=== PATIENT | female | born 1945 | race Caucasian/White ===

== ENCOUNTER 2017-05-21 08:13 | Inpatient (IN) | payer OTHER ==
[2017-05-21] MEDS ORDERED: DUONEB 0.5 MG/3 MG NEB ONE (08:57)
--- NOTE | 2017-05-21 08:58 | DR.SOBA ---
HPI - Time Seen Time seen: 08:50 - Primary Care Physician Primary Care Physician: GIOVANNI RAYA - HPI Comment HPI Comment: 72 y/o female with known hx. of COPD has been progressively SOB x 3 days but more so with exertion today. Her PCP had called in son oral antibiotics + Prednisone for her yesterday. She hasn't used the Prednisone yet but had a dose of the antibiotic last night. She has no chest pain of fever. - Complaints Chief Complaint:: PT C/O INCREASED SOB, HER SATS WERE [address] CORNELL CALLED HER IN AN ABX, AND STEROID AND SHE DID NOT TAKE IT". - Reviewed Nurses Notes Reviewed: Yes - Source History Provided: Patient - Mode of Arrival Mode of Arrival: Wheelchair - Timing Onset of Chief Complaint: 05/20/17 - Context Onset:: With Light Exertion PE Risk Factors:: None History of:: COPD Currently on:: Inhaled Bronchodilators Prehospital Care:: O2 (Home O2 dependent) - Modifying Factors Worsens:: Exertion Improves:: Nothing - Associated Signs and Symptoms Associated Signs and Symptoms: None - If Cough Cough: None PMH - PMH Past Medical History: Yes Past Medical History: Anxiety, COPD, Dyslipidemia, Hypertension Past Surgical History: Yes Surgical History: Appendectomy - Family History History of Family Medical Conditions: Yes Family Medical History: Cancer, [place], Coronary Artery Disease, Hypertension - Social History Does patient currently use any type of tobacco product: No Have you used tobacco products in the last 12 months: No How many years tobacco product used: 50 Does any household member use tobacco: No Alcohol Use: None Do you use any recreational Drugs:: No Lives With: Family Lives Where: Home - infectious screening In the last 2 months have you had wt loss of >10#?: NO Have you had fever, night sweats or hemotysis?: No Have you traveled outside the country in the last 6 months?: No Isolation: Standard ROS - Review of Systems Constitutional: No Symptoms Reported Eyes: No Symptoms Reported ENTM: No Symptoms Reported Respiratoy: Short of Breath Cardiovascular: No Symptoms Reported Gastrointestinal/Abdominal: No Symptoms Reported Genitourinary: No Symptoms Reported Neurological: No Symptoms Reported Musculoskeletal: No Symptoms Reported Integumentary: No Symptoms Reported Hematologic/Lymphatic: No Symptoms Reported Endocrine: No Symptoms Reported Psychiatric: No Symptoms Reported All Other Systems: Reviewed and Negative PE - Vital Signs Vitals: Temperature 97.7 F Pulse Rate [Right Radial] 87 Pulse Rate 109 Respiratory Rate 20 Blood Pressure [Left Arm] 144/67 Blood Pressure [Right Arm] 148/66 Blood Pressure 194/88 O2 Sat by Pulse Oximetry 97 - General Limitations: No Limitations General Appearance: Alert, In No Apparent Distress - Head Head Exam: Normal Inspection - Eyes Eye exam: Normal Appearance - ENT ENT Exam: Normal Exam - Neck Neck Exam: Normal Inspection - Chest Chest Inspection: Normal Inspection, Symmetric Chest Wall Rise, Other (clear but distant BS) - Cardiovascular Cardiovascular Exam: Regular Rate, Normal Rhythm - Abdominal Exam Abdominal Exam: Normal Inspection, Normal Bowel Sounds, Soft - Extremities Extremities Exam: Normal Inspection - Back Back Exam: Normal Inspection - Neurologic Neurological Exam: Alert, Oriented X3, CN II-XII Intact - Psychiatric Psychiatric Exam: Normal Affect, Normal Mood - Skin Skin Exam: Warm, Dry, Intact, Normal Color ROR - Labs Reviewed Result Diagrams: 05/21/17 09:15 05/21/17 09:15 Laboratory: WBC 4.4 X10^3/uL (3.6-10.0) 05/21/17 09:15 RBC 4.65 X10^6/uL (3.5-5.4) 05/21/17 09:15 Hgb 13.6 g/dL (12.0-16.0) 05/21/17 09:15 Hct 40.3 % (36.0-47.0) 05/21/17 09:15 MCV 86.7 fL (80.0-100.0) 05/21/17 09:15 MCH 29.3 pg (27.0-34.0) 05/21/17 09:15 MCHC 33.9 g/dL (33.0-35.0) 05/21/17 09:15 RDW 13.1 % (11.6-16.5) 05/21/17 09:15 Plt Count 98 X10^3/uL (150.0-450.0) L 05/21/17 09:15 MPV 10.4 fL (7.4-11.0) 05/21/17 09:15 Neut % 71.3 % (42.0-75.0) 05/21/17 09:15 Lymph % 14.9 % (21.0-51.0) L 05/21/17 09:15 Bay % 12.6 % (0.0-13.0) 05/21/17 09:15 Eos % 0.6 % (0.9-2.9) L 05/21/17 09:15 Baso % 0.6 % (0.2-1.0) 05/21/17 09:15 Neut # 3.2 x10^3/uL (2.2-4.8) 05/21/17 09:15 Lymph # 0.7 X10^3/uL (1.3-2.9) L 05/21/17 09:15 Bay # 0.6 x10^3/uL (0.3-0.8) 05/21/17 09:15 Eos # 0.0 x10^3/uL (0.0-0.2) 05/21/17 09:15 Baso # 0.0 X10^3/uL (0.0-0.1) 05/21/17 09:15 Absolute Nucleated RBC 0.0 /100WBC 05/21/17 09:15 Sample Site [facility] 05/21/17 09:45 ABG pH 7.380 (7.35-7.45) 05/21/17 09:45 ABG pCO2 64.0 mmHg (35.0-45.0) H* 05/21/17 09:45 ABG pO2 86.0 mmHg (80.0-100.0) 05/21/17 09:45 ABG HCO3 37.9 mmol/L (22-26) H* 05/21/17 09:45 ABG O2 Saturation 96.0 % (90-100) 05/21/17 09:45 ABG Base Excess 10.4 mmol/L (-2.0-2.0) H 05/21/17 09:45 Dony Test Na 05/21/17 09:45 A-a Gradient 62.0 mmHg 05/21/17 09:45 FiO2 32.000 05/21/17 09:45 Blood Gas Comments [facility] 05/21/17 09:45 Sodium 143 mmol/L (136-145) 05/21/17 09:15 Corrected Sodium TNP 05/21/17 09:15 Potassium 4.1 mmol/L (3.5-5.1) 05/21/17 09:15 Chloride 101 mmol/L (98-107) 05/21/17 09:15 Carbon Dioxide 34.9 mmol/L (21-32) H 05/21/17 09:15 BUN 9 mg/dL (7-18) 05/21/17 09:15 Creatinine 0.64 mg/dL (0.55-1.02) 05/21/17 09:15 Est GFR (MDRD) Af Amer > 60 (>60) 05/21/17 09:15 Est GFR (MDRD) Non-Af > 60 (>60) 05/21/17 09:15 Glucose 95 mg/dL (65-99) 05/21/17 09:15 Calcium 8.9 mg/dL (8.5-10.1) 05/21/17 09:15 Corrected Calcium 9.5 mg/dL (8.5-10.1) 05/21/17 09:15 Total Bilirubin 0.20 mg/dL (0.2-1.0) 05/21/17 09:15 AST 37 Units/L (15-37) 05/21/17 09:15 ALT 24 Units/L (12-78) 05/21/17 09:15 Alkaline Phosphatase 51 Units/L (46-116) 05/21/17 09:15 Creatine Kinase 160 Units/L (26-192) 05/21/17 09:15 CK-MB (CK-2) 4.6 ng/mL (0-4.0) H* 05/21/17 09:15 CK/CKMB % Calc 2.9 % (<4) 05/21/17 09:15 Troponin I 0.02 ng/mL (0-1.5) 05/21/17 09:15 Total Protein 6.6 g/dL (6.4-8.2) 05/21/17 09:15 Albumin 3.2 g/dL (3.4-5.0) L 05/21/17 09:15 Globulin 3.4 g/dL (2.5-4.5) 05/21/17 09:15 Albumin/Globulin Ratio 0.9 Ratio (1.1-2.1) L 05/21/17 09:15 - XRAY XRAY Interpreted by: Radiologist (CXR report: no acute cardiopulmonary findings. underlying COPD, interval clearing of bibasilar infiltrate, borderline cardiomegaly without vascular congestion.) - Diagnosis Discharge Problem: COPD with exacerbation, Anxiety, Hyperlipidemia, Hypertension - Discharge Plan Disposition: ADMITTED INPATIENT Condition: Stable - Follow ups/Referrals Follow ups/Referrals: Saw Cornell [Primary Care Provider] - 3 days - Instructions
[2017-05-21] MEDS ORDERED: SOLU-Medrol 40 MG VIAL IVP ONE (09:01)
[2017-05-21] MEDS ORDERED: CATAPRES TAB 0.1 MG PO ONE (09:03)
[2017-05-21] MEDS ORDERED: SOLU-Medrol 125 MG VIAL ONE (09:15)
[2017-05-21 09:24] LABS: BASOPHILS % (AUTO) 0.6 % (0.2-1.0); EOSINOPHILS % (AUTO) 0.6 % (0.9-2.9); HEMATOCRIT 40.3 % (36.0-47.0); HEMOGLOBIN 13.6 g/dL (12.0-16.0); LYMPHOCYTES # (AUTO) 0.7 X10^3/uL (1.3-2.9); LYMPHOCYTES % (AUTO) 14.9 % (21.0-51.0); MEAN CORPUSCULAR HEMOGLOBIN 29.3 pg (27.0-34.0); MEAN CORPUSCULAR HGB CONC 33.9 g/dL (33.0-35.0); MEAN CORPUSCULAR VOLUME 86.7 fL (80.0-100.0); MEAN PLATELET VOLUME 10.4 fL (7.4-11.0); MONOCYTES # (AUTO) 0.6 x10^3/uL (0.3-0.8); MONOCYTES % (AUTO) 12.6 % (0.0-13.0); NEUTROPHILS # (AUTO) 3.2 x10^3/uL (2.2-4.8); NEUTROPHILS % (AUTO) 71.3 % (42.0-75.0); PLATELET COUNT 98 X10^3/uL (150.0-450.0); RED BLOOD COUNT 4.65 X10^6/uL (3.5-5.4); RED CELL DISTRIBUTION WIDTH 13.1 % (11.6-16.5); WHITE BLOOD COUNT 4.4 X10^3/uL (3.6-10.0)
--- NOTE | 2017-05-21 09:45 | RAD ---
HISTORY: Dyspnea. COPD. Study: AP portable chest Comparison: 10/27/2015 Findings: Mild interstitial fibrosis is noted. Moderate hyperinflation is noted. Borderline cardiomegaly is p resent. Atherosclerotic changes present within the thoracic aorta. No acute bony abnormalities are identified. IMPRESSION: 1. Findings of underlying chronic obstructive pulmonary disease. 2. Interval clearing of the bibasilar atelectasis/infiltrate. 3. Borderline cardiomegaly without evidence of failure. 4. No radiographic evidence of acute cardiopulmonary disease. Reported By:
[2017-05-21 09:52] LABS: ABG BASE EXCESS 10.4 mmol/L (-2.0-2.0)
[2017-05-21 09:52] LABS: BLOOD UREA NITROGEN 9 mg/dL (7-18); CALCIUM 8.9 mg/dL (8.5-10.1); CARBON DIOXIDE 34.9 mmol/L (21-32); CHLORIDE 101 mmol/L (98-107); CREATININE 0.64 mg/dL (0.55-1.02); SODIUM 143 mmol/L (136-145); TROPONIN I 0.02 ng/mL (0-1.5); eGFR BLACK RACES > 60 (>60); eGFR NON BLACK RACES > 60 (>60)
[2017-05-21 09:54] LABS: ABG HCO3 37.9 mmol/L (22-26)
[2017-05-21 10:07] LABS: ALANINE AMINOTRANSFERASE 24 Units/L (12-78); ALBUMIN 3.2 g/dL (3.4-5.0); ALKALINE PHOSPHATASE 51 Units/L (46-116); ASPARTATE AMINO TRANSFERASE 37 Units/L (15-37); CKMB % 2.9 % (<4); COR CA(FOR HYPOALB) 9.5 mg/dL (8.5-10.1); CREATINE KINASE 160 Units/L (26-192); TOTAL PROTEIN 6.6 g/dL (6.4-8.2)
[2017-05-21 10:08] LABS: CREATINE KINASE MB 4.6 ng/mL (0-4.0)
--- NOTE | 2017-05-21 12:19 | RAD ---
Examination: Chest, PA and lateral views History: SOB Comparison reference: Earlier same date Findings: Continued normal heart size, arteriosclerotic aorta, and symmetric pulmonary hyperaeration. There is no evidence for infiltrate or pleural fluid. The central pulmonary arteries are prominent. Impression: Suspect COPD. No acute pulmonary or pleural lesion demonstrated. Reported By:
[2017-05-21] MEDS: ROBITUSSIN (PLAIN) PO SCH ×4 (12:34→20:38)
[2017-05-21] MEDS: DUONEB 0.5 MG/3 MG NEB SCH ×3 (12:53→20:24)
[2017-05-21] MEDS ORDERED: SALINE 3% 15 ML NEB TX ONE (13:02)
[2017-05-21] MEDS: NS 1000 ML 1,000 ML IV SCH (14:16)
[2017-05-21 17:22] VITALS: BMI 19.4
[2017-05-21] MEDS: PULMICORT NEB TX 0.5 MG NEB SCH (20:24)
[2017-05-21] MEDS: ROCEPHIN VIAL 1 GM 1 GM in D5W 50 ML IV 50 ML IV SCH (20:33)
[2017-05-21] MEDS ORDERED: VISTARIL PO PRN (22:51)
[2017-05-22] MEDS: DUONEB 0.5 MG/3 MG NEB SCH ×6 (01:13→20:18)
[2017-05-22 04:42] LABS: BASOPHILS % (AUTO) 0.2 % (0.2-1.0); EOSINOPHILS % (AUTO) 0.1 % (0.9-2.9); HEMOGLOBIN 11.7 g/dL (12.0-16.0); LYMPHOCYTES # (AUTO) 0.9 X10^3/uL (1.3-2.9); LYMPHOCYTES % (AUTO) 19.6 % (21.0-51.0); MEAN CORPUSCULAR HEMOGLOBIN 29.7 pg (27.0-34.0); MEAN CORPUSCULAR HGB CONC 34.3 g/dL (33.0-35.0); MEAN CORPUSCULAR VOLUME 86.4 fL (80.0-100.0); MEAN PLATELET VOLUME 11.2 fL (7.4-11.0); MONOCYTES # (AUTO) 0.5 x10^3/uL (0.3-0.8); MONOCYTES % (AUTO) 11.6 % (0.0-13.0); NEUTROPHILS # (AUTO) 3.1 x10^3/uL (2.2-4.8); NEUTROPHILS % (AUTO) 68.5 % (42.0-75.0); PLATELET COUNT 100 X10^3/uL (150.0-450.0); RED BLOOD COUNT 3.93 X10^6/uL (3.5-5.4); RED CELL DISTRIBUTION WIDTH 12.7 % (11.6-16.5); WHITE BLOOD COUNT 4.5 X10^3/uL (3.6-10.0)
[2017-05-22 05:32] LABS: AMYLASE 34 Units/L (25-115); BLOOD UREA NITROGEN 7 mg/dL (7-18); CALCIUM 8.3 mg/dL (8.5-10.1); CARBON DIOXIDE 33.7 mmol/L (21-32); CHLORIDE 106 mmol/L (98-107); CREATININE 0.52 mg/dL (0.55-1.02); LIPASE 70 Units/L (73-393); SODIUM 144 mmol/L (136-145); eGFR BLACK RACES > 60 (>60); eGFR NON BLACK RACES > 60 (>60)
[2017-05-22] MEDS: ROCEPHIN VIAL 1 GM 1 GM in D5W 50 ML IV 50 ML IV SCH ×2 (08:29→20:31)
[2017-05-22] MEDS: SOLU-Medrol 40 MG VIAL IVP SCH ×2 (08:29→17:43)
[2017-05-22] MEDS: PULMICORT NEB TX 0.5 MG NEB SCH ×2 (08:35→20:19)
[2017-05-22] MEDS: ROBITUSSIN (PLAIN) PO SCH ×4 (08:35→20:41)
--- NOTE | 2017-05-22 11:55 | DR.H&P ---
H&P - History & Physical for Day of: H&P Date: 05/21/17 - Chief Complaint Chief Complaint: SHORT OF BREATH - Allergies Allergies/Adverse Reactions: Allergies Allergy/AdvReac Type Severity Reaction Status Date / Time No Known Drug Allergies Allergy Verified 05/21/17 08:19 - History of Present Illness History of Present Illness: IS A 72 YEAR OLD PATIENT OF OURS WHO PRESENTED TO THE EMERGENCY ROOM WITH COMPLAINTS OF INCREASED SHORNTESS OF BREATH. PATIENT REPORTS THAT SYMPTOMS STARTED THREE DAYS AGO AND HAVE PROGRESSIVELY GOTTEN WORSE. SHE REPORTS THAT SHORTNESS OF BREATH IS WORSE ON EXERTION. PATIENT HAS A KNOWN HISTORY OF COPD. SHE DENIES CHEST PAIN AND FEVER. ON EXAMINATION, HEART RATE IS RAPID AND REGULAR. CHILD AND ADOLESCENT THERAPIST SHOWS SINUS TACHYCARDIA. BILATERAL LUNG SOUNDS ARE DIMINISHED. ABDOMEN IS ROUND, SOFT, AND NON-TENDER WITH NORMAL BOWEL SOUNDS NOTED IN ALL QUADRANTS. ON ARRIVAL TO THE EMERGENCY ROOM, HER VITAL SIGNS WERE NOTED TO BE 97.7-109-20-91%-194/88. LABS, CHEST XRAY, AND EKG WERE OBTAINED. ABNORMAL LAB VALUES INCLUDE THE FOLLOWING: PLT COUNT 98, CARBON DIOXIDE 34.9, CK-MB 4.6, ALBUMIN 3.2, A/G RATIO 0.9. ABG REPORTED PH 7.380, P02 64, HC03 37.9, BASE EXCESS 10.4. CHEST XRAY REPORTED FINDINGS OF UNDERLYING CHRONIC OBSTRUCTIVE PULMONARY DISEASE. INTERVAL CLEARING OF THE BIBASILAR ATELECTASIS/INFILTRATE. BORDERLINE CARDIOMEGALY WITHOUT EVIDENCE OF FAILURE. EKG REPORTED SINUS RHYTHM, PROBABLE LEFT ATRIAL ENLARGEMENT. HR 90. SHE WAS GIVEN A DUONEB X 1, SOLUMEDROL 60MG IV X 1, AND CAPAPRES TABLET 0.1MG X 1 FOR INCREASED BLOOD PRESSURE. A DECREASE IN BLOOD PRESSURE TO 139/63 WAS NOTED. NO IMPROVEMENT IN SHORNTESS OF BREATH NOTED. WE ADMITTED PATIENT FOR FURTHER EVALUATION AND TREATMENT OF AN ACUTE COPD EXACERBATION. WE WILL CONTINUE DUONEBS Q4H, PULMICORT NEB [place] BID, SOLU-MEDROL 60MG IV Q8H. WE WILL FOLLOW UP WITH AM LABS AND CHEST XRAY AND CONTINUE TO MONITOR PATIENT. - Past Medical History Past Medical History: Anxiety, COPD, Dyslipidemia, Hypertension - Past Surgical History Surgical History: Appendectomy - Family History Family Medical History: Cancer, Hypertension - Social History Does patient currently use any type of tobacco product: Yes Have you used tobacco products in the last 12 months: Yes How many years tobacco product used: 50 Does any household member use tobacco: No Alcohol Use: None Drug Use: None - Review of Systems Constitutional: Weakness Eyes: No Symptoms Reported. denies: See HPI, Pain, Vision Change, Conjunctivae Inflammation, Eyelid Inflammation, Redness, Other ENT: No Symptoms Reported. denies: See HPI, Ear Pain, Ear Discharge, Nose Pain , Nose Discharge, Nose Congestion, Mouth Pain, Mouth Swelling, Throat Pain, Throat Swelling, Other Respiratory: Shortness of Breath, SOB with Excertion. denies: Cough, Sputum, Wheezing Cardiovascular: No Symptoms Reported. denies: Chest Pain, See HPI, Palpitations , Orthopnea, Paroxysmal Noc. Dyspnea, Edema, Light Headedness, Other Gastrointestinal: No Symptoms Reported. denies: See HPI, Nausea, Vomiting, Abdominal Pain, Diarrhea, Constipation, Melena, Hematochezia, Other Genitourinary: No Symptoms Reported. denies: See HPI, Dysuria, Frequency, Incontinence, Hematuria, Retention, Other Musculoskeletal: No Symptoms Reported. denies: See HPI, Shoulder Pain, Arm Pain , Back Pain, Hand Pain, Leg Pain, Foot Pain, Neck Pain, Other Skin: No Symptoms Reported. denies: See HPI, Rash, Lesions, Jaundice, Bruising , Wound, Ecchymosis, Other Neurological: Weakness - Physical Exam Vital Signs: Temperature 98.1 F Pulse Rate [Right Radial] 75 Pulse Rate 71 Respiratory Rate 18 Blood Pressure [Left Arm] 160/65 Blood Pressure [Right Arm] 145/66 Blood Pressure 194/88 O2 Sat by Pulse Oximetry 98 Oriented: Normal. negative: Time, Person, Place, Not Oriented, Unable to test, Other Eyes: Normal. negative: Blurred Vision, Diplopia, Discharge, Pain, Redness, Photophobia, Other Ear: Normal. negative: Right, Left, Swelling, Ecchymosis, Hemotypanum, Abrasion , Laceration Nose: Normal. negative: Injected, Discharge, Blood, Other Throat: Normal. negative: Tonsillar Hypertrophy, Red, Exudate, Dry, Other Respiratory: Diminished Throughout Cardiovascular: Tachycardia : Normal. negative: Dysuria, Hematuria, Frequency, Discharge, Testicular Pain , Bleeding, , Other Auscultation: Bowel Sounds: Normal. negative: Bruit, Absent, Increased, Decreased, High Pitched, Other Palpation: Normal. negative: Spleen Enlarged, Liver Enlarged, Mass Pulsatile, Other Tenderness: Normal Skin: Normal. negative: Decreased Turgur, Rash, Papular, Macular, Maculopapular , Vesicular, Pustular, Petechial, Red, Tender, Hot, Diaphoresis, Wound, Bruising , Ecchymosis, Other Musculoskeletal: Normal Psychiatric: Normal Mood Description: Calm Affect: Normal Speech Pattern: Clear - Assessment/Plan (1) COPD with exacerbation Status: Acute Plan: DUONEBS Q4H, PULMICORT NEB [place] BID, SOLU-MEDROL 60MG IV Q8H, MONITOR LABS AND CHEST XRAY
[2017-05-22] MEDS: NS 1000 ML 1,000 ML IV SCH ×2 (12:37→15:33)
[2017-05-22] MEDS: KLONOPIN TAB 0.5 MG PO SCH (20:33)
--- NOTE | 2017-05-22 21:42 | PCM.PROG ---
Progress Note - Progress Note for Day of Date: 05/22/17 - Subjective Subjective: WAS ADMITTED FOR COPD EXACERBATION. TODAY, SHE IS ALERT AND ORIENTED, LYING IN BED ON MORNING ROUNDS. PATIENT CONTINUES WITH COMPLAINTS OF SHORNTESS OF BREATH. SHE REPORTS SLIGHT IMPROVEMENT SINCE YESTERDAY. ON EXAMINATION, HEART IS NORMAL IN RATE AND RHYTHM. LUNG SOUNDS ARE DIMINISHED THROUGHOUT. SHE IS NOTED TO BE UTILIZING OXYGEN VIA NASAL CANNULA AT 2L/MIN. ABDOMEN IS ROUND, SOFT, AND NON-TENDER WITH NORMAL BOWEL SOUNDS NOTED IN ALL QUADRANTS. GOOD MOVEMENT NOTED IN ALL EXTREMITIES. HER VITAL SIGNS THIS MORNING ARE 98.6-71-20-98%-134/60. ABNORMAL LAB VALUES TODAY INCLUDE THE FOLLOWING? HGB 11.7, HCT 34.0, CARBON DIOXIDE 33.7, CREATININE 0.52, GLUCOSE 101, CALCIUM 8.3, LIPASE 70. SHE IS CURRENTLY RECEIVING NEB TREATMENTS AND SOLUMEDROL 60MG IV Q8H. WE WILL CONTINUE [facility] CURRENT PLAN OF CARE TODAY. WE PLAN TO FOLLOW UP WITH AM LABS AND CONTINUE TO MONITOR PATIENT. - Past Medical Family Social History Past Med/Fam/Surg Hx: No changes since H&P Allergies: Allergies No Known Drug Allergies Allergy (Verified 05/21/17 08:19) - Review of Systems ROS: No change since H&P - Vital Signs and I&O's Vital Signs: Temperature 98.6 F Pulse Rate [Right Radial] 71 Pulse Rate 88 Respiratory Rate 20 Blood Pressure [Left Arm] 169/72 Blood Pressure [Right Arm] 145/66 Blood Pressure 194/88 O2 Sat by Pulse Oximetry 92 Intake and Output: Intake & Output 05/20/17 05/21/17 05/22/17 05/23/17 11:59 11:59 11:59 11:59 Intake Total 2400 1326 Balance 2400 1326 - Physical Exam Oriented: Normal. negative: Time, Person, Place, Not Oriented, Unable to test, Other Eyes: Normal. negative: Blurred Vision, Diplopia, Discharge, Pain, Redness, Photophobia, Other Ear: Normal. negative: Right, Left, Swelling, Ecchymosis, Hemotypanum, Abrasion , Laceration Nose: Normal. negative: Injected, Discharge, Blood, Other Throat: Normal. negative: Tonsillar Hypertrophy, Red, Exudate, Dry, Other Respiratory: Right, Left, Generalized, Diminished Cardiovascular: Normal : Normal. negative: Dysuria, Hematuria, Frequency, Discharge, Testicular Pain , Bleeding, , Other Auscultation: Bowel Sounds: Normal. negative: Bruit, Absent, Increased, Decreased, High Pitched, Other Palpation: Normal Tenderness: Normal Skin: Normal. negative: Decreased Turgur, Rash, Papular, Macular, Maculopapular , Vesicular, Pustular, Petechial, Red, Tender, Hot, Diaphoresis, Wound, Bruising , Ecchymosis, Other Musculoskeletal: Normal Psychiatric: Normal Mood Description: Calm Affect: Normal Speech Pattern: Clear - Laboratory and Diagnostics Result Diagrams: 05/22/17 03:30 05/22/17 03:30 Labs: 05/21/17 13:28 Sputum - Expectorated Sputum Sputum Culture - Preliminary 05/21/17 13:28 Sputum - Expectorated Sputum - Final Laboratory WBC 4.5 X10^3/uL (3.6-10.0) 05/22/17 03:30 RBC 3.93 X10^6/uL (3.5-5.4) 05/22/17 03:30 Hgb 11.7 g/dL (12.0-16.0) L 05/22/17 03:30 Hct 34.0 % (36.0-47.0) L 05/22/17 03:30 MCV 86.4 fL (80.0-100.0) 05/22/17 03:30 MCH 29.7 pg (27.0-34.0) 05/22/17 03:30 MCHC 34.3 g/dL (33.0-35.0) 05/22/17 03:30 RDW 12.7 % (11.6-16.5) 05/22/17 03:30 Plt Count 100 X10^3/uL (150.0-450.0) L 05/22/17 03:30 MPV 11.2 fL (7.4-11.0) H 05/22/17 03:30 Neut % 68.5 % (42.0-75.0) 05/22/17 03:30 Lymph % 19.6 % (21.0-51.0) L 05/22/17 03:30 Luce % 11.6 % (0.0-13.0) 05/22/17 03:30 Eos % 0.1 % (0.9-2.9) L 05/22/17 03:30 Baso % 0.2 % (0.2-1.0) 05/22/17 03:30 Neut # 3.1 x10^3/uL (2.2-4.8) 05/22/17 03:30 Lymph # 0.9 X10^3/uL (1.3-2.9) L 05/22/17 03:30 Luce # 0.5 x10^3/uL (0.3-0.8) 05/22/17 03:30 Eos # 0.0 x10^3/uL (0.0-0.2) 05/22/17 03:30 Baso # 0.0 X10^3/uL (0.0-0.1) 05/22/17 03:30 Absolute Nucleated RBC 0.0 /100WBC 05/22/17 03:30 Sample Site [facility] 05/21/17 09:45 ABG pH 7.380 (7.35-7.45) 05/21/17 09:45 ABG pCO2 64.0 mmHg (35.0-45.0) H* 05/21/17 09:45 ABG pO2 86.0 mmHg (80.0-100.0) 05/21/17 09:45 ABG HCO3 37.9 mmol/L (22-26) H* 05/21/17 09:45 ABG O2 Saturation 96.0 % (90-100) 05/21/17 09:45 ABG Base Excess 10.4 mmol/L (-2.0-2.0) H 05/21/17 09:45 Dony Test Na 05/21/17 09:45 A-a Gradient 62.0 mmHg 05/21/17 09:45 FiO2 32.000 05/21/17 09:45 Blood Gas Comments [facility] 05/21/17 09:45 Sodium 144 mmol/L (136-145) 05/22/17 03:30 Corrected Sodium TNP 05/22/17 03:30 Potassium 3.7 mmol/L (3.5-5.1) 05/22/17 03:30 Chloride 106 mmol/L (98-107) 05/22/17 03:30 Carbon Dioxide 33.7 mmol/L (21-32) H 05/22/17 03:30 BUN 7 mg/dL (7-18) 05/22/17 03:30 Creatinine 0.52 mg/dL (0.55-1.02) L 05/22/17 03:30 Est GFR (MDRD) Af Amer > 60 (>60) 05/22/17 03:30 Est GFR (MDRD) Non-Af > 60 (>60) 05/22/17 03:30 Glucose 101 mg/dL (65-99) H 05/22/17 03:30 Calcium 8.3 mg/dL (8.5-10.1) L 05/22/17 03:30 Corrected Calcium 9.5 mg/dL (8.5-10.1) 05/21/17 09:15 Total Bilirubin 0.20 mg/dL (0.2-1.0) 05/21/17 09:15 AST 37 Units/L (15-37) 05/21/17 09:15 ALT 24 Units/L (12-78) 05/21/17 09:15 Alkaline Phosphatase 51 Units/L (46-116) 05/21/17 09:15 Creatine Kinase 160 Units/L (26-192) 05/21/17 09:15 CK-MB (CK-2) 4.6 ng/mL (0-4.0) H* 05/21/17 09:15 CK/CKMB % Calc 2.9 % (<4) 05/21/17 09:15 Troponin I 0.02 ng/mL (0-1.5) 05/21/17 09:15 Total Protein 6.6 g/dL (6.4-8.2) 05/21/17 09:15 Albumin 3.2 g/dL (3.4-5.0) L 05/21/17 09:15 Globulin 3.4 g/dL (2.5-4.5) 05/21/17 09:15 Albumin/Globulin Ratio 0.9 Ratio (1.1-2.1) L 05/21/17 09:15 Amylase 34 Units/L (25-115) 05/22/17 03:30 Lipase 70 Units/L (73-393) L 05/22/17 03:30 - Plan (1) COPD with exacerbation Status: Acute Plan: DUONEBS Q4H, PULMICORT NEB [place] BID, SOLU-MEDROL 60MG IV Q8H, MONITOR LABS AND CHEST XRAY
[2017-05-23] MEDS: DUONEB 0.5 MG/3 MG NEB SCH ×6 (01:18→21:02)
[2017-05-23] MEDS: SOLU-Medrol 40 MG VIAL IVP SCH ×3 (02:00→17:34)
[2017-05-23] MEDS: NS 1000 ML 1,000 ML IV SCH ×3 (02:03→17:36)
[2017-05-23 05:13] LABS: BASOPHILS % (AUTO) 0.2 % (0.2-1.0); HEMOGLOBIN 12.5 g/dL (12.0-16.0); LYMPHOCYTES # (AUTO) 0.6 X10^3/uL (1.3-2.9); LYMPHOCYTES % (AUTO) 9.9 % (21.0-51.0); MEAN CORPUSCULAR HEMOGLOBIN 29.4 pg (27.0-34.0); MEAN CORPUSCULAR HGB CONC 33.7 g/dL (33.0-35.0); MEAN CORPUSCULAR VOLUME 87.2 fL (80.0-100.0); MEAN PLATELET VOLUME 11.3 fL (7.4-11.0); MONOCYTES # (AUTO) 0.2 x10^3/uL (0.3-0.8); MONOCYTES % (AUTO) 2.9 % (0.0-13.0); NEUTROPHILS # (AUTO) 5.5 x10^3/uL (2.2-4.8); PLATELET COUNT 125 X10^3/uL (150.0-450.0); RED BLOOD COUNT 4.24 X10^6/uL (3.5-5.4); WHITE BLOOD COUNT 6.4 X10^3/uL (3.6-10.0)
[2017-05-23 05:30] LABS: ALANINE AMINOTRANSFERASE 21 Units/L (12-78); ALBUMIN 2.8 g/dL (3.4-5.0); ALKALINE PHOSPHATASE 49 Units/L (46-116); ASPARTATE AMINO TRANSFERASE 27 Units/L (15-37); BLOOD UREA NITROGEN 11 mg/dL (7-18); CALCIUM 8.5 mg/dL (8.5-10.1); CARBON DIOXIDE 35.8 mmol/L (21-32); CHLORIDE 106 mmol/L (98-107); COR CA(FOR HYPOALB) 9.5 mg/dL (8.5-10.1); COR NA(FOR HYPERGLY) 146 mmol/L (136-145); SODIUM 145 mmol/L (136-145); TOTAL PROTEIN 6.2 g/dL (6.4-8.2); eGFR BLACK RACES > 60 (>60); eGFR NON BLACK RACES > 60 (>60)
--- NOTE | 2017-05-23 06:07 | RAD ---
Examination: Portable AP chest History: SOB Comparison reference 05/21/2017 Findings: Continued normal heart size with hyperaerated lungs. No infiltrates, pneumothorax or pleura l fluid. Impression: No change. Pulmonary hyperaeration consistent with COPD. Reported By:
[2017-05-23] MEDS: PULMICORT NEB TX 0.5 MG NEB SCH ×2 (08:30→21:02)
[2017-05-23] MEDS: ROCEPHIN VIAL 1 GM 1 GM in D5W 50 ML IV 50 ML IV SCH ×2 (08:50→20:28)
[2017-05-23] MEDS: ROBITUSSIN (PLAIN) PO SCH ×4 (10:01→20:27)
[2017-05-23] MEDS: MILK OF MAGNESIA PO SCH ×3 (11:48→20:28)
[2017-05-23] MEDS: COLACE CAP 100 MG PO SCH ×2 (11:48→20:27)
[2017-05-23] MEDS ORDERED: XANAX PO PRN (14:20)
[2017-05-23] MEDS ORDERED: THEOPHYLLINE 200 MG PO SCH (14:30)
[2017-05-23] MEDS ORDERED: TIOTROPIUM BROMIDE MONOHYDRATE IN SCH (14:30)
[2017-05-23] MEDS ORDERED: PATIENT'S HOME MEDICATION (Amlodipine Besylate [Amlodipine Besylate] 5 MG) PO SCH (14:30)
[2017-05-23] MEDS: UNIPHYL TAB 400 MG PO SCH (17:35)
[2017-05-23] MEDS: KLONOPIN TAB 0.5 MG PO SCH (20:27)
[2017-05-23] MEDS: LIPITOR TAB 20 MG PO SCH (20:28)
[2017-05-23] MEDS ORDERED: PATIENT'S HOME MEDICATION (Fenofibrate [Fenofibrate] 54 MG) PO SCH (21:00)
--- NOTE | 2017-05-23 21:28 | PCM.PROG ---
Progress Note - Progress Note for Day of Date: 05/23/17 - Subjective Subjective: WAS ADMITTED FOR COPD EXACERBATION. TODAY, SHE IS ALERT AND ORIENTED, LYING IN BED ON MORNING ROUNDS. PATIENT CONTINUES WITH COMPLAINTS OF SHORNTESS OF BREATH, COUGH, AND WEAKNESS. ON EXAMINATION, HEART IS NORMAL IN RATE AND RHYTHM. LUNG SOUNDS ARE DIMINISHED THROUGHOUT. SHE IS NOTED TO BE UTILIZING OXYGEN VIA NASAL CANNULA AT 2L/MIN. ABDOMEN IS ROUND, SOFT, AND NON- TENDER WITH NORMAL BOWEL SOUNDS NOTED IN ALL QUADRANTS. GOOD MOVEMENT NOTED IN ALL EXTREMITIES. HER VITAL SIGNS THIS MORNING ARE 97.6-72-18-100%-182/73. ABNORMAL LAB VALUES TODAY INCLUDE THE FOLLOWING? PLT COUNT 125, SODIUM 146, CARBON DIOXIDE 35.8, GLUCOSE 130, TOTAL BILI 0.10, TOTAL PROTEIN 6.2, ALBUMIN 2.8. A CHEST XRAY WAS OBTAINED THIS MORNING AND REPORTED PULMONARY HYPERAERATION CONSISTENT WITH COPD. SHE IS CURRENTLY RECEIVING NEB TREATMENTS AND SOLUMEDROL 60MG IV Q8H. WE WILL CONTINUE WITH CURRENT PLAN OF CARE TODAY. WE PLAN TO FOLLOW UP WITH AM LABS AND CONTINUE TO MONITOR PATIENT. - Past Medical Family Social History Past Med/Fam/Surg Hx: No changes since H&P Allergies: Allergies No Known Drug Allergies Allergy (Verified 05/21/17 08:19) - Review of Systems ROS: No change since H&P - Vital Signs and I&O's Vital Signs: Temperature 98.7 F Pulse Rate [Right Radial] 67 Pulse Rate 67 Respiratory Rate 20 Blood Pressure [Left Arm] 183/70 Blood Pressure [Right Arm] 149/56 Blood Pressure 194/88 O2 Sat by Pulse Oximetry 97 Intake and Output: Intake & Output 05/21/17 05/22/17 05/23/17 05/24/17 11:59 11:59 11:59 11:59 Intake Total 2400 2556 1883 Balance 2400 2556 1883 - Physical Exam Oriented: Normal. negative: Time, Person, Place, Not Oriented, Unable to test, Other Eyes: Normal. negative: Blurred Vision, Diplopia, Discharge, Pain, Redness, Photophobia, Other Ear: Normal. negative: Right, Left, Swelling, Ecchymosis, Hemotypanum, Abrasion , Laceration Nose: Normal. negative: Injected, Discharge, Blood, Other Throat: Normal. negative: Tonsillar Hypertrophy, Red, Exudate, Dry, Other Respiratory: Right, Left, Generalized, Diminished Cardiovascular: Normal : Normal. negative: Dysuria, Hematuria, Frequency, Discharge, Testicular Pain , Bleeding, , Other Auscultation: Bowel Sounds: Normal. negative: Bruit, Absent, Increased, Decreased, High Pitched, Other Palpation: Normal Tenderness: Normal Skin: Normal. negative: Decreased Turgur, Rash, Papular, Macular, Maculopapular , Vesicular, Pustular, Petechial, Red, Tender, Hot, Diaphoresis, Wound, Bruising , Ecchymosis, Other Musculoskeletal: Normal Psychiatric: Normal Mood Description: Calm Affect: Normal Speech Pattern: Clear, Appropriate - Laboratory and Diagnostics Result Diagrams: 05/23/17 03:35 05/23/17 03:35 Labs: 05/21/17 13:28 Sputum - Expectorated Sputum Sputum Culture - Final 05/21/17 13:28 Sputum - Expectorated Sputum - Final Laboratory WBC 6.4 X10^3/uL (3.6-10.0) 05/23/17 03:35 RBC 4.24 X10^6/uL (3.5-5.4) 05/23/17 03:35 Hgb 12.5 g/dL (12.0-16.0) 05/23/17 03:35 Hct 37.0 % (36.0-47.0) 05/23/17 03:35 MCV 87.2 fL (80.0-100.0) 05/23/17 03:35 MCH 29.4 pg (27.0-34.0) 05/23/17 03:35 MCHC 33.7 g/dL (33.0-35.0) 05/23/17 03:35 RDW 13.0 % (11.6-16.5) 05/23/17 03:35 Plt Count 125 X10^3/uL (150.0-450.0) L 05/23/17 03:35 MPV 11.3 fL (7.4-11.0) H 05/23/17 03:35 Neut % 87.0 % (42.0-75.0) H 05/23/17 03:35 Lymph % 9.9 % (21.0-51.0) L 05/23/17 03:35 [place] % 2.9 % (0.0-13.0) 05/23/17 03:35 Eos % 0.0 % (0.9-2.9) L 05/23/17 03:35 Baso % 0.2 % (0.2-1.0) 05/23/17 03:35 Neut # 5.5 x10^3/uL (2.2-4.8) H 05/23/17 03:35 Lymph # 0.6 X10^3/uL (1.3-2.9) L 05/23/17 03:35 [place] # 0.2 x10^3/uL (0.3-0.8) L 05/23/17 03:35 Eos # 0.0 x10^3/uL (0.0-0.2) 05/23/17 03:35 Baso # 0.0 X10^3/uL (0.0-0.1) 05/23/17 03:35 Absolute Nucleated RBC 0.0 /100WBC 05/23/17 03:35 [facility] 05/21/17 09:45 ABG pH 7.380 (7.35-7.45) 05/21/17 09:45 ABG pCO2 64.0 mmHg (35.0-45.0) H* 05/21/17 09:45 ABG pO2 86.0 mmHg (80.0-100.0) 05/21/17 09:45 ABG HCO3 37.9 mmol/L (22-26) H* 05/21/17 09:45 ABG O2 Saturation 96.0 % (90-100) 05/21/17 09:45 ABG Base Excess 10.4 mmol/L (-2.0-2.0) H 05/21/17 09:45 Dony Test Na 05/21/17 09:45 A-a Gradient 62.0 mmHg 05/21/17 09:45 FiO2 32.000 05/21/17 09:45 Blood Gas Comments [facility] 05/21/17 09:45 Sodium 145 mmol/L (136-145) 05/23/17 03:35 Corrected Sodium 146 mmol/L (136-145) H 05/23/17 03:35 Potassium 5.0 mmol/L (3.5-5.1) 05/23/17 03:35 Chloride 106 mmol/L (98-107) 05/23/17 03:35 Carbon Dioxide 35.8 mmol/L (21-32) H 05/23/17 03:35 BUN 11 mg/dL (7-18) 05/23/17 03:35 Creatinine 0.70 mg/dL (0.55-1.02) 05/23/17 03:35 Est GFR (MDRD) Af Amer > 60 (>60) 05/23/17 03:35 Est GFR (MDRD) Non-Af > 60 (>60) 05/23/17 03:35 Glucose 130 mg/dL (65-99) H 05/23/17 03:35 Calcium 8.5 mg/dL (8.5-10.1) 05/23/17 03:35 Corrected Calcium 9.5 mg/dL (8.5-10.1) 05/23/17 03:35 Total Bilirubin 0.10 mg/dL (0.2-1.0) L 05/23/17 03:35 AST 27 Units/L (15-37) 05/23/17 03:35 ALT 21 Units/L (12-78) 05/23/17 03:35 Alkaline Phosphatase 49 Units/L (46-116) 05/23/17 03:35 Creatine Kinase 160 Units/L (26-192) 05/21/17 09:15 CK-MB (CK-2) 4.6 ng/mL (0-4.0) H* 05/21/17 09:15 CK/CKMB % Calc 2.9 % (<4) 05/21/17 09:15 Troponin I 0.02 ng/mL (0-1.5) 05/21/17 09:15 Total Protein 6.2 g/dL (6.4-8.2) L 05/23/17 03:35 Albumin 2.8 g/dL (3.4-5.0) L 05/23/17 03:35 Globulin 3.4 g/dL (2.5-4.5) 05/23/17 03:35 Albumin/Globulin Ratio 0.8 Ratio (1.1-2.1) L 05/23/17 03:35 Amylase 34 Units/L (25-115) 05/22/17 03:30 Lipase 70 Units/L (73-393) L 05/22/17 03:30 - Plan (1) COPD with exacerbation Status: Acute Plan: DUONEBS Q4H, PULMICORT NEB TX BID, SOLU-MEDROL 60MG IV Q8H, MONITOR LABS AND CHEST XRAY
[2017-05-23] MEDS ORDERED: XOPENEX 1.25 MG/3 ML NEBULE NEB SCH (22:00)
[2017-05-24] MEDS: DUONEB 0.5 MG/3 MG NEB SCH ×6 (01:08→21:25)
[2017-05-24] MEDS: SOLU-Medrol 40 MG VIAL IVP SCH ×3 (01:22→17:44)
[2017-05-24 04:46] LABS: ALANINE AMINOTRANSFERASE 18 Units/L (12-78); ALBUMIN 2.5 g/dL (3.4-5.0); ALKALINE PHOSPHATASE 50 Units/L (46-116); ASPARTATE AMINO TRANSFERASE 24 Units/L (15-37); BLOOD UREA NITROGEN 14 mg/dL (7-18); CALCIUM 8.1 mg/dL (8.5-10.1); CARBON DIOXIDE 35.2 mmol/L (21-32); CHLORIDE 106 mmol/L (98-107); COR CA(FOR HYPOALB) 9.3 mg/dL (8.5-10.1); COR NA(FOR HYPERGLY) 145 mmol/L (136-145); SODIUM 144 mmol/L (136-145); TOTAL PROTEIN 5.5 g/dL (6.4-8.2); eGFR BLACK RACES > 60 (>60); eGFR NON BLACK RACES > 60 (>60)
[2017-05-24 04:48] LABS: BASOPHILS % (AUTO) 0.2 % (0.2-1.0); HEMATOCRIT 32.6 % (36.0-47.0); HEMOGLOBIN 11.3 g/dL (12.0-16.0); LYMPHOCYTES # (AUTO) 0.6 X10^3/uL (1.3-2.9); LYMPHOCYTES % (AUTO) 7.3 % (21.0-51.0); MEAN CORPUSCULAR HEMOGLOBIN 29.6 pg (27.0-34.0); MEAN CORPUSCULAR HGB CONC 34.5 g/dL (33.0-35.0); MEAN CORPUSCULAR VOLUME 85.8 fL (80.0-100.0); MEAN PLATELET VOLUME 11.3 fL (7.4-11.0); MONOCYTES # (AUTO) 0.2 x10^3/uL (0.3-0.8); MONOCYTES % (AUTO) 2.5 % (0.0-13.0); NEUTROPHILS # (AUTO) 7.8 x10^3/uL (2.2-4.8); PLATELET COUNT 133 X10^3/uL (150.0-450.0); WHITE BLOOD COUNT 8.6 X10^3/uL (3.6-10.0)
[2017-05-24] MEDS ORDERED: NS 1/2 1000 ML IV 1,000 ML IV ONE (05:14)
[2017-05-24] MEDS: NS 1000 ML 1,000 ML IV SCH ×3 (05:22→20:37)
[2017-05-24] MEDS: PULMICORT NEB TX 0.5 MG NEB SCH ×2 (08:32→21:25)
--- NOTE | 2017-05-24 08:43 | RAD ---
Examination: Portable AP chest History: SOB Comparison reference: 05/23/2017 Findings: Continued normal heart size with hyperaerated lungs. Interval development of small areas of subsegmental atelectasis in the right base. No evidence for pneumothorax or pleural fluid. Carotid/v ascular calcification is noted in the right neck. Impression: Interval appearance of mild discoid atelectasis right lung base. No change otherwise. Reported By:
[2017-05-24] MEDS: ROCEPHIN VIAL 1 GM 1 GM in D5W 50 ML IV 50 ML IV SCH ×2 (09:13→20:37)
[2017-05-24] MEDS: ROBITUSSIN (PLAIN) PO SCH ×4 (09:14→20:38)
[2017-05-24] MEDS: MILK OF MAGNESIA PO SCH ×2 (09:14→20:40)
[2017-05-24] MEDS: TRICOR TAB 48 MG PO SCH (09:15)
[2017-05-24] MEDS: UNIPHYL TAB 400 MG PO SCH (09:15)
[2017-05-24] MEDS: NORVASC TAB 5 MG PO SCH (09:15)
[2017-05-24] MEDS: COLACE CAP 100 MG PO SCH (20:37)
[2017-05-24] MEDS: LIPITOR TAB 20 MG PO SCH (20:38)
[2017-05-24] MEDS: KLONOPIN TAB 0.5 MG PO SCH (20:38)
--- NOTE | 2017-05-24 23:38 | PCM.PROG ---
Progress Note - Progress Note for Day of Date: 05/24/17 - Subjective Subjective: WAS ADMITTED FOR COPD EXACERBATION. TODAY, SHE IS ALERT AND ORIENTED, LYING IN BED ON MORNING ROUNDS. PATIENT CONTINUES WITH COMPLAINTS OF SHORNTESS OF BREATH, COUGH, AND WEAKNESS. SHE REPORTS THAT SYMPTOMS ARE WORSE TODAY THAN YESTERDAY. SHE REPORTS THAT SHORNTESS OF BREATH IS WORSE ON EXERTION. ON EXAMINATION, HEART IS NORMAL IN RATE AND RHYTHM. LUNG SOUNDS ARE DIMINISHED THROUGHOUT. SHE IS NOTED TO BE UTILIZING OXYGEN VIA NASAL CANNULA AT 2L/MIN. ABDOMEN IS ROUND, SOFT, AND NON-TENDER WITH NORMAL BOWEL SOUNDS NOTED IN ALL QUADRANTS. GOOD MOVEMENT NOTED IN ALL EXTREMITIES. HER VITAL SIGNS THIS MORNING ARE 97.7-68-20-98%-165/72. ABNORMAL LAB VALUES TODAY INCLUDE THE FOLLOWING: HGB 11.3, HCT 32.6, PLT COUNT 136, SODIUM 146, CARBON DIOXIDE 35.2, GLUCOSE 130, TOTAL BILI 0.10, TOTAL PROTEIN 5.5, ALBUMIN 2.5. A CHEST XRAY WAS OBTAINED THIS MORNING AND REPORTED INTERVAL APPEARANCE OF MILD DISCOID ATELECTASIS RIGHT LUNG BASE. NO CHANGE OTHERWISE. SHE IS CURRENTLY RECEIVING NEB TREATMENTS, ROCEPHIN 1GM IV DAILY, AND SOLUMEDROL 60MG IV Q8H. WE WILL CONTINUE WITH CURRENT PLAN OF CARE TODAY, WE FEEL THAT PATIENT WILL BENEFIT FROM FURTHER INTRAVENOUS ANTIBIOTICS AND STERIODS. WE PLAN TO FOLLOW UP WITH AM LABS AND CONTINUE TO MONITOR PATIENT. - Past Medical Family Social History Past Med/Fam/Surg Hx: No changes since H&P Allergies: Allergies No Known Drug Allergies Allergy (Verified 05/21/17 08:19) - Review of Systems ROS: No change since H&P - Vital Signs and I&O's Vital Signs: Temperature 97.4 F Pulse Rate [Right Radial] 87 Pulse Rate 86 Respiratory Rate 20 Blood Pressure [Left Arm] 183/70 Blood Pressure [Right Arm] 170/72 Blood Pressure 194/88 O2 Sat by Pulse Oximetry 95 Intake and Output: Intake & Output 05/22/17 05/23/17 05/24/17 05/25/17 11:59 11:59 11:59 11:59 Intake Total 2400 2556 3483 720 Balance 2400 2556 3483 720 - Physical Exam Oriented: Normal. negative: Time, Person, Place, Not Oriented, Unable to test, Other Eyes: Normal. negative: Blurred Vision, Diplopia, Discharge, Pain, Redness, Photophobia, Other Ear: Normal. negative: Right, Left, Swelling, Ecchymosis, Hemotypanum, Abrasion , Laceration Nose: Normal. negative: Injected, Discharge, Blood, Other Throat: Normal. negative: Tonsillar Hypertrophy, Red, Exudate, Dry, Other Respiratory: Right, Left, Generalized, Diminished Cardiovascular: Normal : Normal. negative: Dysuria, Hematuria, Frequency, Discharge, Testicular Pain , Bleeding, , Other Auscultation: Bowel Sounds: Normal. negative: Bruit, Absent, Increased, Decreased, High Pitched, Other Palpation: Normal Tenderness: Normal Skin: Normal. negative: Decreased Turgur, Rash, Papular, Macular, Maculopapular , Vesicular, Pustular, Petechial, Red, Tender, Hot, Diaphoresis, Wound, Bruising , Ecchymosis, Other Musculoskeletal: Normal Psychiatric: Normal Mood Description: Calm Affect: Normal Speech Pattern: Clear, Appropriate - Laboratory and Diagnostics Result Diagrams: 05/24/17 03:15 05/24/17 03:15 Labs: 05/21/17 13:28 Sputum - Expectorated Sputum Sputum Culture - Final 05/21/17 13:28 Sputum - Expectorated Sputum - Final Laboratory WBC 8.6 X10^3/uL (3.6-10.0) 05/24/17 03:15 RBC 3.80 X10^6/uL (3.5-5.4) 05/24/17 03:15 Hgb 11.3 g/dL (12.0-16.0) L 05/24/17 03:15 Hct 32.6 % (36.0-47.0) L 05/24/17 03:15 MCV 85.8 fL (80.0-100.0) 05/24/17 03:15 MCH 29.6 pg (27.0-34.0) 05/24/17 03:15 MCHC 34.5 g/dL (33.0-35.0) 05/24/17 03:15 RDW 13.0 % (11.6-16.5) 05/24/17 03:15 Plt Count 133 X10^3/uL (150.0-450.0) L 05/24/17 03:15 MPV 11.3 fL (7.4-11.0) H 05/24/17 03:15 Neut % 90.0 % (42.0-75.0) H 05/24/17 03:15 Lymph % 7.3 % (21.0-51.0) L 05/24/17 03:15 [place] % 2.5 % (0.0-13.0) 05/24/17 03:15 Eos % 0.0 % (0.9-2.9) L 05/24/17 03:15 Baso % 0.2 % (0.2-1.0) 05/24/17 03:15 Neut # 7.8 x10^3/uL (2.2-4.8) H 05/24/17 03:15 Lymph # 0.6 X10^3/uL (1.3-2.9) L 05/24/17 03:15 [place] # 0.2 x10^3/uL (0.3-0.8) L 05/24/17 03:15 Eos # 0.0 x10^3/uL (0.0-0.2) 05/24/17 03:15 Baso # 0.0 X10^3/uL (0.0-0.1) 05/24/17 03:15 Absolute Nucleated RBC 0.0 /100WBC 05/24/17 03:15 Sample Site [facility] 05/21/17 09:45 ABG pH 7.380 (7.35-7.45) 05/21/17 09:45 ABG pCO2 64.0 mmHg (35.0-45.0) H* 05/21/17 09:45 ABG pO2 86.0 mmHg (80.0-100.0) 05/21/17 09:45 ABG HCO3 37.9 mmol/L (22-26) H* 05/21/17 09:45 ABG O2 Saturation 96.0 % (90-100) 05/21/17 09:45 ABG Base Excess 10.4 mmol/L (-2.0-2.0) H 05/21/17 09:45 Dony Test Na 05/21/17 09:45 A-a Gradient 62.0 mmHg 05/21/17 09:45 FiO2 32.000 05/21/17 09:45 Blood Gas Comments [facility] 05/21/17 09:45 Sodium 144 mmol/L (136-145) 05/24/17 03:15 Corrected Sodium 145 mmol/L (136-145) 05/24/17 03:15 Potassium 3.5 mmol/L (3.5-5.1) 05/24/17 03:15 Chloride 106 mmol/L (98-107) 05/24/17 03:15 Carbon Dioxide 35.2 mmol/L (21-32) H 05/24/17 03:15 BUN 14 mg/dL (7-18) 05/24/17 03:15 Creatinine 0.60 mg/dL (0.55-1.02) 05/24/17 03:15 Est GFR (MDRD) Af Amer > 60 (>60) 05/24/17 03:15 Est GFR (MDRD) Non-Af > 60 (>60) 05/24/17 03:15 Glucose 130 mg/dL (65-99) H 05/24/17 03:15 Calcium 8.1 mg/dL (8.5-10.1) L 05/24/17 03:15 Corrected Calcium 9.3 mg/dL (8.5-10.1) 05/24/17 03:15 Total Bilirubin 0.10 mg/dL (0.2-1.0) L 05/24/17 03:15 AST 24 Units/L (15-37) 05/24/17 03:15 ALT 18 Units/L (12-78) 05/24/17 03:15 Alkaline Phosphatase 50 Units/L (46-116) 05/24/17 03:15 Creatine Kinase 160 Units/L (26-192) 05/21/17 09:15 CK-MB (CK-2) 4.6 ng/mL (0-4.0) H* 05/21/17 09:15 CK/CKMB % Calc 2.9 % (<4) 05/21/17 09:15 Troponin I 0.02 ng/mL (0-1.5) 05/21/17 09:15 Total Protein 5.5 g/dL (6.4-8.2) L 05/24/17 03:15 Albumin 2.5 g/dL (3.4-5.0) L 05/24/17 03:15 Globulin 3.0 g/dL (2.5-4.5) 05/24/17 03:15 Albumin/Globulin Ratio 0.8 Ratio (1.1-2.1) L 05/24/17 03:15 Amylase 34 Units/L (25-115) 05/22/17 03:30 Lipase 70 Units/L (73-393) L 05/22/17 03:30 - Plan (1) COPD with exacerbation Status: Acute Plan: DUONEBS Q4H, PULMICORT NEB TX BID, THEOPHYLLINE 400MG PO DAILY, SOLU- MEDROL 60MG IV Q8H, MONITOR LABS AND CHEST XRAY (2) Anxiety Status: Chronic Plan: CONTINUE XANAX, CONTINUE KLONOPIN, CONTINUE TO MONITOR (3) Hyperlipidemia Status: Chronic Qualifiers: Hyperlipidemia type: mixed hyperlipidemia Plan: CONTINUE TRICOR, CONTINUE LIPITOR, CONTINUE TO MONITOR (4) Hypertension Status: Chronic Qualifiers: Hypertension type: essential hypertension Qualified Code(s): I10 - Essential (primary) hypertension Plan: CONTINUE NORVASC, CONTINUE TO MONITOR
[2017-05-25] MEDS: DUONEB 0.5 MG/3 MG NEB SCH ×6 (01:20→21:48)
[2017-05-25] MEDS: SOLU-Medrol 40 MG VIAL IVP SCH (01:27)
[2017-05-25 04:40] LABS: BASOPHILS % (AUTO) 0.1 % (0.2-1.0); HEMATOCRIT 34.8 % (36.0-47.0); HEMOGLOBIN 11.9 g/dL (12.0-16.0); LYMPHOCYTES # (AUTO) 0.9 X10^3/uL (1.3-2.9); LYMPHOCYTES % (AUTO) 9.5 % (21.0-51.0); MEAN CORPUSCULAR HEMOGLOBIN 29.5 pg (27.0-34.0); MEAN CORPUSCULAR HGB CONC 34.3 g/dL (33.0-35.0); MEAN CORPUSCULAR VOLUME 86.1 fL (80.0-100.0); MEAN PLATELET VOLUME 10.7 fL (7.4-11.0); MONOCYTES # (AUTO) 0.4 x10^3/uL (0.3-0.8); MONOCYTES % (AUTO) 4.2 % (0.0-13.0); NEUTROPHILS # (AUTO) 7.9 x10^3/uL (2.2-4.8); NEUTROPHILS % (AUTO) 86.2 % (42.0-75.0); PLATELET COUNT 143 X10^3/uL (150.0-450.0); RED BLOOD COUNT 4.04 X10^6/uL (3.5-5.4); RED CELL DISTRIBUTION WIDTH 13.4 % (11.6-16.5); WHITE BLOOD COUNT 9.2 X10^3/uL (3.6-10.0)
[2017-05-25 05:01] LABS: ALANINE AMINOTRANSFERASE 22 Units/L (12-78); ALBUMIN 2.5 g/dL (3.4-5.0); ALKALINE PHOSPHATASE 58 Units/L (46-116); ASPARTATE AMINO TRANSFERASE 23 Units/L (15-37); BLOOD UREA NITROGEN 12 mg/dL (7-18); CALCIUM 8.4 mg/dL (8.5-10.1); CARBON DIOXIDE 38.6 mmol/L (21-32); CHLORIDE 105 mmol/L (98-107); COR CA(FOR HYPOALB) 9.6 mg/dL (8.5-10.1); COR NA(FOR HYPERGLY) 145 mmol/L (136-145); CREATININE 0.64 mg/dL (0.55-1.02); SODIUM 145 mmol/L (136-145); TOTAL PROTEIN 5.4 g/dL (6.4-8.2); eGFR BLACK RACES > 60 (>60); eGFR NON BLACK RACES > 60 (>60)
--- NOTE | 2017-05-25 07:22 | RAD ---
Examination: Portable AP chest History: SOB Comparison reference 05/24/2017 Findings: Normal heart size, hyperaerated lungs. Slight residual discoid atelectasis right base. No e vidence for consolidation, large pleural effusion or pneumothorax. Arteriosclerotic calcification is noted in the right cervical carotid artery. Impression: Little significant change identified since 1 day earlier. Reported By:
[2017-05-25] MEDS: PULMICORT NEB TX 0.5 MG NEB SCH ×2 (09:13→21:48)
[2017-05-25] MEDS: ROCEPHIN VIAL 1 GM 1 GM in D5W 50 ML IV 50 ML IV SCH ×2 (09:58→21:36)
[2017-05-25] MEDS: ROBITUSSIN (PLAIN) PO SCH ×4 (09:58→21:36)
[2017-05-25] MEDS: NORVASC TAB 5 MG PO SCH (09:59)
[2017-05-25] MEDS: TRICOR TAB 48 MG PO SCH (10:00)
[2017-05-25] MEDS: MILK OF MAGNESIA PO SCH ×2 (10:00→21:37)
[2017-05-25] MEDS: UNIPHYL TAB 400 MG PO SCH (10:00)
[2017-05-25] MEDS: NS 1000 ML 1,000 ML IV SCH ×2 (13:25→22:55)
[2017-05-25] MEDS: LIPITOR TAB 20 MG PO SCH (21:36)
[2017-05-25] MEDS: COLACE CAP 100 MG PO SCH ×2 (21:37→21:38)
[2017-05-25] MEDS: KLONOPIN TAB 0.5 MG PO SCH (21:38)
[2017-05-26] MEDS: DUONEB 0.5 MG/3 MG NEB SCH ×3 (01:17→09:15)
[2017-05-26 05:17] LABS: ALANINE AMINOTRANSFERASE 19 Units/L (12-78); ALBUMIN 2.3 g/dL (3.4-5.0); ALKALINE PHOSPHATASE 54 Units/L (46-116); ASPARTATE AMINO TRANSFERASE 21 Units/L (15-37); BLOOD UREA NITROGEN 12 mg/dL (7-18); CALCIUM 7.8 mg/dL (8.5-10.1); CHLORIDE 104 mmol/L (98-107); COR CA(FOR HYPOALB) 9.2 mg/dL (8.5-10.1); CREATININE 0.63 mg/dL (0.55-1.02); SODIUM 146 mmol/L (136-145); eGFR BLACK RACES > 60 (>60); eGFR NON BLACK RACES > 60 (>60)
[2017-05-26 05:28] LABS: BASOPHILS % (AUTO) 0.2 % (0.2-1.0); EOSINOPHILS # (AUTO) 0.1 x10^3/uL (0.0-0.2); EOSINOPHILS % (AUTO) 0.7 % (0.9-2.9); HEMATOCRIT 34.5 % (36.0-47.0); HEMOGLOBIN 11.9 g/dL (12.0-16.0); LYMPHOCYTES # (AUTO) 2.9 X10^3/uL (1.3-2.9); LYMPHOCYTES % (AUTO) 34.2 % (21.0-51.0); MEAN CORPUSCULAR HEMOGLOBIN 29.8 pg (27.0-34.0); MEAN CORPUSCULAR HGB CONC 34.4 g/dL (33.0-35.0); MEAN CORPUSCULAR VOLUME 86.6 fL (80.0-100.0); MEAN PLATELET VOLUME 10.3 fL (7.4-11.0); MONOCYTES # (AUTO) 0.7 x10^3/uL (0.3-0.8); MONOCYTES % (AUTO) 8.7 % (0.0-13.0); NEUTROPHILS # (AUTO) 4.8 x10^3/uL (2.2-4.8); NEUTROPHILS % (AUTO) 56.2 % (42.0-75.0); PLATELET COUNT 145 X10^3/uL (150.0-450.0); RED BLOOD COUNT 3.99 X10^6/uL (3.5-5.4); RED CELL DISTRIBUTION WIDTH 13.1 % (11.6-16.5); WHITE BLOOD COUNT 8.5 X10^3/uL (3.6-10.0)
[2017-05-26 05:41] LABS: CARBON DIOXIDE 40.2 mmol/L (21-32)
--- NOTE | 2017-05-26 06:15 | RAD ---
HISTORY: Shortness of breath Study: Chest AP portable Comparison: 05/25/2017, 05/24/2017 Findings: The heart is within normal limits in size. The alvarado are normal. The lungs are generally hyperinflated with the exception of foci of subsegmental atelectasis in the lung bases bilaterally unchanged from the prior examination. No pleural effusions are identified. The bony thorax is unremarkable. IMPRESSION: Bibasilar subsegmental atelectasis unchanged from the prior examination Reported By:
[2017-05-26] MEDS ORDERED: MAGNESIUM SULFATE 1 GM/100 mL PREMIX 1 GM/100 ML BAG IV PRN (06:26)
[2017-05-26] MEDS ORDERED: POTASSIUM CHLORIDE LIQ 20 MEQ UDC PO PRN (06:26)
[2017-05-26] MEDS ORDERED: K-RIDER 10 MEQ/NS 100 ML 10 MEQ/100 ML BAG IV PRN (06:26)
[2017-05-26] MEDS ORDERED: MAG-OX TAB PO PRN (06:26)
[2017-05-26] MEDS ORDERED: POTASSIUM CHL 60 MEQ/NS 0.45% 500 ML IV PRN (06:26)
[2017-05-26] MEDS ORDERED: POTASSIUM CHL 40 MEQ/NS 0.45% 500 ML IV PRN (06:26)
[2017-05-26] MEDS ORDERED: K-LYTE EFFERVESCENT PO PRN (06:26)
[2017-05-26 06:27] LABS: PLATELET MORPHOLOGY COMMENT NORMAL (NORMAL)
[2017-05-26] MEDS: NS 1000 ML 1,000 ML IV SCH (07:58)
[2017-05-26] MEDS: MILK OF MAGNESIA PO SCH (09:11)
[2017-05-26] MEDS: ROBITUSSIN (PLAIN) PO SCH (09:13)
[2017-05-26] MEDS: NORVASC TAB 5 MG PO SCH (09:14)
[2017-05-26] MEDS: TRICOR TAB 48 MG PO SCH (09:14)
[2017-05-26] MEDS: UNIPHYL TAB 400 MG PO SCH (09:14)
[2017-05-26] MEDS: PULMICORT NEB TX 0.5 MG NEB SCH (09:15)
[2017-05-26] MEDS: ROCEPHIN VIAL 1 GM 1 GM in D5W 50 ML IV 50 ML IV SCH (10:16)
[2017-05-26 10:54] VITALS: BP 167/72
--- NOTE | 2017-05-26 21:09 | PCM.PROG ---
Progress Note - Progress Note for Day of Date: 05/25/17 - Subjective Subjective: WAS ADMITTED FOR COPD EXACERBATION. TODAY, SHE IS ALERT AND ORIENTED, LYING IN BED ON MORNING ROUNDS. PATIENT CONTINUES WITH COMPLAINTS OF SHORNTESS OF BREATH, COUGH, AND WEAKNESS. SHE REPORTS THAT SYMPTOMS ARE WORSE TODAY THAN YESTERDAY. SHE REPORTS THAT SHORNTESS OF BREATH IS WORSE ON EXERTION. ON EXAMINATION, HEART IS NORMAL IN RATE AND RHYTHM. LUNG SOUNDS ARE NOTED WITH WHEEZING BILATERALLY TO AUSCULTATION. SHE IS NOTED TO BE UTILIZING OXYGEN VIA NASAL CANNULA AT 2L/MIN. ABDOMEN IS ROUND, SOFT, AND NON-TENDER WITH NORMAL BOWEL SOUNDS NOTED IN ALL QUADRANTS. GOOD MOVEMENT NOTED IN ALL EXTREMITIES. HER VITAL SIGNS THIS MORNING ARE 97.6-77-18-96%-177/74. ABNORMAL LAB VALUES TODAY INCLUDE THE FOLLOWING: HGB 11.9, HCT 34.8, PLT COUNT 143, CARBON DIOXIDE 38.6, GLUCOSE 111, CALCIUM 8.4, TOTAL BILI 0.10, TOTAL PROTEIN 5.4, ALBUMIN 2.5. A CHEST XRAY WAS OBTAINED THIS MORNING AND REPORTED SLIGHTLY RESIDUAL DISCOID ATELECTASIS RIGHT BASE. NO EVIDENCE FOR CONSOLIDATION, LARGE PLEURAL EFFUSION OR PNEUMOTHORAS. ARTERIOSCLEROTIC CALCIFICATION NOTED IN THE RIGHT CERVICAL CAROTIC ARTERY. SHE IS CURRENTLY RECEIVING NEB TREATMENTS, ROCEPHIN 1GM IV DAILY, AND SOLUMEDROL 60MG IV Q8H. WE WILL CONTINUE WITH CURRENT PLAN OF CARE TODAY. WE PLAN TO FOLLOW UP WITH AM LABS AND CONTINUE TO MONITOR PATIENT. - Past Medical Family Social History Past Med/Fam/Surg Hx: No changes since H&P Allergies: Allergies No Known Drug Allergies Allergy (Verified 05/21/17 08:19) - Review of Systems ROS: No change since H&P - Vital Signs and I&O's Vital Signs: Temperature 98.3 F Pulse Rate [Left Brachial] 80 Pulse Rate [Right Radial] 92 Pulse Rate 79 Respiratory Rate 20 Blood Pressure [Left Arm] 167/72 Blood Pressure [Right Arm] 187/77 Blood Pressure 194/88 O2 Sat by Pulse Oximetry 96 Intake and Output: Intake & Output 05/24/17 05/25/17 05/26/17 05/27/17 11:59 11:59 11:59 11:59 Intake Total 3483 2180 1870 Balance 3483 2180 1870 - Physical Exam Oriented: Normal. negative: Time, Person, Place, Not Oriented, Unable to test, Other Eyes: Normal. negative: Blurred Vision, Diplopia, Discharge, Pain, Redness, Photophobia, Other Ear: Normal. negative: Right, Left, Swelling, Ecchymosis, Hemotypanum, Abrasion , Laceration Nose: Normal. negative: Injected, Discharge, Blood, Other Throat: Normal. negative: Tonsillar Hypertrophy, Red, Exudate, Dry, Other Respiratory: Right, Left, Generalized, Wheezes Cardiovascular: Normal : Normal. negative: Dysuria, Hematuria, Frequency, Discharge, Testicular Pain , Bleeding, , Other Auscultation: Bowel Sounds: Normal. negative: Bruit, Absent, Increased, Decreased, High Pitched, Other Palpation: Normal Tenderness: Normal Skin: Normal. negative: Decreased Turgur, Rash, Papular, Macular, Maculopapular , Vesicular, Pustular, Petechial, Red, Tender, Hot, Diaphoresis, Wound, Bruising , Ecchymosis, Other Musculoskeletal: Normal Psychiatric: Normal Mood Description: Calm Affect: Normal Speech Pattern: Clear, Appropriate - Laboratory and Diagnostics Result Diagrams: 05/26/17 03:05 05/26/17 03:05 Labs: 05/21/17 13:28 Sputum - Expectorated Sputum Sputum Culture - Final 05/21/17 13:28 Sputum - Expectorated Sputum - Final Laboratory WBC 8.5 X10^3/uL (3.6-10.0) 05/26/17 03:05 RBC 3.99 X10^6/uL (3.5-5.4) 05/26/17 03:05 Hgb 11.9 g/dL (12.0-16.0) L 05/26/17 03:05 Hct 34.5 % (36.0-47.0) L 05/26/17 03:05 MCV 86.6 fL (80.0-100.0) 05/26/17 03:05 MCH 29.8 pg (27.0-34.0) 05/26/17 03:05 MCHC 34.4 g/dL (33.0-35.0) 05/26/17 03:05 RDW 13.1 % (11.6-16.5) 05/26/17 03:05 Plt Count 145 X10^3/uL (150.0-450.0) L 05/26/17 03:05 Plt Count Comment Adequate (ADEQUATE) 05/26/17 03:05 MPV 10.3 fL (7.4-11.0) 05/26/17 03:05 Neut % 56.2 % (42.0-75.0) 05/26/17 03:05 Lymph % 34.2 % (21.0-51.0) 05/26/17 03:05 [place] % 8.7 % (0.0-13.0) 05/26/17 03:05 Eos % 0.7 % (0.9-2.9) L 05/26/17 03:05 Baso % 0.2 % (0.2-1.0) 05/26/17 03:05 Neut # 4.8 x10^3/uL (2.2-4.8) 05/26/17 03:05 Lymph # 2.9 X10^3/uL (1.3-2.9) 05/26/17 03:05 [place] # 0.7 x10^3/uL (0.3-0.8) 05/26/17 03:05 Eos # 0.1 x10^3/uL (0.0-0.2) 05/26/17 03:05 Baso # 0.0 X10^3/uL (0.0-0.1) 05/26/17 03:05 Absolute Nucleated RBC 0.0 /100WBC 05/26/17 03:05 Total Counted 100 05/26/17 03:05 Neutrophils % (Manual) 51 % (39-76) 05/26/17 03:05 Lymphocytes % (Manual) 41 % (13-43) 05/26/17 03:05 Monocytes % (Manual) 6 % (4-9) 05/26/17 03:05 Eosinophils % (Manual) 2 % (0-6) 05/26/17 03:05 Plt Morphology Comment Normal (NORMAL) 05/26/17 03:05 RBC Morphology Normal (NORMAL) 05/26/17 03:05 Sample Site [facility] 05/21/17 09:45 ABG pH 7.380 (7.35-7.45) 05/21/17 09:45 ABG pCO2 64.0 mmHg (35.0-45.0) H* 05/21/17 09:45 ABG pO2 86.0 mmHg (80.0-100.0) 05/21/17 09:45 ABG HCO3 37.9 mmol/L (22-26) H* 05/21/17 09:45 ABG O2 Saturation 96.0 % (90-100) 05/21/17 09:45 ABG Base Excess 10.4 mmol/L (-2.0-2.0) H 05/21/17 09:45 Dony Test Na 05/21/17 09:45 A-a Gradient 62.0 mmHg 05/21/17 09:45 FiO2 32.000 05/21/17 09:45 Blood Gas Comments [facility] 05/21/17 09:45 Sodium 146 mmol/L (136-145) H 05/26/17 03:05 Corrected Sodium TNP 05/26/17 03:05 Potassium 3.4 mmol/L (3.5-5.1) L 05/26/17 03:05 Chloride 104 mmol/L (98-107) 05/26/17 03:05 Carbon Dioxide 40.2 mmol/L (21-32) H* 05/26/17 03:05 BUN 12 mg/dL (7-18) 05/26/17 03:05 Creatinine 0.63 mg/dL (0.55-1.02) 05/26/17 03:05 Est GFR (MDRD) Af Amer > 60 (>60) 05/26/17 03:05 Est GFR (MDRD) Non-Af > 60 (>60) 05/26/17 03:05 Glucose 80 mg/dL (65-99) 05/26/17 03:05 Calcium 7.8 mg/dL (8.5-10.1) L 05/26/17 03:05 Corrected Calcium 9.2 mg/dL (8.5-10.1) 05/26/17 03:05 Magnesium 1.5 mg/dL (1.7-2.9) L 05/26/17 03:05 Total Bilirubin 0.10 mg/dL (0.2-1.0) L 05/26/17 03:05 AST 21 Units/L (15-37) 05/26/17 03:05 ALT 19 Units/L (12-78) 05/26/17 03:05 Alkaline Phosphatase 54 Units/L (46-116) 05/26/17 03:05 Creatine Kinase 160 Units/L (26-192) 05/21/17 09:15 CK-MB (CK-2) 4.6 ng/mL (0-4.0) H* 05/21/17 09:15 CK/CKMB % Calc 2.9 % (<4) 05/21/17 09:15 Troponin I 0.02 ng/mL (0-1.5) 05/21/17 09:15 Total Protein 5.0 g/dL (6.4-8.2) L 05/26/17 03:05 Albumin 2.3 g/dL (3.4-5.0) L 05/26/17 03:05 Globulin 2.7 g/dL (2.5-4.5) 05/26/17 03:05 Albumin/Globulin Ratio 0.9 Ratio (1.1-2.1) L 05/26/17 03:05 Amylase 34 Units/L (25-115) 05/22/17 03:30 Lipase 70 Units/L (73-393) L 05/22/17 03:30 Theophylline 3.0 ug/mL (10-20) L 05/26/17 03:05 - Plan (1) COPD with exacerbation Status: Acute Plan: DUONEBS Q4H, PULMICORT NEB TX BID, THEOPHYLLINE 400MG PO DAILY, SOLU- MEDROL 60MG IV Q8H, MONITOR LABS AND CHEST XRAY (2) Anxiety Status: Chronic Plan: CONTINUE XANAX, CONTINUE KLONOPIN, CONTINUE TO MONITOR (3) Hyperlipidemia Status: Chronic Qualifiers: Hyperlipidemia type: mixed hyperlipidemia Plan: CONTINUE TRICOR, CONTINUE LIPITOR, CONTINUE TO MONITOR (4) Hypertension Status: Chronic Qualifiers: Hypertension type: essential hypertension Qualified Code(s): I10 - Essential (primary) hypertension Plan: CONTINUE NORVASC, CONTINUE TO MONITOR
== END 2017-05-26 12:00 | disposition home or self-care (01) | DRG 192 ==
LOC: ER 08:33 → MED/SURG 11:44
PROVIDERS: ADMIT Internal Medicine; ATTEND Internal Medicine
DX: J44.1 Chronic obstructive pulmonary disease with (acute) exacerbation (principal); R06.02 Shortness of breath; E78.2 Mixed hyperlipidemia; I10 Essential (primary) hypertension; F41.8 Other specified anxiety disorders; I51.7 Cardiomegaly
CPT/HCPCS: 36415; 36600; 71010; 71020; 80048; 80053; 80198; 82150; 82550; 82553; 82803; 83690; 83735; 84484; 85025; 87070; 87205; 93005; 94640; 94760; 96365; 96374; 99284; A4222; Q0177; J0696; J2920; J2930; J7620; J7626

== ENCOUNTER 2018-04-27 14:40 | Observation (INO) ==
[2018-04-27] MEDS ORDERED: NS 1/2 1000 ML IV 1,000 ML IV ONE (15:45)
[2018-04-27] MEDS: LEVAQUIN PREMIX IV 750 MG 750 MG/150 ML BAG IV SCH (15:56)
[2018-04-27] MEDS: FORTAZ or TAZICEF VIAL INJ IVP SCH ×2 (15:56→21:12)
[2018-04-27] MEDS: NS 1/2 1000 ML IV 1,000 ML IV SCH (15:57)
[2018-04-27] MEDS: SOLU-Medrol 40 MG VIAL IVP SCH ×2 (15:57→21:13)
[2018-04-27 15:59] VITALS: BMI 16.1
[2018-04-27] MEDS ORDERED: XOPENEX 1.25 MG/3 ML NEBULE NEB SCH ×2 (16:00→21:00)
[2018-04-27] MEDS ORDERED: SALINE 3% 15 ML NEB TX NEB ONE (16:00)
--- NOTE | 2018-04-27 16:12 | RAD ---
History: Follow-up of pneumonia Study: PA and lateral chest Comparison: May 26, 2017 Findings: The lungs are hyperinflated moderate to severely and are grossly clear. There is no edema or effusion. The heart size is normal. No significant bony abnormality is demonstrated. Impression: Severe COPD, no evidence for acute cardiopulmonary disease Reported By:
[2018-04-27] MEDS: ROBITUSSIN DM PO SCH ×2 (16:16→20:37)
[2018-04-27] MEDS ORDERED: SALINE 3% 15 ML NEB TX ONE (16:17)
[2018-04-27] MEDS ORDERED: XOPENEX 1.25 MG/3 ML NEBULE NEB ONE (16:17)
[2018-04-27 16:18] LABS: BASOPHILS % (AUTO) 0.3 % (0.2-1.0); HEMATOCRIT 45.6 % (36.0-47.0); HEMOGLOBIN 15.5 g/dL (12.0-16.0); LYMPHOCYTES # (AUTO) 1.3 X10^3/uL (1.3-2.9); LYMPHOCYTES % (AUTO) 11.4 % (21.0-51.0); MEAN CORPUSCULAR HEMOGLOBIN 29.8 pg (27.0-34.0); MEAN CORPUSCULAR VOLUME 87.6 fL (80.0-100.0); MEAN PLATELET VOLUME 10.1 fL (7.4-11.0); MONOCYTES # (AUTO) 0.9 x10^3/uL (0.3-0.8); MONOCYTES % (AUTO) 7.9 % (0.0-13.0); NEUTROPHILS # (AUTO) 8.9 x10^3/uL (2.2-4.8); NEUTROPHILS % (AUTO) 80.4 % (42.0-75.0); PLATELET COUNT 201 X10^3/uL (150.0-450.0); WHITE BLOOD COUNT 11.1 X10^3/uL (3.6-10.0)
[2018-04-27 16:27] LABS: ALANINE AMINOTRANSFERASE 28 Units/L (12-78); ALBUMIN 3.2 g/dL (3.4-5.0); ALKALINE PHOSPHATASE 78 Units/L (46-116); ASPARTATE AMINO TRANSFERASE 29 Units/L (15-37); BLOOD UREA NITROGEN 15 mg/dL (7-18); CALCIUM 8.9 mg/dL (8.5-10.1); CARBON DIOXIDE 32.1 mmol/L (21-32); CHLORIDE 97 mmol/L (98-107); COR CA(FOR HYPOALB) 9.5 mg/dL (8.5-10.1); COR NA(FOR HYPERGLY) 135 mmol/L (136-145); CREATININE 0.73 mg/dL (0.55-1.02); SODIUM 135 mmol/L (136-145); TOTAL PROTEIN 7.2 g/dL (6.4-8.2); eGFR NON BLACK RACES > 60 (>60)
[2018-04-27] MEDS ORDERED: RESTORIL CAP 15 MG PO PRN (19:01)
[2018-04-27] MEDS: XANAX PO PRN (19:46)
[2018-04-27] MEDS: TUSSIONEX PENNKINETIC SUSP PO PRN (20:34)
[2018-04-28] MEDS ORDERED: NS 1/2 1000 ML IV 1,000 ML IV ONE ×2 (05:51→20:46)
[2018-04-28] MEDS: FORTAZ or TAZICEF VIAL INJ IVP SCH ×3 (06:00→21:15)
[2018-04-28] MEDS: NS 1/2 1000 ML IV 1,000 ML IV SCH ×2 (06:00→21:17)
[2018-04-28] MEDS: SOLU-Medrol 40 MG VIAL IVP SCH ×3 (06:00→21:15)
[2018-04-28 06:38] LABS: BASOPHILS % (AUTO) 0.5 % (0.2-1.0); HEMATOCRIT 37.8 % (36.0-47.0); HEMOGLOBIN 13.1 g/dL (12.0-16.0); LYMPHOCYTES # (AUTO) 1.1 X10^3/uL (1.3-2.9); LYMPHOCYTES % (AUTO) 14.7 % (21.0-51.0); MEAN CORPUSCULAR HEMOGLOBIN 29.9 pg (27.0-34.0); MEAN CORPUSCULAR HGB CONC 34.7 g/dL (33.0-35.0); MEAN CORPUSCULAR VOLUME 86.1 fL (80.0-100.0); MEAN PLATELET VOLUME 10.3 fL (7.4-11.0); MONOCYTES # (AUTO) 0.5 x10^3/uL (0.3-0.8); MONOCYTES % (AUTO) 6.6 % (0.0-13.0); NEUTROPHILS # (AUTO) 6.1 x10^3/uL (2.2-4.8); NEUTROPHILS % (AUTO) 78.2 % (42.0-75.0); PLATELET COUNT 197 X10^3/uL (150.0-450.0); RED BLOOD COUNT 4.39 X10^6/uL (3.5-5.4); WHITE BLOOD COUNT 7.8 X10^3/uL (3.6-10.0)
[2018-04-28 07:02] LABS: ALANINE AMINOTRANSFERASE 22 Units/L (12-78); ALBUMIN 2.5 g/dL (3.4-5.0); ALKALINE PHOSPHATASE 50 Units/L (46-116); ASPARTATE AMINO TRANSFERASE 21 Units/L (15-37); BLOOD UREA NITROGEN 12 mg/dL (7-18); CALCIUM 8.4 mg/dL (8.5-10.1); CARBON DIOXIDE 35.5 mmol/L (21-32); CHLORIDE 102 mmol/L (98-107); COR CA(FOR HYPOALB) 9.6 mg/dL (8.5-10.1); CREATININE 0.64 mg/dL (0.55-1.02); SODIUM 138 mmol/L (136-145); TOTAL PROTEIN 5.7 g/dL (6.4-8.2); eGFR NON BLACK RACES > 60 (>60)
--- NOTE | 2018-04-28 07:52 | RAD ---
History: Pneumonia and COPD Study: AP chest Comparison: April 27 Findings: The lungs are hyperinflated as before. There is mild interstitial lung disease. The heart size is normal. There is no effusion or lung consolidation demonstrated. No significant bony abnormality is demonstrated. Impression: Unchanged COPD, no definite acute disease. Reported By:
[2018-04-28] MEDS: TUSSIONEX PENNKINETIC SUSP PO PRN (08:36)
[2018-04-28] MEDS: ROBITUSSIN DM PO SCH ×4 (08:36→21:17)
[2018-04-28] MEDS: LEVAQUIN PREMIX IV 750 MG 750 MG/150 ML BAG IV SCH (08:36)
[2018-04-28] MEDS: XANAX PO PRN ×3 (08:36→21:15)
[2018-04-28] MEDS ORDERED: LOVENOX INJ 30 MG SYR SC SCH (09:00)
[2018-04-28 10:20] LABS: ABG BASE EXCESS 14.1 mmol/L (-2.0-2.0)
[2018-04-28 10:22] LABS: ABG ALLEN TEST POS; ABG HCO3 40.8 mmol/L (22-26)
[2018-04-28] MEDS: XOPENEX 1.25 MG/3 ML NEBULE NEB SCH ×3 (12:06→20:27)
[2018-04-28] MEDS ORDERED: TUSSIONEX PENNKINETIC SUSP PO PRN (13:38)
[2018-04-28] MEDS ORDERED: PATIENT'S HOME MEDICATION (Fenofibrate [Fenofibrate] 54 MG) PO SCH (14:15)
[2018-04-28] MEDS ORDERED: TIOTROPIUM BROMIDE MONOHYDRATE IN SCH (14:15)
[2018-04-28] MEDS ORDERED: THEOPHYLLINE 400 MG PO SCH (14:15)
[2018-04-28] MEDS ORDERED: DUONEB 0.5 MG/3 MG NEB SCH (17:00)
[2018-04-28] MEDS: BROVANA IN SCH (20:27)
[2018-04-28] MEDS: PULMICORT NEB TX 0.5 MG NEB SCH (20:27)
[2018-04-28] MEDS ORDERED: PATIENT'S HOME MEDICATION (Budesonide-Formoterol 1 PUFF) IN SCH (21:00)
[2018-04-28] MEDS: LIPITOR TAB 20 MG PO SCH (21:16)
[2018-04-28] MEDS: THEO-DUR TAB 200 MG PO SCH (21:17)
[2018-04-28] MEDS: TESSALON PERLES PO SCH (21:17)
[2018-04-28] MEDS: RESTORIL CAP 15 MG PO PRN (21:18)
[2018-04-29] MEDS: SOLU-Medrol 40 MG VIAL IVP SCH ×3 (05:14→21:53)
[2018-04-29] MEDS: FORTAZ or TAZICEF VIAL INJ IVP SCH ×3 (05:14→21:53)
[2018-04-29 05:17] LABS: BASOPHILS % (AUTO) 0.2 % (0.2-1.0); HEMATOCRIT 37.7 % (36.0-47.0); HEMOGLOBIN 12.8 g/dL (12.0-16.0); LYMPHOCYTES # (AUTO) 0.7 X10^3/uL (1.3-2.9); LYMPHOCYTES % (AUTO) 5.5 % (21.0-51.0); MEAN CORPUSCULAR HEMOGLOBIN 29.1 pg (27.0-34.0); MEAN CORPUSCULAR VOLUME 85.8 fL (80.0-100.0); MONOCYTES # (AUTO) 0.5 x10^3/uL (0.3-0.8); MONOCYTES % (AUTO) 3.7 % (0.0-13.0); NEUTROPHILS # (AUTO) 11.4 x10^3/uL (2.2-4.8); NEUTROPHILS % (AUTO) 90.6 % (42.0-75.0); PLATELET COUNT 185 X10^3/uL (150.0-450.0); RED BLOOD COUNT 4.39 X10^6/uL (3.5-5.4); RED CELL DISTRIBUTION WIDTH 13.1 % (11.6-16.5); WHITE BLOOD COUNT 12.6 X10^3/uL (3.6-10.0)
[2018-04-29 05:23] LABS: ALANINE AMINOTRANSFERASE 21 Units/L (12-78); ALBUMIN 2.4 g/dL (3.4-5.0); ALKALINE PHOSPHATASE 70 Units/L (46-116); ASPARTATE AMINO TRANSFERASE 17 Units/L (15-37); BLOOD UREA NITROGEN 15 mg/dL (7-18); CALCIUM 8.2 mg/dL (8.5-10.1); CARBON DIOXIDE 36.5 mmol/L (21-32); CHLORIDE 100 mmol/L (98-107); COR CA(FOR HYPOALB) 9.5 mg/dL (8.5-10.1); COR NA(FOR HYPERGLY) 140 mmol/L (136-145); CREATININE 0.66 mg/dL (0.55-1.02); SODIUM 139 mmol/L (136-145); TOTAL PROTEIN 5.6 g/dL (6.4-8.2); eGFR NON BLACK RACES > 60 (>60)
[2018-04-29 05:41] LABS: PLATELET MORPHOLOGY COMMENT NORMAL (NORMAL)
--- NOTE | 2018-04-29 07:23 | RAD ---
HISTORY: Follow-up pneumonia Study: Chest AP portable Comparison: 04/28/2018 Findings: The heart is within normal limits in size. The alvarado are normal. The lungs are generally hyperinflated suggestive of COPD. No acute alveolar infiltrates are identified. There is minimal subsegmental atelectasis in the left costophrenic angle. IMPRESSION: Lungs hyperinflated but free of acute infiltrates. Consistent with COPD in the appropriate clinical setting Reported By:
--- NOTE | 2018-04-29 08:03 | DR.UPDATE ---
H&P Update History and Physical Update: WAS SEEN IN THE OFFICE ON 04/27/18. SHE WAS ADMITTED FOR FURTHER EVALUATION AND TREATMENT OF COPD EXACERBATION WITH ACUTE BRONCHITIS. A H&P WAS COMPLETED PRIOR TO ADMISSION. PATIENT HAS BEEN SEEN AND EXAMINED WITH NO CHANGES NOTED TO H&P. Changes noted: NO Yes with the following:
[2018-04-29] MEDS: LOVENOX INJ 30 MG SYR SC SCH (09:30)
[2018-04-29] MEDS: LEVAQUIN PREMIX IV 750 MG 750 MG/150 ML BAG IV SCH (09:30)
[2018-04-29] MEDS: ROBITUSSIN DM PO SCH ×4 (09:30→21:52)
[2018-04-29] MEDS: TESSALON PERLES PO SCH ×2 (09:30→21:52)
[2018-04-29] MEDS: THEO-DUR TAB 200 MG PO SCH ×2 (09:30→21:53)
[2018-04-29] MEDS: TRICOR TAB 48 MG PO SCH (09:30)
[2018-04-29] MEDS: NORVASC TAB 5 MG PO SCH (09:30)
--- NOTE | 2018-04-29 10:06 | PCM.PROG ---
Progress Note - Progress Note for Day of Date of Exam: 04/28/18 - Subjective Subjective: WAS ADMITTED FOR COPD EXACERBATION WITH ACUTE BRONCHITIS. TODAY, SHE IS ALERT AND ORIENTED, LYING IN BED ON MORNING ROUNDS. SHE CONTINUES WITH COMPLAINTS OF SHORTNESS OF BREATH AND A PRODUCTIVE COUGH. ON EXAMINATION, HEART IS REGULAR IN RATE AND RHYTHM. BILATERAL LUNGS ARE NOTED WITH SCATTERED WHEEZING AND RHONCHI THROUGHOUT. SHE IS CURRENTLY UTILIZING OXYGEN VIA NASAL CANNULA AT 3L/MIN. ABDOMEN IS ROUND, SOFT, AND NON-TENDER WITH NORMAL BOWEL SOUNDS NOTED IN ALL QUADRANTS. HER VITLAS THIS MORNING ARE 98.3-84-18-94%NC-141/63. LABS WERE OBTAINED. ABNORMAL LAB VALUES INCLUDE THE FOLLOWING: SODIUM 135, CHLORIDE 97, CARBON DIOXIDE 32.1, GLUCOSE 120, ALBUMIN 3.2. AN ABG REVEALED: PH 7.440, PC02 60.0, P02 65.0, HC03 40.8, 02 SATURATION 93%. TODAYS CHEST XRAY REVEALED: Unchanged COPD, no definite acute disease. SHE IS CURRENTLY RECEIVING IV ANTIBIOTICS RESPIRATORY TREATMENTS, AND SOLU-MEDROL 40MG IV Q8H. WE WILL CONTINUE WITH CURRENT PLAN OF CARE TODAY. OTHERWISE, WE WILL FOLLOW UP WITH AM LABS AND CHEST XRAY AND CONTINUE TO MONITOR. - Past Medical Family Social History Past Med/Fam/Surg Hx: No changes since H&P Allergies: Allergies No Known Drug Allergies Allergy (Verified 05/21/17 08:19) - Review of Systems ROS: No change since H&P - Vital Signs and I&O's Vital Signs: Temperature 99.1 F Pulse Rate [Left Radial] 86 Pulse Rate 81 Respiratory Rate 20 Blood Pressure [Left Arm] 149/67 Blood Pressure [Right Arm] 187/77 Blood Pressure 167/72 O2 Sat by Pulse Oximetry 96 Intake and Output: Intake & Output 04/26/18 04/27/18 04/28/18 04/29/18 11:59 11:59 11:59 11:59 Intake Total 1849 2890 / 2890 Balance 1849 2890 / 2890 - Physical Exam Oriented: Normal Eyes: Normal Ear: Normal Nose: Normal Throat: Normal Respiratory: Diminished, Wheezes, Rhonchi Cardiovascular: Normal. negative: S3, S4, Murmur : Normal Auscultation: Bowel Sounds: Normal Palpation: Normal Tenderness: Normal Skin: Normal Musculoskeletal: Normal Psychiatric: Normal Mood Description: Calm Affect: Normal Speech Pattern: Clear, Appropriate - Laboratory and Diagnostics Result Diagrams: 04/29/18 04:32 04/29/18 04:32 Labs: 04/27/18 16:53 Sputum - Expectorated Sputum Sputum Culture - Final 04/27/18 16:53 Sputum - Expectorated Sputum - Final Laboratory WBC 12.6 X10^3/uL (3.6-10.0) H 04/29/18 04:32 RBC 4.39 X10^6/uL (3.5-5.4) 04/29/18 04:32 Hgb 12.8 g/dL (12.0-16.0) 04/29/18 04:32 Hct 37.7 % (36.0-47.0) 04/29/18 04:32 MCV 85.8 fL (80.0-100.0) 04/29/18 04:32 MCH 29.1 pg (27.0-34.0) 04/29/18 04:32 MCHC 34.0 g/dL (33.0-35.0) 04/29/18 04:32 RDW 13.1 % (11.6-16.5) 04/29/18 04:32 Plt Count 185 X10^3/uL (150.0-450.0) 04/29/18 04:32 Plt Count Comment Adequate (ADEQUATE) 04/29/18 04:32 MPV 10.0 fL (7.4-11.0) 04/29/18 04:32 Neut % (Auto) 90.6 % (42.0-75.0) H 04/29/18 04:32 Lymph % (Auto) 5.5 % (21.0-51.0) L 04/29/18 04:32 Ada % (Auto) 3.7 % (0.0-13.0) 04/29/18 04:32 Eos % (Auto) 0.0 % (0.9-2.9) L 04/29/18 04:32 Baso % (Auto) 0.2 % (0.2-1.0) 04/29/18 04:32 Neut # (Auto) 11.4 x10^3/uL (2.2-4.8) H 04/29/18 04:32 Lymph # (Auto) 0.7 X10^3/uL (1.3-2.9) L 04/29/18 04:32 Ada # (Auto) 0.5 x10^3/uL (0.3-0.8) 04/29/18 04:32 Eos # (Auto) 0.0 x10^3/uL (0.0-0.2) 04/29/18 04:32 Baso # (Auto) 0.0 X10^3/uL (0.0-0.1) 04/29/18 04:32 Absolute Nucleated RBC 0.0 /100WBC 04/29/18 04:32 Total Counted 100 04/29/18 04:32 Neutrophils % (Manual) 90 % (39-76) H 04/29/18 04:32 Lymphocytes % (Manual) 7 % (13-43) L 04/29/18 04:32 Monocytes % (Manual) 3 % (4-9) L 04/29/18 04:32 Plt Morphology Comment Normal (NORMAL) 04/29/18 04:32 RBC Morphology Normal (NORMAL) 04/29/18 04:32 Sample Site Rr 04/28/18 09:58 ABG pH 7.440 (7.35-7.45) 04/28/18 09:58 ABG pCO2 60.0 mmHg (35.0-45.0) H* 04/28/18 09:58 ABG pO2 65.0 mmHg (80.0-100.0) L 04/28/18 09:58 ABG HCO3 40.8 mmol/L (22-26) H* 04/28/18 09:58 ABG O2 Saturation 93.0 % (90-100) 04/28/18 09:58 ABG Base Excess 14.1 mmol/L (-2.0-2.0) H 04/28/18 09:58 Dony Test Pos 04/28/18 09:58 A-a Gradient 88.0 mmHg 04/28/18 09:58 FiO2 32.0 04/28/18 09:58 Blood Gas Comments Pt carolyne well llj 04/28/18 09:58 Sodium 139 mmol/L (136-145) 04/29/18 04:32 Corrected Sodium 140 mmol/L (136-145) 04/29/18 04:32 Potassium 4.2 mmol/L (3.5-5.1) 04/29/18 04:32 Chloride 100 mmol/L (98-107) 04/29/18 04:32 Carbon Dioxide 36.5 mmol/L (21-32) H 04/29/18 04:32 BUN 15 mg/dL (7-18) 04/29/18 04:32 Creatinine 0.66 mg/dL (0.55-1.02) 04/29/18 04:32 Est GFR (MDRD) Af Amer > 60 (>60) 04/29/18 04:32 Est GFR (MDRD) Non-Af > 60 (>60) 04/29/18 04:32 Glucose 135 mg/dL (65-99) H 04/29/18 04:32 Calcium 8.2 mg/dL (8.5-10.1) L 04/29/18 04:32 Corrected Calcium 9.5 mg/dL (8.5-10.1) 04/29/18 04:32 Total Bilirubin 0.10 mg/dL (0.2-1.0) L 04/29/18 04:32 AST 17 Units/L (15-37) 04/29/18 04:32 ALT 21 Units/L (12-78) 04/29/18 04:32 Alkaline Phosphatase 70 Units/L (46-116) 04/29/18 04:32 Total Protein 5.6 g/dL (6.4-8.2) L 04/29/18 04:32 Albumin 2.4 g/dL (3.4-5.0) L 04/29/18 04:32 Globulin 3.2 g/dL (2.5-4.5) 04/29/18 04:32 Albumin/Globulin Ratio 0.8 Ratio (1.1-2.1) L 04/29/18 04:32 - Plan (1) COPD with acute exacerbation Status: Acute Plan: IV ANTIBIOTICS, RESPIRATORY TREATMENTS, SUPPLEMENTAL OXYGEN, IV STEROIDS, CONTINUE TO MONITOR. (2) Acute bronchitis Status: Acute Qualifiers: Bronchitis organism: unspecified organism Qualified Code(s): J20.9 - Acute bronchitis, unspecified Plan: IV ANTIBIOTICS, RESPIRATORY TREATMENTS, SUPPLEMENTAL OXYGEN, IV STEROIDS, CONTINUE TO MONITOR.
[2018-04-29] MEDS: PULMICORT NEB TX 0.5 MG NEB SCH ×2 (10:48→20:36)
[2018-04-29] MEDS: XOPENEX 1.25 MG/3 ML NEBULE NEB SCH ×4 (10:48→20:36)
[2018-04-29] MEDS: BROVANA IN SCH ×2 (10:48→20:37)
[2018-04-29] MEDS: XANAX PO PRN ×2 (10:59→21:59)
[2018-04-29] MEDS ORDERED: NS 1/2 1000 ML IV 1,000 ML IV ONE (12:58)
[2018-04-29] MEDS ORDERED: MUCOMYST 20% 200 MG/ML NEB SCH (13:00)
[2018-04-29] MEDS: NS 1/2 1000 ML IV 1,000 ML IV SCH (13:01)
[2018-04-29] MEDS: MUCOMYST 20% 200 MG/ML NEB SCH ×2 (17:57→20:37)
--- NOTE | 2018-04-29 19:36 | PCM.PROG ---
Progress Note - Progress Note for Day of Date of Exam: 04/29/18 - Subjective Subjective: WAS ADMITTED FOR COPD EXACERBATION WITH ACUTE BRONCHITIS. TODAY, SHE IS ALERT AND ORIENTED, LYING IN BED ON MORNING ROUNDS. SHE CONTINUES WITH COMPLAINTS OF SHORTNESS OF BREATH AND A PRODUCTIVE COUGH. ON EXAMINATION, HEART IS REGULAR IN RATE AND RHYTHM. BILATERAL LUNGS ARE NOTED WITH SCATTERED WHEEZING AND RHONCHI THROUGHOUT. SHE IS CURRENTLY UTILIZING OXYGEN VIA NASAL CANNULA AT 3L/MIN. ABDOMEN IS ROUND, SOFT, AND NON-TENDER WITH NORMAL BOWEL SOUNDS NOTED IN ALL QUADRANTS. HER VITLAS THIS MORNING ARE 99.1-86-20-96%-149/67. LABS WERE OBTAINED. ABNORMAL LAB VALUES INCLUDE THE FOLLOWING: WBC 12.6, CARBON DIOXIDE 36.5, GLUCOSE 135, CALCIUM 8.2, TOTAL BILI 0.10, TOTAL PROTEIN 5.6, ALBUMIN 2.4. TODAYS CHEST XRAY REVEALED: Lungs hyperinflated but free of acute infiltrates. Consistent with COPD in the appropriate clinical setting. SHE IS CURRENTLY RECEIVING IV ANTIBIOTICS RE SPIRATORY TREATMENTS, AND SOLU-MEDROL 40MG IV Q8H. WE WILL CONTINUE WITH CURRENT PLAN OF CARE TODAY AND [facility]COM[facility]ST TO [facility]. OTHERWISE, WE WILL FOLLOW UP WITH AM LABS AND CHEST XRAY AND CONTINUE TO MONITOR. - Past Medical Family Social History Past Med/Fam/Surg Hx: No changes since H&P Allergies: Allergies No Known Drug Allergies Allergy (Verified 05/21/17 08:19) - Review of Systems ROS: No change since H&P - Vital Signs and I&O's Vital Signs: Temperature 98.3 F Pulse Rate [Left Radial] 89 Pulse Rate 89 Respiratory Rate 20 Blood Pressure [Left Arm] 149/67 Blood Pressure [Right Arm] 162/71 Blood Pressure 167/72 O2 Sat by Pulse Oximetry 91 Intake and Output: Intake & Output 04/27/18 04/28/18 04/29/18 04/30/18 11:59 11:59 11:59 11:59 Intake Total 1850 / 1850 2890 / 2890 720 / 720 Balance 1850 / 1850 2890 / 2890 720 / 720 - Physical Exam Oriented: Normal Eyes: Normal Ear: Normal Nose: Normal Throat: Normal Respiratory: Diminished, Wheezes, Rhonchi Cardiovascular: Normal. negative: S3, S4, Murmur : Normal Auscultation: Bowel Sounds: Normal Tenderness: Normal Skin: Normal Musculoskeletal: Normal Psychiatric: Normal Mood Description: Calm Affect: Normal Speech Pattern: Clear, Appropriate - Laboratory and Diagnostics Result Diagrams: 04/29/18 04:32 04/29/18 04:32 Labs: 04/27/18 15:48 Blood Blood Culture - Preliminary 04/27/18 15:54 Blood Blood Culture - Preliminary 04/27/18 16:53 Sputum - Expectorated Sputum Sputum Culture - Final 04/27/18 16:53 Sputum - Expectorated Sputum - Final Laboratory WBC 12.6 X10^3/uL (3.6-10.0) H 04/29/18 04:32 RBC 4.39 X10^6/uL (3.5-5.4) 04/29/18 04:32 Hgb 12.8 g/dL (12.0-16.0) 04/29/18 04:32 Hct 37.7 % (36.0-47.0) 04/29/18 04:32 MCV 85.8 fL (80.0-100.0) 04/29/18 04:32 MCH 29.1 pg (27.0-34.0) 04/29/18 04:32 MCHC 34.0 g/dL (33.0-35.0) 04/29/18 04:32 RDW 13.1 % (11.6-16.5) 04/29/18 04:32 Plt Count 185 X10^3/uL (150.0-450.0) 04/29/18 04:32 Plt Count Comment Adequate (ADEQUATE) 04/29/18 04:32 MPV 10.0 fL (7.4-11.0) 04/29/18 04:32 Neut % (Auto) 90.6 % (42.0-75.0) H 04/29/18 04:32 Lymph % (Auto) 5.5 % (21.0-51.0) L 04/29/18 04:32 Pettis % (Auto) 3.7 % (0.0-13.0) 04/29/18 04:32 Eos % (Auto) 0.0 % (0.9-2.9) L 04/29/18 04:32 Baso % (Auto) 0.2 % (0.2-1.0) 04/29/18 04:32 Neut # (Auto) 11.4 x10^3/uL (2.2-4.8) H 04/29/18 04:32 Lymph # (Auto) 0.7 X10^3/uL (1.3-2.9) L 04/29/18 04:32 Pettis # (Auto) 0.5 x10^3/uL (0.3-0.8) 04/29/18 04:32 Eos # (Auto) 0.0 x10^3/uL (0.0-0.2) 04/29/18 04:32 Baso # (Auto) 0.0 X10^3/uL (0.0-0.1) 04/29/18 04:32 Absolute Nucleated RBC 0.0 /100WBC 04/29/18 04:32 Total Counted 100 04/29/18 04:32 Neutrophils % (Manual) 90 % (39-76) H 04/29/18 04:32 Lymphocytes % (Manual) 7 % (13-43) L 04/29/18 04:32 Monocytes % (Manual) 3 % (4-9) L 04/29/18 04:32 Plt Morphology Comment Normal (NORMAL) 04/29/18 04:32 RBC Morphology Normal (NORMAL) 04/29/18 04:32 Sample Site Rr 04/28/18 09:58 ABG pH 7.440 (7.35-7.45) 04/28/18 09:58 ABG pCO2 60.0 mmHg (35.0-45.0) H* 04/28/18 09:58 ABG pO2 65.0 mmHg (80.0-100.0) L 04/28/18 09:58 ABG HCO3 40.8 mmol/L (22-26) H* 04/28/18 09:58 ABG O2 Saturation 93.0 % (90-100) 04/28/18 09:58 ABG Base Excess 14.1 mmol/L (-2.0-2.0) H 04/28/18 09:58 Dony Test Pos 04/28/18 09:58 A-a Gradient 88.0 mmHg 04/28/18 09:58 FiO2 32.0 04/28/18 09:58 Blood Gas Comments Pt carolyne well llj 04/28/18 09:58 Sodium 139 mmol/L (136-145) 04/29/18 04:32 Corrected Sodium 140 mmol/L (136-145) 04/29/18 04:32 Potassium 4.2 mmol/L (3.5-5.1) 04/29/18 04:32 Chloride 100 mmol/L (98-107) 04/29/18 04:32 Carbon Dioxide 36.5 mmol/L (21-32) H 04/29/18 04:32 BUN 15 mg/dL (7-18) 04/29/18 04:32 Creatinine 0.66 mg/dL (0.55-1.02) 04/29/18 04:32 Est GFR (MDRD) Af Amer > 60 (>60) 04/29/18 04:32 Est GFR (MDRD) Non-Af > 60 (>60) 04/29/18 04:32 Glucose 135 mg/dL (65-99) H 04/29/18 04:32 Calcium 8.2 mg/dL (8.5-10.1) L 04/29/18 04:32 Corrected Calcium 9.5 mg/dL (8.5-10.1) 04/29/18 04:32 Total Bilirubin 0.10 mg/dL (0.2-1.0) L 04/29/18 04:32 AST 17 Units/L (15-37) 04/29/18 04:32 ALT 21 Units/L (12-78) 04/29/18 04:32 Alkaline Phosphatase 70 Units/L (46-116) 04/29/18 04:32 Total Protein 5.6 g/dL (6.4-8.2) L 04/29/18 04:32 Albumin 2.4 g/dL (3.4-5.0) L 04/29/18 04:32 Globulin 3.2 g/dL (2.5-4.5) 04/29/18 04:32 Albumin/Globulin Ratio 0.8 Ratio (1.1-2.1) L 04/29/18 04:32 - Plan (1) COPD with acute exacerbation Status: Acute Plan: IV ANTIBIOTICS, RESPIRATORY TREATMENTS, SUPPLEMENTAL OXYGEN, IV STEROIDS, CONTINUE TO MONITOR. (2) Acute bronchitis Status: Acute Qualifiers: Bronchitis organism: unspecified organism Qualified Code(s): J20.9 - Acute bronchitis, unspecified Plan: IV ANTIBIOTICS, RESPIRATORY TREATMENTS, SUPPLEMENTAL OXYGEN, IV STEROIDS, CONTINUE TO MONITOR.
[2018-04-29] MEDS ORDERED: COLACE CAP 100 MG PO SCH (21:00)
[2018-04-29] MEDS: LIPITOR TAB 20 MG PO SCH (21:52)
[2018-04-29] MEDS: RESTORIL CAP 15 MG PO PRN (21:59)
[2018-04-30] MEDS ORDERED: NS 1/2 1000 ML IV 1,000 ML IV ONE (01:57)
[2018-04-30] MEDS: NS 1/2 1000 ML IV 1,000 ML IV SCH (02:00)
[2018-04-30 05:28] LABS: BASOPHILS % (AUTO) 0.1 % (0.2-1.0); HEMATOCRIT 38.6 % (36.0-47.0); HEMOGLOBIN 12.9 g/dL (12.0-16.0); LYMPHOCYTES # (AUTO) 0.6 X10^3/uL (1.3-2.9); LYMPHOCYTES % (AUTO) 4.4 % (21.0-51.0); MEAN CORPUSCULAR HEMOGLOBIN 28.8 pg (27.0-34.0); MEAN CORPUSCULAR HGB CONC 33.3 g/dL (33.0-35.0); MEAN CORPUSCULAR VOLUME 86.6 fL (80.0-100.0); MONOCYTES # (AUTO) 0.7 x10^3/uL (0.3-0.8); MONOCYTES % (AUTO) 5.4 % (0.0-13.0); NEUTROPHILS # (AUTO) 11.8 x10^3/uL (2.2-4.8); NEUTROPHILS % (AUTO) 90.1 % (42.0-75.0); PLATELET COUNT 206 X10^3/uL (150.0-450.0); RED BLOOD COUNT 4.46 X10^6/uL (3.5-5.4); RED CELL DISTRIBUTION WIDTH 12.9 % (11.6-16.5)
[2018-04-30 05:34] LABS: ALANINE AMINOTRANSFERASE 19 Units/L (12-78); ALBUMIN 2.4 g/dL (3.4-5.0); ALKALINE PHOSPHATASE 77 Units/L (46-116); ASPARTATE AMINO TRANSFERASE 16 Units/L (15-37); BLOOD UREA NITROGEN 13 mg/dL (7-18); CALCIUM 8.1 mg/dL (8.5-10.1); CARBON DIOXIDE 35.9 mmol/L (21-32); CHLORIDE 102 mmol/L (98-107); COR CA(FOR HYPOALB) 9.4 mg/dL (8.5-10.1); COR NA(FOR HYPERGLY) 145 mmol/L (136-145); CREATININE 0.63 mg/dL (0.55-1.02); SODIUM 141 mmol/L (136-145); TOTAL PROTEIN 5.4 g/dL (6.4-8.2); eGFR NON BLACK RACES > 60 (>60)
[2018-04-30] MEDS: FORTAZ or TAZICEF VIAL INJ IVP SCH (05:35)
[2018-04-30] MEDS: SOLU-Medrol 40 MG VIAL IVP SCH (05:35)
[2018-04-30] MEDS ORDERED: MICRO K EXTEN CAP 10 MEQ PO PRN (05:53)
[2018-04-30] MEDS ORDERED: POTASSIUM CHL 60 MEQ/NS 0.45% 500 ML IV PRN (05:53)
[2018-04-30] MEDS ORDERED: POTASSIUM CHL 40 MEQ/NS 0.45% 500 ML IV PRN (05:53)
[2018-04-30] MEDS ORDERED: POTASSIUM CHLORIDE LIQ 20 MEQ UDC PO PRN (05:53)
[2018-04-30] MEDS ORDERED: MAGNESIUM SULFATE 1 GRAM/100 mL PREMIX 1 GM/100 ML BAG IV PRN (05:53)
[2018-04-30] MEDS ORDERED: K-DUR TAB 20 MEQ PO PRN (05:53)
[2018-04-30] MEDS ORDERED: K-RIDER 10 MEQ/NS 100 ML 10 MEQ/100 ML BAG IV PRN (05:53)
[2018-04-30] MEDS ORDERED: KLOR-CON PO PRN (05:53)
[2018-04-30 06:02] LABS: PLATELET MORPHOLOGY COMMENT NORMAL (NORMAL)
--- NOTE | 2018-04-30 07:15 | RAD ---
HISTORY: Follow-up pneumonia, COPD Study: Chest AP portable Comparison: 04/29/2018 Findings: The heart is upper limits normal in size. No congestive heart failure is noted. The alvarado are normal. The lungs are hyperinflated consistent with COPD. No acute alveolar infiltrates or pleural effusions are identified. The bony thorax is unremarkable. IMPRESSION: COPD, stable when compared to the prior examination Reported By:
[2018-04-30] MEDS: XOPENEX 1.25 MG/3 ML NEBULE NEB SCH (08:25)
[2018-04-30] MEDS: BROVANA IN SCH (08:25)
[2018-04-30] MEDS: MUCOMYST 20% 200 MG/ML NEB SCH (08:25)
[2018-04-30] MEDS: PULMICORT NEB TX 0.5 MG NEB SCH (08:25)
[2018-04-30] MEDS: THEO-DUR TAB 200 MG PO SCH (09:08)
[2018-04-30] MEDS: LEVAQUIN PREMIX IV 750 MG 750 MG/150 ML BAG IV SCH (09:08)
[2018-04-30] MEDS: NORVASC TAB 5 MG PO SCH (09:08)
[2018-04-30] MEDS: TRICOR TAB 48 MG PO SCH (09:08)
[2018-04-30] MEDS: LOVENOX INJ 30 MG SYR SC SCH (09:08)
[2018-04-30] MEDS: TESSALON PERLES PO SCH (09:08)
[2018-04-30] MEDS: ROBITUSSIN DM PO SCH (09:08)
[2018-04-30] MEDS: XANAX PO PRN (11:03)
[2018-04-30 12:04] VITALS: BP 148/70
--- NOTE | 2018-06-01 04:36 | DR.CARTERD ---
- Discharge Summary for: Discharge Summary for Date of:: 04/30/18 - Admission Date Date of Admission: 04/27/18 - Admission Diagnoses Admission Diagnosis: (1) COPD with acute exacerbation (2) Acute bronchitis - Discharge Date Discharge Date: 04/30/18 - Discharge Diagnoses Discharge Diagnosis: (1) COPD with acute exacerbation (2) Acute bronchitis - Hospital Course Hospital Course: DAY ONE, WAS ADMITTED FOR COPD EXACERBATION WITH ACUTE BRONCHITIS. WE CONTINUED TO EVALUATE, TREAT, AND MONITOR PATIENT. DAY TWO, SHE WAS ALERT AND ORIENTED, LYING IN BED ON MORNING ROUNDS. SHE CONTINUED WITH COMPLAINTS OF SHORTNESS OF BREATH AND A PRODUCTIVE COUGH. ON EXAMINATION, HEART WAS REGULAR IN RATE AND RHYTHM. BILATERAL LUNGS WERE NOTED WITH SCATTERED WHEEZING AND RHONCHI THROUGHOUT. SHE WAS CURRENTLY UTILIZING OXYGEN VIA NASAL CANNULA AT 3L/MIN. ABDOMEN IS ROUND, SOFT, AND NON-TENDER WITH NORMAL BOWEL SOUNDS NOTED IN ALL QUADRANTS. HER VITLAS THIS MORNING WERE 98.3-84-18-94%NC-141/63. LABS WERE OBTAINED. ABNORMAL LAB VALUES INCLUDED THE FOLLOWING: SODIUM 135, CHLORIDE 97, CARBON DIOXIDE 32.1, GLUCOSE 120, ALBUMIN 3.2. AN ABG REVEALED: PH 7.440, PC02 60.0, P02 65.0, HC03 40.8, 02 SATURATION 93%. TODAYS CHEST XRAY REVEALED: Unchanged COPD, no definite acute disease. SHE RECEIVED IV ANTIBIOTICS RESPIRATORY TREATMENTS, AND SOLU-MEDROL 40MG IV Q8H. WE CONTINUED WITH CURRENT PLAN OF CARE TODAY. WE FOLLOWED UP WITH AM LABS AND CHEST XRAY AND CONTINUED TO MONITOR. DAY THREE, SHE WAS ALERT AND ORIENTED, LYING IN BED ON MORNING ROUNDS. SHE CONTINUED WITH COMPLAINTS OF SHORTNESS OF BREATH AND A PRODUCTIVE COUGH. ON EXAMINATION, HEART WAS REGULAR IN RATE AND RHYTHM. BILATERAL LUNGS WERE NOTED WITH SCATTERED WHEEZING AND RHONCHI THROUGHOUT. SHE WAS CURRENTLY UTILIZING OXYGEN VIA NASAL CANNULA AT 3L/MIN. ABDOMEN WAS ROUND, SOFT, AND NON-TENDER WITH NORMAL BOWEL SOUNDS NOTED IN ALL QUADRANTS. HER VITLAS THIS MORNING WERE 99.1-86-20-96%-149/67. LABS WERE OBTAINED. ABNORMAL LAB VALUES INCLUDED THE FOLLOWING: WBC 12.6, CARBON DIOXIDE 36.5, GLUCOSE 135, CALCIUM 8.2, TOTAL BILI 0.10, TOTAL PROTEIN 5.6, ALBUMIN 2.4. TODAYS CHEST XRAY REVEALED: Lungs hyperinflated but free of acute infiltrates. Consistent with COPD in the appropriate clinical setting. SHE RECEIVED IV ANTIBIOTICS RESPIRATORY TREATMENTS, AND SOLU-MEDROL 40MG IV Q8H. WE CONTINUED WITH CURRENT PLAN OF CARE TODAY AND ADDED MUCOMYST TO [facility] [place]. WE FOLLOWED UP WITH AM LABS AND CHEST XRAY AND CONTINUED TO MONITOR. DAY FOUR, PATIENT REPORTED SYMPTOMS HAD IMPROVED DURING MORNING ROUNDS TODAY. WHEEZES WERE NOTED TO LUNGS BILATERALLY ON AUSCULTATION. VITALS WERE STABLE. LAB VALUES WERE WITHIN NORMAL RANGE FOR PATIENT. WE PLANNED FOR DISCHARGE. INSTRUCTIONS FOR MEDICATIONS AND FOLLOW UP WERE DISCUSSED WITH PATIENT AND FAMILY, BOTH VOICED UNDERSTANDING. PATIENT DISCHARGED HOME IN STABLE CONDITION WITH FAMILY. - Discharge Medications Discharge Medications: Home Medication List alprazolam [Xanax] 0.5 mg PO TID PRN 04/27/18 [History] benzonatate [Tessalon Perles] 100 - 200 mg PO BID PRN 04/27/18 [History] ciprofloxacin HCl [Cipro] 500 mg PO BID 04/27/18 [History] levalbuterol HCl 1.25 mg NEB TID #50 units 04/30/18 [Rx] levofloxacin [Levaquin] 750 mg PO QDAY #10 tab 04/30/18 [Rx] magnesium oxide 400 mg PO BID #60 tab 04/30/18 [Rx] methylprednisolone [Medrol ([place]any)] See Rx Instructions .ROUTE .COMPLEX #1 ea 04/30/18 [Rx] Prescriptions: levalbuterol HCl Saw [facility] levofloxacin [Levaquin] [facility] magnesium oxide [facility] methylprednisolone [Medrol (Geovany)] Saw [facility] Ambulatory Orders Amlodipine Besylate 5 mg PO DAILY 10/23/15 Theophylline [Theophylline ER] 400 mg PO DAILY 10/23/15 atorvastatin 20 mg PO DAILY 10/23/15 fenofibrate 54 mg PO DAILY 10/23/15 budesonide-formoterol [Symbicort] 1 puff INHALATION BID #1 inh 10/27/15 levalbuterol HCl 1 ea NEB TID #90 each 10/27/15 alprazolam [Xanax] 0.5 mg PO TID PRN 04/27/18 benzonatate [Tessalon Perles] 100 - 200 mg PO BID PRN 04/27/18 - Discharge Disposition Discharge Disposition: PATIENT TO FOLLOW UP IN OUR OFFICE IN ONE WEEK.
== END 2018-04-30 13:18 | disposition home or self-care (01) ==
LOC: INTOOBSV 14:58 → MED/SURG 14:58
PROVIDERS: ADMIT Internal Medicine; ATTEND Internal Medicine
DX: J44.1 Chronic obstructive pulmonary disease with (acute) exacerbation; Z79.899 Other long term (current) drug therapy; K21.9 Gastro-esophageal reflux disease without esophagitis; R06.02 Shortness of breath; J20.8 Acute bronchitis due to other specified organisms; E03.8 Other specified hypothyroidism; I48.2 Chronic atrial fibrillation; D72.828 Other elevated white blood cell count; E55.9 Vitamin D deficiency, unspecified; I10 Essential (primary) hypertension
CPT/HCPCS: 36415; 36600; 71010; 71020; 71045; 71046; 80053; 82803; 83735; 85025; 87040; 87070; 87205; 94640; 94760; 96367; 96372; 96374; A4222; G0378; J0713; J1650; J1956; J2920; J3480; J7608; J7620; J7626

== ENCOUNTER 2018-06-02 07:32 | Inpatient (IN) ==
[2018-06-02] MEDS ORDERED: DUONEB 0.5 MG/3 MG NEB ONE (08:01)
[2018-06-02] MEDS ORDERED: DUONEB 0.5 MG/3 MG ONE (08:02)
[2018-06-02 08:23] LABS: ABG BASE EXCESS 5.5 mmol/L (-2.0-2.0)
[2018-06-02 08:24] LABS: ABG ALLEN TEST P; ABG HCO3 33.7 mmol/L (22-26)
[2018-06-02 08:31] LABS: BASOPHILS # (AUTO) 0.1 X10^3/uL (0.0-0.1); BASOPHILS % (AUTO) 0.3 % (0.2-1.0); EOSINOPHILS % (AUTO) 0.1 % (0.9-2.9); HEMATOCRIT 39.2 % (36.0-47.0); HEMOGLOBIN 13.3 g/dL (12.0-16.0); LYMPHOCYTES # (AUTO) 0.3 X10^3/uL (1.3-2.9); LYMPHOCYTES % (AUTO) 1.5 % (21.0-51.0); MEAN CORPUSCULAR HEMOGLOBIN 29.6 pg (27.0-34.0); MEAN CORPUSCULAR HGB CONC 33.9 g/dL (33.0-35.0); MEAN CORPUSCULAR VOLUME 87.5 fL (80.0-100.0); MEAN PLATELET VOLUME 10.4 fL (7.4-11.0); MONOCYTES # (AUTO) 2.8 x10^3/uL (0.3-0.8); MONOCYTES % (AUTO) 12.2 % (0.0-13.0); NEUTROPHILS # (AUTO) 19.5 x10^3/uL (2.2-4.8); NEUTROPHILS % (AUTO) 85.9 % (42.0-75.0); PLATELET COUNT 170 X10^3/uL (150.0-450.0); RED BLOOD COUNT 4.47 X10^6/uL (3.5-5.4); RED CELL DISTRIBUTION WIDTH 13.7 % (11.6-16.5); WHITE BLOOD COUNT 22.7 X10^3/uL (3.6-10.0)
--- NOTE | 2018-06-02 08:31 | RAD ---
HISTORY: Congestion, shortness of breath Study: Chest AP portable Comparison: 04/30/2018 Findings: The heart is within normal limits in size. The alvarado are normal. The lungs are generally hyperinflated. Mild interstitial lung changes are present. However, superimposed on these more chronic interstitial lung changes are bibasilar lung infiltrates suspicious for pneumonia. No pleural effusions are identified. The bony thorax is unremarkable. IMPRESSION: Bibasilar infiltrates suggestive of pneumonia COPD with mild interstitial lung changes Reported By:
[2018-06-02] MEDS ORDERED: SOLU-Medrol 125 MG VIAL IVP ONE (08:38)
[2018-06-02 08:43] LABS: ALANINE AMINOTRANSFERASE 16 Units/L (12-78); ALBUMIN 2.4 g/dL (3.4-5.0); ALKALINE PHOSPHATASE 69 Units/L (46-116); ASPARTATE AMINO TRANSFERASE 22 Units/L (15-37); BAND NEUTROPHILS % 7 % (0-10); BLOOD UREA NITROGEN 25 mg/dL (7-18); CALCIUM 9.4 mg/dL (8.5-10.1); CARBON DIOXIDE 29.1 mmol/L (21-32); COR CA(FOR HYPOALB) 10.7 mg/dL (8.5-10.1); CREATININE 0.77 mg/dL (0.55-1.02); SODIUM 135 mmol/L (136-145); TOTAL PROTEIN 6.6 g/dL (6.4-8.2); eGFR NON BLACK RACES > 60 (>60)
[2018-06-02 08:44] LABS: PLATELET MORPHOLOGY COMMENT NORMAL (NORMAL)
[2018-06-02] MEDS: NS 1000 ML 1,000 ML IV SCH ×3 (08:45→23:08)
[2018-06-02 08:46] LABS: LACTIC ACID 0.5 mmol/L (0.4-2.0)
[2018-06-02 08:47] LABS: CHLORIDE 98 mmol/L (98-107)
[2018-06-02] MEDS ORDERED: SOLU-Medrol 125 MG VIAL ONE (08:47)
--- NOTE | 2018-06-02 08:53 | CT ---
HISTORY: Syncopal episode Study: CT HEAD WITHOUT CONTRAST Comparison: 04/17/2012 Technique: Multiple axial images of the brain were obtained from the skull base to the vertex without administration of IV contrast. Findings: There is no intracranial hemorrhage or extra-axial fluid collection. Mild cortical atrophy is observed. There are patchy periventricular and subcortical white matter hypodensities of moderate severity indicating degenerative changes of the supratentorial white matter, most likely attributable to microangiopathic ischemic disease in this age group. There is a calcified extra-axial dural-based lesion approximating the posterior interhemispheric falx and right occipital lobe measuring 1.5 cm this was also seen previously on the exam of 2011 and most likely represents a meningioma. There is no sulcal effacement or cerebral edema identified. Cortical garcia-white matter differentiation is adequately preserved. There are no findings of an acute, large artery territorial infarction. The calvarium is intact. The paranasal sinuses and mastoids are predominantly clear. IMPRESSION: No acute intracranial process can be identified. 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 A stable, partially calcified calcified extra-axial lesion upon the right posterior interhemispheric falx most likely represents a meningioma. Reported By:
[2018-06-02] MEDS ORDERED: FORTAZ or TAZICEF VIAL INJ ONE (09:07)
[2018-06-02] MEDS ORDERED: FORTAZ or TAZICEF VIAL INJ IVP ONE (09:07)
--- NOTE | 2018-06-02 09:23 | DR.SOBA ---
HPI Time Seen Time Seen by Provider: 06/02/18 09:06 Primary Care Physician Primary Care Physician: GIOVANNI HPI Comment HPI Comment: SHE WAS WEAK THIS AM. WHEN SHE TRY TO GET UP FROM A CHAIR SHE FELL AND HIT HER HEAD. WAS DAZED BUT DID NOT FAINT. GRANDSON HEARD HER FALL AND RICHARDSON TO HER. SHE IS RUNNING LOW GRADE FEVER. Complaints Chief Complaint Doctors Comments: INCREASING SOB AND CONGESTION TIMES 2 DAYS. Chief Complaint:: pt stated she has been short of breath and realy congested for 2 days. Reviewed Nurses Notes Reviewed: Yes Source History Provided: Patient, Family Member and EMS Mode of Arrival Mode of Arrival: EMS Timing Onset of Chief Complaint: 06/01/18 Duration Duration: Days Context Onset:: At Rest and With Light Exertion PE Risk Factors:: None History of:: COPD Currently on:: Inhaled Bronchodilators Prehospital Care:: O2 and Inhaled B2 Modifying Factors Worsens:: Exertion and Lying Flat Improves:: Rest and Sitting Up Associated Signs and Symptoms Associated Signs and Symptoms: Wheeze, Cough, Nasal Congestion and Chest Pain PMH PMH Past Medical History: Yes Past Medical History: Anxiety, COPD, Dyslipidemia and Hypertension Past Surgical History: Yes Surgical History: Appendectomy and Other Family History History of Family Medical Conditions: Yes Family Medical History: Cancer and Hypertension Social History Does patient currently use any type of tobacco product: No Have you used tobacco products in the last 12 months: No Type of Tobacco Use: None Does any household member use tobacco: No Alcohol Use: None Do you use any recreational Drugs:: No Lives With: Family Lives Where: Home infectious screening In the last 2 months have you had wt loss of >10#?: NO Have you had fever, night sweats or hemotysis?: No Have you traveled outside the country in the last 6 months?: No Isolation: Standard ROS Review of Systems Constitutional: Weakness and Fatigue Eyes: No Symptoms Reported ENTM: Nose Congestion Respiratoy: Moist Cough, Short of Breath and Wheezing Cardiovascular: Chest Pain and Palpitations Gastrointestinal/Abdominal: No Symptoms Reported Genitourinary: No Symptoms Reported Neurological: Weakness Musculoskeletal: Muscle Pain and Chest wall Integumentary: No Symptoms Reported Hematologic/Lymphatic: Easy Bleeding and Easy Bruising Endocrine: No Symptoms Reported Psychiatric: No Symptoms Reported All Other Systems: Reviewed and Negative PE Vital Signs Vitals: Temperature 99.6 F Pulse Rate [Left Brachial] 102 Pulse Rate 99 Respiratory Rate 40 Blood Pressure [Left Arm] 127/55 Blood Pressure [Right Arm] 162/71 Blood Pressure 117/57 O2 Sat by Pulse Oximetry 96 General Limitations: No Limitations General Appearance: Alert and In Distress Head Head Exam: Normal Inspection Eyes Eye exam: Normal Appearance, PERRL and EOMI; negative Scleral Icterus and Conjunctival Injection ENT ENT Exam: Normal External Ear Exam Neck Neck Exam: Trachea Midline; negative Tenderness, Meningismus and Lymphadenopathy Chest Chest Inspection: Symmetric Chest Wall Rise Respiratory Respiratory Exam: Respiratory Distress Respiratory Exam: Bilateral: Wheezing and Bilateral: Rhonchi, Upper: Wheezing and Lower: Wheezing and Lower: Rhonchi Cardiovascular Cardiovascular Exam: Tachycardia Abdominal Exam Abdominal Exam: Normal Bowel Sounds and Soft; negative Tenderness Extremities Extremities Exam: Normal Inspection Back Back Exam: Normal Inspection Neurologic Neurological Exam: Alert, Oriented X3 and CN II-XII Intact; negative Motor Sensory Deficit Psychiatric Psychiatric Exam: Anxious Skin Skin Exam: Dry MDM Additional Information Obtained Additional Information Obtained From: Family Differential Diagnosis Differential Diagnosis: Bronchitis, CHF, COPD, Dysrhythmia, Mycardial Infarction, Pneumonia, Pneumothorax, Respiratory Insufficiency and Sinusitis COURSE Treatment Treatment: SEE ORDERS. Consultation Consultation Comments: DISCUSS PATIENT WITH DR. DAVILA. HE WILL ADMIT PATIENT. Education/Counseling Education/Counseling: Patient and Family Educated On: Diagnosis ROR Labs Reviewed Laboratory Results Reviewed?: Yes Result Diagrams: 06/02/18 08:10 06/02/18 08:10 Laboratory: WBC 22.7 X10^3/uL (3.6-10.0) H 06/02/18 08:10 RBC 4.47 X10^6/uL (3.5-5.4) 06/02/18 08:10 Hgb 13.3 g/dL (12.0-16.0) 06/02/18 08:10 Hct 39.2 % (36.0-47.0) 06/02/18 08:10 MCV 87.5 fL (80.0-100.0) 06/02/18 08:10 MCH 29.6 pg (27.0-34.0) 06/02/18 08:10 MCHC 33.9 g/dL (33.0-35.0) 06/02/18 08:10 RDW 13.7 % (11.6-16.5) 06/02/18 08:10 Plt Count 170 X10^3/uL (150.0-450.0) 06/02/18 08:10 Plt Count Comment Adequate (ADEQUATE) 06/02/18 08:10 MPV 10.4 fL (7.4-11.0) 06/02/18 08:10 Neut % (Auto) 85.9 % (42.0-75.0) H 06/02/18 08:10 Lymph % (Auto) 1.5 % (21.0-51.0) L 06/02/18 08:10 [place] % (Auto) 12.2 % (0.0-13.0) 06/02/18 08:10 Eos % (Auto) 0.1 % (0.9-2.9) L 06/02/18 08:10 Baso % (Auto) 0.3 % (0.2-1.0) 06/02/18 08:10 Neut # (Auto) 19.5 x10^3/uL (2.2-4.8) H 06/02/18 08:10 Lymph # (Auto) 0.3 X10^3/uL (1.3-2.9) L 06/02/18 08:10 [place] # (Auto) 2.8 x10^3/uL (0.3-0.8) H 06/02/18 08:10 Eos # (Auto) 0.0 x10^3/uL (0.0-0.2) 06/02/18 08:10 Baso # (Auto) 0.1 X10^3/uL (0.0-0.1) 06/02/18 08:10 Absolute Nucleated RBC 0.0 /100WBC 06/02/18 08:10 Total Counted 100 06/02/18 08:10 Neutrophils % (Manual) 68 % (39-76) 06/02/18 08:10 Band Neutrophils % 7 % (0-10) 06/02/18 08:10 Lymphocytes % (Manual) 20 % (13-43) 06/02/18 08:10 Monocytes % (Manual) 5 % (4-9) 06/02/18 08:10 Plt Morphology Comment Normal (NORMAL) 06/02/18 08:10 RBC Morphology Normal (NORMAL) 06/02/18 08:10 Sample Site Rr 06/02/18 07:43 ABG pH 7.310 (7.35-7.45) L 06/02/18 07:43 ABG pCO2 67.0 mmHg (35.0-45.0) H* 06/02/18 07:43 ABG pO2 59.0 mmHg (80.0-100.0) L 06/02/18 07:43 ABG HCO3 33.7 mmol/L (22-26) H* 06/02/18 07:43 ABG O2 Saturation 87.0 % (90-100) L 06/02/18 07:43 ABG Base Excess 5.5 mmol/L (-2.0-2.0) H 06/02/18 07:43 Dony Test P 06/02/18 07:43 A-a Gradient 57.0 mmHg 06/02/18 07:43 FiO2 28.0 06/02/18 07:43 Blood Gas Comments Josefina well-sd 06/02/18 07:43 Sodium 135 mmol/L (136-145) L 06/02/18 08:10 Corrected Sodium TNP 06/02/18 08:10 Potassium 4.8 mmol/L (3.5-5.1) 06/02/18 08:10 Chloride 98 mmol/L (98-107) 06/02/18 08:10 Carbon Dioxide 29.1 mmol/L (21-32) 06/02/18 08:10 BUN 25 mg/dL (7-18) H 06/02/18 08:10 Creatinine 0.77 mg/dL (0.55-1.02) 06/02/18 08:10 Est GFR (MDRD) Af Amer > 60 (>60) 06/02/18 08:10 Est GFR (MDRD) Non-Af > 60 (>60) 06/02/18 08:10 Glucose 97 mg/dL (65-99) 06/02/18 08:10 Lactic Acid 0.5 mmol/L (0.4-2.0) 06/02/18 08:10 Calcium 9.4 mg/dL (8.5-10.1) 06/02/18 08:10 Corrected Calcium 10.7 mg/dL (8.5-10.1) H 06/02/18 08:10 Total Bilirubin 0.30 mg/dL (0.2-1.0) 06/02/18 08:10 AST 22 Units/L (15-37) 06/02/18 08:10 ALT 16 Units/L (12-78) 06/02/18 08:10 Alkaline Phosphatase 69 Units/L (46-116) 06/02/18 08:10 B-Natriuretic Peptide 224 pg/mL (0-79) H 06/02/18 08:10 Total Protein 6.6 g/dL (6.4-8.2) 06/02/18 08:10 Albumin 2.4 g/dL (3.4-5.0) L 06/02/18 08:10 Globulin 4.2 g/dL (2.5-4.5) 06/02/18 08:10 Albumin/Globulin Ratio 0.6 Ratio (1.1-2.1) L 06/02/18 08:10 XRAY XRAY Interpreted by: Radiologist XRAY Findings: REPORT NOTED AND DISCUSS WITH PATIENT AND HER FAMILY.
[2018-06-02] MEDS ORDERED: DUONEB 0.5 MG/3 MG NEB SCH (13:00)
[2018-06-02 14:35] LABS: BILIRUBIN,URINE NEGATIVE (NEGATIVE); BLOOD/HEMOGLOBIN,URINE 1+ (NEGATIVE); GLUCOSE, URINE NEGATIVE (NEGATIVE); KETONES,URINE 1+ (NEGATIVE); LEUKOCYTE ESTERASE ,URINE 1+ (NEGATIVE); NITRITES,URINE NEGATIVE (NEGATIVE); PROTEIN,URINE 3+ (NEGATIVE); UROBILINOGEN,URINE NORMAL (NORMAL)
[2018-06-02 14:36] VITALS: BMI 17.7
[2018-06-02 14:42] LABS: APPEARANCE,URINE SLIGHTLY HAZY (CLEAR); COLOR,URINE DARK YELLOW (YELLOW)
[2018-06-02 14:43] LABS: AMORPHOUS SEDIMENT,UR 4+ /HPF (NEGATIVE); BACTERIA,URINE TRACE /HPF (NEGATIVE); HYALINE CASTS, URINE MODERATE /LPF (NEGATIVE); RBC,URINE 0-2 /HPF (NONE SEEN); SQUAMOUS EPITHELIAL CELL,UR FEW /HPF (NEGATIVE)
[2018-06-02] MEDS ORDERED: XOPENEX 1.25 MG/3 ML NEBULE NEB SCH (15:00)
[2018-06-02] MEDS: FORTAZ or TAZICEF VIAL INJ IVP SCH ×2 (15:17→21:50)
[2018-06-02] MEDS: ROBITUSSIN DM PO SCH ×3 (15:17→21:50)
[2018-06-02] MEDS ORDERED: AMLODIPINE BESYLATE 5 MG PO SCH (15:39)
[2018-06-02] MEDS: PROVENTIL NEB TX 0.083% 2.5MG/ 3ML NEB SCH ×2 (15:45→20:22)
[2018-06-02] MEDS: LEVAQUIN PREMIX IV 750 MG 750 MG/150 ML BAG IV SCH (16:16)
[2018-06-02] MEDS: FLONASE NASAL SPRAY ENOSTRIL SCH (16:19)
[2018-06-02] MEDS ORDERED: ZOFRAN INJ 4 MG VIAL IVP PRN (17:04)
[2018-06-02] MEDS ORDERED: ZOFRAN INJ 4 MG VIAL ONE (17:07)
[2018-06-02] MEDS: PULMICORT NEB TX 0.5 MG NEB SCH (20:22)
[2018-06-02] MEDS ORDERED: PATIENT'S HOME MEDICATION (Budesonide-Formoterol 1 PUFF) IN SCH (21:00)
[2018-06-02] MEDS: MAG-OX TAB PO SCH (21:50)
[2018-06-02] MEDS: SOLU-Medrol 40 MG VIAL IVP SCH (21:50)
[2018-06-02] MEDS: XANAX PO SCH (21:50)
[2018-06-02] MEDS: MEGACE PO SCH (21:50)
[2018-06-02] MEDS: RESTORIL CAP 15 MG PO PRN (21:50)
[2018-06-03] MEDS: FORTAZ or TAZICEF VIAL INJ IVP SCH ×3 (05:37→21:01)
[2018-06-03 06:34] LABS: BASOPHILS % (AUTO) 0.2 % (0.2-1.0); HEMATOCRIT 34.8 % (36.0-47.0); HEMOGLOBIN 11.5 g/dL (12.0-16.0); LYMPHOCYTES # (AUTO) 0.2 X10^3/uL (1.3-2.9); LYMPHOCYTES % (AUTO) 1.2 % (21.0-51.0); MEAN CORPUSCULAR HEMOGLOBIN 29.4 pg (27.0-34.0); MEAN CORPUSCULAR HGB CONC 33.1 g/dL (33.0-35.0); MEAN CORPUSCULAR VOLUME 88.7 fL (80.0-100.0); MONOCYTES # (AUTO) 1.1 x10^3/uL (0.3-0.8); MONOCYTES % (AUTO) 5.7 % (0.0-13.0); NEUTROPHILS % (AUTO) 92.9 % (42.0-75.0); PLATELET COUNT 177 X10^3/uL (150.0-450.0); RED BLOOD COUNT 3.92 X10^6/uL (3.5-5.4); RED CELL DISTRIBUTION WIDTH 13.8 % (11.6-16.5); WHITE BLOOD COUNT 19.4 X10^3/uL (3.6-10.0)
[2018-06-03 06:45] LABS: ALANINE AMINOTRANSFERASE 16 Units/L (12-78); ALKALINE PHOSPHATASE 72 Units/L (46-116); ASPARTATE AMINO TRANSFERASE 23 Units/L (15-37); BLOOD UREA NITROGEN 42 mg/dL (7-18); CALCIUM 9.1 mg/dL (8.5-10.1); CARBON DIOXIDE 28.4 mmol/L (21-32); CHLORIDE 101 mmol/L (98-107); COR CA(FOR HYPOALB) 10.7 mg/dL (8.5-10.1); COR NA(FOR HYPERGLY) 138 mmol/L (136-145); CREATININE 0.77 mg/dL (0.55-1.02); SODIUM 137 mmol/L (136-145); TOTAL PROTEIN 6.4 g/dL (6.4-8.2); eGFR NON BLACK RACES > 60 (>60)
[2018-06-03 07:05] LABS: PLATELET MORPHOLOGY COMMENT NORMAL (NORMAL)
[2018-06-03] MEDS: PROVENTIL NEB TX 0.083% 2.5MG/ 3ML NEB SCH ×6 (08:27→20:18)
[2018-06-03] MEDS: PULMICORT NEB TX 0.5 MG NEB SCH ×3 (08:27→20:19)
[2018-06-03] MEDS: FLONASE NASAL SPRAY ENOSTRIL SCH (08:43)
[2018-06-03] MEDS: MEGACE PO SCH ×2 (08:44→21:02)
[2018-06-03] MEDS: LEVAQUIN PREMIX IV 750 MG 750 MG/150 ML BAG IV SCH (08:44)
[2018-06-03] MEDS: MAG-OX TAB PO SCH ×2 (08:44→21:02)
[2018-06-03] MEDS: LIPITOR TAB 20 MG PO SCH (08:44)
[2018-06-03] MEDS: NORVASC TAB 5 MG PO SCH (08:44)
[2018-06-03] MEDS: XANAX PO SCH ×2 (08:45→21:02)
[2018-06-03] MEDS: UNIPHYL TAB 400 MG PO SCH (08:45)
[2018-06-03] MEDS: SOLU-Medrol 40 MG VIAL IVP SCH ×2 (08:45→21:01)
[2018-06-03] MEDS: TRICOR TAB 48 MG PO SCH (08:45)
[2018-06-03] MEDS: ROBITUSSIN DM PO SCH ×4 (08:45→21:02)
[2018-06-03] MEDS ORDERED: THEOPHYLLINE 400 MG PO SCH (09:00)
[2018-06-03] MEDS ORDERED: PATIENT'S HOME MEDICATION (Fenofibrate [Fenofibrate] 54 MG) PO SCH (09:00)
[2018-06-03] MEDS: NS 1000 ML 1,000 ML IV SCH ×2 (13:43→23:00)
--- NOTE | 2018-06-03 14:55 | DR.H&P ---
H&P - History & Physical for Day of: H&P Date: 06/02/18 - Chief Complaint Chief Complaint: SOB, COUGH, CONGESTION, WEAKNESS - History of Present Illness History of Present Illness: IS A 73 YEAR OLD PATIENT OF OURS WHO PRESENTED TO THE EMERGENCY ROOM WITH COMPLAINTS OF SHORTNESS OF BREATH, COUGH, CONGESTION, AND WEAKNESS. SHE REPORTS FALLING THIS MORNING AND HITTING HER HEAD. SHE REPORTS A LOW GRADE FEVER FOR THE PAST TWO DAYS. SHE HAS A HISTORY OF COPD, ANXIETY, DYSLIPIDEMIA, AND HTN. SHE USES TRILOGY AT HOME. ON ARRIVAL, VITALS WERE 99.6-103-91%NC-20-122/58. LABS WERE OBTAINED. ABNORMAL LAB VALUES INCLUDE THE FOLLOWING: WBC 22.7, SODIUM 135, BUN 25, BNP 224, ALBUMIN 2.4. URINALYSIS OBTATINED AND REVEALED: WBC 3-5, RBC 0-2, LEUKOCYTES 1+, BACTERIA TRACE, PROTEIN 3+. ABG WAS OBTAINED AND REVEALED: PH 7.310, PC02 67.0, P02 59.0, HC03 33.7, 02 SATURATION 87.0, BASE EXCESS 5.5. BLOOD AND SPUTUM CULTURES WERE OBTAINED. CHEST XRAY WAS OBTAINED AND REVEALED: Bibasilar infiltrates suggestive of pneumonia. COPD with mild interstitial lung changes. HEAD CT OBTAINED AND REVEALED: No acute intracranial process can be identified. 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 A stable, partially calcified calcified extra-axial lesion upon the right posterior interhemispheric falx most likely represents a meningioma. EKG OBTAINED AND REVEALED: SINUS RHYTHM WITH 98. SHE WAS ADMITTED FOR FURTHER EVAULATION AND TREATMENT OF BIBASILAR PNEUMONIA AND RESPIRATORY DISTRESS. SHE WAS STARTED ON LEVAQUIN 750MG IV DAILY, NORMAL SALINE AT 75ML/HR, AND RESPIRATORY TREATMENTS. WE PLAN TO FOLLOW UP WITH AM LABS AND CHEST XRAY AND CONTINUE TO MONITOR. - Past Medical History Past Medical History: Hypertension, Dyslipidemia, Anxiety, COPD - Past Surgical History Surgical History: Appendectomy - Family History Family Medical History: Cancer, Hypertension - Social History Does patient currently use any type of tobacco product: Yes Have you used tobacco products in the last 12 months: Yes Type of Tobacco Use: Cigarettes Does any household member use tobacco: No Alcohol Use: None Drug Use: None - Medications Home Medications: No Known Drug Allergies Allergy (Verified 05/21/17 08:19) CONTINUE taking the following medications albuterol sulfate [Ventolin HFA] 2 puff INHALATION Q4-6H PRN 06/02/18 [History] fluticasone 2 spray INTRANASAL QDAY 06/02/18 [History] megestrol 40 mg PO BID 06/02/18 [History] temazepam 15 mg PO QHS 06/02/18 [History] - Review of Systems Constitutional: See HPI, Fever, Weakness Eyes: No Symptoms Reported ENT: Nose Congestion Respiratory: See HPI, Cough, Shortness of Breath Cardiovascular: No Symptoms Reported Gastrointestinal: No Symptoms Reported Genitourinary: No Symptoms Reported Musculoskeletal: No Symptoms Reported Skin: No Symptoms Reported Neurological: Weakness - Physical Exam Vital Signs: Temperature 97.6 F Pulse Rate [Left Brachial] 101 Pulse Rate 87 Respiratory Rate 36 Blood Pressure [Left Arm] 131/55 Blood Pressure [Right Arm] 162/71 Blood Pressure 124/60 O2 Sat by Pulse Oximetry 87 Oriented: Normal Eyes: Normal Ear: Normal Nose: Normal Throat: Normal Respiratory: Diminished Throughout, Wheezes Throughout Cardiovascular: Tachycardia. negative: S3, S4, Murmur : Normal Auscultation: Bowel Sounds: Normal Palpation: Normal Tenderness: Normal Skin: Normal Musculoskeletal: Normal Psychiatric: Normal Mood Description: Calm Affect: Normal Speech Pattern: Clear - Assessment/Plan (1) Pneumonia Qualifiers: Pneumonia type: due to unspecified organism Laterality: bilateral Lung location: unspecified part of lung Qualified Code(s): J18.9 - Pneumonia, unspecified organism Status: Acute Plan: IV ANTIBIOTICS, RESPIRATORY TREATMENTS, SOLU-MEDROL IV, SUPPLEMENTAL OXYGEN, CONTINUE TO MONITOR (2) Respiratory distress Status: Acute Plan: IV ANTIBIOTICS, RESPIRATORY TREATMENTS, SOLU-MEDROL IV, SUPPLEMENTAL OXYGEN, TRILOGY, CONTINUE TO MONITOR (3) COPD (chronic obstructive pulmonary disease) Qualifiers: COPD type: COPD with acute exacerbation Qualified Code(s): J44.1 - Chronic obstructive pulmonary disease with (acute) exacerbation Status: Chronic Plan: IV ANTIBIOTICS, RESPIRATORY TREATMENTS, SOLU-MEDROL IV, SUPPLEMENTAL OXYGEN, TRILOGY, CONTINUE TO MONITOR - Allergies Allergies/Adverse Reactions: Allergies Allergy/AdvReac Type Severity Reaction Status Date / Time No Known Drug Allergies Allergy Verified 05/21/17 08:19
--- NOTE | 2018-06-03 15:19 | PCM.PROG ---
Progress Note - Progress Note for Day of Date of Exam: 06/03/18 - Subjective Subjective: IS A 73 YEAR OLD PATIENT OF OURS WHO IS BEING TREATED FOR FOR BIBASILAR PNEUMONIA, RESPIRATORY DISTRESS, AND A UTI. TODAY, SHE IS LYING IN BED WITH EYES CLOSED ON MORNING ROUNDS. SHE AWAKENS EASILY TO VERBAL STIMULI. SHE CONTINUES WITH COUGH AND SHORTNESS OF BREATH. STAFF REPORTS THAT HER TRILOGY HAD TO BE ADJUSTED SEVERAL TIMES THROUGHOUT THE NIGHT DUE TO OXYGEN SATURATIONS DROPPING INTO THE 80S. UPON ROUNDS, VITALS WERE 97.8-87-31-95%NC-125/60. LABS WERE OBTAINED. ABNORMAL LAB VALUES INCLUDE THE FOLLOWING: WBC 19.4, HGB 11.5, HCT 3.8, POTASSIUM 5.2, BUN 42, GLUCOSE 126, ALBUMIN 2.0. BLOOD AND SPUTUM CULTURES ARE PENDING. SHE IS CURRENTLY RECEIVING LEVAQUIN 750MG IV DAILY, NORMAL SALINE AT 75ML/HR, IV SOLU-MEDROL, AND RESPIRATORY TREATMENTS. WE WILL CONTINUE WITH CURRENT PLAN OF CARE TODAY. WE PLAN TO FOLLOW UP WITH AM LABS AND CHEST XRAY AND CONTINUE TO MONITOR. - Past Medical Family Social History Past Med/Fam/Surg Hx: No changes since H&P Allergies: Allergies No Known Drug Allergies Allergy (Verified 05/21/17 08:19) - Review of Systems ROS: No change since H&P - Vital Signs and I&O's Vital Signs: Temperature 97.6 F Pulse Rate [Left Brachial] 101 Pulse Rate 87 Respiratory Rate 36 Blood Pressure [Left Arm] 131/55 Blood Pressure [Right Arm] 162/71 Blood Pressure 124/60 O2 Sat by Pulse Oximetry 87 Intake and Output: Intake & Output 06/01/18 06/02/18 06/03/18 06/04/18 11:59 11:59 11:59 11:59 Intake Total 2515 / 2515 952 / 952 Output Total 900 / 900 600 / 600 Balance 1615 / 1615 352 / 352 - Physical Exam Oriented: Normal Eyes: Normal Ear: Normal Nose: Normal Throat: Normal Respiratory: Generalized, Diminished, Wheezes Cardiovascular: Tachycardia. negative: S3, S4, Murmur : Normal Auscultation: Bowel Sounds: Normal Palpation: Normal Tenderness: Normal Skin: Normal Musculoskeletal: Normal Psychiatric: Normal Mood Description: Calm Affect: Normal Speech Pattern: Clear - Laboratory and Diagnostics Result Diagrams: 06/03/18 05:38 06/03/18 05:38 Labs: 06/02/18 11:08 Sputum - Endotracheal Wash Sputum Culture - Preliminary 06/02/18 11:08 Sputum - Endotracheal Wash - Final Laboratory WBC 19.4 X10^3/uL (3.6-10.0) H 06/03/18 05:38 RBC 3.92 X10^6/uL (3.5-5.4) 06/03/18 05:38 Hgb 11.5 g/dL (12.0-16.0) L 06/03/18 05:38 Hct 34.8 % (36.0-47.0) L 06/03/18 05:38 MCV 88.7 fL (80.0-100.0) 06/03/18 05:38 MCH 29.4 pg (27.0-34.0) 06/03/18 05:38 MCHC 33.1 g/dL (33.0-35.0) 06/03/18 05:38 RDW 13.8 % (11.6-16.5) 06/03/18 05:38 Plt Count 177 X10^3/uL (150.0-450.0) 06/03/18 05:38 Plt Count Comment Adequate (ADEQUATE) 06/03/18 05:38 MPV 11.0 fL (7.4-11.0) 06/03/18 05:38 Neut % (Auto) 92.9 % (42.0-75.0) H 06/03/18 05:38 Lymph % (Auto) 1.2 % (21.0-51.0) L 06/03/18 05:38 [place] % (Auto) 5.7 % (0.0-13.0) 06/03/18 05:38 Eos % (Auto) 0.0 % (0.9-2.9) L 06/03/18 05:38 Baso % (Auto) 0.2 % (0.2-1.0) 06/03/18 05:38 Neut # (Auto) 18.0 x10^3/uL (2.2-4.8) H 06/03/18 05:38 Lymph # (Auto) 0.2 X10^3/uL (1.3-2.9) L 06/03/18 05:38 [place] # (Auto) 1.1 x10^3/uL (0.3-0.8) H 06/03/18 05:38 Eos # (Auto) 0.0 x10^3/uL (0.0-0.2) 06/03/18 05:38 Baso # (Auto) 0.0 X10^3/uL (0.0-0.1) 06/03/18 05:38 Absolute Nucleated RBC 0.0 /100WBC 06/03/18 05:38 Total Counted 100 06/03/18 05:38 Neutrophils % (Manual) 92 % (39-76) H 06/03/18 05:38 Band Neutrophils % 7 % (0-10) 06/02/18 08:10 Lymphocytes % (Manual) 7 % (13-43) L 06/03/18 05:38 Monocytes % (Manual) 1 % (4-9) L 06/03/18 05:38 Plt Morphology Comment Normal (NORMAL) 06/03/18 05:38 RBC Morphology Normal (NORMAL) 06/03/18 05:38 Sample Site Rr 06/02/18 07:43 ABG pH 7.310 (7.35-7.45) L 06/02/18 07:43 ABG pCO2 67.0 mmHg (35.0-45.0) H* 06/02/18 07:43 ABG pO2 59.0 mmHg (80.0-100.0) L 06/02/18 07:43 ABG HCO3 33.7 mmol/L (22-26) H* 06/02/18 07:43 ABG O2 Saturation 87.0 % (90-100) L 06/02/18 07:43 ABG Base Excess 5.5 mmol/L (-2.0-2.0) H 06/02/18 07:43 Dony Test P 06/02/18 07:43 A-a Gradient 57.0 mmHg 06/02/18 07:43 FiO2 28.0 06/02/18 07:43 Blood Gas Comments Josefina well-sd 06/02/18 07:43 Sodium 137 mmol/L (136-145) 06/03/18 05:38 Corrected Sodium 138 mmol/L (136-145) 06/03/18 05:38 Potassium 5.2 mmol/L (3.5-5.1) H 06/03/18 05:38 Chloride 101 mmol/L (98-107) 06/03/18 05:38 Carbon Dioxide 28.4 mmol/L (21-32) 06/03/18 05:38 BUN 42 mg/dL (7-18) H 06/03/18 05:38 Creatinine 0.77 mg/dL (0.55-1.02) 06/03/18 05:38 Est GFR (MDRD) Af Amer > 60 (>60) 06/03/18 05:38 Est GFR (MDRD) Non-Af > 60 (>60) 06/03/18 05:38 Glucose 126 mg/dL (65-99) H 06/03/18 05:38 Lactic Acid 0.5 mmol/L (0.4-2.0) 06/02/18 08:10 Calcium 9.1 mg/dL (8.5-10.1) 06/03/18 05:38 Corrected Calcium 10.7 mg/dL (8.5-10.1) H 06/03/18 05:38 Total Bilirubin 0.20 mg/dL (0.2-1.0) 06/03/18 05:38 AST 23 Units/L (15-37) 06/03/18 05:38 ALT 16 Units/L (12-78) 06/03/18 05:38 Alkaline Phosphatase 72 Units/L (46-116) 06/03/18 05:38 B-Natriuretic Peptide 224 pg/mL (0-79) H 06/02/18 08:10 Total Protein 6.4 g/dL (6.4-8.2) 06/03/18 05:38 Albumin 2.0 g/dL (3.4-5.0) L 06/03/18 05:38 Globulin 4.4 g/dL (2.5-4.5) 06/03/18 05:38 Albumin/Globulin Ratio 0.5 Ratio (1.1-2.1) L 06/03/18 05:38 Specimen Type Catherized urine 06/02/18 14:27 Urine Color Dark yellow (YELLOW) 06/02/18 14:27 Urine Appearance Slightly hazy (CLEAR) 06/02/18 14:27 Urine pH 5.0 (5.0 - 8.0) 06/02/18 14:27 Ur Specific [place] 1.025 (1.000-1.030) 06/02/18 14:27 Urine Protein 3+ (NEGATIVE) 06/02/18 14:27 Urine Glucose (UA) Negative (NEGATIVE) 06/02/18 14:27 Urine Ketones 1+ (NEGATIVE) 06/02/18 14:27 Urine Occult Blood 1+ (NEGATIVE) 06/02/18 14:27 Urine Nitrite Negative (NEGATIVE) 06/02/18 14:27 Urine Bilirubin Negative (NEGATIVE) 06/02/18 14:27 Urine Urobilinogen Normal (NORMAL) 06/02/18 14:27 Ur Leukocyte Esterase 1+ (NEGATIVE) 06/02/18 14:27 Urine RBC 0-2 /HPF (NONE SEEN) 06/02/18 14:27 Urine WBC 3-5 /HPF (NONE SEEN) 06/02/18 14:27 Ur Squamous Epith Cells Few /HPF (NEGATIVE) 06/02/18 14:27 Amorphous Sediment 4+ /HPF (NEGATIVE) 06/02/18 14:27 Urine Bacteria Trace /HPF (NEGATIVE) 06/02/18 14:27 Hyaline Casts Moderate /LPF (NEGATIVE) 06/02/18 14:27 Ur Culture Indicated? No/not indicated 06/02/18 14:27 - Plan (1) Pneumonia Status: Acute Qualifiers: Pneumonia type: due to unspecified organism Laterality: bilateral Lung location: unspecified part of lung Qualified Code(s): J18.9 - Pneumonia, unspecified organism Plan: IV ANTIBIOTICS, RESPIRATORY TREATMENTS, SOLU-MEDROL IV, SUPPLEMENTAL OXYGEN, CONTINUE TO MONITOR (2) Respiratory distress Status: Acute Plan: IV ANTIBIOTICS, RESPIRATORY TREATMENTS, SOLU-MEDROL IV, SUPPLEMENTAL OXYGEN, TRILOGY, CONTINUE TO MONITOR (3) COPD (chronic obstructive pulmonary disease) Status: Chronic Qualifiers: COPD type: COPD with acute exacerbation Qualified Code(s): J44.1 - Chronic obstructive pulmonary disease with (acute) exacerbation Plan: IV ANTIBIOTICS, RESPIRATORY TREATMENTS, SOLU-MEDROL IV, SUPPLEMENTAL OXYGEN, TRILOGY, CONTINUE TO MONITOR
[2018-06-03] MEDS: RESTORIL CAP 15 MG PO PRN (21:02)
[2018-06-03] MEDS: TUSSIONEX PENNKINETIC SUSP PO PRN (23:30)
[2018-06-04] MEDS: NS 1000 ML 1,000 ML IV SCH ×2 (03:04→17:30)
[2018-06-04] MEDS: FORTAZ or TAZICEF VIAL INJ IVP SCH ×3 (05:45→21:07)
[2018-06-04 06:50] LABS: BASOPHILS % (AUTO) 0.2 % (0.2-1.0); HEMATOCRIT 29.5 % (36.0-47.0); LYMPHOCYTES # (AUTO) 0.3 X10^3/uL (1.3-2.9); LYMPHOCYTES % (AUTO) 1.9 % (21.0-51.0); MEAN CORPUSCULAR HEMOGLOBIN 29.8 pg (27.0-34.0); MEAN CORPUSCULAR VOLUME 87.5 fL (80.0-100.0); MEAN PLATELET VOLUME 10.4 fL (7.4-11.0); MONOCYTES # (AUTO) 0.7 x10^3/uL (0.3-0.8); MONOCYTES % (AUTO) 4.2 % (0.0-13.0); NEUTROPHILS # (AUTO) 14.9 x10^3/uL (2.2-4.8); NEUTROPHILS % (AUTO) 93.7 % (42.0-75.0); PLATELET COUNT 157 X10^3/uL (150.0-450.0); RED BLOOD COUNT 3.36 X10^6/uL (3.5-5.4); RED CELL DISTRIBUTION WIDTH 13.6 % (11.6-16.5); WHITE BLOOD COUNT 15.9 X10^3/uL (3.6-10.0)
[2018-06-04 07:06] LABS: ALANINE AMINOTRANSFERASE 45 Units/L (12-78); ALBUMIN 1.8 g/dL (3.4-5.0); ALKALINE PHOSPHATASE 64 Units/L (46-116); ASPARTATE AMINO TRANSFERASE 67 Units/L (15-37); BLOOD UREA NITROGEN 25 mg/dL (7-18); CARBON DIOXIDE 32.2 mmol/L (21-32); CHLORIDE 105 mmol/L (98-107); COR CA(FOR HYPOALB) 10.8 mg/dL (8.5-10.1); COR NA(FOR HYPERGLY) 143 mmol/L (136-145); CREATININE 0.51 mg/dL (0.55-1.02); SODIUM 142 mmol/L (136-145); TOTAL PROTEIN 5.6 g/dL (6.4-8.2); eGFR NON BLACK RACES > 60 (>60)
[2018-06-04 07:16] LABS: BAND NEUTROPHILS % 9 % (0-10); PLATELET MORPHOLOGY COMMENT NORMAL (NORMAL)
--- NOTE | 2018-06-04 07:27 | RAD ---
HISTORY: Congestion, shortness of breath Study: Single-view chest Comparison: 06/02/2018. Findings: Trachea is midline. Heart size is normal. There is atherosclerotic calcification and uncoiling of the aortic arch. There is hyperinflation of both lungs with increased interstitial markings bilaterally, indicating COPD. While improved aeration is noted in the lung bases, a small left pleural effusion has developed. Osseous structures are intact. IMPRESSION: COPD. While there has been improvement in aeration in the lung bases, a small left pleural effusion has developed. Reported By:
[2018-06-04] MEDS: LEVAQUIN PREMIX IV 750 MG 750 MG/150 ML BAG IV SCH (09:12)
[2018-06-04] MEDS: FLONASE NASAL SPRAY ENOSTRIL SCH (09:12)
[2018-06-04] MEDS: LIPITOR TAB 20 MG PO SCH (09:12)
[2018-06-04] MEDS: MAG-OX TAB PO SCH ×2 (09:12→21:08)
[2018-06-04] MEDS: ROBITUSSIN DM PO SCH ×4 (09:13→21:09)
[2018-06-04] MEDS: NORVASC TAB 5 MG PO SCH (09:13)
[2018-06-04] MEDS: SOLU-Medrol 40 MG VIAL IVP SCH ×3 (09:13→20:50)
[2018-06-04] MEDS: MEGACE PO SCH ×2 (09:13→21:08)
[2018-06-04] MEDS: XANAX PO SCH ×2 (09:14→21:08)
[2018-06-04] MEDS: TRICOR TAB 48 MG PO SCH (09:14)
[2018-06-04] MEDS: UNIPHYL TAB 400 MG PO SCH (09:14)
[2018-06-04] MEDS: PULMICORT NEB TX 0.5 MG NEB SCH ×2 (09:30→20:08)
[2018-06-04] MEDS: PROVENTIL NEB TX 0.083% 2.5MG/ 3ML NEB SCH ×5 (09:30→20:08)
--- NOTE | 2018-06-04 10:22 | PCM.PROG ---
Progress Note - Progress Note for Day of Date of Exam: 06/04/18 - Subjective Subjective: IS A 73 YEAR OLD PATIENT OF OURS WHO IS BEING TREATED FOR FOR BIBASILAR PNEUMONIA, RESPIRATORY DISTRESS, AND A UTI. TODAY, SHE IS ALERT AND ORIENTED, LYING IN BED ON MORNING ROUNDS. SHE CONTINUES WITH A PRODUCTIVE COUGH AND SHORTNESS OF BREATH. UPON ROUNDS, VITALS WERE 97.6-63-31-93%BIPAP- 115/55. LABS WERE OBTAINED. ABNORMAL LAB VALUES INCLUDE THE FOLLOWING: WBC 15.9, RBC 3.36, HGB 10.0, HCT 29.5, CARBON DIOXIDE 32.2, BUN 25, CREATININE 0.51, GLUCOSE 143, TOTAL BILI 0.10, AST 67, TOTAL PROTEIN 5.6, ALBUMIN 1.8. BLOOD AND SPUTUM CULTURES ARE PENDING. TODAYS CHEST XRAY REVEALS: While there has been improvement in aeration in the lung bases, a small left pleural effusion has developed. SHE IS CURRENTLY RECEIVING LEVAQUIN 750MG IV DAILY, NORMAL SALINE AT 75ML/HR, IV SOLU-MEDROL, AND RESPIRATORY TREATMENTS. WE WILL CONTINUE WITH CURRENT PLAN OF CARE TODAY. WE PLAN TO FOLLOW UP WITH AM LABS, ABG, AND CHEST XRAY AND CONTINUE TO MONITOR. - Past Medical Family Social History Past Med/Fam/Surg Hx: No changes since H&P Allergies: Allergies No Known Drug Allergies Allergy (Verified 05/21/17 08:19) - Review of Systems ROS: No change since H&P - Vital Signs and I&O's Vital Signs: Temperature 97.6 F Pulse Rate [Left Brachial] 101 Pulse Rate 66 Respiratory Rate 32 Blood Pressure [Left Arm] 131/55 Blood Pressure [Right Arm] 162/71 Blood Pressure 117/56 O2 Sat by Pulse Oximetry 98 Intake and Output: Intake & Output 06/01/18 06/02/18 06/03/18 06/04/18 11:59 11:59 11:59 11:59 Intake Total 2515 / 2515 2492 / 2492 Output Total 900 / 900 1500 / 1500 Balance 1615 / 1615 992 / 992 - Physical Exam Oriented: Normal Eyes: Normal Ear: Normal Nose: Normal Throat: Normal Respiratory: Generalized, Diminished, Wheezes Cardiovascular: Tachycardia. negative: S3, S4, Murmur : Normal Auscultation: Bowel Sounds: Normal Tenderness: Normal Skin: Normal Musculoskeletal: Normal Psychiatric: Normal Mood Description: Calm Affect: Normal Speech Pattern: Appropriate - Laboratory and Diagnostics Result Diagrams: 06/04/18 05:31 06/04/18 05:31 Labs: 06/02/18 11:08 Sputum - Endotracheal Wash Sputum Culture - Preliminary 06/02/18 11:08 Sputum - Endotracheal Wash - Final Laboratory WBC 15.9 X10^3/uL (3.6-10.0) H 06/04/18 05:31 RBC 3.36 X10^6/uL (3.5-5.4) L 06/04/18 05:31 Hgb 10.0 g/dL (12.0-16.0) L 06/04/18 05:31 Hct 29.5 % (36.0-47.0) L 06/04/18 05:31 MCV 87.5 fL (80.0-100.0) 06/04/18 05:31 MCH 29.8 pg (27.0-34.0) 06/04/18 05:31 MCHC 34.0 g/dL (33.0-35.0) 06/04/18 05:31 RDW 13.6 % (11.6-16.5) 06/04/18 05:31 Plt Count 157 X10^3/uL (150.0-450.0) 06/04/18 05:31 Plt Count Comment Adequate (ADEQUATE) 06/04/18 05:31 MPV 10.4 fL (7.4-11.0) 06/04/18 05:31 Neut % (Auto) 93.7 % (42.0-75.0) H 06/04/18 05:31 Lymph % (Auto) 1.9 % (21.0-51.0) L 06/04/18 05:31 [place] % (Auto) 4.2 % (0.0-13.0) 06/04/18 05:31 Eos % (Auto) 0.0 % (0.9-2.9) L 06/04/18 05:31 Baso % (Auto) 0.2 % (0.2-1.0) 06/04/18 05:31 Neut # (Auto) 14.9 x10^3/uL (2.2-4.8) H 06/04/18 05:31 Lymph # (Auto) 0.3 X10^3/uL (1.3-2.9) L 06/04/18 05:31 [place] # (Auto) 0.7 x10^3/uL (0.3-0.8) 06/04/18 05:31 Eos # (Auto) 0.0 x10^3/uL (0.0-0.2) 06/04/18 05:31 Baso # (Auto) 0.0 X10^3/uL (0.0-0.1) 06/04/18 05:31 Absolute Nucleated RBC 0.0 /100WBC 06/04/18 05:31 Total Counted 100 06/04/18 05:31 Neutrophils % (Manual) 82 % (39-76) H 06/04/18 05:31 Band Neutrophils % 9 % (0-10) 06/04/18 05:31 Lymphocytes % (Manual) 8 % (13-43) L 06/04/18 05:31 Monocytes % (Manual) 1 % (4-9) L 06/04/18 05:31 Plt Morphology Comment Normal (NORMAL) 06/04/18 05:31 RBC Morphology Normal (NORMAL) 06/04/18 05:31 Sample Site Rr 06/02/18 07:43 ABG pH 7.310 (7.35-7.45) L 06/02/18 07:43 ABG pCO2 67.0 mmHg (35.0-45.0) H* 06/02/18 07:43 ABG pO2 59.0 mmHg (80.0-100.0) L 06/02/18 07:43 ABG HCO3 33.7 mmol/L (22-26) H* 06/02/18 07:43 ABG O2 Saturation 87.0 % (90-100) L 06/02/18 07:43 ABG Base Excess 5.5 mmol/L (-2.0-2.0) H 06/02/18 07:43 Dony Test P 06/02/18 07:43 A-a Gradient 57.0 mmHg 06/02/18 07:43 FiO2 28.0 06/02/18 07:43 Blood Gas Comments Josefina well-sd 06/02/18 07:43 Sodium 142 mmol/L (136-145) 06/04/18 05:31 Corrected Sodium 143 mmol/L (136-145) 06/04/18 05:31 Potassium 4.9 mmol/L (3.5-5.1) 06/04/18 05:31 Chloride 105 mmol/L (98-107) 06/04/18 05:31 Carbon Dioxide 32.2 mmol/L (21-32) H 06/04/18 05:31 BUN 25 mg/dL (7-18) H 06/04/18 05:31 Creatinine 0.51 mg/dL (0.55-1.02) L 06/04/18 05:31 Est GFR (MDRD) Af Amer > 60 (>60) 06/04/18 05:31 Est GFR (MDRD) Non-Af > 60 (>60) 06/04/18 05:31 Glucose 143 mg/dL (65-99) H 06/04/18 05:31 Lactic Acid 0.5 mmol/L (0.4-2.0) 06/02/18 08:10 Calcium 9.0 mg/dL (8.5-10.1) 06/04/18 05:31 Corrected Calcium 10.8 mg/dL (8.5-10.1) H 06/04/18 05:31 Total Bilirubin 0.10 mg/dL (0.2-1.0) L 06/04/18 05:31 AST 67 Units/L (15-37) H 06/04/18 05:31 ALT 45 Units/L (12-78) 06/04/18 05:31 Alkaline Phosphatase 64 Units/L (46-116) 06/04/18 05:31 B-Natriuretic Peptide 224 pg/mL (0-79) H 06/02/18 08:10 Total Protein 5.6 g/dL (6.4-8.2) L 06/04/18 05:31 Albumin 1.8 g/dL (3.4-5.0) L 06/04/18 05:31 Globulin 3.8 g/dL (2.5-4.5) 06/04/18 05:31 Albumin/Globulin Ratio 0.5 Ratio (1.1-2.1) L 06/04/18 05:31 Specimen Type Catherized urine 06/02/18 14:27 Urine Color Dark yellow (YELLOW) 06/02/18 14:27 Urine Appearance Slightly hazy (CLEAR) 06/02/18 14:27 Urine pH 5.0 (5.0 - 8.0) 06/02/18 14:27 Ur Specific [place] 1.025 (1.000-1.030) 06/02/18 14:27 Urine Protein 3+ (NEGATIVE) 06/02/18 14:27 Urine Glucose (UA) Negative (NEGATIVE) 06/02/18 14:27 Urine Ketones 1+ (NEGATIVE) 06/02/18 14:27 Urine Occult Blood 1+ (NEGATIVE) 06/02/18 14:27 Urine Nitrite Negative (NEGATIVE) 06/02/18 14:27 Urine Bilirubin Negative (NEGATIVE) 06/02/18 14:27 Urine Urobilinogen Normal (NORMAL) 06/02/18 14:27 Ur Leukocyte Esterase 1+ (NEGATIVE) 06/02/18 14:27 Urine RBC 0-2 /HPF (NONE SEEN) 06/02/18 14:27 Urine WBC 3-5 /HPF (NONE SEEN) 06/02/18 14:27 Ur Squamous Epith Cells Few /HPF (NEGATIVE) 06/02/18 14:27 Amorphous Sediment 4+ /HPF (NEGATIVE) 06/02/18 14:27 Urine Bacteria Trace /HPF (NEGATIVE) 06/02/18 14:27 Hyaline Casts Moderate /LPF (NEGATIVE) 06/02/18 14:27 Ur Culture Indicated? No/not indicated 06/02/18 14:27 - Plan (1) Pneumonia Status: Acute Qualifiers: Pneumonia type: due to unspecified organism Laterality: bilateral Lung location: unspecified part of lung Qualified Code(s): J18.9 - Pneumonia, unspecified organism Plan: IV ANTIBIOTICS, RESPIRATORY TREATMENTS, SOLU-MEDROL IV, SUPPLEMENTAL OXYGEN, CONTINUE TO MONITOR (2) Respiratory distress Status: Acute Plan: IV ANTIBIOTICS, RESPIRATORY TREATMENTS, SOLU-MEDROL IV, SUPPLEMENTAL OXYGEN, TRILOGY, CONTINUE TO MONITOR (3) COPD (chronic obstructive pulmonary disease) Status: Chronic Qualifiers: COPD type: COPD with acute exacerbation Qualified Code(s): J44.1 - Chronic obstructive pulmonary disease with (acute) exacerbation Plan: IV ANTIBIOTICS, RESPIRATORY TREATMENTS, SOLU-MEDROL IV, SUPPLEMENTAL OXYGEN, TRILOGY, CONTINUE TO MONITOR
[2018-06-04] MEDS: COLACE CAP 100 MG PO SCH (21:07)
[2018-06-04] MEDS: MILK OF MAGNESIA PO SCH (21:09)
[2018-06-04] MEDS: RESTORIL CAP 15 MG PO PRN (21:09)
[2018-06-05] MEDS: FORTAZ or TAZICEF VIAL INJ IVP SCH ×3 (05:31→21:01)
[2018-06-05 07:00] LABS: ALANINE AMINOTRANSFERASE 69 Units/L (12-78); ALBUMIN 1.9 g/dL (3.4-5.0); ALKALINE PHOSPHATASE 77 Units/L (46-116); ASPARTATE AMINO TRANSFERASE 84 Units/L (15-37); BLOOD UREA NITROGEN 20 mg/dL (7-18); CALCIUM 8.9 mg/dL (8.5-10.1); CARBON DIOXIDE 34.2 mmol/L (21-32); CHLORIDE 107 mmol/L (98-107); COR CA(FOR HYPOALB) 10.6 mg/dL (8.5-10.1); COR NA(FOR HYPERGLY) 146 mmol/L (136-145); CREATININE 0.44 mg/dL (0.55-1.02); SODIUM 145 mmol/L (136-145); TOTAL PROTEIN 5.8 g/dL (6.4-8.2); eGFR NON BLACK RACES > 60 (>60)
[2018-06-05 07:16] LABS: BASOPHILS % (AUTO) 0.3 % (0.2-1.0); HEMATOCRIT 32.3 % (36.0-47.0); HEMOGLOBIN 10.7 g/dL (12.0-16.0); LYMPHOCYTES # (AUTO) 0.4 X10^3/uL (1.3-2.9); LYMPHOCYTES % (AUTO) 2.4 % (21.0-51.0); MEAN CORPUSCULAR HGB CONC 33.1 g/dL (33.0-35.0); MEAN CORPUSCULAR VOLUME 87.6 fL (80.0-100.0); MEAN PLATELET VOLUME 10.4 fL (7.4-11.0); MONOCYTES # (AUTO) 0.7 x10^3/uL (0.3-0.8); NEUTROPHILS # (AUTO) 15.8 x10^3/uL (2.2-4.8); NEUTROPHILS % (AUTO) 93.3 % (42.0-75.0); PLATELET COUNT 200 X10^3/uL (150.0-450.0); RED BLOOD COUNT 3.69 X10^6/uL (3.5-5.4); RED CELL DISTRIBUTION WIDTH 13.8 % (11.6-16.5); WHITE BLOOD COUNT 16.9 X10^3/uL (3.6-10.0)
[2018-06-05 08:22] LABS: BAND NEUTROPHILS % 5 % (0-10)
[2018-06-05 08:23] LABS: HYPOCHROMASIA SLIGHT
[2018-06-05 08:30] LABS: PLATELET MORPHOLOGY COMMENT NORMAL (NORMAL)
--- NOTE | 2018-06-05 08:43 | RAD ---
HISTORY: Congestion shortness of breath Study: One-view chest Comparison: One-view chest 06/04/2018 Technique: AP upright chest. Findings: EKG leads overlie the thorax. Soft tissues bone detail are normal. Heart size and configuration are normal. There is chronic pleural scarring left lung base unchanged from yesterday's film but there is developing infiltrate in the right lung base consistent with pneumonia that was not present on yesterday's study. The effusion left lung base is new from prior study of 06/02 the infiltrate has improved in the right lung base on yesterday's film but has recurred on today's film there is persistent airspace disease in the left lower lobe retrocardiac region. IMPRESSION: 1. Persistent bibasilar infiltrates consistent with pneumonia with effusion in the left lung base. Effusion infiltrate left lung base are unchanged from yesterday's film. Where is the infiltrate in the right lung base have improved on yesterday's film it is now recurred on current film. Reported By:
[2018-06-05] MEDS: NS 1000 ML 1,000 ML IV SCH ×2 (09:16→21:02)
[2018-06-05] MEDS: FLONASE NASAL SPRAY ENOSTRIL SCH (09:17)
[2018-06-05] MEDS: LEVAQUIN PREMIX IV 750 MG 750 MG/150 ML BAG IV SCH (09:17)
[2018-06-05] MEDS: MAG-OX TAB PO SCH ×4 (09:18→21:03)
[2018-06-05] MEDS: LIPITOR TAB 20 MG PO SCH ×3 (09:18→11:13)
[2018-06-05] MEDS: ROBITUSSIN DM PO SCH ×6 (09:19→21:03)
[2018-06-05] MEDS: MEGACE PO SCH ×4 (09:19→21:03)
[2018-06-05] MEDS: NORVASC TAB 5 MG PO SCH ×3 (09:19→11:12)
[2018-06-05] MEDS: SOLU-Medrol 40 MG VIAL IVP SCH ×2 (09:19→16:57)
[2018-06-05] MEDS: UNIPHYL TAB 400 MG PO SCH ×3 (09:20→11:12)
[2018-06-05] MEDS: TRICOR TAB 48 MG PO SCH ×3 (09:20→11:13)
[2018-06-05] MEDS: XANAX PO SCH ×4 (09:20→21:04)
[2018-06-05] MEDS: PROVENTIL NEB TX 0.083% 2.5MG/ 3ML NEB SCH ×4 (09:30→20:28)
[2018-06-05] MEDS: PULMICORT NEB TX 0.5 MG NEB SCH ×2 (09:30→20:28)
[2018-06-05 09:39] LABS: ABG BASE EXCESS 13.5 mmol/L (-2.0-2.0)
[2018-06-05 09:41] LABS: ABG HCO3 44.5 mmol/L (22-26)
[2018-06-05 12:59] LABS: ABG BASE EXCESS 15.3 mmol/L (-2.0-2.0)
[2018-06-05 13:00] LABS: ABG HCO3 43.1 mmol/L (22-26)
--- NOTE | 2018-06-05 16:06 | CT ---
History: Shortness of breath Exam: CTA chest Comparison: None Technique: Axial spiral images were obtained from the level above the clavicles through the adrenals after bolus administration 100 cc Isovue 370 . Coronal and sagittal 3D MIP reconstructions were performed. Automated dose control was utilized. Findings: The thyroid gland. There is moderate calcified plaque throughout the aorta which is well opacified with no aneurysm or dissection . The pulmonary arteries are well opacified with no filling defect or vessel cut off seen. There is a 2 cm mass in the left adrenal gland. There are small bibasilar pleural effusions with bibasilar atelectasis and consolidations which is more prominent on the left . There is moderate mucous plugging in the subsegmental bronchi to the right lower lobe with mild mucous plugging inferiorly on the left. The lungs are hyperinflated emphysematous. No pulmonary nodule or mass is seen . The bones are intact. No aggressive osseous lesion is seen. The right kidney is small in size. IMPRESSION: No evidence of pulmonary embolus. Extensive calcified plaque throughout the aorta with no aneurysm or dissection. Moderate mucous plugging in the bronchi to both lower lobes which is more prominent on the right , suggest pulmonology follow-up Small bibasilar pleural effusions and associated moderate bibasilar atelectasis and consolidations posteriorly which is more prominent on the left. 2 cm left adrenal mass which may represent an adenoma but remains indeterminate, recommend follow-up. Small right kidney, recommend follow-up. Reported By:
[2018-06-05] MEDS: COLACE CAP 100 MG PO SCH (21:03)
[2018-06-05] MEDS: MILK OF MAGNESIA PO SCH (21:03)
[2018-06-06] MEDS: TUSSIONEX PENNKINETIC SUSP PO PRN (02:21)
[2018-06-06 05:39] LABS: BASOPHILS % (AUTO) 0.1 % (0.2-1.0); HEMATOCRIT 31.6 % (36.0-47.0); HEMOGLOBIN 10.6 g/dL (12.0-16.0); LYMPHOCYTES # (AUTO) 1.1 X10^3/uL (1.3-2.9); MEAN CORPUSCULAR HGB CONC 33.5 g/dL (33.0-35.0); MEAN CORPUSCULAR VOLUME 86.8 fL (80.0-100.0); MEAN PLATELET VOLUME 9.6 fL (7.4-11.0); MONOCYTES # (AUTO) 1.6 x10^3/uL (0.3-0.8); MONOCYTES % (AUTO) 8.8 % (0.0-13.0); NEUTROPHILS # (AUTO) 15.4 x10^3/uL (2.2-4.8); NEUTROPHILS % (AUTO) 85.1 % (42.0-75.0); PLATELET COUNT 205 X10^3/uL (150.0-450.0); RED BLOOD COUNT 3.64 X10^6/uL (3.5-5.4); RED CELL DISTRIBUTION WIDTH 13.8 % (11.6-16.5); WHITE BLOOD COUNT 18.1 X10^3/uL (3.6-10.0)
--- NOTE | 2018-06-06 05:43 | RAD ---
Examination: AP chest History: SOB Comparison 06/05/2018 Findings: Continued normal heart size with symmetric pulmonary hyper expansion. Persistent basal infiltrates, left greater than right. No new consolidation, complicating pneumothorax. A small left pleural effusion is suggested. Impression: Persistent basal infiltrates and small left pleural effusion. No change. Reported By:
[2018-06-06 05:48] LABS: ALANINE AMINOTRANSFERASE 50 Units/L (12-78); ALBUMIN 1.8 g/dL (3.4-5.0); ALKALINE PHOSPHATASE 62 Units/L (46-116); ASPARTATE AMINO TRANSFERASE 40 Units/L (15-37); BLOOD UREA NITROGEN 17 mg/dL (7-18); CALCIUM 8.6 mg/dL (8.5-10.1); CARBON DIOXIDE 39.4 mmol/L (21-32); CHLORIDE 106 mmol/L (98-107); COR CA(FOR HYPOALB) 10.4 mg/dL (8.5-10.1); SODIUM 145 mmol/L (136-145); TOTAL PROTEIN 5.2 g/dL (6.4-8.2); eGFR NON BLACK RACES > 60 (>60)
[2018-06-06] MEDS: FORTAZ or TAZICEF VIAL INJ IVP SCH ×3 (05:54→21:49)
[2018-06-06] MEDS: SOLU-Medrol 40 MG VIAL IVP SCH ×2 (06:00→16:20)
[2018-06-06 06:05] LABS: BAND NEUTROPHILS % 6 % (0-10)
[2018-06-06 06:06] LABS: PLATELET MORPHOLOGY COMMENT NORMAL (NORMAL)
[2018-06-06] MEDS: NORVASC TAB 5 MG PO SCH (08:41)
[2018-06-06] MEDS: UNIPHYL TAB 400 MG PO SCH (08:41)
[2018-06-06] MEDS: MEGACE PO SCH ×2 (08:41→20:52)
[2018-06-06] MEDS: LIPITOR TAB 20 MG PO SCH (08:41)
[2018-06-06] MEDS: ROBITUSSIN DM PO SCH ×4 (08:41→20:53)
[2018-06-06] MEDS: LEVAQUIN PREMIX IV 750 MG 750 MG/150 ML BAG IV SCH (08:41)
[2018-06-06] MEDS: MAG-OX TAB PO SCH ×2 (08:41→20:52)
[2018-06-06] MEDS: FLONASE NASAL SPRAY ENOSTRIL SCH (08:42)
[2018-06-06] MEDS: XANAX PO SCH ×3 (08:43→20:53)
[2018-06-06] MEDS: TRICOR TAB 48 MG PO SCH (09:00)
[2018-06-06] MEDS: NS 1000 ML 1,000 ML IV SCH (09:00)
[2018-06-06] MEDS: MUCINEX EXPECTORANT PO SCH ×3 (09:35→20:52)
[2018-06-06] MEDS: PULMICORT NEB TX 0.5 MG NEB SCH ×2 (09:56→21:39)
[2018-06-06] MEDS: PROVENTIL NEB TX 0.083% 2.5MG/ 3ML NEB SCH ×4 (09:56→21:39)
[2018-06-06] MEDS: MUCOMYST 20% 200 MG/ML NEB SCH ×4 (09:56→21:39)
[2018-06-06] MEDS: BROVANA IN SCH ×2 (09:56→21:39)
[2018-06-06] MEDS: COLACE CAP 100 MG PO SCH (20:51)
[2018-06-06] MEDS: MILK OF MAGNESIA PO SCH (20:52)
[2018-06-06] MEDS: RESTORIL CAP 15 MG PO PRN (20:54)
--- NOTE | 2018-06-07 05:30 | RAD ---
Examination: AP chest History: SOB Comparison 06/06/2018 Findings: Similar heart size and pulmonary hyper expansion with basal infiltrates, left greater than right. Suspect minimal left pleural effusion. No complicating pneumothorax. Impression: No change in appearance of the chest. Reported By:
[2018-06-07] MEDS: SOLU-Medrol 40 MG VIAL IVP SCH ×2 (06:04→18:05)
[2018-06-07] MEDS: FORTAZ or TAZICEF VIAL INJ IVP SCH ×4 (06:04→22:00)
[2018-06-07 06:07] LABS: BASOPHILS % (AUTO) 0.2 % (0.2-1.0); EOSINOPHILS # (AUTO) 0.2 x10^3/uL (0.0-0.2); EOSINOPHILS % (AUTO) 0.9 % (0.9-2.9); HEMATOCRIT 33.3 % (36.0-47.0); HEMOGLOBIN 11.2 g/dL (12.0-16.0); LYMPHOCYTES # (AUTO) 1.6 X10^3/uL (1.3-2.9); LYMPHOCYTES % (AUTO) 9.5 % (21.0-51.0); MEAN CORPUSCULAR HEMOGLOBIN 29.3 pg (27.0-34.0); MEAN CORPUSCULAR HGB CONC 33.6 g/dL (33.0-35.0); MEAN CORPUSCULAR VOLUME 87.1 fL (80.0-100.0); MEAN PLATELET VOLUME 9.6 fL (7.4-11.0); MONOCYTES # (AUTO) 1.6 x10^3/uL (0.3-0.8); MONOCYTES % (AUTO) 9.4 % (0.0-13.0); NEUTROPHILS # (AUTO) 13.5 x10^3/uL (2.2-4.8); PLATELET COUNT 220 X10^3/uL (150.0-450.0); RED BLOOD COUNT 3.82 X10^6/uL (3.5-5.4); RED CELL DISTRIBUTION WIDTH 14.2 % (11.6-16.5); WHITE BLOOD COUNT 16.9 X10^3/uL (3.6-10.0)
[2018-06-07 06:08] LABS: ALANINE AMINOTRANSFERASE 38 Units/L (12-78); ALKALINE PHOSPHATASE 61 Units/L (46-116); ASPARTATE AMINO TRANSFERASE 28 Units/L (15-37); BLOOD UREA NITROGEN 11 mg/dL (7-18); CALCIUM 8.4 mg/dL (8.5-10.1); CARBON DIOXIDE 39.6 mmol/L (21-32); CHLORIDE 106 mmol/L (98-107); CREATININE 0.44 mg/dL (0.55-1.02); SODIUM 145 mmol/L (136-145); eGFR NON BLACK RACES > 60 (>60)
[2018-06-07 06:09] LABS: ALBUMIN 1.9 g/dL (3.4-5.0); COR CA(FOR HYPOALB) 10.1 mg/dL (8.5-10.1); TOTAL PROTEIN 5.2 g/dL (6.4-8.2)
[2018-06-07 06:17] LABS: ABG BASE EXCESS 21.3 mmol/L (-2.0-2.0)
[2018-06-07 06:19] LABS: ABG ALLEN TEST POS; ABG HCO3 49.3 mmol/L (22-26)
[2018-06-07 06:38] LABS: PLATELET MORPHOLOGY COMMENT NORMAL (NORMAL)
[2018-06-07] MEDS: NS 1000 ML 1,000 ML IV SCH ×3 (06:52→14:03)
[2018-06-07] MEDS: BROVANA IN SCH ×2 (08:03→20:26)
[2018-06-07] MEDS: PROVENTIL NEB TX 0.083% 2.5MG/ 3ML NEB SCH ×4 (08:03→20:26)
[2018-06-07] MEDS: PULMICORT NEB TX 0.5 MG NEB SCH ×2 (08:03→20:26)
[2018-06-07] MEDS: MUCOMYST 20% 200 MG/ML NEB SCH ×4 (08:03→20:26)
[2018-06-07] MEDS: LEVAQUIN PREMIX IV 750 MG 750 MG/150 ML BAG IV SCH (08:27)
[2018-06-07] MEDS: ROBITUSSIN DM PO SCH ×4 (08:28→20:34)
[2018-06-07] MEDS: MUCINEX EXPECTORANT PO SCH ×2 (08:29→20:33)
[2018-06-07] MEDS: NORVASC TAB 5 MG PO SCH ×2 (08:30→20:34)
[2018-06-07] MEDS: XANAX PO SCH ×2 (08:30→20:34)
[2018-06-07] MEDS: LIPITOR TAB 20 MG PO SCH (08:30)
[2018-06-07] MEDS: MAG-OX TAB PO SCH ×2 (08:30→20:34)
[2018-06-07] MEDS: UNIPHYL TAB 400 MG PO SCH (08:30)
[2018-06-07] MEDS: MEGACE PO SCH ×2 (08:30→20:33)
[2018-06-07] MEDS: FLONASE NASAL SPRAY ENOSTRIL SCH (08:31)
[2018-06-07] MEDS: TRICOR TAB 48 MG PO SCH (10:02)
[2018-06-07] MEDS: RESTORIL CAP 15 MG PO PRN (20:34)
[2018-06-07] MEDS: COLACE CAP 100 MG PO SCH (20:35)
[2018-06-07] MEDS: MILK OF MAGNESIA PO SCH (20:35)
--- NOTE | 2018-06-07 21:34 | PCM.PROG ---
Progress Note - Progress Note for Day of Date of Exam: 06/05/18 - Subjective Subjective: IS A 73 YEAR OLD PATIENT OF OURS WHO IS BEING TREATED FOR BIBASILAR PNEUMONIA, RESPIRATORY DISTRESS, AND A UTI. TODAY, SHE IS DROWSY, LYING IN BED WITH EYES CLOSED ON MORNING ROUNDS. SHE IS DIFFICULT TO AROUSE. SHE CONTINUES WITH A PRODUCTIVE COUGH AND SHORTNESS OF BREATH. UPON ROUNDS, VITALS WERE 96.7-72-34-98%RA-131/61. LABS WERE OBTAINED. ABNORMAL LAB VALUES INCLUDE THE FOLLOWING: WBC 16.9, HGB 10.7, HCT 32.3, SODIUM 146, CARBON DIOXIDE 34.2, BUN 20, CREATININE 0.44, GLUCOSE 129, CALCIUM 10.6, TOTAL BILI 0.10, AST 84, TOTAL PROTEIN 5.8, ALBUMIN 1.9. BLOOD AND SPUTUM CULTURES ARE PENDING. ABG OBTAINED AND REVEALED: PH 7.410, PC02 68.0, P02 53.0, HC03 43.1, 02 SATURATION 8 7.0, BASE EXCESS 15.3. TODAYS CHEST XRAY REVEALS: Persistent bibasilar infiltrates consistent with pneumonia with effusion in the left lung base. Effusion infiltrate left lung base are unchanged from yesterday's film. Where is the infiltrate in the right lung base have improved on yesterday's film it is now recurred on current film. SHE IS CURRENTLY RECEIVING LEVAQUIN 750MG IV DAILY, NORMAL SALINE AT 75ML/HR, IV SOLU-MEDROL, AND RESPIRATORY TREATMENTS. WE WILL CONTINUE WITH CURRENT PLAN OF CARE TODAY AND ORDER THE [facility]. WE WILL OBTAIN A CHEST CT. OTHERWISE, WE PLAN TO FOLLOW UP WITH AM LABS, ABG, AND CHEST XRAY AND CONTINUE TO MONITOR. - Past Medical Family Social History Past Med/Fam/Surg Hx: No changes since H&P Allergies: Allergies No Known Drug Allergies Allergy (Verified 05/21/17 08:19) - Review of Systems ROS: No change since H&P - Vital Signs and I&O's Vital Signs: Temperature 97.6 F Pulse Rate [Left Brachial] 101 Pulse Rate 103 Respiratory Rate 23 Blood Pressure [Left Arm] 131/55 Blood Pressure [Right Arm] 162/71 Blood Pressure 165/74 O2 Sat by Pulse Oximetry 97 Intake and Output: Intake & Output 06/05/18 06/06/18 06/07/1824/18 11:59 11:59 11:59 11:59 Intake Total 2550 / 2550 2558 / 2558 2453 / 2453 1095 / 1095 Output Total 1200 / 1200 1300 / 1300 3000 / 3000 1325 / 1325 Balance 1350 / 1350 1258 / 1258 -547 / -547 -230 / -230 - Physical Exam Oriented: Normal, Other (DROWSY) Eyes: Normal Ear: Normal Nose: Normal Throat: Normal Respiratory: Generalized, Diminished, Wheezes Cardiovascular: Tachycardia. negative: S3, S4, Murmur : Normal Auscultation: Bowel Sounds: Normal Palpation: Normal Tenderness: Normal Skin: Normal Musculoskeletal: Normal Psychiatric: Normal Mood Description: Calm Affect: Normal Speech Pattern: Appropriate - Laboratory and Diagnostics Result Diagrams: 06/07/18 04:31 06/07/18 04:31 Labs: 06/02/18 08:00 Blood Blood Culture - Preliminary 06/02/18 11:08 Sputum - Endotracheal Wash Sputum Culture - Preliminary 06/02/18 11:08 Sputum - Endotracheal Wash - Final Laboratory WBC 16.9 X10^3/uL (3.6-10.0) H 06/07/18 04:31 RBC 3.82 X10^6/uL (3.5-5.4) 06/07/18 04:31 Hgb 11.2 g/dL (12.0-16.0) L 06/07/18 04:31 Hct 33.3 % (36.0-47.0) L 06/07/18 04:31 MCV 87.1 fL (80.0-100.0) 06/07/18 04:31 MCH 29.3 pg (27.0-34.0) 06/07/18 04:31 MCHC 33.6 g/dL (33.0-35.0) 06/07/18 04:31 RDW 14.2 % (11.6-16.5) 06/07/18 04:31 Plt Count 220 X10^3/uL (150.0-450.0) 06/07/18 04:31 Plt Count Comment Adequate (ADEQUATE) 06/07/18 04:31 MPV 9.6 fL (7.4-11.0) 06/07/18 04:31 Neut % (Auto) 80.0 % (42.0-75.0) H 06/07/18 04:31 Lymph % (Auto) 9.5 % (21.0-51.0) L 06/07/18 04:31 [place] % (Auto) 9.4 % (0.0-13.0) 06/07/18 04:31 Eos % (Auto) 0.9 % (0.9-2.9) 06/07/18 04:31 Baso % (Auto) 0.2 % (0.2-1.0) 06/07/18 04:31 Neut # (Auto) 13.5 x10^3/uL (2.2-4.8) H 06/07/18 04:31 Lymph # (Auto) 1.6 X10^3/uL (1.3-2.9) 06/07/18 04:31 [place] # (Auto) 1.6 x10^3/uL (0.3-0.8) H 06/07/18 04:31 Eos # (Auto) 0.2 x10^3/uL (0.0-0.2) 06/07/18 04:31 Baso # (Auto) 0.0 X10^3/uL (0.0-0.1) 06/07/18 04:31 Absolute Nucleated RBC 0.0 /100WBC 06/07/18 04:31 Total Counted 100 06/07/18 04:31 Neutrophils % (Manual) 72 % (39-76) 06/07/18 04:31 Band Neutrophils % 6 % (0-10) 06/06/18 04:51 Lymphocytes % (Manual) 16 % (13-43) 06/07/18 04:31 Monocytes % (Manual) 12 % (4-9) H 06/07/18 04:31 Plt Morphology Comment Normal (NORMAL) 06/07/18 04:31 RBC Morphology Normal (NORMAL) 06/07/18 04:31 Hypochromasia Slight A 06/05/18 05:40 Sample Site Right radial 06/07/18 06:00 ABG pH 7.450 (7.35-7.45) 06/07/18 06:00 ABG pCO2 71.0 mmHg (35.0-45.0) H* 06/07/18 06:00 ABG pO2 69.0 mmHg (80.0-100.0) L 06/07/18 06:00 ABG HCO3 49.3 mmol/L (22-26) H* 06/07/18 06:00 ABG O2 Saturation 94.0 % (90-100) 06/07/18 06:00 ABG Base Excess 21.3 mmol/L (-2.0-2.0) H 06/07/18 06:00 Dony Test Pos 06/07/18 06:00 A-a Gradient 70.0 mmHg 06/07/18 06:00 FiO2 32.0 06/07/18 06:00 Blood Gas Comments Josefina well jts 06/07/18 06:00 Sodium 145 mmol/L (136-145) 06/07/18 04:31 Corrected Sodium TNP 06/07/18 04:31 Potassium 4.1 mmol/L (3.5-5.1) 06/07/18 04:31 Chloride 106 mmol/L (98-107) 06/07/18 04:31 Carbon Dioxide 39.6 mmol/L (21-32) H 06/07/18 04:31 BUN 11 mg/dL (7-18) 06/07/18 04:31 Creatinine 0.44 mg/dL (0.55-1.02) L 06/07/18 04:31 Est GFR (MDRD) Af Amer > 60 (>60) 06/07/18 04:31 Est GFR (MDRD) Non-Af > 60 (>60) 06/07/18 04:31 Glucose 84 mg/dL (65-99) 06/07/18 04:31 Lactic Acid 0.5 mmol/L (0.4-2.0) 06/02/18 08:10 Calcium 8.4 mg/dL (8.5-10.1) L 06/07/18 04:31 Corrected Calcium 10.1 mg/dL (8.5-10.1) 06/07/18 04:31 Total Bilirubin 0.10 mg/dL (0.2-1.0) L 06/07/18 04:31 AST 28 Units/L (15-37) 06/07/18 04:31 ALT 38 Units/L (12-78) 06/07/18 04:31 Alkaline Phosphatase 61 Units/L (46-116) 06/07/18 04:31 B-Natriuretic Peptide 224 pg/mL (0-79) H 06/02/18 08:10 Total Protein 5.2 g/dL (6.4-8.2) L 06/07/18 04:31 Albumin 1.9 g/dL (3.4-5.0) L 06/07/18 04:31 Globulin 3.3 g/dL (2.5-4.5) 06/07/18 04:31 Albumin/Globulin Ratio 0.6 Ratio (1.1-2.1) L 06/07/18 04:31 Specimen Type Catherized urine 06/02/18 14:27 Urine Color Dark yellow (YELLOW) 06/02/18 14:27 Urine Appearance Slightly hazy (CLEAR) 06/02/18 14:27 Urine pH 5.0 (5.0 - 8.0) 06/02/18 14:27 Ur Specific [place] 1.025 (1.000-1.030) 06/02/18 14:27 Urine Protein 3+ (NEGATIVE) 06/02/18 14:27 Urine Glucose (UA) Negative (NEGATIVE) 06/02/18 14:27 Urine Ketones 1+ (NEGATIVE) 06/02/18 14:27 Urine Occult Blood 1+ (NEGATIVE) 06/02/18 14:27 Urine Nitrite Negative (NEGATIVE) 06/02/18 14:27 Urine Bilirubin Negative (NEGATIVE) 06/02/18 14:27 Urine Urobilinogen Normal (NORMAL) 06/02/18 14:27 Ur Leukocyte Esterase 1+ (NEGATIVE) 06/02/18 14:27 Urine RBC 0-2 /HPF (NONE SEEN) 06/02/18 14:27 Urine WBC 3-5 /HPF (NONE SEEN) 06/02/18 14:27 Ur Squamous Epith Cells Few /HPF (NEGATIVE) 06/02/18 14:27 Amorphous Sediment 4+ /HPF (NEGATIVE) 06/02/18 14:27 Urine Bacteria Trace /HPF (NEGATIVE) 06/02/18 14:27 Hyaline Casts Moderate /LPF (NEGATIVE) 06/02/18 14:27 Ur Culture Indicated? No/not indicated 06/02/18 14:27 - Plan (1) Pneumonia Status: Acute Qualifiers: Pneumonia type: due to unspecified organism Laterality: bilateral Lung location: unspecified part of lung Qualified Code(s): J18.9 - Pneumonia, unspecified organism Plan: IV ANTIBIOTICS, RESPIRATORY TREATMENTS, SOLU-MEDROL IV, SUPPLEMENTAL OXYGEN, CONTINUE TO MONITOR (2) Respiratory distress Status: Acute Plan: IV ANTIBIOTICS, RESPIRATORY TREATMENTS, SOLU-MEDROL IV, SUPPLEMENTAL OXYGEN, TRILOGY, CONTINUE TO MONITOR (3) COPD (chronic obstructive pulmonary disease) Status: Chronic Qualifiers: COPD type: COPD with acute exacerbation Qualified Code(s): J44.1 - Chronic obstructive pulmonary disease with (acute) exacerbation Plan: IV ANTIBIOTICS, RESPIRATORY TREATMENTS, SOLU-MEDROL IV, SUPPLEMENTAL OXYGEN, TRILOGY, CONTINUE TO MONITOR
[2018-06-08 05:32] LABS: BASOPHILS % (AUTO) 0.2 % (0.2-1.0); HEMATOCRIT 35.6 % (36.0-47.0); HEMOGLOBIN 11.8 g/dL (12.0-16.0); LYMPHOCYTES # (AUTO) 1.2 X10^3/uL (1.3-2.9); LYMPHOCYTES % (AUTO) 7.9 % (21.0-51.0); MEAN CORPUSCULAR HGB CONC 33.3 g/dL (33.0-35.0); MEAN CORPUSCULAR VOLUME 87.3 fL (80.0-100.0); MEAN PLATELET VOLUME 9.8 fL (7.4-11.0); MONOCYTES # (AUTO) 0.8 x10^3/uL (0.3-0.8); MONOCYTES % (AUTO) 5.1 % (0.0-13.0); NEUTROPHILS # (AUTO) 13.1 x10^3/uL (2.2-4.8); NEUTROPHILS % (AUTO) 86.8 % (42.0-75.0); PLATELET COUNT 217 X10^3/uL (150.0-450.0); RED BLOOD COUNT 4.08 X10^6/uL (3.5-5.4); RED CELL DISTRIBUTION WIDTH 14.3 % (11.6-16.5); WHITE BLOOD COUNT 15.1 X10^3/uL (3.6-10.0)
[2018-06-08 05:35] LABS: ALANINE AMINOTRANSFERASE 27 Units/L (12-78); ALKALINE PHOSPHATASE 60 Units/L (46-116); ASPARTATE AMINO TRANSFERASE 22 Units/L (15-37); BLOOD UREA NITROGEN 9 mg/dL (7-18); CALCIUM 8.6 mg/dL (8.5-10.1); CARBON DIOXIDE 39.7 mmol/L (21-32); CHLORIDE 101 mmol/L (98-107); COR CA(FOR HYPOALB) 10.2 mg/dL (8.5-10.1); CREATININE 0.46 mg/dL (0.55-1.02); SODIUM 144 mmol/L (136-145); TOTAL PROTEIN 5.3 g/dL (6.4-8.2); eGFR NON BLACK RACES > 60 (>60)
[2018-06-08 06:05] LABS: BAND NEUTROPHILS % 2 % (0-10); PLATELET MORPHOLOGY COMMENT NORMAL (NORMAL)
[2018-06-08] MEDS: NS 1000 ML 1,000 ML IV SCH ×3 (06:21→20:56)
[2018-06-08] MEDS: SOLU-Medrol 40 MG VIAL IVP SCH (06:21)
[2018-06-08] MEDS: FORTAZ or TAZICEF VIAL INJ IVP SCH ×3 (06:21→22:00)
--- NOTE | 2018-06-08 07:27 | RAD ---
HISTORY: Shortness of breath Study: Chest AP portable Comparison: 06/07/2018 Findings: The heart is within normal limits in size. The [place] are normal. The lungs are mildly hyperinflated. Emphysematous changes are present in the upper lobes. Interstitial lung changes are present in the lower lobes. Additionally there is some alveolar infiltrate in the left lower lobe unchanged from the prior examination and consistent with pneumonia. The bony thorax is unremarkable. IMPRESSION: No change left lower lobe pneumonia No change emphysematous COPD with interstitial lung disease Reported By:
[2018-06-08] MEDS: PULMICORT NEB TX 0.5 MG NEB SCH ×2 (09:08→20:23)
[2018-06-08] MEDS: PROVENTIL NEB TX 0.083% 2.5MG/ 3ML NEB SCH ×4 (09:08→20:23)
[2018-06-08] MEDS: MUCOMYST 20% 200 MG/ML NEB SCH ×4 (09:08→20:23)
[2018-06-08] MEDS: BROVANA IN SCH ×2 (09:09→20:23)
[2018-06-08] MEDS: NORVASC TAB 5 MG PO SCH ×2 (09:15→20:56)
[2018-06-08] MEDS: XANAX PO SCH (09:15)
[2018-06-08] MEDS: MAG-OX TAB PO SCH ×2 (09:15→20:55)
[2018-06-08] MEDS: ROBITUSSIN DM PO SCH ×4 (09:15→20:56)
[2018-06-08] MEDS: MUCINEX EXPECTORANT PO SCH ×2 (09:15→20:55)
[2018-06-08] MEDS: LEVAQUIN PREMIX IV 750 MG 750 MG/150 ML BAG IV SCH (09:16)
[2018-06-08] MEDS: MEGACE PO SCH ×2 (09:16→20:55)
[2018-06-08] MEDS: LIPITOR TAB 20 MG PO SCH (09:16)
[2018-06-08] MEDS: FLONASE NASAL SPRAY ENOSTRIL SCH (09:16)
[2018-06-08] MEDS: TRICOR TAB 48 MG PO SCH (09:17)
[2018-06-08] MEDS: UNIPHYL TAB 400 MG PO SCH (09:18)
[2018-06-08] MEDS: XANAX PO PRN ×2 (14:28→20:55)
[2018-06-08] MEDS: RESTORIL CAP 15 MG PO PRN (20:55)
[2018-06-08] MEDS: COLACE CAP 100 MG PO SCH (20:56)
[2018-06-08] MEDS: MILK OF MAGNESIA PO SCH (20:56)
[2018-06-09 06:10] LABS: BASOPHILS % (AUTO) 0.1 % (0.2-1.0); EOSINOPHILS # (AUTO) 0.1 x10^3/uL (0.0-0.2); EOSINOPHILS % (AUTO) 0.7 % (0.9-2.9); HEMATOCRIT 35.4 % (36.0-47.0); HEMOGLOBIN 11.9 g/dL (12.0-16.0); LYMPHOCYTES # (AUTO) 2.6 X10^3/uL (1.3-2.9); LYMPHOCYTES % (AUTO) 18.4 % (21.0-51.0); MEAN CORPUSCULAR HEMOGLOBIN 29.1 pg (27.0-34.0); MEAN CORPUSCULAR HGB CONC 33.7 g/dL (33.0-35.0); MEAN CORPUSCULAR VOLUME 86.6 fL (80.0-100.0); MEAN PLATELET VOLUME 9.9 fL (7.4-11.0); MONOCYTES # (AUTO) 0.9 x10^3/uL (0.3-0.8); MONOCYTES % (AUTO) 5.9 % (0.0-13.0); NEUTROPHILS # (AUTO) 10.8 x10^3/uL (2.2-4.8); NEUTROPHILS % (AUTO) 74.9 % (42.0-75.0); PLATELET COUNT 203 X10^3/uL (150.0-450.0); RED BLOOD COUNT 4.09 X10^6/uL (3.5-5.4); WHITE BLOOD COUNT 14.4 X10^3/uL (3.6-10.0)
[2018-06-09] MEDS: FORTAZ or TAZICEF VIAL INJ IVP SCH ×3 (06:14→21:17)
[2018-06-09 06:27] LABS: BAND NEUTROPHILS % 5 % (0-10); PLATELET MORPHOLOGY COMMENT NORMAL (NORMAL)
[2018-06-09 06:33] LABS: ALANINE AMINOTRANSFERASE 24 Units/L (12-78); ALKALINE PHOSPHATASE 54 Units/L (46-116); ASPARTATE AMINO TRANSFERASE 22 Units/L (15-37); BLOOD UREA NITROGEN 7 mg/dL (7-18); CALCIUM 8.4 mg/dL (8.5-10.1); CARBON DIOXIDE 39.4 mmol/L (21-32); CHLORIDE 102 mmol/L (98-107); SODIUM 145 mmol/L (136-145); TOTAL PROTEIN 5.1 g/dL (6.4-8.2); eGFR NON BLACK RACES > 60 (>60)
--- NOTE | 2018-06-09 07:00 | RAD ---
Chest, one view Indication: Shortness of breath Comparison: 06/08/2018 Findings: The heart is normal in size. Emphysema and chronic interstitial changes of the bilateral lung bases are stable. There are persistent but unchanged left retrocardiac opacities and trace left pleural effusion. No pneumothorax. Impression: Persistent but stable left lower lobe pneumonia and trace left pleural effusion. COPD. Reported By:
[2018-06-09] MEDS: BROVANA IN SCH ×2 (08:19→20:38)
[2018-06-09] MEDS: PROVENTIL NEB TX 0.083% 2.5MG/ 3ML NEB SCH ×4 (08:19→21:00)
[2018-06-09] MEDS: PULMICORT NEB TX 0.5 MG NEB SCH ×2 (08:20→20:38)
[2018-06-09] MEDS: MUCINEX EXPECTORANT PO SCH ×2 (09:19→21:17)
[2018-06-09] MEDS: UNIPHYL TAB 400 MG PO SCH (09:19)
[2018-06-09] MEDS: ROBITUSSIN DM PO SCH ×4 (09:19→21:17)
[2018-06-09] MEDS: LEVAQUIN PREMIX IV 750 MG 750 MG/150 ML BAG IV SCH (09:19)
[2018-06-09] MEDS: NORVASC TAB 5 MG PO SCH ×2 (09:20→21:17)
[2018-06-09] MEDS: MEGACE PO SCH ×2 (09:20→21:16)
[2018-06-09] MEDS: LIPITOR TAB 20 MG PO SCH (09:20)
[2018-06-09] MEDS: MAG-OX TAB PO SCH ×2 (09:20→21:16)
[2018-06-09] MEDS: FLONASE NASAL SPRAY ENOSTRIL SCH (09:21)
[2018-06-09] MEDS: TRICOR TAB 48 MG PO SCH (09:30)
[2018-06-09] MEDS: XANAX PO PRN ×3 (09:33→21:20)
[2018-06-09] MEDS ORDERED: K-RIDER 10 MEQ/NS 100 ML 10 MEQ/100 ML BAG IV PRN (10:18)
[2018-06-09] MEDS ORDERED: POTASSIUM CHLORIDE LIQ 20 MEQ UDC PO PRN (10:18)
[2018-06-09] MEDS ORDERED: KLOR-CON PO PRN ×2 (10:18→10:20)
[2018-06-09] MEDS ORDERED: MICRO K EXTEN CAP 10 MEQ PO PRN ×2 (10:18→10:20)
[2018-06-09] MEDS ORDERED: POTASSIUM CHL 40 MEQ/NS 0.45% 500 ML IV PRN (10:18)
[2018-06-09] MEDS ORDERED: POTASSIUM CHL 60 MEQ/NS 0.45% 500 ML IV PRN (10:20)
[2018-06-09] MEDS ORDERED: K-DUR TAB 20 MEQ PO ONE (12:19)
[2018-06-09] MEDS: K-DUR TAB 20 MEQ PO PRN (12:33)
[2018-06-09] MEDS: NS 1000 ML 1,000 ML IV SCH ×2 (16:54→17:42)
[2018-06-09] MEDS: ACCUNEB 1.25 MG NEBULE NEB SCH ×2 (17:01→20:39)
--- NOTE | 2018-06-09 20:41 | PCM.PROG ---
Progress Note - Progress Note for Day of Date of Exam: 06/06/18 - Subjective Subjective: IS A 73 YEAR OLD PATIENT OF OURS WHO IS BEING TREATED FOR BIBASILAR PNEUMONIA, RESPIRATORY DISTRESS, AND A UTI. TODAY, SHE IS ALERT AND ORIENTED, LYING IN BED ON MORNING ROUNDS. SHE CONTINUES WITH A PRODUCTIVE COUGH AND SHORTNESS OF BREATH. UPON ROUNDS, VITALS WERE 98.8-81-23-94%TRILOGY-146/66. LABS WERE OBTAINED. ABNORMAL LAB VALUES INCLUDE THE FOLLOWING: WBC 18.1, HGB 10.3, HCT 31.6, CARBON DIOXIDE 39.4, CREATININE 0.50, GLUCOSE 102, TOTAL BILI 0.10, AST 40, TOTAL PROTEIN 5.2, ALBUMIN 1.8. SPUTUM CULTURE REPORTS GROWTH OF HAEMOPHILUS INFLUENZAE, BUT WAS SENT OFF FOR CONFIRMATION. ABG OBTAINED AND REVEALED: PH 7.410, PC02 68.0, P02 53.0, HC03 43.1, 02 SATURATION 87.0, BASE EXCESS 15.3. TODAYS CHEST XRAY REVEALS: Persistent basal infiltrates and small left pleural effusion. No change. SHE IS CURRENTLY RECEIVING LEVAQUIN 750MG IV DAILY, NORMAL SALINE AT 75ML/HR, IV SOLU-MEDROL, AND RESPIRATORY TREATMENTS. WE WILL START MUCINEX DM 1200MG PO BID. OTHERWISE, WE PLAN TO FOLLOW UP WITH AM LABS, ABG, AND CHEST XRAY AND CONTINUE TO MONITOR. - Past Medical Family Social History Past Med/Fam/Surg Hx: No changes since H&P Allergies: Allergies No Known Drug Allergies Allergy (Verified 05/21/17 08:19) - Review of Systems ROS: No change since H&P - Vital Signs and I&O's Vital Signs: Temperature 98.9 F Pulse Rate [Left Brachial] 101 Pulse Rate 87 Respiratory Rate 22 Blood Pressure [Left Arm] 131/55 Blood Pressure [Right Arm] 162/71 Blood Pressure 134/61 O2 Sat by Pulse Oximetry 100 Intake and Output: Intake & Output 06/07/18 06/08/18 06/09/18 06/10/18 11:59 11:59 11:59 11:59 Intake Total 2453 / 2453 2640 / 2640 2963 / 2963 1297 / 1297 Output Total 3000 / 3000 3675 / 3675 3500 / 3500 1900 / 1900 Balance -547 / -547 -1035 / -1035 -537 / -537 -603 / -603 - Physical Exam Oriented: Normal, Other (DROWSY) Eyes: Normal Ear: Normal Nose: Normal Throat: Normal Respiratory: Generalized, Diminished, Wheezes Cardiovascular: Tachycardia. negative: S3, S4, Murmur : Normal Auscultation: Bowel Sounds: Normal Tenderness: Normal Skin: Normal Musculoskeletal: Normal Psychiatric: Normal Mood Description: Calm Affect: Normal Speech Pattern: Appropriate - Laboratory and Diagnostics Result Diagrams: 06/09/18 04:43 06/09/18 14:15 Labs: 06/02/18 11:08 Sputum - Endotracheal Wash Sputum Culture - Final Haemophilus Influenzae 06/02/18 11:08 Sputum - Endotracheal Wash - Final 06/02/18 08:00 Blood Blood Culture - Final Laboratory WBC 14.4 X10^3/uL (3.6-10.0) H 06/09/18 04:43 RBC 4.09 X10^6/uL (3.5-5.4) 06/09/18 04:43 Hgb 11.9 g/dL (12.0-16.0) L 06/09/18 04:43 Hct 35.4 % (36.0-47.0) L 06/09/18 04:43 MCV 86.6 fL (80.0-100.0) 06/09/18 04:43 MCH 29.1 pg (27.0-34.0) 06/09/18 04:43 MCHC 33.7 g/dL (33.0-35.0) 06/09/18 04:43 RDW 14.0 % (11.6-16.5) 06/09/18 04:43 Plt Count 203 X10^3/uL (150.0-450.0) 06/09/18 04:43 Plt Count Comment Adequate (ADEQUATE) 06/09/18 04:43 MPV 9.9 fL (7.4-11.0) 06/09/18 04:43 Neut % (Auto) 74.9 % (42.0-75.0) 06/09/18 04:43 Lymph % (Auto) 18.4 % (21.0-51.0) L 06/09/18 04:43 [place] % (Auto) 5.9 % (0.0-13.0) 06/09/18 04:43 Eos % (Auto) 0.7 % (0.9-2.9) L 06/09/18 04:43 Baso % (Auto) 0.1 % (0.2-1.0) L 06/09/18 04:43 Neut # (Auto) 10.8 x10^3/uL (2.2-4.8) H 06/09/18 04:43 Lymph # (Auto) 2.6 X10^3/uL (1.3-2.9) 06/09/18 04:43 [place] # (Auto) 0.9 x10^3/uL (0.3-0.8) H 06/09/18 04:43 Eos # (Auto) 0.1 x10^3/uL (0.0-0.2) 06/09/18 04:43 Baso # (Auto) 0.0 X10^3/uL (0.0-0.1) 06/09/18 04:43 Absolute Nucleated RBC 0.0 /100WBC 06/09/18 04:43 Total Counted 100 06/09/18 04:43 Neutrophils % (Manual) 70 % (39-76) 06/09/18 04:43 Band Neutrophils % 5 % (0-10) 06/09/18 04:43 Lymphocytes % (Manual) 20 % (13-43) 06/09/18 04:43 Monocytes % (Manual) 5 % (4-9) 06/09/18 04:43 Plt Morphology Comment Normal (NORMAL) 06/09/18 04:43 RBC Morphology Normal (NORMAL) 06/09/18 04:43 Hypochromasia Slight A 06/05/18 05:40 Sample Site Right radial 06/07/18 06:00 ABG pH 7.450 (7.35-7.45) 06/07/18 06:00 ABG pCO2 71.0 mmHg (35.0-45.0) H* 06/07/18 06:00 ABG pO2 69.0 mmHg (80.0-100.0) L 06/07/18 06:00 ABG HCO3 49.3 mmol/L (22-26) H* 06/07/18 06:00 ABG O2 Saturation 94.0 % (90-100) 06/07/18 06:00 ABG Base Excess 21.3 mmol/L (-2.0-2.0) H 06/07/18 06:00 Dony Test Pos 06/07/18 06:00 A-a Gradient 70.0 mmHg 06/07/18 06:00 FiO2 32.0 06/07/18 06:00 Blood Gas Comments Josefina well jts 06/07/18 06:00 Sodium 145 mmol/L (136-145) 06/09/18 04:43 Corrected Sodium TNP 06/09/18 04:43 Potassium 3.9 mmol/L (3.5-5.1) 06/09/18 14:15 Chloride 102 mmol/L (98-107) 06/09/18 04:43 Carbon Dioxide 39.4 mmol/L (21-32) H 06/09/18 04:43 BUN 7 mg/dL (7-18) 06/09/18 04:43 Creatinine 0.40 mg/dL (0.55-1.02) L 06/09/18 04:43 Est GFR (MDRD) Af Amer > 60 (>60) 06/09/18 04:43 Est GFR (MDRD) Non-Af > 60 (>60) 06/09/18 04:43 Glucose 80 mg/dL (65-99) 06/09/18 04:43 Lactic Acid 0.5 mmol/L (0.4-2.0) 06/02/18 08:10 Calcium 8.4 mg/dL (8.5-10.1) L 06/09/18 04:43 Corrected Calcium 10.0 mg/dL (8.5-10.1) 06/09/18 04:43 Magnesium 1.4 mg/dL (1.7-2.9) L 06/09/18 04:43 Total Bilirubin 0.30 mg/dL (0.2-1.0) 06/09/18 04:43 AST 22 Units/L (15-37) 06/09/18 04:43 ALT 24 Units/L (12-78) 06/09/18 04:43 Alkaline Phosphatase 54 Units/L (46-116) 06/09/18 04:43 B-Natriuretic Peptide 224 pg/mL (0-79) H 06/02/18 08:10 Total Protein 5.1 g/dL (6.4-8.2) L 06/09/18 04:43 Albumin 2.0 g/dL (3.4-5.0) L 06/09/18 04:43 Globulin 3.1 g/dL (2.5-4.5) 06/09/18 04:43 Albumin/Globulin Ratio 0.6 Ratio (1.1-2.1) L 06/09/18 04:43 Specimen Type Catherized urine 06/02/18 14:27 Urine Color Dark yellow (YELLOW) 06/02/18 14:27 Urine Appearance Slightly hazy (CLEAR) 06/02/18 14:27 Urine pH 5.0 (5.0 - 8.0) 06/02/18 14:27 Ur Specific [place] 1.025 (1.000-1.030) 06/02/18 14:27 Urine Protein 3+ (NEGATIVE) 06/02/18 14:27 Urine Glucose (UA) Negative (NEGATIVE) 06/02/18 14: Urine Ketones 1+ (NEGATIVE) 06/02/18 14:27 Urine Occult Blood 1+ (NEGATIVE) 06/02/18 14:27 Urine Nitrite Negative (NEGATIVE) 06/02/18 14:27 Urine Bilirubin Negative (NEGATIVE) 06/02/18 14:27 Urine Urobilinogen Normal (NORMAL) 06/02/18 14:27 Ur Leukocyte Esterase 1+ (NEGATIVE) 06/02/18 14:27 Urine RBC 0-2 /HPF (NONE SEEN) 06/02/18 14:27 Urine WBC 3-5 /HPF (NONE SEEN) 06/02/18 14:27 Ur Squamous Epith Cells Few /HPF (NEGATIVE) 06/02/18 14:27 Amorphous Sediment 4+ /HPF (NEGATIVE) 06/02/18 14:27 Urine Bacteria Trace /HPF (NEGATIVE) 06/02/18 14:27 Hyaline Casts Moderate /LPF (NEGATIVE) 06/02/18 14:27 Ur Culture Indicated? No/not indicated 06/02/18 14:27 - Plan (1) Pneumonia Status: Acute Qualifiers: Pneumonia type: due to unspecified organism Laterality: bilateral Lung location: unspecified part of lung Qualified Code(s): J18.9 - Pneumonia, unspecified organism Plan: IV ANTIBIOTICS, RESPIRATORY TREATMENTS, SOLU-MEDROL IV, SUPPLEMENTAL O XYGEN, CONTINUE TO MONITOR (2) Respiratory distress Status: Acute Plan: IV ANTIBIOTICS, RESPIRATORY TREATMENTS, SOLU-MEDROL IV, SUPPLEMENTAL OXYGEN, TRILOGY, CONTINUE TO MONITOR (3) COPD (chronic obstructive pulmonary disease) Status: Chronic Qualifiers: COPD type: COPD with acute exacerbation Qualified Code(s): J44.1 - Chronic obstructive pulmonary disease with (acute) exacerbation Plan: IV ANTIBIOTICS, RESPIRATORY TREATMENTS, SOLU-MEDROL IV, SUPPLEMENTAL OXYGEN, TRILOGY, CONTINUE TO MONITOR
--- NOTE | 2018-06-09 20:50 | PCM.PROG ---
Progress Note - Progress Note for Day of Date of Exam: 06/07/18 - Subjective Subjective: IS A 73 YEAR OLD PATIENT OF OURS WHO IS BEING TREATED FOR BIBASILAR PNEUMONIA, RESPIRATORY DISTRESS, AND A UTI. TODAY, SHE IS ALERT AND ORIENTED, LYING IN BED ON MORNING ROUNDS. SHE CONTINUES WITH A PRODUCTIVE COUGH AND SHORTNESS OF BREATH. UPON ROUNDS, VITALS WERE 98.1-74-20-100%-185/80. LABS WERE OBTAINED. ABNORMAL LAB VALUES INCLUDE THE FOLLOWING: WBC 16.9, HGB 11.2, HCT 33.3, CARBON DIOXIDE 39.6, CREATININE 0.44, CALCIUM 8.4, TOTAL PROTEIN 5.2, ALBUMIN 1.9. SPUTUM CULTURE REPORTS GROWTH OF HAEMOPHILUS INFLUENZAE, BUT WAS SENT OFF FOR CONFIRMATION. ABG OBTAINED AND REVEALED: PH 7.450, PC02 71, P02 63.0, HC03 49.3, 02 SATURATION 94.0, BASE EXCESS 21.3. TODAYS CHEST XRAY REVEALS: No change in appearance of the chest. SHE IS CURRENTLY RECEIVING LEVAQUIN 750MG IV DAILY, NORMAL SALINE AT 75ML/HR, IV SOLU-MEDROL, AND RESPIRATORY TREATMENTS. WE WILL START NORVASC 5MG PO DAILY. OTHERWISE, WE PLAN TO FOLLOW UP WITH AM LABS, ABG, AND CHEST XRAY AND CONTINUE TO MONITOR. - Past Medical Family Social History Past Med/Fam/Surg Hx: No changes since H&P Allergies: Allergies No Known Drug Allergies Allergy (Verified 05/21/17 08:19) - Review of Systems ROS: No change since H&P - Vital Signs and I&O's Vital Signs: Temperature 98.9 F Pulse Rate [Left Brachial] 101 Pulse Rate 84 Respiratory Rate 22 Blood Pressure [Left Arm] 131/55 Blood Pressure [Right Arm] 162/71 Blood Pressure 134/61 O2 Sat by Pulse Oximetry 97 Intake and Output: Intake & Output 06/07/18 06/08/18 06/09/18 06/10/18 11:59 11:59 11:59 11:59 Intake Total 2453 / 2453 2640 / 2640 2963 / 2963 1297 / 1297 Output Total 3000 / 3000 3675 / 3675 3500 / 3500 1900 / 1900 Balance -547 / -547 -1035 / -1035 -537 / -537 -603 / -603 - Physical Exam Oriented: Normal, Other (DROWSY) Eyes: Normal Ear: Normal Nose: Normal Throat: Normal Respiratory: Generalized, Diminished, Wheezes Cardiovascular: Tachycardia. negative: S3, S4, Murmur : Normal Auscultation: Bowel Sounds: Normal Tenderness: Normal Skin: Normal Musculoskeletal: Normal Psychiatric: Normal Mood Description: Calm Affect: Normal Speech Pattern: Appropriate - Laboratory and Diagnostics Result Diagrams: 06/09/18 04:43 06/09/18 14:15 Labs: 06/02/18 11:08 Sputum - Endotracheal Wash Sputum Culture - Final Haemophilus Influenzae 06/02/18 11:08 Sputum - Endotracheal Wash - Final 06/02/18 08:00 Blood Blood Culture - Final Laboratory WBC 14.4 X10^3/uL (3.6-10.0) H 06/09/18 04:43 RBC 4.09 X10^6/uL (3.5-5.4) 06/09/18 04:43 Hgb 11.9 g/dL (12.0-16.0) L 06/09/18 04:43 Hct 35.4 % (36.0-47.0) L 06/09/18 04:43 MCV 86.6 fL (80.0-100.0) 06/09/18 04:43 MCH 29.1 pg (27.0-34.0) 06/09/18 04:43 MCHC 33.7 g/dL (33.0-35.0) 06/09/18 04:43 RDW 14.0 % (11.6-16.5) 06/09/18 04:43 Plt Count 203 X10^3/uL (150.0-450.0) 06/09/18 04:43 Plt Count Comment Adequate (ADEQUATE) 06/09/18 04:43 MPV 9.9 fL (7.4-11.0) 06/09/18 04:43 Neut % (Auto) 74.9 % (42.0-75.0) 06/09/18 04:43 Lymph % (Auto) 18.4 % (21.0-51.0) L 06/09/18 04:43 [place] % (Auto) 5.9 % (0.0-13.0) 06/09/18 04:43 Eos % (Auto) 0.7 % (0.9-2.9) L 06/09/18 04:43 Baso % (Auto) 0.1 % (0.2-1.0) L 06/09/18 04:43 Neut # (Auto) 10.8 x10^3/uL (2.2-4.8) H 06/09/18 04:43 Lymph # (Auto) 2.6 X10^3/uL (1.3-2.9) 06/09/18 04:43 [place] # (Auto) 0.9 x10^3/uL (0.3-0.8) H 06/09/18 04:43 Eos # (Auto) 0.1 x10^3/uL (0.0-0.2) 06/09/18 04:43 Baso # (Auto) 0.0 X10^3/uL (0.0-0.1) 06/09/18 04:43 Absolute Nucleated RBC 0.0 /100WBC 06/09/18 04:43 Total Counted 100 06/09/18 04:43 Neutrophils % (Manual) 70 % (39-76) 06/09/18 04:43 Band Neutrophils % 5 % (0-10) 06/09/18 04:43 Lymphocytes % (Manual) 20 % (13-43) 06/09/18 04:43 Monocytes % (Manual) 5 % (4-9) 06/09/18 04:43 Plt Morphology Comment Normal (NORMAL) 06/09/18 04:43 RBC Morphology Normal (NORMAL) 06/09/18 04:43 Hypochromasia Slight A 06/05/18 05:40 Sample Site Right radial 06/07/18 06:00 ABG pH 7.450 (7.35-7.45) 06/07/18 06:00 ABG pCO2 71.0 mmHg (35.0-45.0) H* 06/07/18 06:00 ABG pO2 69.0 mmHg (80.0-100.0) L 06/07/18 06:00 ABG HCO3 49.3 mmol/L (22-26) H* 06/07/18 06:00 ABG O2 Saturation 94.0 % (90-100) 06/07/18 06:00 ABG Base Excess 21.3 mmol/L (-2.0-2.0) H 06/07/18 06:00 Dony Test Pos 06/07/18 06:00 A-a Gradient 70.0 mmHg 06/07/18 06:00 FiO2 32.0 06/07/18 06:00 Blood Gas Comments Josefina well jts 06/07/18 06:00 Sodium 145 mmol/L (136-145) 06/09/18 04:43 Corrected Sodium TNP 06/09/18 04:43 Potassium 3.9 mmol/L (3.5-5.1) 06/09/18 14:15 Chloride 102 mmol/L (98-107) 06/09/18 04:43 Carbon Dioxide 39.4 mmol/L (21-32) H 06/09/18 04:43 BUN 7 mg/dL (7-18) 06/09/18 04:43 Creatinine 0.40 mg/dL (0.55-1.02) L 06/09/18 04:43 Est GFR (MDRD) Af Amer > 60 (>60) 06/09/18 04:43 Est GFR (MDRD) Non-Af > 60 (>60) 06/09/18 04:43 Glucose 80 mg/dL (65-99) 06/09/18 04:43 Lactic Acid 0.5 mmol/L (0.4-2.0) 06/02/18 08:10 Calcium 8.4 mg/dL (8.5-10.1) L 06/09/18 04:43 Corrected Calcium 10.0 mg/dL (8.5-10.1) 06/09/18 04:43 Magnesium 1.4 mg/dL (1.7-2.9) L 06/09/18 04:43 Total Bilirubin 0.30 mg/dL (0.2-1.0) 06/09/18 04:43 AST 22 Units/L (15-37) 06/09/18 04:43 ALT 24 Units/L (12-78) 06/09/18 04:43 Alkaline Phosphatase 54 Units/L (46-116) 06/09/18 04:43 B-Natriuretic Peptide 224 pg/mL (0-79) H 06/02/18 08:10 Total Protein 5.1 g/dL (6.4-8.2) L 06/09/18 04:43 Albumin 2.0 g/dL (3.4-5.0) L 06/09/18 04:43 Globulin 3.1 g/dL (2.5-4.5) 06/09/18 04:43 Albumin/Globulin Ratio 0.6 Ratio (1.1-2.1) L 06/09/18 04:43 Specimen Type Catherized urine 06/02/18 14:27 Urine Color Dark yellow (YELLOW) 06/02/18 14:27 Urine Appearance Slightly hazy (CLEAR) 06/02/18 14:27 Urine pH 5.0 (5.0 - 8.0) 06/02/18 14:27 Ur Specific [place] 1.025 (1.000-1.030) 06/02/18 14:27 Urine Protein 3+ (NEGATIVE) 06/02/18 14:27 Urine Glucose (UA) Negative (NEGATIVE) 06/02/18 14:27 Urine Ketones 1+ (NEGATIVE) 06/02/18 14:27 Urine Occult Blood 1+ (NEGATIVE) 06/02/18 14:27 Urine Nitrite Negative (NEGATIVE) 06/02/18 14:27 Urine Bilirubin Negative (NEGATIVE) 06/02/18 14:27 Urine Urobilinogen Normal (NORMAL) 06/02/18 14:27 Ur Leukocyte Esterase 1+ (NEGATIVE) 06/02/18 14:27 Urine RBC 0-2 /HPF (NONE SEEN) 06/02/18 14:27 Urine WBC 3-5 /HPF (NONE SEEN) 06/02/18 14:27 Ur Squamous Epith Cells Few /HPF (NEGATIVE) 06/02/18 14:27 Amorphous Sediment 4+ /HPF (NEGATIVE) 06/02/18 14:27 Urine Bacteria Trace /HPF (NEGATIVE) 06/02/18 14:27 Hyaline Casts Moderate /LPF (NEGATIVE) 06/02/18 14:27 Ur Culture Indicated? No/not indicated 06/02/18 14:27 - Plan (1) Pneumonia Status: Acute Qualifiers: Pneumonia type: due to unspecified organism Laterality: bilateral Lung location: unspecified part of lung Qualified Code(s): J18.9 - Pneumonia, unspecified organism Plan: IV ANTIBIOTICS, RESPIRATORY TREATMENTS, SOLU-MEDROL IV, SUPPLEMENTAL OXYGEN, CONTINUE TO MONITOR (2) Respiratory distress Status: Acute Plan: IV ANTIBIOTICS, RESPIRATORY TREATMENTS, SOLU-MEDROL IV, SUPPLEMENTAL OXYGEN, TRILOGY, CONTINUE TO MONITOR (3) COPD (chronic obstructive pulmonary disease) Status: Chronic Qualifiers: COPD type: COPD with acute exacerbation Qualified Code(s): J44.1 - Chronic obstructive pulmonary disease with (acute) exacerbation Plan: IV ANTIBIOTICS, RESPIRATORY TREATMENTS, SOLU-MEDROL IV, SUPPLEMENTAL OXYGEN, TRILOGY, CONTINUE TO MONITOR
[2018-06-09] MEDS: COLACE CAP 100 MG PO SCH (21:16)
[2018-06-09] MEDS: RESTORIL CAP 15 MG PO PRN (21:17)
[2018-06-09] MEDS: MILK OF MAGNESIA PO SCH (21:17)
[2018-06-10] MEDS: FORTAZ or TAZICEF VIAL INJ IVP SCH ×3 (05:21→21:30)
--- NOTE | 2018-06-10 05:24 | RAD ---
Chest, one view Indication: Shortness of breath Comparison: 06/09/2018 Findings: Heart is normal in size. Moderate emphysema again noted. There is a stable small left pleural effusion and consolidation/atelectasis of the left lower lobe. Minimal right basilar atelectasis is noted. No pneumothorax. Impression: Stable small left pleural effusion and atelectasis/consolidation of the left lower lobe. COPD Reported By:
[2018-06-10 06:08] LABS: BASOPHILS # (AUTO) 0.1 X10^3/uL (0.0-0.1); BASOPHILS % (AUTO) 0.4 % (0.2-1.0); EOSINOPHILS # (AUTO) 0.2 x10^3/uL (0.0-0.2); EOSINOPHILS % (AUTO) 1.6 % (0.9-2.9); HEMATOCRIT 33.3 % (36.0-47.0); HEMOGLOBIN 11.1 g/dL (12.0-16.0); LYMPHOCYTES # (AUTO) 2.3 X10^3/uL (1.3-2.9); LYMPHOCYTES % (AUTO) 16.6 % (21.0-51.0); MEAN CORPUSCULAR HEMOGLOBIN 28.9 pg (27.0-34.0); MEAN CORPUSCULAR HGB CONC 33.4 g/dL (33.0-35.0); MEAN CORPUSCULAR VOLUME 86.5 fL (80.0-100.0); MEAN PLATELET VOLUME 9.6 fL (7.4-11.0); MONOCYTES # (AUTO) 0.7 x10^3/uL (0.3-0.8); MONOCYTES % (AUTO) 5.1 % (0.0-13.0); NEUTROPHILS # (AUTO) 10.4 x10^3/uL (2.2-4.8); NEUTROPHILS % (AUTO) 76.3 % (42.0-75.0); PLATELET COUNT 169 X10^3/uL (150.0-450.0); RED BLOOD COUNT 3.85 X10^6/uL (3.5-5.4); RED CELL DISTRIBUTION WIDTH 14.4 % (11.6-16.5); WHITE BLOOD COUNT 13.6 X10^3/uL (3.6-10.0)
[2018-06-10 06:16] LABS: ALANINE AMINOTRANSFERASE 17 Units/L (12-78); ALBUMIN 1.9 g/dL (3.4-5.0); ALKALINE PHOSPHATASE 51 Units/L (46-116); ASPARTATE AMINO TRANSFERASE 19 Units/L (15-37); BLOOD UREA NITROGEN 7 mg/dL (7-18); CALCIUM 8.3 mg/dL (8.5-10.1); CARBON DIOXIDE 36.4 mmol/L (21-32); CHLORIDE 104 mmol/L (98-107); CREATININE 0.46 mg/dL (0.55-1.02); MAGNESIUM 1.5 mg/dL (1.7-2.9); SODIUM 142 mmol/L (136-145); TOTAL PROTEIN 4.8 g/dL (6.4-8.2); eGFR NON BLACK RACES > 60 (>60)
[2018-06-10] MEDS: NS 1000 ML 1,000 ML IV SCH ×2 (06:38→20:58)
[2018-06-10 06:43] LABS: BAND NEUTROPHILS % 5 % (0-10)
[2018-06-10 06:44] LABS: PLATELET MORPHOLOGY COMMENT NORMAL (NORMAL)
[2018-06-10] MEDS: PULMICORT NEB TX 0.5 MG NEB SCH ×2 (08:43→21:14)
[2018-06-10] MEDS: ACCUNEB 1.25 MG NEBULE NEB SCH ×4 (08:43→21:14)
[2018-06-10] MEDS: BROVANA IN SCH ×2 (08:43→21:13)
[2018-06-10] MEDS: LEVAQUIN PREMIX IV 750 MG 750 MG/150 ML BAG IV SCH (09:36)
[2018-06-10] MEDS: MUCINEX EXPECTORANT PO SCH ×2 (09:38→20:57)
[2018-06-10] MEDS: NORVASC TAB 5 MG PO SCH ×2 (09:38→20:57)
[2018-06-10] MEDS: ROBITUSSIN DM PO SCH ×4 (09:38→20:57)
[2018-06-10] MEDS: LIPITOR TAB 20 MG PO SCH (09:38)
[2018-06-10] MEDS: TRICOR TAB 48 MG PO SCH (09:39)
[2018-06-10] MEDS: MAG-OX TAB PO SCH ×2 (09:39→09:59)
[2018-06-10] MEDS: FLONASE NASAL SPRAY ENOSTRIL SCH (09:40)
[2018-06-10] MEDS: UNIPHYL TAB 400 MG PO SCH (09:40)
[2018-06-10] MEDS: XANAX PO PRN ×2 (09:44→20:58)
[2018-06-10] MEDS: MAGNESIUM SULFATE 1 GRAM/100 mL PREMIX 2 G/200 ML BAG IV SCH ×2 (11:47→12:57)
--- NOTE | 2018-06-10 13:17 | PCM.PROG ---
Progress Note - Progress Note for Day of Date of Exam: 06/08/18 - Subjective Subjective: IS A 73 YEAR OLD PATIENT OF OURS WHO IS BEING TREATED FOR BIBASILAR PNEUMONIA, RESPIRATORY DISTRESS, AND A UTI. TODAY, SHE IS ALERT AND ORIENTED, LYING IN BED ON MORNING ROUNDS. SHE CONTINUES WITH A PRODUCTIVE COUGH AND SHORTNESS OF BREATH. SHE ALSO REPORTS INCREASED ANXIETY. UPON ROUNDS, VITALS WERE 99.0-78-17-99%-137/61. LABS WERE OBTAINED. ABNORMAL LAB VALUES INCLUDE THE FOLLOWING: WBC 15.1, HGB 11.8, HCT 35.6, CARBON DIOXIDE 39.7, CREATININE 0.46, GLUCOSE 109, TOTAL PROTEIN 109, ALBUMIN 2.0. SPUTUM CULTURE REPORTS GROWTH OF HAEMOPHILUS INFLUENZAE, BUT WAS SENT OFF FOR CONFIRMATION. TODAYS CHEST XRAY REVEALS: No change left lower lobe pneumonia. 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 SHE IS CURRENTLY RECEIVING LEVAQUIN 750MG IV DAILY, NORMAL SALINE AT 75ML/HR, IV SOLU-MEDROL, AND RESPIRATORY TREATMENTS. TODAY, WE WILL INCREASE XANAX TO 0.5MG PO TID. OTHERWISE, WE PLAN TO FOLLOW UP WITH AM LABS, ABG, AND CHEST XRAY AND CONTINUE TO MONITOR. - Past Medical Family Social History Past Med/Fam/Surg Hx: No changes since H&P Allergies: Allergies No Known Drug Allergies Allergy (Verified 05/21/17 08:19) - Review of Systems ROS: No change since H&P - Vital Signs and I&O's Vital Signs: Temperature 97.7 F Pulse Rate [Left Brachial] 101 Pulse Rate 79 Respiratory Rate 19 Blood Pressure [Left Arm] 131/55 Blood Pressure [Right Arm] 162/71 Blood Pressure 144/61 O2 Sat by Pulse Oximetry 97 Intake and Output: Intake & Output 06/08/18 06/09/18 06/10/18 06/11/18 11:59 11:59 11:59 11:59 Intake Total 2640 / 2640 2963 / 2963 2823 / 2823 Output Total 3675 / 3675 3500 / 3500 3250 / 3250 Balance -1035 / -1035 -537 / -537 -427 / -427 - Physical Exam Oriented: Normal, Other (DROWSY) Eyes: Normal Ear: Normal Nose: Normal Throat: Normal Respiratory: Generalized, Diminished, Wheezes Cardiovascular: Tachycardia. negative: S3, S4, Murmur : Normal Auscultation: Bowel Sounds: Normal Tenderness: Normal Skin: Normal Musculoskeletal: Normal Psychiatric: Normal Mood Description: Calm Affect: Normal Speech Pattern: Appropriate - Laboratory and Diagnostics Result Diagrams: 06/10/18 05:36 06/10/18 05:36 Labs: 06/02/18 11:08 Sputum - Endotracheal Wash Sputum Culture - Final Haemophilus Influenzae 06/02/18 11:08 Sputum - Endotracheal Wash - Final 06/02/18 08:00 Blood Blood Culture - Final Laboratory WBC 13.6 X10^3/uL (3.6-10.0) H 06/10/18 05:36 RBC 3.85 X10^6/uL (3.5-5.4) 06/10/18 05:36 Hgb 11.1 g/dL (12.0-16.0) L 06/10/18 05:36 Hct 33.3 % (36.0-47.0) L 06/10/18 05:36 MCV 86.5 fL (80.0-100.0) 06/10/18 05:36 MCH 28.9 pg (27.0-34.0) 06/10/18 05:36 MCHC 33.4 g/dL (33.0-35.0) 06/10/18 05:36 RDW 14.4 % (11.6-16.5) 06/10/18 05:36 Plt Count 169 X10^3/uL (150.0-450.0) 06/10/18 05:36 Plt Count Comment Adequate (ADEQUATE) 06/10/18 05:36 MPV 9.6 fL (7.4-11.0) 06/10/18 05:36 Neut % (Auto) 76.3 % (42.0-75.0) H 06/10/18 05:36 Lymph % (Auto) 16.6 % (21.0-51.0) L 06/10/18 05:36 [place] % (Auto) 5.1 % (0.0-13.0) 06/10/18 05:36 Eos % (Auto) 1.6 % (0.9-2.9) 06/10/18 05:36 Baso % (Auto) 0.4 % (0.2-1.0) 06/10/18 05:36 Neut # (Auto) 10.4 x10^3/uL (2.2-4.8) H 06/10/18 05:36 Lymph # (Auto) 2.3 X10^3/uL (1.3-2.9) 06/10/18 05:36 [place] # (Auto) 0.7 x10^3/uL (0.3-0.8) 06/10/18 05:36 Eos # (Auto) 0.2 x10^3/uL (0.0-0.2) 06/10/18 05:36 Baso # (Auto) 0.1 X10^3/uL (0.0-0.1) 06/10/18 05:36 Absolute Nucleated RBC 0.0 /100WBC 06/10/18 05:36 Total Counted 100 06/10/18 05:36 Neutrophils % (Manual) 67 % (39-76) 06/10/18 05:36 Band Neutrophils % 5 % (0-10) 06/10/18 05:36 Lymphocytes % (Manual) 20 % (13-43) 06/10/18 05:36 Monocytes % (Manual) 6 % (4-9) 06/10/18 05:36 Eosinophils % (Manual) 2 % (0-6) 06/10/18 05:36 Plt Morphology Comment Normal (NORMAL) 06/10/18 05:36 RBC Morphology Normal (NORMAL) 06/10/18 05:36 Hypochromasia Slight A 06/05/18 05:40 Sample Site Right radial 06/07/18 06:00 ABG pH 7.450 (7.35-7.45) 06/07/18 06:00 ABG pCO2 71.0 mmHg (35.0-45.0) H* 06/07/18 06:00 ABG pO2 69.0 mmHg (80.0-100.0) L 06/07/18 06:00 ABG HCO3 49.3 mmol/L (22-26) H* 06/07/18 06:00 ABG O2 Saturation 94.0 % (90-100) 06/07/18 06:00 ABG Base Excess 21.3 mmol/L (-2.0-2.0) H 06/07/18 06:00 Dony Test Pos 06/07/18 06:00 A-a Gradient 70.0 mmHg 06/07/18 06:00 FiO2 32.0 06/07/18 06:00 Blood Gas Comments Josefina well jts 06/07/18 06:00 Sodium 142 mmol/L (136-145) 06/10/18 05:36 Corrected Sodium TNP 06/10/18 05:36 Potassium 3.9 mmol/L (3.5-5.1) 06/10/18 05:36 Chloride 104 mmol/L (98-107) 06/10/18 05:36 Carbon Dioxide 36.4 mmol/L (21-32) H 06/10/18 05:36 BUN 7 mg/dL (7-18) 06/10/18 05:36 Creatinine 0.46 mg/dL (0.55-1.02) L 06/10/18 05:36 Est GFR (MDRD) Af Amer > 60 (>60) 06/10/18 05:36 Est GFR (MDRD) Non-Af > 60 (>60) 06/10/18 05:36 Glucose 85 mg/dL (65-99) 06/10/18 05:36 Lactic Acid 0.5 mmol/L (0.4-2.0) 06/02/18 08:10 Calcium 8.3 mg/dL (8.5-10.1) L 06/10/18 05:36 Corrected Calcium 10.0 mg/dL (8.5-10.1) 06/10/18 05:36 Magnesium 1.5 mg/dL (1.7-2.9) L 06/10/18 05:36 Total Bilirubin 0.20 mg/dL (0.2-1.0) 06/10/18 05:36 AST 19 Units/L (15-37) 06/10/18 05:36 ALT 17 Units/L (12-78) 06/10/18 05:36 Alkaline Phosphatase 51 Units/L (46-116) 06/10/18 05:36 B-Natriuretic Peptide 224 pg/mL (0-79) H 06/02/18 08:10 Total Protein 4.8 g/dL (6.4-8.2) L 06/10/18 05:36 Albumin 1.9 g/dL (3.4-5.0) L 06/10/18 05:36 Globulin 2.9 g/dL (2.5-4.5) 06/10/18 05:36 Albumin/Globulin Ratio 0.7 Ratio (1.1-2.1) L 06/10/18 05:36 Specimen Type Catherized urine 06/02/18 14:27 Urine Color Dark yellow (YELLOW) 06/02/18 14:27 Urine Appearance Slightly hazy (CLEAR) 06/02/18 14:27 Urine pH 5.0 (5.0 - 8.0) 06/02/18 14:27 Ur Specific [place] 1.025 (1.000-1.030) 06/02/18 14:27 Urine Protein 3+ (NEGATIVE) 06/02/18 14:27 Urine Glucose (UA) Negative (NEGATIVE) 06/02/18 14:27 Urine Ketones 1+ (NEGATIVE) 06/02/18 14:27 Urine Occult Blood 1+ (NEGATIVE) 06/02/18 14:27 Urine Nitrite Negative (NEGATIVE) 06/02/18 14:27 Urine Bilirubin Negative (NEGATIVE) 06/02/18 14:27 Urine Urobilinogen Normal (NORMAL) 06/02/18 14:27 Ur Leukocyte Esterase 1+ (NEGATIVE) 06/02/18 14:27 Urine RBC 0-2 /HPF (NONE SEEN) 06/02/18 14:27 Urine WBC 3-5 /HPF (NONE SEEN) 06/02/18 14:27 Ur Squamous Epith Cells Few /HPF (NEGATIVE) 06/02/18 14:27 Amorphous Sediment 4+ /HPF (NEGATIVE) 06/02/18 14:27 Urine Bacteria Trace /HPF (NEGATIVE) 06/02/18 14:27 Hyaline Casts Moderate /LPF (NEGATIVE) 06/02/18 14:27 Ur Culture Indicated? No/not indicated 06/02/18 14:27 - Plan (1) Pneumonia Status: Acute Qualifiers: Pneumonia type: due to unspecified organism Laterality: bilateral Lung location: unspecified part of lung Qualified Code(s): J18.9 - Pneumonia, unspecified organism Plan: IV ANTIBIOTICS, RESPIRATORY TREATMENTS, SOLU-MEDROL IV, SUPPLEMENTAL OXYGEN, CONTINUE TO MONITOR (2) Respiratory distress Status: Acute Plan: IV ANTIBIOTICS, RESPIRATORY TREATMENTS, SOLU-MEDROL IV, SUPPLEMENTAL OXYGEN, TRILOGY, CONTINUE TO MONITOR (3) COPD (chronic obstructive pulmonary disease) Status: Chronic Qualifiers: COPD type: COPD with acute exacerbation Qualified Code(s): J44.1 - Chronic obstructive pulmonary disease with (acute) exacerbation Plan: IV ANTIBIOTICS, RESPIRATORY TREATMENTS, SOLU-MEDROL IV, SUPPLEMENTAL OXYGEN, TRILOGY, CONTINUE TO MONITOR
[2018-06-10] MEDS: TUSSIONEX PENNKINETIC SUSP PO PRN (20:57)
[2018-06-10] MEDS: RESTORIL CAP 15 MG PO PRN (20:58)
[2018-06-10] MEDS: MEGACE PO SCH (20:58)
[2018-06-10] MEDS: MILK OF MAGNESIA PO SCH (20:58)
[2018-06-10] MEDS: COLACE CAP 100 MG PO SCH (20:58)
--- NOTE | 2018-06-10 21:46 | PCM.PROG ---
Progress Note - Progress Note for Day of Date of Exam: 06/09/18 - Subjective Subjective: IS A 73 YEAR OLD PATIENT OF OURS WHO IS BEING TREATED FOR BIBASILAR PNEUMONIA, RESPIRATORY DISTRESS, AND A UTI. TODAY, SHE IS ALERT AND ORIENTED, LYING IN BED ON MORNING ROUNDS. SHE CONTINUES WITH A PRODUCTIVE COUGH AND SHORTNESS OF BREATH. UPON ROUNDS, VITALS WERE 98.0-83-19-97%-138/63. LABS WERE OBTAINED. ABNORMAL LAB VALUES INCLUDE THE FOLLOWING: WBC 14.4, HGB 11.9, HCT 35.4, POTASSIUM 3.3, CARBON DIOXIDE 39.4, CREATININE 0.40, CALCIUM 8.4, MAGNESIUM 1.4, TOTAL PROTEIN 5.1, ALBUMIN 2.0. SPUTUM CULTURE REPORTS GROWTH OF HAEMOPHILUS INFLUENZAE, BUT WAS SENT OFF FOR CONFIRMATION. TODAYS CHEST XRAY REVEALS: Persistent but stable left lower lobe pneumonia and trace left pleural effusion. COPD. SHE IS CURRENTLY RECEIVING LEVAQUIN 750MG IV DAILY, NORMAL SALINE AT 75ML/HR, IV SOLU-MEDROL, AND RESPIRATORY TREATMENTS. TODAY, WE WILL INCREASE CONTINUE WITH CURRENT PLAN OF CARE. OTHERWISE, WE PLAN TO FOLLOW UP WITH AM LABS, ABG, AND CHEST XRAY AND CONTINUE TO MONITOR. - Past Medical Family Social History Past Med/Fam/Surg Hx: No changes since H&P Allergies: Allergies No Known Drug Allergies Allergy (Verified 05/21/17 08:19) - Review of Systems ROS: No change since H&P - Vital Signs and I&O's Vital Signs: Temperature 98.7 F Pulse Rate [Left Brachial] 101 Pulse Rate 82 Respiratory Rate 15 Blood Pressure [Left Arm] 131/55 Blood Pressure [Right Arm] 162/71 Blood Pressure 108/53 O2 Sat by Pulse Oximetry 100 Intake and Output: Intake & Output 06/08/18 06/09/18 06/10/18 06/11/18 11:59 11:59 11:59 11:59 Intake Total 2640 / 2640 2963 / 2963 2823 / 2823 1492 / 1492 Output Total 3675 / 3675 3500 / 3500 3250 / 3250 1700 / 1700 Balance -1035 / -1035 -537 / -537 -427 / -427 -208 / -208 - Physical Exam Oriented: Normal, Other (DROWSY) Eyes: Normal Ear: Normal Nose: Normal Throat: Normal Respiratory: Generalized, Diminished, Wheezes Cardiovascular: Normal. negative: S3, S4, Murmur : Normal Auscultation: Bowel Sounds: Normal Palpation: Normal Tenderness: Normal Skin: Normal Musculoskeletal: Normal Psychiatric: Normal Mood Description: Calm Affect: Normal Speech Pattern: Clear, Appropriate - Laboratory and Diagnostics Result Diagrams: 06/10/18 05:36 06/10/18 05:36 Labs: 06/02/18 11:08 Sputum - Endotracheal Wash Sputum Culture - Final Haemophilus Influenzae 06/02/18 11:08 Sputum - Endotracheal Wash - Final 06/02/18 08:00 Blood Blood Culture - Final Laboratory WBC 13.6 X10^3/uL (3.6-10.0) H 06/10/18 05:36 RBC 3.85 X10^6/uL (3.5-5.4) 06/10/18 05:36 Hgb 11.1 g/dL (12.0-16.0) L 06/10/18 05:36 Hct 33.3 % (36.0-47.0) L 06/10/18 05:36 MCV 86.5 fL (80.0-100.0) 06/10/18 05:36 MCH 28.9 pg (27.0-34.0) 06/10/18 05:36 MCHC 33.4 g/dL (33.0-35.0) 06/10/18 05:36 RDW 14.4 % (11.6-16.5) 06/10/18 05:36 Plt Count 169 X10^3/uL (150.0-450.0) 06/10/18 05:36 Plt Count Comment Adequate (ADEQUATE) 06/10/18 05:36 MPV 9.6 fL (7.4-11.0) 06/10/18 05:36 Neut % (Auto) 76.3 % (42.0-75.0) H 06/10/18 05:36 Lymph % (Auto) 16.6 % (21.0-51.0) L 06/10/18 05:36 [place] % (Auto) 5.1 % (0.0-13.0) 06/10/18 05:36 Eos % (Auto) 1.6 % (0.9-2.9) 06/10/18 05:36 Baso % (Auto) 0.4 % (0.2-1.0) 06/10/18 05:36 Neut # (Auto) 10.4 x10^3/uL (2.2-4.8) H 06/10/18 05:36 Lymph # (Auto) 2.3 X10^3/uL (1.3-2.9) 06/10/18 05:36 [place] # (Auto) 0.7 x10^3/uL (0.3-0.8) 06/10/18 05:36 Eos # (Auto) 0.2 x10^3/uL (0.0-0.2) 06/10/18 05:36 Baso # (Auto) 0.1 X10^3/uL (0.0-0.1) 06/10/18 05:36 Absolute Nucleated RBC 0.0 /100WBC 06/10/18 05:36 Total Counted 100 06/10/18 05:36 Neutrophils % (Manual) 67 % (39-76) 06/10/18 05:36 Band Neutrophils % 5 % (0-10) 06/10/18 05:36 Lymphocytes % (Manual) 20 % (13-43) 06/10/18 05:36 Monocytes % (Manual) 6 % (4-9) 06/10/18 05:36 Eosinophils % (Manual) 2 % (0-6) 06/10/18 05:36 Plt Morphology Comment Normal (NORMAL) 06/10/18 05:36 RBC Morphology Normal (NORMAL) 06/10/18 05:36 Hypochromasia Slight A 06/05/18 05:40 Sample Site Right radial 06/07/18 06:00 ABG pH 7.450 (7.35-7.45) 06/07/18 06:00 ABG pCO2 71.0 mmHg (35.0-45.0) H* 06/07/18 06:00 ABG pO2 69.0 mmHg (80.0-100.0) L 06/07/18 06:00 ABG HCO3 49.3 mmol/L (22-26) H* 06/07/18 06:00 ABG O2 Saturation 94.0 % (90-100) 06/07/18 06:00 ABG Base Excess 21.3 mmol/L (-2.0-2.0) H 06/07/18 06:00 Dony Test Pos 06/07/18 06:00 A-a Gradient 70.0 mmHg 06/07/18 06:00 FiO2 32.0 06/07/18 06:00 Blood Gas Comments Josefina well jts 06/07/18 06:00 Sodium 142 mmol/L (136-145) 06/10/18 05:36 Corrected Sodium TNP 06/10/18 05:36 Potassium 3.9 mmol/L (3.5-5.1) 06/10/18 05:36 Chloride 104 mmol/L (98-107) 06/10/18 05:36 Carbon Dioxide 36.4 mmol/L (21-32) H 06/10/18 05:36 BUN 7 mg/dL (7-18) 06/10/18 05:36 Creatinine 0.46 mg/dL (0.55-1.02) L 06/10/18 05:36 Est GFR (MDRD) Af Amer > 60 (>60) 06/10/18 05:36 Est GFR (MDRD) Non-Af > 60 (>60) 06/10/18 05:36 Glucose 85 mg/dL (65-99) 06/10/18 05:36 Lactic Acid 0.5 mmol/L (0.4-2.0) 06/02/18 08:10 Calcium 8.3 mg/dL (8.5-10.1) L 06/10/18 05:36 Corrected Calcium 10.0 mg/dL (8.5-10.1) 06/10/18 05:36 Magnesium 1.5 mg/dL (1.7-2.9) L 06/10/18 05:36 Total Bilirubin 0.20 mg/dL (0.2-1.0) 06/10/18 05:36 AST 19 Units/L (15-37) 06/10/18 05:36 ALT 17 Units/L (12-78) 06/10/18 05:36 Alkaline Phosphatase 51 Units/L (46-116) 06/10/18 05:36 B-Natriuretic Peptide 224 pg/mL (0-79) H 06/02/18 08:10 Total Protein 4.8 g/dL (6.4-8.2) L 06/10/18 05:36 Albumin 1.9 g/dL (3.4-5.0) L 06/10/18 05:36 Globulin 2.9 g/dL (2.5-4.5) 06/10/18 05:36 Albumin/Globulin Ratio 0.7 Ratio (1.1-2.1) L 06/10/18 05:36 Specimen Type Catherized urine 06/02/18 14:27 Urine Color Dark yellow (YELLOW) 06/02/18 14:27 Urine Appearance Slightly hazy (CLEAR) 06/02/18 14:27 Urine pH 5.0 (5.0 - 8.0) 06/02/18 14:27 Ur Specific [place] 1.025 (1.000-1.030) 06/02/18 14:27 Urine Protein 3+ (NEGATIVE) 06/02/18 14:27 Urine Glucose (UA) Negative (NEGATIVE) 06/02/18 14:27 Urine Ketones 1+ (NEGATIVE) 06/02/18 14:27 Urine Occult Blood 1+ (NEGATIVE) 06/02/18 14:27 Urine Nitrite Negative (NEGATIVE) 06/02/18 14:27 Urine Bilirubin Negative (NEGATIVE) 06/02/18 14:27 Urine Urobilinogen Normal (NORMAL) 06/02/18 14:27 Ur Leukocyte Esterase 1+ (NEGATIVE) 06/02/18 14:27 Urine RBC 0-2 /HPF (NONE SEEN) 06/02/18 14:27 Urine WBC 3-5 /HPF (NONE SEEN) 06/02/18 14:27 Ur Squamous Epith Cells Few /HPF (NEGATIVE) 06/02/18 14:27 Amorphous Sediment 4+ /HPF (NEGATIVE) 06/02/18 14:27 Urine Bacteria Trace /HPF (NEGATIVE) 06/02/18 14:27 Hyaline Casts Moderate /LPF (NEGATIVE) 06/02/18 14:27 Ur Culture Indicated? No/not indicated 06/02/18 14:27 - Plan (1) Pneumonia Status: Acute Qualifiers: Pneumonia type: due to unspecified organism Laterality: bilateral Lung location: unspecified part of lung Qualified Code(s): J18.9 - Pneumonia, u nspecified organism Plan: IV ANTIBIOTICS, RESPIRATORY TREATMENTS, SOLU-MEDROL IV, SUPPLEMENTAL OXYGEN, CONTINUE TO MONITOR (2) Respiratory distress Status: Acute Plan: IV ANTIBIOTICS, RESPIRATORY TREATMENTS, SOLU-MEDROL IV, SUPPLEMENTAL OXYGEN, TRILOGY, CONTINUE TO MONITOR (3) COPD (chronic obstructive pulmonary disease) Status: Chronic Qualifiers: COPD type: COPD with acute exacerbation Qualified Code(s): J44.1 - Chronic obstructive pulmonary disease with (acute) exacerbation Plan: IV ANTIBIOTICS, RESPIRATORY TREATMENTS, SOLU-MEDROL IV, SUPPLEMENTAL OXYGEN, TRILOGY, CONTINUE TO MONITOR
[2018-06-11] MEDS: NS 1000 ML 1,000 ML IV SCH ×2 (01:36→18:52)
[2018-06-11] MEDS: FORTAZ or TAZICEF VIAL INJ IVP SCH ×3 (05:36→21:09)
[2018-06-11 05:51] LABS: ABG BASE EXCESS 13.5 mmol/L (-2.0-2.0)
[2018-06-11 05:52] LABS: ABG HCO3 40.1 mmol/L (22-26)
[2018-06-11 05:53] LABS: ABG ALLEN TEST POS
[2018-06-11 06:11] LABS: BASOPHILS % (AUTO) 0.1 % (0.2-1.0); EOSINOPHILS # (AUTO) 0.2 x10^3/uL (0.0-0.2); EOSINOPHILS % (AUTO) 1.8 % (0.9-2.9); HEMATOCRIT 31.6 % (36.0-47.0); HEMOGLOBIN 10.7 g/dL (12.0-16.0); LYMPHOCYTES # (AUTO) 1.7 X10^3/uL (1.3-2.9); LYMPHOCYTES % (AUTO) 14.2 % (21.0-51.0); MEAN CORPUSCULAR HEMOGLOBIN 29.3 pg (27.0-34.0); MEAN CORPUSCULAR HGB CONC 33.7 g/dL (33.0-35.0); MEAN CORPUSCULAR VOLUME 86.7 fL (80.0-100.0); MEAN PLATELET VOLUME 9.5 fL (7.4-11.0); MONOCYTES # (AUTO) 0.7 x10^3/uL (0.3-0.8); MONOCYTES % (AUTO) 5.5 % (0.0-13.0); NEUTROPHILS # (AUTO) 9.4 x10^3/uL (2.2-4.8); NEUTROPHILS % (AUTO) 78.4 % (42.0-75.0); PLATELET COUNT 158 X10^3/uL (150.0-450.0); RED BLOOD COUNT 3.65 X10^6/uL (3.5-5.4); RED CELL DISTRIBUTION WIDTH 14.4 % (11.6-16.5)
--- NOTE | 2018-06-11 06:16 | RAD ---
Chest, one view Indication: Shortness of breath Comparison: 06/10/2018 Findings: The heart is normal in size. Chronic emphysematous changes again noted. Left basilar airspace disease and trace left pleural effusion are unchanged. No new focal infiltrate is identified. There is no pneumothorax. Impression: Stable left pleural effusion and left basilar airspace disease. COPD. Reported By:
[2018-06-11 06:23] LABS: ALANINE AMINOTRANSFERASE 19 Units/L (12-78); ALBUMIN 1.9 g/dL (3.4-5.0); ALKALINE PHOSPHATASE 49 Units/L (46-116); ASPARTATE AMINO TRANSFERASE 18 Units/L (15-37); BLOOD UREA NITROGEN 6 mg/dL (7-18); CALCIUM 8.1 mg/dL (8.5-10.1); CARBON DIOXIDE 35.1 mmol/L (21-32); CHLORIDE 105 mmol/L (98-107); COR CA(FOR HYPOALB) 9.8 mg/dL (8.5-10.1); CREATININE 0.46 mg/dL (0.55-1.02); MAGNESIUM 1.6 mg/dL (1.7-2.9); SODIUM 141 mmol/L (136-145); TOTAL PROTEIN 4.8 g/dL (6.4-8.2); eGFR NON BLACK RACES > 60 (>60)
[2018-06-11 06:47] LABS: BAND NEUTROPHILS % 4 % (0-10); PLATELET MORPHOLOGY COMMENT NORMAL (NORMAL)
[2018-06-11] MEDS: LEVAQUIN PREMIX IV 750 MG 750 MG/150 ML BAG IV SCH (08:31)
[2018-06-11] MEDS: PULMICORT NEB TX 0.5 MG NEB SCH ×2 (09:00→20:31)
[2018-06-11] MEDS: ACCUNEB 1.25 MG NEBULE NEB SCH ×4 (09:00→20:31)
[2018-06-11] MEDS: BROVANA IN SCH ×2 (09:00→20:31)
[2018-06-11] MEDS: MAGNESIUM SULFATE 1 GRAM/100 mL PREMIX 1 GM/100 ML BAG IV PRN ×2 (10:10→11:37)
[2018-06-11] MEDS: UNIPHYL TAB 400 MG PO SCH (10:14)
[2018-06-11] MEDS: MEGACE PO SCH ×2 (10:15→21:07)
[2018-06-11] MEDS: MAG-OX TAB PO SCH ×2 (10:15→21:09)
[2018-06-11] MEDS: NORVASC TAB 5 MG PO SCH ×2 (10:15→21:08)
[2018-06-11] MEDS: ROBITUSSIN DM PO SCH ×4 (10:15→21:09)
[2018-06-11] MEDS: MUCINEX EXPECTORANT PO SCH ×2 (10:15→21:07)
[2018-06-11] MEDS: TRICOR TAB 48 MG PO SCH (10:16)
[2018-06-11] MEDS: LIPITOR TAB 20 MG PO SCH (10:16)
[2018-06-11] MEDS: FLONASE NASAL SPRAY ENOSTRIL SCH (10:16)
[2018-06-11] MEDS: K-DUR TAB 20 MEQ PO PRN (10:24)
[2018-06-11] MEDS: XANAX PO PRN (21:08)
[2018-06-11] MEDS: RESTORIL CAP 15 MG PO PRN (21:09)
[2018-06-11] MEDS: COLACE CAP 100 MG PO SCH (21:09)
[2018-06-11] MEDS: MILK OF MAGNESIA PO SCH (21:10)
--- NOTE | 2018-06-11 21:51 | PCM.PROG ---
Progress Note - Progress Note for Day of Date of Exam: 06/10/18 - Subjective Subjective: IS A 73 YEAR OLD PATIENT OF OURS WHO IS BEING TREATED FOR BIBASILAR PNEUMONIA, RESPIRATORY DISTRESS, AND A UTI. TODAY, SHE IS ALERT AND ORIENTED, LYING IN BED ON MORNING ROUNDS. SHE CONTINUES WITH A PRODUCTIVE COUGH AND SHORTNESS OF BREATH. UPON ROUNDS, VITALS WERE 97.7-79-19-100%-124/60. LABS WERE OBTAINED. ABNORMAL LAB VALUES INCLUDE THE FOLLOWING: WBC 13.6, HGB 11.1, HCT 33.3, CARBON DIOXIDE 36.4, CREATININE 0.46, CALCIUM 8.3, MAGNESIUM 1.5, TOTAL PROTEIN 4.8, ALBUMIN 1.9. SPUTUM CULTURE REPORTS GROWTH OF HAEMOPHILUS INFLUENZAE, BUT WAS SENT OFF FOR CONFIRMATION. TODAYS CHEST XRAY REVEALS: Stable small left pleural effusion and atelectasis/consolidation of the left lower lobe. COPD. SHE IS CURRENTLY RECEIVING LEVAQUIN 750MG IV DAILY, NORMAL SALINE AT 75ML/HR, AND RESPIRATORY TREATMENTS. TODAY, WE WILL CONTINUE WITH CURRENT PLAN OF CARE. OTHERWISE, WE PLAN TO FOLLOW UP WITH AM LABS, ABG, AND CHEST XRAY AND CONTINUE TO MONITOR. - Past Medical Family Social History Past Med/Fam/Surg Hx: No changes since H&P Allergies: Allergies No Known Drug Allergies Allergy (Verified 05/21/17 08:19) - Review of Systems ROS: No change since H&P - Vital Signs and I&O's Vital Signs: Temperature 98.8 F Pulse Rate [Left Brachial] 101 Pulse Rate 80 Respiratory Rate 24 Blood Pressure [Left Arm] 131/55 Blood Pressure [Right Arm] 162/71 Blood Pressure 138/62 O2 Sat by Pulse Oximetry 99 Intake and Output: Intake & Output 06/09/18 06/10/18 06/11/18 06/12/18 11:59 11:59 11:59 11:59 Intake Total 2963 / 2963 2823 / 2823 2860 / 2860 1398 / 1398 Output Total 3500 / 3500 3250 / 3250 3200 / 3200 1300 / 1300 Balance -537 / -537 -427 / -427 -340 / -340 98 / 98 - Physical Exam Oriented: Normal, Other (DROWSY) Eyes: Normal Ear: Normal Nose: Normal Throat: Normal Respiratory: Generalized, Diminished, Wheezes Cardiovascular: Normal. negative: S3, S4, Murmur : Normal Auscultation: Bowel Sounds: Normal Palpation: Normal Tenderness: Normal Skin: Normal Musculoskeletal: Normal Psychiatric: Normal Mood Description: Calm Affect: Normal Speech Pattern: Clear, Appropriate - Laboratory and Diagnostics Result Diagrams: 06/11/18 05:36 06/11/18 05:36 Labs: 06/02/18 11:08 Sputum - Endotracheal Wash Sputum Culture - Final Haemophilus Influenzae 06/02/18 11:08 Sputum - Endotracheal Wash - Final 06/02/18 08:00 Blood Blood Culture - Final Laboratory WBC 12.0 X10^3/uL (3.6-10.0) H 06/11/18 05:36 RBC 3.65 X10^6/uL (3.5-5.4) 06/11/18 05:36 Hgb 10.7 g/dL (12.0-16.0) L 06/11/18 05:36 Hct 31.6 % (36.0-47.0) L 06/11/18 05:36 MCV 86.7 fL (80.0-100.0) 06/11/18 05:36 MCH 29.3 pg (27.0-34.0) 06/11/18 05:36 MCHC 33.7 g/dL (33.0-35.0) 06/11/18 05:36 RDW 14.4 % (11.6-16.5) 06/11/18 05:36 Plt Count 158 X10^3/uL (150.0-450.0) 06/11/18 05:36 Plt Count Comment Adequate (ADEQUATE) 06/11/18 05:36 MPV 9.5 fL (7.4-11.0) 06/11/18 05:36 Neut % (Auto) 78.4 % (42.0-75.0) H 06/11/18 05:36 Lymph % (Auto) 14.2 % (21.0-51.0) L 06/11/18 05:36 [place] % (Auto) 5.5 % (0.0-13.0) 06/11/18 05:36 Eos % (Auto) 1.8 % (0.9-2.9) 06/11/18 05:36 Baso % (Auto) 0.1 % (0.2-1.0) L 06/11/18 05:36 Neut # (Auto) 9.4 x10^3/uL (2.2-4.8) H 06/11/18 05:36 Lymph # (Auto) 1.7 X10^3/uL (1.3-2.9) 06/11/18 05:36 [place] # (Auto) 0.7 x10^3/uL (0.3-0.8) 06/11/18 05:36 Eos # (Auto) 0.2 x10^3/uL (0.0-0.2) 06/11/18 05:36 Baso # (Auto) 0.0 X10^3/uL (0.0-0.1) 06/11/18 05:36 Absolute Nucleated RBC 0.0 /100WBC 06/11/18 05:36 Total Counted 100 06/11/18 05:36 Neutrophils % (Manual) 74 % (39-76) 06/11/18 05:36 Band Neutrophils % 4 % (0-10) 06/11/18 05:36 Lymphocytes % (Manual) 17 % (13-43) 06/11/18 05:36 Monocytes % (Manual) 4 % (4-9) 06/11/18 05:36 Eosinophils % (Manual) 1 % (0-6) 06/11/18 05:36 Plt Morphology Comment Normal (NORMAL) 06/11/18 05:36 RBC Morphology Normal (NORMAL) 06/11/18 05:36 Hypochromasia Slight A 06/05/18 05:40 Sample Site Rrad 06/11/18 05:39 ABG pH 7.440 (7.35-7.45) 06/11/18 05:39 ABG pCO2 59.0 mmHg (35.0-45.0) H* 06/11/18 05:39 ABG pO2 54.0 mmHg (80.0-100.0) L 06/11/18 05:39 ABG HCO3 40.1 mmol/L (22-26) H* 06/11/18 05:39 ABG O2 Saturation 89.0 % (90-100) L 06/11/18 05:39 ABG Base Excess 13.5 mmol/L (-2.0-2.0) H 06/11/18 05:39 Dony Test Pos 06/11/18 05:39 A-a Gradient 79.0 mmHg 06/11/18 05:39 FiO2 29.0 06/11/18 05:39 Blood Gas Comments Josefina abg well-mtf 06/11/18 05:39 Sodium 141 mmol/L (136-145) 06/11/18 05:36 Corrected Sodium TNP 06/11/18 05:36 Potassium 3.8 mmol/L (3.5-5.1) 06/11/18 05:36 Chloride 105 mmol/L (98-107) 06/11/18 05:36 Carbon Dioxide 35.1 mmol/L (21-32) H 06/11/18 05:36 BUN 6 mg/dL (7-18) L 06/11/18 05:36 Creatinine 0.46 mg/dL (0.55-1.02) L 06/11/18 05:36 Est GFR (MDRD) Af Amer > 60 (>60) 06/11/18 05:36 Est GFR (MDRD) Non-Af > 60 (>60) 06/11/18 05:36 Glucose 86 mg/dL (65-99) 06/11/18 05:36 Lactic Acid 0.5 mmol/L (0.4-2.0) 06/02/18 08:10 Calcium 8.1 mg/dL (8.5-10.1) L 06/11/18 05:36 Corrected Calcium 9.8 mg/dL (8.5-10.1) 06/11/18 05:36 Magnesium 1.6 mg/dL (1.7-2.9) L 06/11/18 05:36 Total Bilirubin 0.20 mg/dL (0.2-1.0) 06/11/18 05:36 AST 18 Units/L (15-37) 06/11/18 05:36 ALT 19 Units/L (12-78) 06/11/18 05:36 Alkaline Phosphatase 49 Units/L (46-116) 06/11/18 05:36 B-Natriuretic Peptide 224 pg/mL (0-79) H 06/02/18 08:10 Total Protein 4.8 g/dL (6.4-8.2) L 06/11/18 05:36 Albumin 1.9 g/dL (3.4-5.0) L 06/11/18 05:36 Globulin 2.9 g/dL (2.5-4.5) 06/11/18 05:36 Albumin/Globulin Ratio 0.7 Ratio (1.1-2.1) L 06/11/18 05:36 Specimen Type Catherized urine 06/02/18 14:27 Urine Color Dark yellow (YELLOW) 06/02/18 14:27 Urine Appearance Slightly hazy (CLEAR) 06/02/18 14:27 Urine pH 5.0 (5.0 - 8.0) 06/02/18 14:27 Ur Specific [place] 1.025 (1.000-1.030) 06/02/18 14:27 Urine Protein 3+ (NEGATIVE) 06/02/18 14:27 Urine Glucose (UA) Negative (NEGATIVE) 06/02/18 14:27 Urine Ketones 1+ (NEGATIVE) 06/02/18 14:27 Urine Occult Blood 1+ (NEGATIVE) 06/02/18 14:27 Urine Nitrite Negative (NEGATIVE) 06/02/18 14:27 Urine Bilirubin Negative (NEGATIVE) 06/02/18 14:27 Urine Urobilinogen Normal (NORMAL) 06/02/18 14:27 Ur Leukocyte Esterase 1+ (NEGATIVE) 06/02/18 14:27 Urine RBC 0-2 /HPF (NONE SEEN) 06/02/18 14:27 Urine WBC 3-5 /HPF (NONE SEEN) 06/02/18 14:27 Ur Squamous Epith Cells Few /HPF (NEGATIVE) 06/02/18 14:27 Amorphous Sediment 4+ /HPF (NEGATIVE) 06/02/18 14:27 Urine Bacteria Trace /HPF (NEGATIVE) 06/02/18 14:27 Hyaline Casts Moderate /LPF (NEGATIVE) 06/02/18 14:27 Ur Culture Indicated? No/not indicated 06/02/18 14:27 - Plan (1) Pneumonia Status: Acute Qualifiers: Pneumonia type: due to unspecified organism Laterality: bilateral Lung location: unspecified part of lung Qualified Code(s): J18.9 - Pneumonia, unspecified organism Plan: IV ANTIBIOTICS, RESPIRATORY TREATMENTS, SOLU-MEDROL IV, SUPPLEMENTAL OXYGEN, CONTINUE TO MONITOR (2) Respiratory distress Status: Acute Plan: IV ANTIBIOTICS, RESPIRATORY TREATMENTS, SOLU-MEDROL IV, SUPPLEMENTAL OXY GEN, TRILOGY, CONTINUE TO MONITOR (3) COPD (chronic obstructive pulmonary disease) Status: Chronic Qualifiers: COPD type: COPD with acute exacerbation Qualified Code(s): J44.1 - Chronic obstructive pulmonary disease with (acute) exacerbation Plan: IV ANTIBIOTICS, RESPIRATORY TREATMENTS, SOLU-MEDROL IV, SUPPLEMENTAL OXYGEN, TRILOGY, CONTINUE TO MONITOR
[2018-06-12] MEDS: FORTAZ or TAZICEF VIAL INJ IVP SCH ×2 (05:33→13:15)
[2018-06-12] MEDS: NS 1000 ML 1,000 ML IV SCH (05:43)
--- NOTE | 2018-06-12 06:04 | RAD ---
HISTORY: Shortness of breath Study: Chest AP portable Comparison: 06/11/2018 Findings: The heart is within normal limits in size. The [place] are normal. The aorta is calcified. The lungs are generally hyperinflated consistent with COPD. Interstitial lung changes are present bilaterally most prominent in the lung bases. There has been slight improvement in the left lower lobe infiltrate being followed. Significant infiltrate remains. Left pleural effusion is unchanged. There is a small focus of subsegmental atelectasis in the left lung base. The bony thorax is unremarkable IMPRESSION: Slight improvement left lower lobe lung infiltrate. Continued follow-up is recommended No change small left pleural effusion COPD with interstitial lung changes Reported By:
[2018-06-12 06:20] LABS: BASOPHILS % (AUTO) 0.2 % (0.2-1.0); EOSINOPHILS # (AUTO) 0.3 x10^3/uL (0.0-0.2); HEMATOCRIT 30.7 % (36.0-47.0); HEMOGLOBIN 10.3 g/dL (12.0-16.0); LYMPHOCYTES # (AUTO) 1.7 X10^3/uL (1.3-2.9); LYMPHOCYTES % (AUTO) 12.8 % (21.0-51.0); MEAN CORPUSCULAR HGB CONC 33.5 g/dL (33.0-35.0); MEAN CORPUSCULAR VOLUME 86.6 fL (80.0-100.0); MEAN PLATELET VOLUME 9.5 fL (7.4-11.0); MONOCYTES # (AUTO) 0.8 x10^3/uL (0.3-0.8); MONOCYTES % (AUTO) 6.2 % (0.0-13.0); NEUTROPHILS # (AUTO) 10.5 x10^3/uL (2.2-4.8); NEUTROPHILS % (AUTO) 78.8 % (42.0-75.0); PLATELET COUNT 170 X10^3/uL (150.0-450.0); RED BLOOD COUNT 3.54 X10^6/uL (3.5-5.4); RED CELL DISTRIBUTION WIDTH 14.3 % (11.6-16.5); WHITE BLOOD COUNT 13.4 X10^3/uL (3.6-10.0)
[2018-06-12 06:24] LABS: ALANINE AMINOTRANSFERASE 18 Units/L (12-78); ALBUMIN 1.9 g/dL (3.4-5.0); ALKALINE PHOSPHATASE 52 Units/L (46-116); ASPARTATE AMINO TRANSFERASE 18 Units/L (15-37); BLOOD UREA NITROGEN 7 mg/dL (7-18); CARBON DIOXIDE 31.8 mmol/L (21-32); CHLORIDE 106 mmol/L (98-107); COR CA(FOR HYPOALB) 9.7 mg/dL (8.5-10.1); CREATININE 0.48 mg/dL (0.55-1.02); MAGNESIUM 1.6 mg/dL (1.7-2.9); SODIUM 142 mmol/L (136-145); eGFR NON BLACK RACES > 60 (>60)
[2018-06-12] MEDS: K-DUR TAB 20 MEQ PO PRN (06:34)
[2018-06-12] MEDS: MAGNESIUM SULFATE 1 GRAM/100 mL PREMIX 1 GM/100 ML BAG IV PRN (06:35)
--- NOTE | 2018-06-12 08:22 | PCM.PROG ---
Progress Note - Progress Note for Day of Date of Exam: 06/11/18 - Subjective Subjective: IS A 73 YEAR OLD PATIENT OF OURS WHO IS BEING TREATED FOR BIBASILAR PNEUMONIA, RESPIRATORY DISTRESS, AND A UTI. TODAY, SHE IS ALERT AND ORIENTED, LYING IN BED ON MORNING ROUNDS. SHE CONTINUES WITH A PRODUCTIVE COUGH AND SHORTNESS OF BREATH, BUT REPORTS SLIGHT IMPOVEMENT IN SYMPTOMS SINCE YESTERDAY. UPON ROUNDS, VITALS WERE 99.0-77-19-100%-110/63. LABS WERE OBTAINED. ABNORMAL LAB VALUES INCLUDE THE FOLLOWING: WBC 13.4, HGB 10.3, HCT 30.7, CARBON DIOXIDE 35.1, BUN 6, CREATININE 0.46, CALCIUM 8.1, MAGNESIUM 1.6, TOTAL PROTEIN 4.8, ALBUMIN 1.9. SPUTUM CULTURE POSITIVE FOR GROWTH OF HAEMOPHILUS INFLUENZAE. TODAYS CHEST XRAY REVEALS: Stable left pleural effusion and left basilar airspace disease. COPD. SHE IS CURRENTLY RECEIVING LEVAQUIN 750MG IV DAILY, [place] 1GM IV Q8H, NORMAL SALINE AT 75ML/HR, AND RESPIRATORY TREATMENTS. TODAY, WE WILL CONTINUE WITH CURRENT PLAN OF CARE. OTHERWISE, WE PLAN TO FOLLOW UP WITH AM LABS, ABG, AND CHEST XRAY AND CONTINUE TO MONITOR. - Past Medical Family Social History Past Med/Fam/Surg Hx: No changes since H&P Allergies: Allergies No Known Drug Allergies Allergy (Verified 05/21/17 08:19) - Review of Systems ROS: No change since H&P - Vital Signs and I&O's Vital Signs: Temperature 98.6 F Pulse Rate [Left Brachial] 101 Pulse Rate 79 Respiratory Rate 22 Blood Pressure [Left Arm] 131/55 Blood Pressure [Right Arm] 162/71 Blood Pressure 138/64 O2 Sat by Pulse Oximetry 100 Intake and Output: Intake & Output 06/09/18 06/10/18 06/11/18 06/12/18 11:59 11:59 11:59 11:59 Intake Total 2963 / 2963 2823 / 2823 2860 / 2860 3318 / 3318 Output Total 3500 / 3500 3250 / 3250 3200 / 3200 3725 / 3725 Balance -537 / -537 -427 / -427 -340 / -340 -407 / -407 - Physical Exam Oriented: Normal, Other (DROWSY) Eyes: Normal Ear: Normal Nose: Normal Throat: Normal Respiratory: Generalized, Diminished, Wheezes Cardiovascular: Normal. negative: S3, S4, Murmur : Normal Auscultation: Bowel Sounds: Normal Tenderness: Normal Skin: Normal Musculoskeletal: Normal Psychiatric: Normal Mood Description: Calm Affect: Normal Speech Pattern: Clear, Appropriate - Laboratory and Diagnostics Result Diagrams: 06/12/18 05:35 06/12/18 05:35 Labs: 06/02/18 11:08 Sputum - Endotracheal Wash Sputum Culture - Final Haemophilus Influenzae 06/02/18 11:08 Sputum - Endotracheal Wash - Final 06/02/18 08:00 Blood Blood Culture - Final Laboratory WBC 13.4 X10^3/uL (3.6-10.0) H 06/12/18 05:35 RBC 3.54 X10^6/uL (3.5-5.4) 06/12/18 05:35 Hgb 10.3 g/dL (12.0-16.0) L 06/12/18 05:35 Hct 30.7 % (36.0-47.0) L 06/12/18 05:35 MCV 86.6 fL (80.0-100.0) 06/12/18 05:35 MCH 29.0 pg (27.0-34.0) 06/12/18 05:35 MCHC 33.5 g/dL (33.0-35.0) 06/12/18 05:35 RDW 14.3 % (11.6-16.5) 06/12/18 05:35 Plt Count 170 X10^3/uL (150.0-450.0) 06/12/18 05:35 Plt Count Comment Adequate (ADEQUATE) 06/11/18 05:36 MPV 9.5 fL (7.4-11.0) 06/12/18 05:35 Neut % (Auto) 78.8 % (42.0-75.0) H 06/12/18 05:35 Lymph % (Auto) 12.8 % (21.0-51.0) L 06/12/18 05:35 [place] % (Auto) 6.2 % (0.0-13.0) 06/12/18 05:35 Eos % (Auto) 2.0 % (0.9-2.9) 06/12/18 05:35 Baso % (Auto) 0.2 % (0.2-1.0) 06/12/18 05:35 Neut # (Auto) 10.5 x10^3/uL (2.2-4.8) H 06/12/18 05:35 Lymph # (Auto) 1.7 X10^3/uL (1.3-2.9) 06/12/18 05:35 [place] # (Auto) 0.8 x10^3/uL (0.3-0.8) 06/12/18 05:35 Eos # (Auto) 0.3 x10^3/uL (0.0-0.2) H 06/12/18 05:35 Baso # (Auto) 0.0 X10^3/uL (0.0-0.1) 06/12/18 05:35 Absolute Nucleated RBC 0.0 /100WBC 06/12/18 05:35 Total Counted 100 06/11/18 05:36 Neutrophils % (Manual) 74 % (39-76) 06/11/18 05:36 Band Neutrophils % 4 % (0-10) 06/11/18 05:36 Lymphocytes % (Manual) 17 % (13-43) 06/11/18 05:36 Monocytes % (Manual) 4 % (4-9) 06/11/18 05:36 Eosinophils % (Manual) 1 % (0-6) 06/11/18 05:36 Plt Morphology Comment Normal (NORMAL) 06/11/18 05:36 RBC Morphology Normal (NORMAL) 06/11/18 05:36 Hypochromasia Slight A 06/05/18 05:40 Sample Site Rrad 06/11/18 05:39 ABG pH 7.440 (7.35-7.45) 06/11/18 05:39 ABG pCO2 59.0 mmHg (35.0-45.0) H* 06/11/18 05:39 ABG pO2 54.0 mmHg (80.0-100.0) L 06/11/18 05:39 ABG HCO3 40.1 mmol/L (22-26) H* 06/11/18 05:39 ABG O2 Saturation 89.0 % (90-100) L 06/11/18 05:39 ABG Base Excess 13.5 mmol/L (-2.0-2.0) H 06/11/18 05:39 Dony Test Pos 06/11/18 05:39 A-a Gradient 79.0 mmHg 06/11/18 05:39 FiO2 29.0 06/11/18 05:39 Blood Gas Comments Josefina abg well-mtf 06/11/18 05:39 Sodium 142 mmol/L (136-145) 06/12/18 05:35 Corrected Sodium TNP 06/12/18 05:35 Potassium 3.8 mmol/L (3.5-5.1) 06/12/18 05:35 Chloride 106 mmol/L (98-107) 06/12/18 05:35 Carbon Dioxide 31.8 mmol/L (21-32) 06/12/18 05:35 BUN 7 mg/dL (7-18) 06/12/18 05:35 Creatinine 0.48 mg/dL (0.55-1.02) L 06/12/18 05:35 Est GFR (MDRD) Af Amer > 60 (>60) 06/12/18 05:35 Est GFR (MDRD) Non-Af > 60 (>60) 06/12/18 05:35 Glucose 88 mg/dL (65-99) 06/12/18 05:35 Lactic Acid 0.5 mmol/L (0.4-2.0) 06/02/18 08:10 Calcium 8.0 mg/dL (8.5-10.1) L 06/12/18 05:35 Corrected Calcium 9.7 mg/dL (8.5-10.1) 06/12/18 05:35 Magnesium 1.6 mg/dL (1.7-2.9) L 06/12/18 05:35 Total Bilirubin 0.20 mg/dL (0.2-1.0) 06/12/18 05:35 AST 18 Units/L (15-37) 06/12/18 05:35 ALT 18 Units/L (12-78) 06/12/18 05:35 Alkaline Phosphatase 52 Units/L (46-116) 06/12/18 05:35 B-Natriuretic Peptide 224 pg/mL (0-79) H 06/02/18 08:10 Total Protein 5.0 g/dL (6.4-8.2) L 06/12/18 05:35 Albumin 1.9 g/dL (3.4-5.0) L 06/12/18 05:35 Globulin 3.1 g/dL (2.5-4.5) 06/12/18 05:35 Albumin/Globulin Ratio 0.6 Ratio (1.1-2.1) L 06/12/18 05:35 Specimen Type Catherized urine 06/02/18 14:27 Urine Color Dark yellow (YELLOW) 06/02/18 14:27 Urine Appearance Slightly hazy (CLEAR) 06/02/18 14:27 Urine pH 5.0 (5.0 - 8.0) 06/02/18 14:27 Ur Specific Spencer 1.025 (1.000-1.030) 06/02/18 14:27 Urine Protein 3+ (NEGATIVE) 06/02/18 14:27 Urine Glucose (UA) Negative (NEGATIVE) 06/02/18 14:27 Urine Ketones 1+ (NEGATIVE) 06/02/18 14:27 Urine Occult Blood 1+ (NEGATIVE) 06/02/18 14:27 Urine Nitrite Negative (NEGATIVE) 06/02/18 14:27 Urine Bilirubin Negative (NEGATIVE) 06/02/18 14:27 Urine Urobilinogen Normal (NORMAL) 06/02/18 14:27 Ur Leukocyte Esterase 1+ (NEGATIVE) 06/02/18 14:27 Urine RBC 0-2 /HPF (NONE SEEN) 06/02/18 14:27 Urine WBC 3-5 /HPF (NONE SEEN) 06/02/18 14:27 Ur Squamous Epith Cells Few /HPF (NEGATIVE) 06/02/18 14:27 Amorphous Sediment 4+ /HPF (NEGATIVE) 06/02/18 14:27 Urine Bacteria Trace /HPF (NEGATIVE) 06/02/18 14:27 Hyaline Casts Moderate /LPF (NEGATIVE) 06/02/18 14:27 Ur Culture Indicated? No/not indicated 06/02/18 14:27 - Plan (1) Pneumonia Status: Acute Qualifiers: Pneumonia type: due to unspecified organism Laterality: bilateral Lung location: unspecified part of lung Qualified Code(s): J18.9 - Pneumonia, unspecified organism Plan: IV ANTIBIOTICS, RESPIRATORY TREATMENTS, SOLU-MEDROL IV, SUPPLEMENTAL OXYGEN, CONTINUE TO MONITOR (2) Respiratory distress Status: Acute Plan: IV ANTIBIOTICS, RESPIRATORY TREATMENTS, SOLU-MEDROL IV, SUPPLEMENTAL OXYGEN, TRILOGY, CONTINUE TO MONITOR (3) COPD (chronic obstructive pulmonary disease) Status: Chronic Qualifiers: COPD type: COPD with acute exacerbation Qualified Code(s): J44.1 - Chronic obstructive pulmonary disease with (acute) exacerbation Plan: IV ANTIBIOTICS, RESPIRATORY TREATMENTS, SOLU-MEDROL IV, SUPPLEMENTAL OXYGEN, TRILOGY, CONTINUE TO MONITOR
[2018-06-12] MEDS: ACCUNEB 1.25 MG NEBULE NEB SCH ×2 (09:32→13:50)
[2018-06-12] MEDS: BROVANA IN SCH (09:32)
[2018-06-12] MEDS: PULMICORT NEB TX 0.5 MG NEB SCH (09:32)
[2018-06-12] MEDS: MUCINEX EXPECTORANT PO SCH (09:33)
[2018-06-12] MEDS: FLONASE NASAL SPRAY ENOSTRIL SCH (09:33)
[2018-06-12] MEDS: LEVAQUIN PREMIX IV 750 MG 750 MG/150 ML BAG IV SCH (09:33)
[2018-06-12] MEDS: LIPITOR TAB 20 MG PO SCH (09:34)
[2018-06-12] MEDS: NORVASC TAB 5 MG PO SCH (09:34)
[2018-06-12] MEDS: MAG-OX TAB PO SCH (09:34)
[2018-06-12] MEDS: UNIPHYL TAB 400 MG PO SCH (09:34)
[2018-06-12] MEDS: MEGACE PO SCH (09:34)
[2018-06-12] MEDS: ROBITUSSIN DM PO SCH ×2 (09:34→13:15)
[2018-06-12] MEDS: TRICOR TAB 48 MG PO SCH (09:55)
[2018-06-12] MEDS: XANAX PO PRN (09:56)
[2018-06-12] MEDS ORDERED: XYLOCAINE 1 % (PLAIN) ONE ×3 (13:25→15:33)
--- NOTE | 2018-06-12 16:16 | RAD ---
HISTORY: PICC line placement Study: One-view chest Comparison: One-view chest 06/12/2018 Technique: Single AP chest Findings: EKG leads overlie the thorax. PICC line is seen entering the left with the tip at the junction the left subclavian to the superior vena cava in the midline at T4 level. Lungs are clear other than dense consolidation/atelectasis in the left lower lobe retrocardiac region which is unchanged from the prior film 1228 at 5:00 a.m.. Remainder the lungs are clear IMPRESSION: 1. PICC line in good position with the tip at the junction the left subclavian vein to the superior vena cava located in the midline. 2. Persistent dense consolidation/atelectasis/pneumonia left lower lobe unchanged from this morning's film. Reported By:
[2018-06-12 16:23] VITALS: BP 128/60
== END 2018-06-12 17:30 | disposition home health service (06) | DRG 194 ==
LOC: ER 07:32 → ICU 10:51
PROVIDERS: ADMIT Internal Medicine; ATTEND Internal Medicine
DX: N39.0 Urinary tract infection, site not specified; J44.1 Chronic obstructive pulmonary disease with (acute) exacerbation; R06.03 Acute respiratory distress; R55 Syncope and collapse; I10 Essential (primary) hypertension; J18.8 Other pneumonia, unspecified organism; R06.02 Shortness of breath; E78.2 Mixed hyperlipidemia; W18.39XA Other fall on same level, initial encounter; J90 Pleural effusion, not elsewhere classified; I87.2 Venous insufficiency (chronic) (peripheral); F41.8 Other specified anxiety disorders; R53.1 Weakness; R26.89 Other abnormalities of gait and mobility; B96.3 Hemophilus influenzae [H. influenzae] as the cause of diseases classified elsewhere
CPT/HCPCS: 36415; 36569; 36600; 70450; 71010; 71045; 71275; 80053; 81001; 82803; 83605; 83735; 83880; 84132; 85025; 87040; 87070; 87077; 87185; 87186; 87205; 93005; 93010; 94640; 94660; 94669; 96365; 96374; 96375; 97110; 97162; 97167; 97530; 97535; 99283; 99285; A4222; A4618; A7030; S0179; J0713; J1956; J2405; J2920; J2930; J3475; J7030; J7613; J7620; J7626

== ENCOUNTER 2018-09-29 19:30 | Inpatient (IN) ==
[2018-09-29 20:08] LABS: BASOPHILS # (AUTO) 0.1 X10^3/uL (0.0-0.1); BASOPHILS % (AUTO) 0.8 % (0.2-1.0); EOSINOPHILS # (AUTO) 0.1 x10^3/uL (0.0-0.2); HEMATOCRIT 41.6 % (36.0-47.0); HEMOGLOBIN 13.9 g/dL (12.0-16.0); LYMPHOCYTES # (AUTO) 1.4 X10^3/uL (1.3-2.9); LYMPHOCYTES % (AUTO) 11.9 % (21.0-51.0); MEAN CORPUSCULAR HEMOGLOBIN 28.9 pg (27.0-34.0); MEAN CORPUSCULAR HGB CONC 33.4 g/dL (33.0-35.0); MEAN CORPUSCULAR VOLUME 86.5 fL (80.0-100.0); MEAN PLATELET VOLUME 10.4 fL (7.4-11.0); MONOCYTES # (AUTO) 0.9 x10^3/uL (0.3-0.8); MONOCYTES % (AUTO) 7.7 % (0.0-13.0); NEUTROPHILS # (AUTO) 9.3 x10^3/uL (2.2-4.8); NEUTROPHILS % (AUTO) 78.6 % (42.0-75.0); PLATELET COUNT 158 X10^3/uL (150.0-450.0); RED BLOOD COUNT 4.81 X10^6/uL (3.5-5.4); RED CELL DISTRIBUTION WIDTH 13.8 % (11.6-16.5); WHITE BLOOD COUNT 11.8 X10^3/uL (3.6-10.0)
[2018-09-29 20:15] LABS: ABG BASE EXCESS 12.8 mmol/L (-2.0-2.0)
[2018-09-29 20:22] LABS: ALANINE AMINOTRANSFERASE 13 Units/L (12-78); ALBUMIN 3.2 g/dL (3.4-5.0); ALKALINE PHOSPHATASE 59 Units/L (46-116); ASPARTATE AMINO TRANSFERASE 22 Units/L (15-37); BLOOD UREA NITROGEN 13 mg/dL (7-18); CALCIUM 9.1 mg/dL (8.5-10.1); CARBON DIOXIDE 36.8 mmol/L (21-32); CHLORIDE 94 mmol/L (98-107); COR CA(FOR HYPOALB) 9.7 mg/dL (8.5-10.1); CREATININE 0.65 mg/dL (0.55-1.02); SODIUM 132 mmol/L (136-145); TOTAL PROTEIN 7.1 g/dL (6.4-8.2); eGFR NON BLACK RACES > 60 (>60)
--- NOTE | 2018-09-29 20:40 | DR.GENAD ---
HPI Time Seen Time Seen by Provider: 09/29/18 20:37 HPI Comment HPI Comment: PATIENT IS 73YR OLD WHITE FEMALE WITH COPD ON HOME NEB TREATMENT AND HOME OXYGEN WHO IS IN ED WITH PERSISTENT COUGH WITH THICK WHITE SPUTUM AND INCREASING SOB WITH DECREASE O2 SAT. FOR FEW DAYS, COUGH IS PROGRESSIVELY WORSEN ING. TODAY CHEST IS TIGHT AND THIS IS MAKING BREATHING WORSE. NO FEVER. SHE DRAIN OF ENERGY AND WHEEZING. SHE IS USING HER CHEST AND ABDOMINAL MUSCLES FOR BREATHING. ALSO HISTORY OF HYPERTENSION AND DYSLIPIDEMIA. DENIES PEDAL EDEMA. Complaint/Symptoms Chief Complaint Doctors Comments: SOB ALL DAY, O2 SAT IN 70S AND BAD SOUNDING COUGH. Chief Complaint:: pt states" I have been SOB all day my sat's have only been in the low 70's all day." pt has a bad sounding cough Nurses notes reviewed Nurses Notes Review: Yes Source History Provided: Patient Mode of Arrival Mode of Arrival: Wheelchair Timing Onset of Chief Complaint: 09/29/18 Came on: Suddenly Duration Duration: Constant Duration: Hours Severity Severity: Moderate Modifying Factors Worsens:: COUGHING WORSEN CHEST TIGHTNESS. Improves:: NEB TREATMENT IMPROVES CHEST TIGHTNESS. Associated Signs and Symptoms Associated Signs and Symptoms: CHEST TIGHTNESS, Other History Other History: HISTORY COPD/O2 DEPENDENT. PMH PMH Past Medical History: Yes Past Medical History: Anxiety, COPD, Dyslipidemia and Hypertension Past Surgical History: Yes Surgical History: Appendectomy Family History History of Family Medical Conditions: Yes Family Medical History: Cancer and Hypertension Social History Type of Tobacco Use: Cigarettes Does any household member use tobacco: No Alcohol Use: None Do you use any recreational Drugs:: No Lives With: Family Lives Where: Home infectious screening In the last 2 months have you had wt loss of >10#?: NO Have you had fever, night sweats or hemotysis?: No Have you traveled outside the country in the last 6 months?: No Isolation: Standard ROS Review of Systems Constitutional: Malaise, Weakness and Fatigue; negative Chills, Diaphoresis and Fever Eyes: No Symptoms Reported; negative Eye Pain, Blurred Vision, Discharge, Photophobia and Diplopia ENTM: Nose Congestion; negative Ear Pain, Ear Discharge, Nose Discharge, Throat Pain and Tooth/Dental Pain Respiratoy: Productive Cough, Orthopnea and Short of Breath; negative Wheezing and Hemoptysis Cardiovascular: Chest Pain (TIGHTNESS.); negative Edema, Palpitations, Syncope and Cyanosis Gastrointestinal/Abdominal: Nausea; negative Abdominal Pain, Constipation, Diarrhea and Vomiting Genitourinary: No Symptoms Reported; negative Dysuria, Frequency and Hematuria Neurological: Anxiety, Headache, Weakness and Dizziness Musculoskeletal: Back Pain, Joint Pain, Muscle Pain and Chest wall; negative Neck Integumentary: Change in Color and Dryness; negative Bruises and Juandice Hematologic/Lymphatic: Easy Bleeding and Easy Bruising; negative Swollen Glands and Lymphadenopathy Endocrine: negative Excessive Sweating, Flushing, Increased Thirst and Increased Urine Psychiatric: Anxiety All Other Systems: Reviewed and Negative PE Vital Signs Vitals: Temperature 97.9 F Pulse Rate [Left] 87 Pulse Rate 102 Respiratory Rate 26 Blood Pressure [Left Arm] 115/55 Blood Pressure [Right Arm] 162/71 Blood Pressure 122/62 O2 Sat by Pulse Oximetry 96 General Limitations: No Limitations General Appearance: Alert and In Distress; negative Lethargic Head Head Exam: Normal Inspection, Atraumatic and Normocephalic Eyes Eye exam: Normal Appearance, PERRL and EOMI; negative Scleral Icterus and Conjunctival Injection ENT ENT Exam: Normal Oropharynx, Normal External Ear Exam, Mucous Membranes Dry and TM's Normal Bilaterally External Ear Exam: Normal External Inspection and Other TM/Canal Exam: Bilateral: Normal Nose Exam: Normal Nose Exam; negative Nasal Deviation and Septal Hematoma Mouth Exam: Normal Inspection; negative Trismus, Lip Swelling and Tongue Swe lling Throat Exam: Normal Inspection, Tonsillar Erythema, Tonsillomegaly and Tonsillar Exudate Neck Neck Exam: Normal Inspection, Full ROM and Trachea Midline; negative Tenderness, Meningismus and Lymphadenopathy Chest Chest Inspection: Normal Inspection and Symmetric Chest Wall Rise; negative Tenderness and Rash Respiratory Respiratory Exam: Accessory Muscle Use Respiratory Exam: Bilateral: Wheezing and Bilateral: Rhonchi, Left: Wheezing and Left: Rhonchi, Right: Wheezing and Right: Rhonchi, Upper: Wheezing and Upper: Rhonchi and Lower: Wheezing and Lower: Rhonchi Cardiovascular Cardiovascular Exam: Regular Rate, Normal Rhythm and JVD; negative Systolic Murmur, Diastolic Murmur, Rubs and Gallop Abdominal Exam Abdominal Exam: Normal Inspection, Normal Bowel Sounds and Soft; negative Tenderness Extremities Extremities Exam: Normal Inspection, Full ROM and Normal Capillary Refill; negative Tenderness, Edema and Calf Tenderness Back Back Exam: Normal Inspection; negative Tenderness and Paraspinal Tenderness Neurologic Neurological Exam: Alert, Oriented X3 and CN II-XII Intact; negative Motor Sensory Deficit Psychiatric Psychiatric Exam: Normal Affect and Anxious Skin Skin Exam: Warm, Dry, Intact and Normal Color; negative Cyanosis, Diaphoresis and Erythema MDM Additional Information Additional Information Obtained From: Family Differential Diagnosis Differential Diagnosis: ACUTE EXACERBATION OF COPD, BRONCHITIS, PMEUMONIA, CHF, [place], SINUSITIS COURSE Treatment Treatment: SEE ORDERS. 21:49 : DUO NEB IN ED AND 21:54 : SOLUMEDROL 125MG IV IN ED. 22:15 : CHEST INCREASE AIR ENTRY. TIGHTNESS IMPROVING. Reevaluation 1st: Improved (SOB IMPROVING. 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 HE WANTS ADMISSION FOR COPD EXACERBATION WITH BRONCHITIS. ORDERS FOR THIS ADMISSION DISCUSS AND PRELIMINARY ORDERS FOR ADMISSI ON WAS DONE. Education/Counseling Education/Counseling: Patient and Family Educated On: Diagnosis ROR Labs Reviewed Laboratory Results Reviewed?: Yes Result Diagrams: 10/04/18 04:30 10/04/18 04:30 Laboratory: 09/30/18 13:40 Sputum - Expectorated Sputum Sputum Culture - Preliminary 09/30/18 13:40 Sputum - Expectorated Sputum - Final 09/29/18 20:15 Blood Blood Culture - Preliminary 09/29/18 20:00 Blood Blood Culture - Preliminary WBC 11.2 X10^3/uL (3.6-10.0) H 10/04/18 04:30 RBC 4.69 X10^6/uL (3.5-5.4) 10/04/18 04:30 Hgb 13.6 g/dL (12.0-16.0) 10/04/18 04:30 Hct 41.2 % (36.0-47.0) 10/04/18 04:30 MCV 87.8 fL (80.0-100.0) 10/04/18 04:30 MCH 29.0 pg (27.0-34.0) 10/04/18 04:30 MCHC 33.0 g/dL (33.0-35.0) 10/04/18 04:30 RDW 14.5 % (11.6-16.5) 10/04/18 04:30 Plt Count 179 X10^3/uL (150.0-450.0) 10/04/18 04:30 Plt Count Comment Adequate (ADEQUATE) 10/03/18 04:26 MPV 10.4 fL (7.4-11.0) 10/04/18 04:30 Neut % (Auto) 75.6 % (42.0-75.0) H 10/04/18 04:30 Lymph % (Auto) 14.1 % (21.0-51.0) L 10/04/18 04:30 [place] % (Auto) 9.9 % (0.0-13.0) 10/04/18 04:30 Eos % (Auto) 0.2 % (0.9-2.9) L 10/04/18 04:30 Baso % (Auto) 0.2 % (0.2-1.0) 10/04/18 04:30 Neut # (Auto) 8.5 x10^3/uL (2.2-4.8) H 10/04/18 04:30 Lymph # (Auto) 1.6 X10^3/uL (1.3-2.9) 10/04/18 04:30 [place] # (Auto) 1.1 x10^3/uL (0.3-0.8) H 10/04/18 04:30 Eos # (Auto) 0.0 x10^3/uL (0.0-0.2) 10/04/18 04:30 Baso # (Auto) 0.0 X10^3/uL (0.0-0.1) 10/04/18 04:30 Absolute Nucleated RBC 0.0 /100WBC 10/04/18 04:30 Total Counted 100 10/03/18 04:26 Neutrophils % (Manual) 92 % (39-76) H 10/03/18 04:26 Band Neutrophils % 3 % (0-10) 10/03/18 04:26 Lymphocytes % (Manual) 2 % (13-43) L 10/03/18 04:26 Monocytes % (Manual) 3 % (4-9) L 10/03/18 04:26 Eosinophils % (Manual) 3 % (0-6) 09/30/18 05:22 Plt Morphology Comment Normal (NORMAL) 10/03/18 04:26 RBC Morphology Normal (NORMAL) 10/03/18 04:26 Sample Site Lb 10/02/18 04:33 ABG pH 7.470 (7.35-7.45) H 10/02/18 04:33 ABG pCO2 64.0 mmHg (35.0-45.0) H* 10/02/18 04:33 ABG pO2 82.0 mmHg (80.0-100.0) 10/02/18 04:33 ABG HCO3 46.6 mmol/L (22-26) H* 10/02/18 04:33 ABG O2 Saturation 97.0 % (90-100) 10/02/18 04:33 ABG Base Excess 19.5 mmol/L (-2.0-2.0) H 10/02/18 04:33 Dony Test N/a 10/02/18 04:33 A-a Gradient 88.0 mmHg 10/02/18 04:33 FiO2 35.0 10/02/18 04:33 Blood Gas Comments Josefina well ae 10/02/18 04:33 Sodium 145 mmol/L (136-145) 10/04/18 04:30 Corrected Sodium TNP 10/04/18 04:30 Potassium 4.0 mmol/L (3.5-5.1) 10/04/18 04:30 Chloride 106 mmol/L (98-107) 10/04/18 04:30 Carbon Dioxide 39.3 mmol/L (21-32) H 10/04/18 04:30 BUN 28 mg/dL (7-18) H 10/04/18 04:30 Creatinine 0.77 mg/dL (0.55-1.02) 10/04/18 04:30 Est GFR (MDRD) Af Amer > 60 (>60) 10/04/18 04:30 Est GFR (MDRD) Non-Af > 60 (>60) 10/04/18 04:30 Glucose 85 mg/dL (65-99) 10/04/18 04:30 Calcium 8.8 mg/dL (8.5-10.1) 10/04/18 04:30 Corrected Calcium 10.0 mg/dL (8.5-10.1) 10/04/18 04:30 Total Bilirubin 0.10 mg/dL (0.2-1.0) L 10/04/18 04:30 AST 19 Units/L (15-37) 10/04/18 04:30 ALT 16 Units/L (12-78) 10/04/18 04:30 Alkaline Phosphatase 73 Units/L (46-116) 10/04/18 04:30 Creatine Kinase 87 Units/L (26-192) 09/30/18 11:45 CK-MB (CK-2) 2.0 ng/mL (0-4.0) 09/30/18 11:45 CK/CKMB % Calc 2.3 % (<4) 09/30/18 11:45 Troponin I 0.05 ng/mL (0-1.5) 09/30/18 11:45 Total Protein 5.5 g/dL (6.4-8.2) L 10/04/18 04:30 Albumin 2.5 g/dL (3.4-5.0) L 10/04/18 04:30 Globulin 3.0 g/dL (2.5-4.5) 10/04/18 04:30 Albumin/Globulin Ratio 0.8 Ratio (1.1-2.1) L 10/04/18 04:30 Specimen Type Clean catch urine 09/29/18 23:11 Urine Color Yellow (YELLOW) 09/29/18 23:11 Urine Appearance Slightly hazy (CLEAR) 09/29/18 23:11 Urine pH 6.0 (5.0 - 8.0) 09/29/18 23:11 Ur Specific [place] 1.015 (1.000-1.030) 09/29/18 23:11 Urine Protein 3+ (NEGATIVE) 09/29/18 23:11 Urine Glucose (UA) Negative (NEGATIVE) 09/29/18 23:11 Urine Ketones Negative (NEGATIVE) 09/29/18 23:11 Urine Occult Blood 2+ (NEGATIVE) 09/29/18 23:11 Urine Nitrite Negative (NEGATIVE) 09/29/18 23:11 Urine Bilirubin Negative (NEGATIVE) 09/29/18 23:11 Urine Urobilinogen Normal (NORMAL) 09/29/18 23:11 Ur Leukocyte Esterase 1+ (NEGATIVE) 09/29/18 23:11 Urine RBC 3-5 /HPF (NONE SEEN) 09/29/18 23:11 Urine WBC 0-2 /HPF (NONE SEEN) 09/29/18 23:11 Ur Squamous Epith Cells Few /HPF (NEGATIVE) 09/29/18 23:11 Amorphous Sediment 1+ /HPF (NEGATIVE) 09/29/18 23:11 Urine Bacteria Trace /HPF (NEGATIVE) 09/29/18 23:11 Ur Culture Indicated? No/not indicated 09/29/18 23:11 XRAY XRAY Interpreted by: Radiologist XRAY Findings: REPORT ON RECORD NOTED AND DISCUSS WITH PATIENT. Diagnosis Discharge Problem: Chronic obstructive pulmonary disease Qualifiers: COPD type: COPD with acute exacerbation Qualified Code(s): J44.1 - Chronic obstructive pulmonary disease with (acute) exacerbation
--- NOTE | 2018-09-29 20:45 | RAD ---
HISTORY: Shortness of breath Study: Single view of the chest. Comparison: None. Findings: The cardiomediastinal silhouette is normal. No focal consolidations, pleural effusions or pneumothorax. Osseous structures demonstrate no acute abnormality. Bilateral hyper expansion with coarsening of interstitial markings. IMPRESSION: 1. No acute cardiopulmonary process. 2. Findings of COPD. Reported By:
[2018-09-29] MEDS ORDERED: DUONEB 0.5 MG/3 MG NEB ONE (21:40)
[2018-09-29] MEDS ORDERED: SOLU-Medrol 125 MG VIAL IVP ONE (21:40)
[2018-09-29] MEDS ORDERED: DUONEB 0.5 MG/3 MG ONE (21:48)
[2018-09-29] MEDS ORDERED: SOLU-Medrol 125 MG VIAL ONE (21:53)
[2018-09-29] MEDS ORDERED: RESTORIL CAP 15 MG PO PRN (22:37)
[2018-09-29] MEDS ORDERED: DEXTROMETHORPHAN GUAIFENESIN PO SCH (22:48)
[2018-09-29 23:07] VITALS: BMI 18.1
[2018-09-29] MEDS ORDERED: SALINE 3% 15 ML NEB TX NEB ONE (23:15)
[2018-09-29 23:22] LABS: BILIRUBIN,URINE NEGATIVE (NEGATIVE); BLOOD/HEMOGLOBIN,URINE 2+ (NEGATIVE); GLUCOSE, URINE NEGATIVE (NEGATIVE); KETONES,URINE NEGATIVE (NEGATIVE); LEUKOCYTE ESTERASE ,URINE 1+ (NEGATIVE); NITRITES,URINE NEGATIVE (NEGATIVE); PROTEIN,URINE 3+ (NEGATIVE); UROBILINOGEN,URINE NORMAL (NORMAL)
[2018-09-29 23:32] LABS: APPEARANCE,URINE SLIGHTLY HAZY (CLEAR); COLOR,URINE YELLOW (YELLOW)
[2018-09-29 23:33] LABS: AMORPHOUS SEDIMENT,UR 1+ /HPF (NEGATIVE); BACTERIA,URINE TRACE /HPF (NEGATIVE); SQUAMOUS EPITHELIAL CELL,UR FEW /HPF (NEGATIVE)
[2018-09-29] MEDS: XANAX PO SCH (23:44)
[2018-09-29] MEDS: MUCINEX DM PO SCH (23:44)
[2018-09-30] MEDS: XOPENEX 1.25 MG/3 ML NEBULE NEB SCH ×5 (00:54→23:39)
[2018-09-30 05:34] LABS: ABG BASE EXCESS 13.4 mmol/L (-2.0-2.0)
[2018-09-30 05:36] LABS: ABG HCO3 42.6 mmol/L (22-26)
[2018-09-30 06:26] LABS: BASOPHILS % (AUTO) 0.4 % (0.2-1.0); HEMOGLOBIN 13.1 g/dL (12.0-16.0); LYMPHOCYTES # (AUTO) 0.3 X10^3/uL (1.3-2.9); LYMPHOCYTES % (AUTO) 4.6 % (21.0-51.0); MEAN CORPUSCULAR HGB CONC 33.6 g/dL (33.0-35.0); MEAN CORPUSCULAR VOLUME 86.3 fL (80.0-100.0); MEAN PLATELET VOLUME 10.8 fL (7.4-11.0); MONOCYTES # (AUTO) 0.1 x10^3/uL (0.3-0.8); MONOCYTES % (AUTO) 0.9 % (0.0-13.0); NEUTROPHILS # (AUTO) 5.6 x10^3/uL (2.2-4.8); NEUTROPHILS % (AUTO) 94.1 % (42.0-75.0); PLATELET COUNT 142 X10^3/uL (150.0-450.0); RED BLOOD COUNT 4.52 X10^6/uL (3.5-5.4); RED CELL DISTRIBUTION WIDTH 13.8 % (11.6-16.5); WHITE BLOOD COUNT 5.9 X10^3/uL (3.6-10.0)
[2018-09-30 06:46] LABS: PLATELET MORPHOLOGY COMMENT NORMAL (NORMAL)
[2018-09-30 06:47] LABS: CKMB % 2.9 % (<4); CREATINE KINASE MB 2.6 ng/mL (0-4.0); TROPONIN I 0.05 ng/mL (0-1.5)
[2018-09-30 06:55] LABS: ALANINE AMINOTRANSFERASE 12 Units/L (12-78); ALBUMIN 2.7 g/dL (3.4-5.0); ALKALINE PHOSPHATASE 52 Units/L (46-116); ASPARTATE AMINO TRANSFERASE 20 Units/L (15-37); BLOOD UREA NITROGEN 12 mg/dL (7-18); CALCIUM 8.9 mg/dL (8.5-10.1); CARBON DIOXIDE 35.5 mmol/L (21-32); CHLORIDE 97 mmol/L (98-107); COR CA(FOR HYPOALB) 9.9 mg/dL (8.5-10.1); COR NA(FOR HYPERGLY) 135 mmol/L (136-145); CREATININE 0.57 mg/dL (0.55-1.02); SODIUM 134 mmol/L (136-145); TOTAL PROTEIN 6.4 g/dL (6.4-8.2); eGFR NON BLACK RACES > 60 (>60)
[2018-09-30] MEDS: NORVASC TAB 5 MG PO SCH (08:36)
[2018-09-30] MEDS: UNIPHYL TAB 400 MG PO SCH (08:36)
[2018-09-30] MEDS: TRICOR TAB 48 MG PO SCH (08:36)
[2018-09-30] MEDS: LIPITOR TAB 20 MG PO SCH (08:36)
[2018-09-30] MEDS: MUCINEX DM PO SCH ×2 (08:36→21:35)
[2018-09-30] MEDS: XANAX PO SCH ×2 (08:36→21:35)
[2018-09-30] MEDS: MEGACE PO SCH ×2 (08:36→21:35)
[2018-09-30] MEDS: MAG-OX TAB PO SCH ×2 (08:36→21:35)
[2018-09-30] MEDS ORDERED: AMLODIPINE BESYLATE 5 MG PO SCH (09:00)
[2018-09-30] MEDS ORDERED: TIOTROPIUM BROMIDE MONOHYDRATE IN SCH (09:00)
[2018-09-30] MEDS ORDERED: THEOPHYLLINE 400 MG PO SCH (09:00)
--- NOTE | 2018-09-30 11:09 | DR.H&P ---
H&P - History & Physical for Day of: H&P Date: 09/29/18 - Chief Complaint Chief Complaint: COUGH, SOB, HYPOXEMIA - History of Present Illness History of Present Illness: IS A 73 YEAR OLD PATIENT OF OURS WHO PRESENTED TO THE ER WITH COMPLAINTS OF SHORNTESS OF BREATH, PRODUCTIVE COUGH, AND DECREASED OXYGEN SATURATIONS. SHE REPORTS THAT HER OXYGEN HAS FELL INTO THE 70S SEVERAL TIMES. SYMPTOMS REPORTEDLY STARTED EARLIER IN THE DAY. SHE REPORTS USING HER NEB TREATMENTS AND OXYGEN AT HOME WITHOUT IMPROVEMENT IN SYMPTOMS. SHE HAS A HISTORY OF COPD AT HOME. ON ARRIVAL, VITALS WERE 98.2-95-18-77%-172/81. LABS WERE OBTAINED. ABNORMAL LAB VALUES INCLUDE THE FOLLOWING: WBC 11.8, SODIUM 132, CHLORIDE 94, CARBON DIOXIDE 36.8, GLUCOSE 101, ALBUMIN 3.2. AN ABG WAS OBTAINED AND REVEALED: PH 7.370, PC02 71.0, P02 61.0, HC03 41.0, 02 SATURATION 90.0, BASE EXCESS 12.8. BLOOD CULTURES ARE PENDING. URINALYSIS REVEAELD WBC 0-2, RBC 3-5, LEUKOCYTES 1+, BACTERIA TRACE. A CHEST XRAY WAS OBTAINED AND REVEALED: No acute cardiopulmonary process. Findings of COPD. EKG REVEALED: SINUS RHYTHM WITH HR 91. SHE WAS GIVEN A DUONEB AND SOLU-MEDROL 125MG IV X 1 DOSE. SHE WAS ADMITTED FOR FURTHER EVALUATION AND TREATMENT OF COPD EXACERBATION AND RE SPIRATORY FAILURE WITH HYPOXIA AND HYPERCAPNIA. SHE WAS STARTED ON RESPIRATORY TREATMENTS, SUPPLEMENTAL OXYGEN, LEVAQUIN 500MG IV DAILY, AND SOLU-MEDROL 80MG IV Q8H. OTHERWISE, WE PLAN TO FOLLOW UP WITH AM LABS AND CONTINUE TO MONITOR. - Past Medical History Past Medical History: Hypertension, Dyslipidemia, Anxiety, COPD - Past Surgical History Surgical History: Appendectomy - Family History Family Medical History: Cancer, Hypertension - Social History Does patient currently use any type of tobacco product: No Have you used tobacco products in the last 12 months: Yes Type of Tobacco Use: Cigarettes How many years tobacco product used: 60 Does any household member use tobacco: No Alcohol Use: None Drug Use: Prescription Drugs - Medications Home Medications: No Known Drug Allergies Allergy (Verified 05/21/17 08:19) - Review of Systems Constitutional: See HPI, Weakness Eyes: No Symptoms Reported ENT: No Symptoms Reported Respiratory: Cough, Shortness of Breath, SOB with Excertion, Sputum, Wheezing Cardiovascular: No Symptoms Reported Gastrointestinal: No Symptoms Reported Genitourinary: No Symptoms Reported Musculoskeletal: No Symptoms Reported Skin: No Symptoms Reported Neurological: Weakness - Physical Exam Vital Signs: Temperature 99.8 F Pulse Rate [Left] 87 Pulse Rate 84 Respiratory Rate 27 Blood Pressure [Left Arm] 115/55 Blood Pressure [Right Arm] 162/71 Blood Pressure 150/68 O2 Sat by Pulse Oximetry 96 Oriented: Normal Eyes: Normal Ear: Normal Nose: Normal Throat: Normal Respiratory: Wheezes Throughout Cardiovascular: Normal. negative: S3, S4, Murmur : Normal Auscultation: Bowel Sounds: Normal Palpation: Normal Tenderness: Normal Skin: Normal Musculoskeletal: Normal Psychiatric: Normal Mood Description: Calm Affect: Normal Speech Pattern: Clear - Assessment/Plan (1) COPD exacerbation Status: Acute Plan: IV ANTIBIOTICS, RESPIRATORY TX, SUPPLEMENTAL OXYGEN, SOLU-MEDROL IV, CONTINUE TO MONITOR. (2) Respiratory failure with hypoxia and hypercapnia Qualifiers: Chronicity: acute on chronic Qualified Code(s): J96.21 - Acute and chronic respiratory failure with hypoxia; J96.22 - Acute and chronic respiratory failure with hypercapnia Status: Acute Plan: IV ANTIBIOTICS, RESPIRATORY TX, SUPPLEMENTAL OXYGEN, SOLU-MEDROL IV, CONTINUE TO MONITOR. - Allergies Allergies/Adverse Reactions: Allergies Allergy/AdvReac Type Severity Reaction Status Date / Time No Known Drug Allergies Allergy Verified 05/21/17 08:19
[2018-09-30] MEDS ORDERED: NS 500 ML IV 500 ML ONE (11:43)
[2018-09-30] MEDS: Atrovent NEB TX 0.02% NEB SCH (12:01)
[2018-09-30] MEDS: LEVAQUIN PREMIX IV 500 MG 500 MG/100 ML BAG IV SCH (12:07)
[2018-09-30] MEDS: SOLU-Medrol 40 MG VIAL IVP SCH ×3 (12:07→21:35)
[2018-09-30] MEDS: NS 500 ML IV 500 ML IV SCH (12:07)
[2018-09-30 12:18] LABS: CKMB % 2.3 % (<4); TROPONIN I 0.05 ng/mL (0-1.5)
[2018-09-30] MEDS: RESTORIL CAP 15 MG PO SCH (21:35)
[2018-10-01] MEDS: XOPENEX 1.25 MG/3 ML NEBULE NEB SCH ×3 (05:16→17:09)
[2018-10-01] MEDS: SOLU-Medrol 40 MG VIAL IVP SCH ×3 (05:54→21:33)
[2018-10-01 06:22] LABS: BASOPHILS % (AUTO) 0.2 % (0.2-1.0); HEMATOCRIT 34.9 % (36.0-47.0); HEMOGLOBIN 11.8 g/dL (12.0-16.0); LYMPHOCYTES # (AUTO) 0.4 X10^3/uL (1.3-2.9); LYMPHOCYTES % (AUTO) 4.8 % (21.0-51.0); MEAN CORPUSCULAR HEMOGLOBIN 29.1 pg (27.0-34.0); MEAN CORPUSCULAR HGB CONC 33.7 g/dL (33.0-35.0); MEAN CORPUSCULAR VOLUME 86.4 fL (80.0-100.0); MEAN PLATELET VOLUME 10.2 fL (7.4-11.0); MONOCYTES # (AUTO) 0.3 x10^3/uL (0.3-0.8); MONOCYTES % (AUTO) 3.1 % (0.0-13.0); NEUTROPHILS # (AUTO) 8.4 x10^3/uL (2.2-4.8); NEUTROPHILS % (AUTO) 91.9 % (42.0-75.0); PLATELET COUNT 141 X10^3/uL (150.0-450.0); RED BLOOD COUNT 4.04 X10^6/uL (3.5-5.4); RED CELL DISTRIBUTION WIDTH 13.8 % (11.6-16.5); WHITE BLOOD COUNT 9.1 X10^3/uL (3.6-10.0)
[2018-10-01 06:42] LABS: ALANINE AMINOTRANSFERASE 10 Units/L (12-78); ALBUMIN 2.7 g/dL (3.4-5.0); ALKALINE PHOSPHATASE 46 Units/L (46-116); ASPARTATE AMINO TRANSFERASE 21 Units/L (15-37); BLOOD UREA NITROGEN 18 mg/dL (7-18); CALCIUM 9.2 mg/dL (8.5-10.1); CARBON DIOXIDE 36.3 mmol/L (21-32); CHLORIDE 100 mmol/L (98-107); COR CA(FOR HYPOALB) 10.2 mg/dL (8.5-10.1); COR NA(FOR HYPERGLY) 140 mmol/L (136-145); CREATININE 0.64 mg/dL (0.55-1.02); SODIUM 139 mmol/L (136-145); eGFR NON BLACK RACES > 60 (>60)
--- NOTE | 2018-10-01 07:02 | RAD ---
HISTORY: Shortness of breath Study: Chest AP portable Comparison: 09/29/2018 Findings: The heart is within normal limits in size. The alvarado are normal. The lungs are markedly hyperinflated. Emphysematous changes are present in the upper lobes. Mild interstitial lung changes are present in the lower lobes. No pleural effusions are identified. The bony thorax is unremarkable. IMPRESSION: Emphysematous COPD No acute infiltrates Reported By:
[2018-10-01 07:09] LABS: PLATELET MORPHOLOGY COMMENT NORMAL (NORMAL)
[2018-10-01] MEDS: LIPITOR TAB 20 MG PO SCH (08:10)
[2018-10-01] MEDS: MAG-OX TAB PO SCH ×2 (08:10→21:32)
[2018-10-01] MEDS: MUCINEX DM PO SCH ×2 (08:10→21:33)
[2018-10-01] MEDS: LEVAQUIN PREMIX IV 500 MG 500 MG/100 ML BAG IV SCH (08:11)
[2018-10-01] MEDS: UNIPHYL TAB 400 MG PO SCH (08:11)
[2018-10-01] MEDS: XANAX PO SCH ×3 (08:11→21:33)
[2018-10-01] MEDS: NORVASC TAB 5 MG PO SCH (08:11)
[2018-10-01] MEDS: TRICOR TAB 48 MG PO SCH (08:11)
[2018-10-01] MEDS: MEGACE PO SCH ×2 (08:11→21:33)
[2018-10-01] MEDS: Atrovent NEB TX 0.02% NEB SCH (09:28)
[2018-10-01] MEDS: NS 500 ML IV 500 ML IV SCH (12:33)
[2018-10-01] MEDS: RESTORIL CAP 15 MG PO SCH (21:33)
[2018-10-02] MEDS: XOPENEX 1.25 MG/3 ML NEBULE NEB SCH ×4 (00:37→17:49)
[2018-10-02 04:40] LABS: ABG BASE EXCESS 19.5 mmol/L (-2.0-2.0)
[2018-10-02 04:41] LABS: ABG HCO3 46.6 mmol/L (22-26)
[2018-10-02] MEDS: SOLU-Medrol 40 MG VIAL IVP SCH ×3 (05:25→21:25)
[2018-10-02 05:34] LABS: BASOPHILS % (AUTO) 0.2 % (0.2-1.0); HEMATOCRIT 37.3 % (36.0-47.0); HEMOGLOBIN 12.2 g/dL (12.0-16.0); LYMPHOCYTES # (AUTO) 0.4 X10^3/uL (1.3-2.9); MEAN CORPUSCULAR HEMOGLOBIN 28.5 pg (27.0-34.0); MEAN CORPUSCULAR HGB CONC 32.6 g/dL (33.0-35.0); MEAN CORPUSCULAR VOLUME 87.4 fL (80.0-100.0); MEAN PLATELET VOLUME 11.1 fL (7.4-11.0); MONOCYTES # (AUTO) 0.3 x10^3/uL (0.3-0.8); MONOCYTES % (AUTO) 2.5 % (0.0-13.0); NEUTROPHILS % (AUTO) 94.3 % (42.0-75.0); PLATELET COUNT 178 X10^3/uL (150.0-450.0); RED BLOOD COUNT 4.27 X10^6/uL (3.5-5.4); RED CELL DISTRIBUTION WIDTH 14.1 % (11.6-16.5); WHITE BLOOD COUNT 13.8 X10^3/uL (3.6-10.0)
[2018-10-02 05:58] LABS: ALANINE AMINOTRANSFERASE 10 Units/L (12-78); ALBUMIN 2.7 g/dL (3.4-5.0); ALKALINE PHOSPHATASE 50 Units/L (46-116); ASPARTATE AMINO TRANSFERASE 16 Units/L (15-37); BLOOD UREA NITROGEN 24 mg/dL (7-18); CALCIUM 9.2 mg/dL (8.5-10.1); CARBON DIOXIDE 39.5 mmol/L (21-32); CHLORIDE 102 mmol/L (98-107); COR CA(FOR HYPOALB) 10.2 mg/dL (8.5-10.1); COR NA(FOR HYPERGLY) 144 mmol/L (136-145); CREATININE 0.81 mg/dL (0.55-1.02); SODIUM 143 mmol/L (136-145); TOTAL PROTEIN 5.9 g/dL (6.4-8.2); eGFR NON BLACK RACES > 60 (>60)
[2018-10-02 06:30] LABS: PLATELET MORPHOLOGY COMMENT NORMAL (NORMAL)
--- NOTE | 2018-10-02 06:52 | RAD ---
HISTORY: Shortness of breath Study: Chest AP portable Comparison: 10/01/2018 Findings: The heart is within normal limits in size. The aorta is calcified. The alvarado are normal. The lungs are hyperinflated. Emphysematous changes are present in the upper lobes. Mild interstitial lung changes are present in the lower lobes. No acute infiltrates are identified. No pleural effusions are identified. The bony thorax is unremarkable. IMPRESSION: Emphysematous COPD No acute infiltrates Reported By:
[2018-10-02] MEDS: Atrovent NEB TX 0.02% NEB SCH (08:33)
[2018-10-02] MEDS: LEVAQUIN PREMIX IV 500 MG 500 MG/100 ML BAG IV SCH (08:42)
[2018-10-02] MEDS: LIPITOR TAB 20 MG PO SCH (08:42)
[2018-10-02] MEDS: MUCINEX DM PO SCH ×2 (08:42→21:25)
[2018-10-02] MEDS: UNIPHYL TAB 400 MG PO SCH (08:42)
[2018-10-02] MEDS: MEGACE PO SCH ×2 (08:42→21:25)
--- NOTE | 2018-10-02 08:42 | PCM.PROG ---
Progress Note - Progress Note for Day of Date of Exam: 10/01/18 - Subjective Subjective: MS. HILTON WAS ADMITTED FOR AN ACUTE COPD EXACERBATION AND RESPIRATORY FAILURE WITH HYPOXIA AND HYPERCAPNIA. TODAY, SHE IS ALERT AND ORIENTED, LYING IN BED ON MORNING ROUNDS. SHE CONTINUES WITH A PRODUCTIVE COUGH AND SHORTNESS OF BREATH. ON EXAMINATION, HEART IS REGULAR IN RATE AND RHYTHM. B ILATERAL LUNGS ARE NOTED WITH SCATTERED WHEEZING THROUGHOUT. ABDOMEN IS ROUND, SOFT, AND NON-TENDER WITH NORMAL BOWEL SOUNDS NOTED IN ALL QUADRANTS. HIS VITALS THIS MORNING ARE 98.6-80-20-95%-133/61. LABS WERE OBTAINED. ABNORMAL LAB VALUES INCLUDE THE FOLLOWING: HGB 11.8, HCT 34.9, PLT COUNT 141, CARBON DIOXIDE 36.3, GLUCOSE 133, ALT 10, TOTAL PROTEIN 6.0, ALBUMIN 2.7. BLOOD AD SPUTUM CULTURES ARE PENDING. 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 No acute infiltrates. TODAY, WE WILL CONTINUE WITH IV ANTIBIOTICS, RESPIRATORY TREATMENTS, SUPPLEMENTAL OXYGEN, AND IV STEROIDS. OTHERWISE, WE PLAN TO FOLLOW- UP WITH AM LABS AND CONTINUE TO MONITOR. - Past Medical Family Social History Past Med/Fam/Surg Hx: No changes since H&P Allergies: Allergies No Known Drug Allergies Allergy (Verified 05/21/17 08:19) - Review of Systems ROS: No change since H&P - Vital Signs and I&O's Vital Signs: Temperature 99.1 F Pulse Rate [Left] 87 Pulse Rate 78 Respiratory Rate 17 Blood Pressure [Left Arm] 115/55 Blood Pressure [Right Arm] 162/71 Blood Pressure 134/60 O2 Sat by Pulse Oximetry 96 Intake and Output: Intake & Output 09/29/18 09/30/18 10/01/18 10/02/18 11:59 11:59 11:59 11:59 Intake Total 130 / 130 1949 / 1949 Output Total 250 / 250 3 / 3 150 / 150 Balance -120 / -120 1946 / 1946 - Physical Exam Oriented: Normal Eyes: Normal Ear: Normal Nose: Normal Throat: Normal Respiratory: Generalized, Wheezes Cardiovascular: Normal. negative: S3, S4, Murmur : Normal Auscultation: Bowel Sounds: Normal Palpation: Normal Tenderness: Normal Skin: Normal Musculoskeletal: Normal Psychiatric: Normal Mood Description: Calm Affect: Normal Speech Pattern: Clear, Appropriate - Laboratory and Diagnostics Result Diagrams: 10/02/18 05:02 10/02/18 05:02 Labs: 09/30/18 13:40 Sputum - Expectorated Sputum Sputum Culture - Preliminary 09/30/18 13:40 Sputum - Expectorated Sputum - Final 09/29/18 20:15 Blood Blood Culture - Preliminary 09/29/18 20:00 Blood Blood Culture - Preliminary Laboratory WBC 13.8 X10^3/uL (3.6-10.0) H 10/02/18 05:02 RBC 4.27 X10^6/uL (3.5-5.4) 10/02/18 05:02 Hgb 12.2 g/dL (12.0-16.0) 10/02/18 05:02 Hct 37.3 % (36.0-47.0) 10/02/18 05:02 MCV 87.4 fL (80.0-100.0) 10/02/18 05:02 MCH 28.5 pg (27.0-34.0) 10/02/18 05:02 MCHC 32.6 g/dL (33.0-35.0) L 10/02/18 05:02 RDW 14.1 % (11.6-16.5) 10/02/18 05:02 Plt Count 178 X10^3/uL (150.0-450.0) 10/02/18 05:02 Plt Count Comment Adequate (ADEQUATE) 10/02/18 05:02 MPV 11.1 fL (7.4-11.0) H 10/02/18 05:02 Neut % (Auto) 94.3 % (42.0-75.0) H 10/02/18 05:02 Lymph % (Auto) 3.0 % (21.0-51.0) L 10/02/18 05:02 [place] % (Auto) 2.5 % (0.0-13.0) 10/02/18 05:02 Eos % (Auto) 0.0 % (0.9-2.9) L 10/02/18 05:02 Baso % (Auto) 0.2 % (0.2-1.0) 10/02/18 05:02 Neut # (Auto) 13.0 x10^3/uL (2.2-4.8) H 10/02/18 05:02 Lymph # (Auto) 0.4 X10^3/uL (1.3-2.9) L 10/02/18 05:02 [place] # (Auto) 0.3 x10^3/uL (0.3-0.8) 10/02/18 05:02 Eos # (Auto) 0.0 x10^3/uL (0.0-0.2) 10/02/18 05:02 Baso # (Auto) 0.0 X10^3/uL (0.0-0.1) 10/02/18 05:02 Absolute Nucleated RBC 0.0 /100WBC 10/02/18 05:02 Total Counted 100 10/02/18 05:02 Neutrophils % (Manual) 90 % (39-76) H 10/02/18 05:02 Lymphocytes % (Manual) 8 % (13-43) L 10/02/18 05:02 Monocytes % (Manual) 2 % (4-9) L 10/02/18 05:02 Eosinophils % (Manual) 3 % (0-6) 09/30/18 05:22 Plt Morphology Comment Normal (NORMAL) 10/02/18 05:02 RBC Morphology Normal (NORMAL) 10/02/18 05:02 Sample Site Lb 10/02/18 04:33 ABG pH 7.470 (7.35-7.45) H 10/02/18 04:33 ABG pCO2 64.0 mmHg (35.0-45.0) H* 10/02/18 04:33 ABG pO2 82.0 mmHg (80.0-100.0) 10/02/18 04:33 ABG HCO3 46.6 mmol/L (22-26) H* 10/02/18 04:33 ABG O2 Saturation 97.0 % (90-100) 10/02/18 04:33 ABG Base Excess 19.5 mmol/L (-2.0-2.0) H 10/02/18 04:33 Dony Test N/a 10/02/18 04:33 A-a Gradient 88.0 mmHg 10/02/18 04:33 FiO2 35.0 10/02/18 04:33 Blood Gas Comments Josefina well ae 10/02/18 04:33 Sodium 143 mmol/L (136-145) 10/02/18 05:02 Corrected Sodium 144 mmol/L (136-145) 10/02/18 05:02 Potassium 4.7 mmol/L (3.5-5.1) 10/02/18 05:02 Chloride 102 mmol/L (98-107) 10/02/18 05:02 Carbon Dioxide 39.5 mmol/L (21-32) H 10/02/18 05:02 BUN 24 mg/dL (7-18) H 10/02/18 05:02 Creatinine 0.81 mg/dL (0.55-1.02) 10/02/18 05:02 Est GFR (MDRD) Af Amer > 60 (>60) 10/02/18 05:02 Est GFR (MDRD) Non-Af > 60 (>60) 10/02/18 05:02 Glucose 135 mg/dL (65-99) H 10/02/18 05:02 Calcium 9.2 mg/dL (8.5-10.1) 10/02/18 05:02 Corrected Calcium 10.2 mg/dL (8.5-10.1) H 10/02/18 05:02 Total Bilirubin 0.20 mg/dL (0.2-1.0) 10/02/18 05:02 AST 16 Units/L (15-37) 10/02/18 05:02 ALT 10 Units/L (12-78) L 10/02/18 05:02 Alkaline Phosphatase 50 Units/L (46-116) 10/02/18 05:02 Creatine Kinase 87 Units/L (26-192) 09/30/18 11:45 CK-MB (CK-2) 2.0 ng/mL (0-4.0) 09/30/18 11:45 CK/CKMB % Calc 2.3 % (<4) 09/30/18 11:45 Troponin I 0.05 ng/mL (0-1.5) 09/30/18 11:45 Total Protein 5.9 g/dL (6.4-8.2) L 10/02/18 05:02 Albumin 2.7 g/dL (3.4-5.0) L 10/02/18 05:02 Globulin 3.2 g/dL (2.5-4.5) 10/02/18 05:02 Albumin/Globulin Ratio 0.8 Ratio (1.1-2.1) L 10/02/18 05:02 Specimen Type Clean catch urine 09/29/18 23:11 Urine Color Yellow (YELLOW) 09/29/18 23:11 Urine Appearance Slightly hazy (CLEAR) 09/29/18 23:11 Urine pH 6.0 (5.0 - 8.0) 09/29/18 23:11 Ur Specific [place] 1.015 (1.000-1.030) 09/29/18 23:11 Urine Protein 3+ (NEGATIVE) 09/29/18 23:11 Urine Glucose (UA) Negative (NEGATIVE) 09/29/18 23:11 Urine Ketones Negative (NEGATIVE) 09/29/18 23:11 Urine Occult Blood 2+ (NEGATIVE) 09/29/18 23:11 Urine Nitrite Negative (NEGATIVE) 09/29/18 23:11 Urine Bilirubin Negative (NEGATIVE) 09/29/18 23:11 Urine Urobilinogen Normal (NORMAL) 09/29/18 23:11 Ur Leukocyte Esterase 1+ (NEGATIVE) 09/29/18 23:11 Urine RBC 3-5 /HPF (NONE SEEN) 09/29/18 23:11 Urine WBC 0-2 /HPF (NONE SEEN) 09/29/18 23:11 Ur Squamous Epith Cells Few /HPF (NEGATIVE) 09/29/18 23:11 Amorphous Sediment 1+ /HPF (NEGATIVE) 09/29/18 23:11 Urine Bacteria Trace /HPF (NEGATIVE) 09/29/18 23:11 Ur Culture Indicated? No/not indicated 09/29/18 23:11 - Plan (1) COPD exacerbation Status: Acute Plan: IV ANTIBIOTICS, RESPIRATORY TX, SUPPLEMENTAL OXYGEN, SOLU-MEDROL IV, CONTINUE TO MONITOR. (2) Respiratory failure with hypoxia and hypercapnia Status: Acute Qualifiers: Chronicity: acute on chronic Qualified Code(s): J96.21 - Acute and chronic respiratory failure with hypoxia; J96.22 - Acute and chronic respiratory failure with hypercapnia Plan: IV ANTIBIOTICS, RESPIRATORY TX, SUPPLEMENTAL OXYGEN, SOLU-MEDROL IV, CONTINUE TO MONITOR.
[2018-10-02] MEDS: NORVASC TAB 5 MG PO SCH (08:43)
[2018-10-02] MEDS: TRICOR TAB 48 MG PO SCH (08:43)
[2018-10-02] MEDS: XANAX PO SCH ×2 (08:43→21:25)
[2018-10-02] MEDS: MAG-OX TAB PO SCH ×2 (08:43→21:25)
[2018-10-02] MEDS: NS 500 ML IV 500 ML IV SCH (13:52)
[2018-10-02] MEDS: RESTORIL CAP 15 MG PO SCH (21:26)
[2018-10-03] MEDS: XOPENEX 1.25 MG/3 ML NEBULE NEB SCH ×4 (00:15→17:10)
[2018-10-03 05:31] LABS: BASOPHILS % (AUTO) 0.1 % (0.2-1.0); HEMATOCRIT 38.7 % (36.0-47.0); LYMPHOCYTES # (AUTO) 0.3 X10^3/uL (1.3-2.9); LYMPHOCYTES % (AUTO) 3.1 % (21.0-51.0); MEAN CORPUSCULAR HEMOGLOBIN 29.3 pg (27.0-34.0); MEAN CORPUSCULAR HGB CONC 33.6 g/dL (33.0-35.0); MEAN CORPUSCULAR VOLUME 87.2 fL (80.0-100.0); MEAN PLATELET VOLUME 10.6 fL (7.4-11.0); MONOCYTES # (AUTO) 0.3 x10^3/uL (0.3-0.8); MONOCYTES % (AUTO) 2.7 % (0.0-13.0); NEUTROPHILS # (AUTO) 10.3 x10^3/uL (2.2-4.8); NEUTROPHILS % (AUTO) 94.1 % (42.0-75.0); PLATELET COUNT 185 X10^3/uL (150.0-450.0); RED BLOOD COUNT 4.44 X10^6/uL (3.5-5.4); RED CELL DISTRIBUTION WIDTH 14.4 % (11.6-16.5)
--- NOTE | 2018-10-03 05:35 | RAD ---
Examination: AP chest History: COPD SOB Comparison 10/02/2018 Findings: Continued normal heart size with symmetric pulmonary hyperaeration. Chronic interstitial thickening is again noted but no evidence for superimposed pneumonia, pulmonary edema or developing pleural effusion. Impression: No change. COPD. No acute findings. Reported By:
[2018-10-03 05:39] LABS: ALANINE AMINOTRANSFERASE 14 Units/L (12-78); ALBUMIN 2.7 g/dL (3.4-5.0); ALKALINE PHOSPHATASE 52 Units/L (46-116); ASPARTATE AMINO TRANSFERASE 16 Units/L (15-37); BLOOD UREA NITROGEN 27 mg/dL (7-18); CALCIUM 9.2 mg/dL (8.5-10.1); CARBON DIOXIDE 38.7 mmol/L (21-32); CHLORIDE 103 mmol/L (98-107); COR CA(FOR HYPOALB) 10.2 mg/dL (8.5-10.1); COR NA(FOR HYPERGLY) 144 mmol/L (136-145); CREATININE 0.78 mg/dL (0.55-1.02); SODIUM 143 mmol/L (136-145); TOTAL PROTEIN 5.9 g/dL (6.4-8.2); eGFR NON BLACK RACES > 60 (>60)
[2018-10-03] MEDS: SOLU-Medrol 40 MG VIAL IVP SCH (06:11)
[2018-10-03 06:42] LABS: BAND NEUTROPHILS % 3 % (0-10); PLATELET MORPHOLOGY COMMENT NORMAL (NORMAL)
[2018-10-03] MEDS: LIPITOR TAB 20 MG PO SCH (09:10)
[2018-10-03] MEDS: NORVASC TAB 5 MG PO SCH (09:10)
[2018-10-03] MEDS: TRICOR TAB 48 MG PO SCH (09:10)
[2018-10-03] MEDS: LEVAQUIN PREMIX IV 500 MG 500 MG/100 ML BAG IV SCH (09:10)
[2018-10-03] MEDS: MAG-OX TAB PO SCH ×2 (09:10→20:35)
[2018-10-03] MEDS: XANAX PO SCH ×2 (09:10→20:35)
[2018-10-03] MEDS: MEGACE PO SCH ×2 (09:10→20:35)
[2018-10-03] MEDS: MUCINEX DM PO SCH ×2 (09:10→20:36)
[2018-10-03] MEDS: UNIPHYL TAB 400 MG PO SCH (09:10)
[2018-10-03] MEDS: Atrovent NEB TX 0.02% NEB SCH (12:00)
[2018-10-03] MEDS: NS 500 ML IV 500 ML IV SCH (13:03)
--- NOTE | 2018-10-03 17:14 | PCM.PROG ---
Progress Note - Progress Note for Day of Date of Exam: 10/02/18 - Subjective Subjective: MS. HILTON WAS ADMITTED FOR AN ACUTE COPD EXACERBATION AND RESPIRATORY FAILURE WITH HYPOXIA AND HYPERCAPNIA. TODAY, SHE IS ALERT AND ORIENTED, LYING IN BED ON MORNING ROUNDS. SHE CONTINUES WITH A PRODUCTIVE COUGH AND SHORTNESS OF BREATH. ON EXAMINATION, HEART IS REGULAR IN RATE AND RHYTHM. B ILATERAL LUNGS CONTINUE WITH SCATTERED WHEEZING THROUGHOUT. ABDOMEN IS ROUND, SOFT, AND NON-TENDER WITH NORMAL BOWEL SOUNDS NOTED IN ALL QUADRANTS. HIS VITALS THIS MORNING ARE 99.1-76-17-99%-134/60. LABS WERE OBTAINED. ABNORMAL LAB VALUES INCLUDE THE FOLLOWING: HGB 13.8, CARBON DIOXIDE 39.5, BUN 24, GLUCOSE 135, ALT 10, TOTAL PROTEIN 5.9, ALBUMIN 2.7. BLOOD AND SPUTUM CULTURES ARE PENDING. PRELIMINARY SPUTUM CULTURE REPORTS GROWTH OF GRAM NEGATIVE RODS. A CHEST XRAY WAS OBTAINED TODAY AND REVEALED: Emphysematous COPD, NO ACUTE INFILTRATES. TODAY, WE WILL CONTINUE WITH IV ANTIBIOTICS, RESPIRATORY TREATMENTS, SUPPLEMENTAL OXYGEN, AND IV STEROIDS. OTHERWISE, WE PLAN TO FOLLOW-UP WITH AM LABS AND CONTINUE TO MONITOR. - Past Medical Family Social History Past Med/Fam/Surg Hx: No changes since H&P Allergies: Allergies No Known Drug Allergies Allergy (Verified 05/21/17 08:19) - Review of Systems ROS: No change since H&P - Vital Signs and I&O's Vital Signs: Temperature 99.0 F Pulse Rate [Left] 87 Pulse Rate 89 Respiratory Rate 20 Blood Pressure [Left Arm] 115/55 Blood Pressure [Right Arm] 162/71 Blood Pressure 150/70 O2 Sat by Pulse Oximetry 91 Intake and Output: Intake & Output 10/01/18 10/02/18 10/03/18 10/04/18 11:59 11:59 11:59 11:59 Intake Total 1949 / 1949 1380 / 1380 760 / 760 Output Total 150 / 150 Balance 1946 1380 / 1380 760 / 760 - Physical Exam Oriented: Normal Eyes: Normal Ear: Normal Nose: Normal Throat: Normal Respiratory: Generalized, Wheezes Cardiovascular: Normal. negative: S3, S4, Murmur : Normal Auscultation: Bowel Sounds: Normal Palpation: Normal Tenderness: Normal Skin: Normal Musculoskeletal: Normal Psychiatric: Normal Mood Description: Calm Affect: Normal Speech Pattern: Clear, Appropriate - Laboratory and Diagnostics Result Diagrams: 10/03/18 04:26 10/03/18 04:26 Labs: 09/30/18 13:40 Sputum - Expectorated Sputum Sputum Culture - Preliminary 09/30/18 13:40 Sputum - Expectorated Sputum - Final 09/29/18 20:15 Blood Blood Culture - Preliminary 09/29/18 20:00 Blood Blood Culture - Preliminary Laboratory WBC 11.0 X10^3/uL (3.6-10.0) H 10/03/18 04:26 RBC 4.44 X10^6/uL (3.5-5.4) 10/03/18 04:26 Hgb 13.0 g/dL (12.0-16.0) 10/03/18 04:26 Hct 38.7 % (36.0-47.0) 10/03/18 04:26 MCV 87.2 fL (80.0-100.0) 10/03/18 04:26 MCH 29.3 pg (27.0-34.0) 10/03/18 04:26 MCHC 33.6 g/dL (33.0-35.0) 10/03/18 04:26 RDW 14.4 % (11.6-16.5) 10/03/18 04:26 Plt Count 185 X10^3/uL (150.0-450.0) 10/03/18 04:26 Plt Count Comment Adequate (ADEQUATE) 10/03/18 04:26 MPV 10.6 fL (7.4-11.0) 10/03/18 04:26 Neut % (Auto) 94.1 % (42.0-75.0) H 10/03/18 04:26 Lymph % (Auto) 3.1 % (21.0-51.0) L 10/03/18 04:26 Mora % (Auto) 2.7 % (0.0-13.0) 10/03/18 04:26 Eos % (Auto) 0.0 % (0.9-2.9) L 10/03/18 04:26 Baso % (Auto) 0.1 % (0.2-1.0) L 10/03/18 04:26 Neut # (Auto) 10.3 x10^3/uL (2.2-4.8) H 10/03/18 04:26 Lymph # (Auto) 0.3 X10^3/uL (1.3-2.9) L 10/03/18 04:26 Mora # (Auto) 0.3 x10^3/uL (0.3-0.8) 10/03/18 04:26 Eos # (Auto) 0.0 x10^3/uL (0.0-0.2) 10/03/18 04:26 Baso # (Auto) 0.0 X10^3/uL (0.0-0.1) 10/03/18 04:26 Absolute Nucleated RBC 0.0 /100WBC 10/03/18 04:26 Total Counted 100 10/03/18 04:26 Neutrophils % (Manual) 92 % (39-76) H 10/03/18 04:26 Band Neutrophils % 3 % (0-10) 10/03/18 04:26 Lymphocytes % (Manual) 2 % (13-43) L 10/03/18 04:26 Monocytes % (Manual) 3 % (4-9) L 10/03/18 04:26 Eosinophils % (Manual) 3 % (0-6) 09/30/18 05:22 Plt Morphology Comment Normal (NORMAL) 10/03/18 04:26 RBC Morphology Normal (NORMAL) 10/03/18 04:26 Sample Site Lb 10/02/18 04:33 ABG pH 7.470 (7.35-7.45) H 10/02/18 04:33 ABG pCO2 64.0 mmHg (35.0-45.0) H* 10/02/18 04:33 ABG pO2 82.0 mmHg (80.0-100.0) 10/02/18 04:33 ABG HCO3 46.6 mmol/L (22-26) H* 10/02/18 04:33 ABG O2 Saturation 97.0 % (90-100) 10/02/18 04:33 ABG Base Excess 19.5 mmol/L (-2.0-2.0) H 10/02/18 04:33 Dony Test N/a 10/02/18 04:33 A-a Gradient 88.0 mmHg 10/02/18 04:33 FiO2 35.0 10/02/18 04:33 Blood Gas Comments Josefina well ae 10/02/18 04:33 Sodium 143 mmol/L (136-145) 10/03/18 04:26 Corrected Sodium 144 mmol/L (136-145) 10/03/18 04:26 Potassium 4.5 mmol/L (3.5-5.1) 10/03/18 04:26 Chloride 103 mmol/L (98-107) 10/03/18 04:26 Carbon Dioxide 38.7 mmol/L (21-32) H 10/03/18 04:26 BUN 27 mg/dL (7-18) H 10/03/18 04:26 Creatinine 0.78 mg/dL (0.55-1.02) 10/03/18 04:26 Est GFR (MDRD) Af Amer > 60 (>60) 10/03/18 04:26 Est GFR (MDRD) Non-Af > 60 (>60) 10/03/18 04:26 Glucose 141 mg/dL (65-99) H 10/03/18 04:26 Calcium 9.2 mg/dL (8.5-10.1) 10/03/18 04:26 Corrected Calcium 10.2 mg/dL (8.5-10.1) H 10/03/18 04:26 Total Bilirubin 0.20 mg/dL (0.2-1.0) 10/03/18 04:26 AST 16 Units/L (15-37) 10/03/18 04:26 ALT 14 Units/L (12-78) 10/03/18 04:26 Alkaline Phosphatase 52 Units/L (46-116) 10/03/18 04:26 Creatine Kinase 87 Units/L (26-192) 09/30/18 11:45 CK-MB (CK-2) 2.0 ng/mL (0-4.0) 09/30/18 11:45 CK/CKMB % Calc 2.3 % (<4) 09/30/18 11:45 Troponin I 0.05 ng/mL (0-1.5) 09/30/18 11:45 Total Protein 5.9 g/dL (6.4-8.2) L 10/03/18 04:26 Albumin 2.7 g/dL (3.4-5.0) L 10/03/18 04:26 Globulin 3.2 g/dL (2.5-4.5) 10/03/18 04:26 Albumin/Globulin Ratio 0.8 Ratio (1.1-2.1) L 10/03/18 04:26 Specimen Type Clean catch urine 09/29/18 23:11 Urine Color Yellow (YELLOW) 09/29/18 23:11 Urine Appearance Slightly hazy (CLEAR) 09/29/18 23:11 Urine pH 6.0 (5.0 - 8.0) 09/29/18 23:11 Ur Specific Kiana 1.015 (1.000-1.030) 09/29/18 23:11 Urine Protein 3+ (NEGATIVE) 09/29/18 23:11 Urine Glucose (UA) Negative (NEGATIVE) 09/29/18 23:11 Urine Ketones Negative (NEGATIVE) 09/29/18 23:11 Urine Occult Blood 2+ (NEGATIVE) 09/29/18 23:11 Urine Nitrite Negative (NEGATIVE) 09/29/18 23:11 Urine Bilirubin Negative (NEGATIVE) 09/29/18 23:11 Urine Urobilinogen Normal (NORMAL) 09/29/18 23:11 Ur Leukocyte Esterase 1+ (NEGATIVE) 09/29/18 23:11 Urine RBC 3-5 /HPF (NONE SEEN) 09/29/18 23:11 Urine WBC 0-2 /HPF (NONE SEEN) 09/29/18 23:11 Ur Squamous Epith Cells Few /HPF (NEGATIVE) 09/29/18 23:11 Amorphous Sediment 1+ /HPF (NEGATIVE) 09/29/18 23:11 Urine Bacteria Trace /HPF (NEGATIVE) 09/29/18 23:11 Ur Culture Indicated? No/not indicated 09/29/18 23:11 - Plan (1) COPD exacerbation Status: Acute Plan: IV ANTIBIOTICS, RESPIRATORY TX, SUPPLEMENTAL OXYGEN, SOLU-MEDROL IV, CONTINUE TO MONITOR. (2) Respiratory failure with hypoxia and hypercapnia Status: Acute Qualifiers: Chronicity: acute on chronic Qualified Code(s): J96.21 - Acute and chronic respiratory failure with hypoxia; J96.22 - Acute and chronic respiratory failure with hypercapnia Plan: IV ANTIBIOTICS, RESPIRATORY TX, SUPPLEMENTAL OXYGEN, SOLU-MEDROL IV, CONTINUE TO MONITOR.
[2018-10-03] MEDS: RESTORIL CAP 15 MG PO SCH (20:35)
[2018-10-04] MEDS: XOPENEX 1.25 MG/3 ML NEBULE NEB SCH ×4 (00:07→16:59)
[2018-10-04 05:31] LABS: BASOPHILS % (AUTO) 0.2 % (0.2-1.0); EOSINOPHILS % (AUTO) 0.2 % (0.9-2.9); HEMATOCRIT 41.2 % (36.0-47.0); HEMOGLOBIN 13.6 g/dL (12.0-16.0); LYMPHOCYTES # (AUTO) 1.6 X10^3/uL (1.3-2.9); LYMPHOCYTES % (AUTO) 14.1 % (21.0-51.0); MEAN CORPUSCULAR VOLUME 87.8 fL (80.0-100.0); MEAN PLATELET VOLUME 10.4 fL (7.4-11.0); MONOCYTES # (AUTO) 1.1 x10^3/uL (0.3-0.8); MONOCYTES % (AUTO) 9.9 % (0.0-13.0); NEUTROPHILS # (AUTO) 8.5 x10^3/uL (2.2-4.8); NEUTROPHILS % (AUTO) 75.6 % (42.0-75.0); PLATELET COUNT 179 X10^3/uL (150.0-450.0); RED BLOOD COUNT 4.69 X10^6/uL (3.5-5.4); RED CELL DISTRIBUTION WIDTH 14.5 % (11.6-16.5); WHITE BLOOD COUNT 11.2 X10^3/uL (3.6-10.0)
[2018-10-04 05:40] LABS: ALANINE AMINOTRANSFERASE 16 Units/L (12-78); ALBUMIN 2.5 g/dL (3.4-5.0); ALKALINE PHOSPHATASE 73 Units/L (46-116); ASPARTATE AMINO TRANSFERASE 19 Units/L (15-37); BLOOD UREA NITROGEN 28 mg/dL (7-18); CALCIUM 8.8 mg/dL (8.5-10.1); CARBON DIOXIDE 39.3 mmol/L (21-32); CHLORIDE 106 mmol/L (98-107); CREATININE 0.77 mg/dL (0.55-1.02); SODIUM 145 mmol/L (136-145); TOTAL PROTEIN 5.5 g/dL (6.4-8.2); eGFR NON BLACK RACES > 60 (>60)
--- NOTE | 2018-10-04 06:01 | RAD ---
Chest, one view Indication: Shortness of breath Comparison: 10/03/2018 Findings: Heart is normal in size. Lungs are again hyperinflated with flattening of the hemidiaphragms and stable coarsened interstitial markings, compatible with COPD. No focal infiltrate or significant effusion is identified. No pneumothorax. Impression: COPD without acute cardiopulmonary abnormality. Reported By:
[2018-10-04] MEDS: Atrovent NEB TX 0.02% NEB SCH (08:02)
[2018-10-04] MEDS: MUCINEX DM PO SCH ×2 (09:12→20:28)
[2018-10-04] MEDS: MAG-OX TAB PO SCH ×2 (09:12→20:28)
[2018-10-04] MEDS: LEVAQUIN PREMIX IV 500 MG 500 MG/100 ML BAG IV SCH (09:12)
[2018-10-04] MEDS: NORVASC TAB 5 MG PO SCH (09:12)
[2018-10-04] MEDS: TRICOR TAB 48 MG PO SCH (09:13)
[2018-10-04] MEDS: LIPITOR TAB 20 MG PO SCH (09:13)
[2018-10-04] MEDS: MEGACE PO SCH ×2 (09:13→20:28)
[2018-10-04] MEDS: XANAX PO SCH ×2 (09:13→20:28)
[2018-10-04] MEDS: UNIPHYL TAB 400 MG PO SCH (09:13)
--- NOTE | 2018-10-04 16:35 | PCM.PROG ---
Progress Note - Progress Note for Day of Date of Exam: 10/03/18 - Subjective Subjective: MS. HILTON WAS ADMITTED FOR AN ACUTE COPD EXACERBATION AND RESPIRATORY FAILURE WITH HYPOXIA AND HYPERCAPNIA. TODAY, SHE IS ALERT AND ORIENTED, LYING IN BED ON MORNING ROUNDS. SHE CONTINUES WITH A PRODUCTIVE COUGH AND SHORTNESS OF BREATH. ON EXAMINATION, HEART IS REGULAR IN RATE AND RHYTHM. B ILATERAL LUNGS CONTINUE WITH SCATTERED WHEEZING THROUGHOUT. ABDOMEN IS ROUND, SOFT, AND NON-TENDER WITH NORMAL BOWEL SOUNDS NOTED IN ALL QUADRANTS. HIS VITALS THIS MORNING ARE 99.6-86-18-94%-141/64. LABS WERE OBTAINED. ABNORMAL LAB VALUES INCLUDE THE FOLLOWING: WBC 11.0, CARBON DIOXIDE 38.7, BUN 27, GLUCOSE 141, TOTAL PROTEIN 5.9, ALBUMIN 2.7. BLOOD AND SPUTUM CULTURES ARE PENDING. PRELIMINARY SPU MARYSE CULTURE REPORTS GROWTH OF GRAM NEGATIVE RODS. A CHEST XRAY WAS OBTAINED TODAY AND REVEALED: No change. COPD. No acute findings. TODAY, WE WILL CONTINUE WITH IV ANTIBIOTICS, RESPIRATORY TREATMENTS, SUPPLEMENTAL OXYGEN, AND IV STEROIDS. OTHERWISE, WE PLAN TO FOLLOW-UP WITH AM LABS AND CONTINUE TO MONITOR. - Past Medical Family Social History Past Med/Fam/Surg Hx: No changes since H&P Allergies: Allergies No Known Drug Allergies Allergy (Verified 05/21/17 08:19) - Review of Systems ROS: No change since H&P - Vital Signs and I&O's Vital Signs: Temperature 98.4 F Pulse Rate [Left] 87 Pulse Rate 95 Respiratory Rate 20 Blood Pressure [Left Arm] 115/55 Blood Pressure [Right Arm] 162/71 Blood Pressure 140/67 O2 Sat by Pulse Oximetry 98 Intake and Output: Intake & Output 10/02/18 10/03/18 10/04/18 10/05/18 11:59 11:59 11:59 11:59 Intake Total 2079 / 0 1380 / 1380 1180 / 1180 Output Total 150 / 150 Balance 193 / 1930 1380 / 1380 1180 / 1180 - Physical Exam Oriented: Normal Eyes: Normal Ear: Normal Nose: Normal Throat: Normal Respiratory: Generalized, Wheezes Cardiovascular: Normal. negative: S3, S4, Murmur : Normal Auscultation: Bowel Sounds: Normal Palpation: Normal Tenderness: Normal Skin: Normal Musculoskeletal: Normal Psychiatric: Normal Mood Description: Calm Affect: Normal Speech Pattern: Clear, Appropriate - Laboratory and Diagnostics Result Diagrams: 10/04/18 04:30 10/04/18 04:30 Labs: 09/30/18 13:40 Sputum - Expectorated Sputum Sputum Culture - Preliminary 09/30/18 13:40 Sputum - Expectorated Sputum - Final 09/29/18 20:15 Blood Blood Culture - Preliminary 09/29/18 20:00 Blood Blood Culture - Preliminary Laboratory WBC 11.2 X10^3/uL (3.6-10.0) H 10/04/18 04:30 RBC 4.69 X10^6/uL (3.5-5.4) 10/04/18 04:30 Hgb 13.6 g/dL (12.0-16.0) 10/04/18 04:30 Hct 41.2 % (36.0-47.0) 10/04/18 04:30 MCV 87.8 fL (80.0-100.0) 10/04/18 04:30 MCH 29.0 pg (27.0-34.0) 10/04/18 04:30 MCHC 33.0 g/dL (33.0-35.0) 10/04/18 04:30 RDW 14.5 % (11.6-16.5) 10/04/18 04:30 Plt Count 179 X10^3/uL (150.0-450.0) 10/04/18 04:30 Plt Count Comment Adequate (ADEQUATE) 10/03/18 04:26 MPV 10.4 fL (7.4-11.0) 10/04/18 04:30 Neut % (Auto) 75.6 % (42.0-75.0) H 10/04/18 04:30 Lymph % (Auto) 14.1 % (21.0-51.0) L 10/04/18 04:30 Mcintosh % (Auto) 9.9 % (0.0-13.0) 10/04/18 04:30 Eos % (Auto) 0.2 % (0.9-2.9) L 10/04/18 04:30 Baso % (Auto) 0.2 % (0.2-1.0) 10/04/18 04:30 Neut # (Auto) 8.5 x10^3/uL (2.2-4.8) H 10/04/18 04:30 Lymph # (Auto) 1.6 X10^3/uL (1.3-2.9) 10/04/18 04:30 Mcintosh # (Auto) 1.1 x10^3/uL (0.3-0.8) H 10/04/18 04:30 Eos # (Auto) 0.0 x10^3/uL (0.0-0.2) 10/04/18 04:30 Baso # (Auto) 0.0 X10^3/uL (0.0-0.1) 10/04/18 04:30 Absolute Nucleated RBC 0.0 /100WBC 10/04/18 04:30 Total Counted 100 10/03/18 04:26 Neutrophils % (Manual) 92 % (39-76) H 10/03/18 04:26 Band Neutrophils % 3 % (0-10) 10/03/18 04:26 Lymphocytes % (Manual) 2 % (13-43) L 10/03/18 04:26 Monocytes % (Manual) 3 % (4-9) L 10/03/18 04:26 Eosinophils % (Manual) 3 % (0-6) 09/30/18 05:22 Plt Morphology Comment Normal (NORMAL) 10/03/18 04:26 RBC Morphology Normal (NORMAL) 10/03/18 04:26 Sample Site Lb 10/02/18 04:33 ABG pH 7.470 (7.35-7.45) H 10/02/18 04:33 ABG pCO2 64.0 mmHg (35.0-45.0) H* 10/02/18 04:33 ABG pO2 82.0 mmHg (80.0-100.0) 10/02/18 04:33 ABG HCO3 46.6 mmol/L (22-26) H* 10/02/18 04:33 ABG O2 Saturation 97.0 % (90-100) 10/02/18 04:33 ABG Base Excess 19.5 mmol/L (-2.0-2.0) H 10/02/18 04:33 Dony Test N/a 10/02/18 04:33 A-a Gradient 88.0 mmHg 10/02/18 04:33 FiO2 35.0 10/02/18 04:33 Blood Gas Comments Josefina well ae 10/02/18 04:33 Sodium 145 mmol/L (136-145) 10/04/18 04:30 Corrected Sodium TNP 10/04/18 04:30 Potassium 4.0 mmol/L (3.5-5.1) 10/04/18 04:30 Chloride 106 mmol/L (98-107) 10/04/18 04:30 Carbon Dioxide 39.3 mmol/L (21-32) H 10/04/18 04:30 BUN 28 mg/dL (7-18) H 10/04/18 04:30 Creatinine 0.77 mg/dL (0.55-1.02) 10/04/18 04:30 Est GFR (MDRD) Af Amer > 60 (>60) 10/04/18 04:30 Est GFR (MDRD) Non-Af > 60 (>60) 10/04/18 04:30 Glucose 85 mg/dL (65-99) 10/04/18 04:30 Calcium 8.8 mg/dL (8.5-10.1) 10/04/18 04:30 Corrected Calcium 10.0 mg/dL (8.5-10.1) 10/04/18 04:30 Total Bilirubin 0.10 mg/dL (0.2-1.0) L 10/04/18 04:30 AST 19 Units/L (15-37) 10/04/18 04:30 ALT 16 Units/L (12-78) 10/04/18 04:30 Alkaline Phosphatase 73 Units/L (46-116) 10/04/18 04:30 Creatine Kinase 87 Units/L (26-192) 09/30/18 11:45 CK-MB (CK-2) 2.0 ng/mL (0-4.0) 09/30/18 11:45 CK/CKMB % Calc 2.3 % (<4) 09/30/18 11:45 Troponin I 0.05 ng/mL (0-1.5) 09/30/18 11:45 Total Protein 5.5 g/dL (6.4-8.2) L 10/04/18 04:30 Albumin 2.5 g/dL (3.4-5.0) L 10/04/18 04:30 Globulin 3.0 g/dL (2.5-4.5) 10/04/18 04:30 Albumin/Globulin Ratio 0.8 Ratio (1.1-2.1) L 10/04/18 04:30 Specimen Type Clean catch urine 09/29/18 23:11 Urine Color Yellow (YELLOW) 09/29/18 23:11 Urine Appearance Slightly hazy (CLEAR) 09/29/18 23:11 Urine pH 6.0 (5.0 - 8.0) 09/29/18 23:11 Ur Specific Spring 1.015 (1.000-1.030) 09/29/18 23:11 Urine Protein 3+ (NEGATIVE) 09/29/18 23:11 Urine Glucose (UA) Negative (NEGATIVE) 09/29/18 23:11 Urine Ketones Negative (NEGATIVE) 09/29/18 23:11 Urine Occult Blood 2+ (NEGATIVE) 09/29/18 23:11 Urine Nitrite Negative (NEGATIVE) 09/29/18 23:11 Urine Bilirubin Negative (NEGATIVE) 09/29/18 23:11 Urine Urobilinogen Normal (NORMAL) 09/29/18 23:11 Ur Leukocyte Esterase 1+ (NEGATIVE) 09/29/18 23:11 Urine RBC 3-5 /HPF (NONE SEEN) 09/29/18 23:11 Urine WBC 0-2 /HPF (NONE SEEN) 09/29/18 23:11 Ur Squamous Epith Cells Few /HPF (NEGATIVE) 09/29/18 23:11 Amorphous Sediment 1+ /HPF (NEGATIVE) 09/29/18 23:11 Urine Bacteria Trace /HPF (NEGATIVE) 09/29/18 23:11 Ur Culture Indicated? No/not indicated 09/29/18 23:11 - Plan (1) COPD exacerbation Status: Acute Plan: IV ANTIBIOTICS, RESPIRATORY TX, SUPPLEMENTAL OXYGEN, SOLU-MEDROL IV, CONTINUE TO MONITOR. (2) Respiratory failure with hypoxia and hypercapnia Status: Acute Qualifiers: Chronicity: acute on chronic Qualified Code(s): J96.21 - Acute and chronic respiratory failure with hypoxia; J96.22 - Acute and chronic respiratory failure with hypercapnia Plan: IV ANTIBIOTICS, RESPIRATORY TX, SUPPLEMENTAL OXYGEN, SOLU-MEDROL IV, CONTINUE TO MONITOR.
[2018-10-04] MEDS: RESTORIL CAP 15 MG PO SCH (20:29)
--- NOTE | 2018-10-04 21:25 | PCM.PROG ---
Progress Note - Progress Note for Day of Date of Exam: 10/04/18 - Subjective Subjective: MS. HILTON WAS ADMITTED FOR AN ACUTE COPD EXACERBATION AND RESPIRATORY FAILURE WITH HYPOXIA AND HYPERCAPNIA. TODAY, SHE IS ALERT AND ORIENTED, LYING IN BED ON MORNING ROUNDS. SHE CONTINUES WITH A PRODUCTIVE COUGH AND SHORTNESS OF BREATH, BUT REPORTS FEELING BETTER TODAY THAN SHE HAS BEEN. ON EXAMINATION, HEART IS REGULAR IN RATE AND RHYTHM. BILATERAL LUNGS CONTINUE WITH SCATTERED WHEEZING THROUGHOUT. ABDOMEN IS ROUND, SOFT, AND NON-TENDER WITH NORMAL BOWEL SOUNDS NOTED IN ALL QUADRANTS. HER VITALS THIS MORNING ARE 97.9-71-18-94%-133/60. LABS WERE OBTAINED. ABNORMAL LAB VALUES INCLUDE THE FOLLOWING: WBC 11.2, CARBON DIOXIDE 39.3, BUN 28, TOTAL BILI 0.10, TOTAL PROTEIN 5.5, ALBUMIN 2.5. BLOOD AND SPUTUM CULTURES ARE PENDING. PRELIMINARY SPUTUM CULTURE REPORTS GROWTH OF GRAM NEGATIVE RODS. A CHEST XRAY WAS OBTAINED TODAY AND REVEALED: COPD without acute cardiopulmonary abnormality. TODAY, WE WILL CONTINUE WITH IV ANTIBIOTICS, RESPIRATORY TREATMENTS, SUPPLEMENTAL OXYGEN, AND IV STEROIDS. OTHERWISE, WE PLAN TO FOLLOW-UP WITH AM LABS AND CONTINUE TO MONITOR. - Past Medical Family Social History Past Med/Fam/Surg Hx: No changes since H&P Allergies: Allergies No Known Drug Allergies Allergy (Verified 05/21/17 08:19) - Review of Systems ROS: No change since H&P - Vital Signs and I&O's Vital Signs: Temperature 97.9 F Pulse Rate [Left] 87 Pulse Rate 99 Respiratory Rate 16 Blood Pressure [Left Arm] 115/55 Blood Pressure [Right Arm] 162/71 Blood Pressure 118/60 O2 Sat by Pulse Oximetry 93 Intake and Output: Intake & Output 10/02/18 10/03/18 10/04/18 10/05/18 11:59 11:59 11:59 11:59 Intake Total 2079 / 0 1380 / 1380 1180 / 1180 600 / 600 Output Total 150 / 150 Balance 1929 / 1930 1380 / 1380 1180 / 1180 600 / 600 - Physical Exam Oriented: Normal Eyes: Normal Ear: Normal Nose: Normal Throat: Normal Respiratory: Generalized, Wheezes Cardiovascular: Normal. negative: S3, S4, Murmur : Normal Auscultation: Bowel Sounds: Normal Tenderness: Normal Skin: Normal Musculoskeletal: Normal Psychiatric: Normal Mood Description: Calm Affect: Normal Speech Pattern: Clear, Appropriate - Laboratory and Diagnostics Result Diagrams: 10/04/18 04:30 10/04/18 04:30 Labs: 09/30/18 13:40 Sputum - Expectorated Sputum Sputum Culture - Preliminary 09/30/18 13:40 Sputum - Expectorated Sputum - Final 09/29/18 20:15 Blood Blood Culture - Preliminary 09/29/18 20:00 Blood Blood Culture - Preliminary Laboratory WBC 11.2 X10^3/uL (3.6-10.0) H 10/04/18 04:30 RBC 4.69 X10^6/uL (3.5-5.4) 10/04/18 04:30 Hgb 13.6 g/dL (12.0-16.0) 10/04/18 04:30 Hct 41.2 % (36.0-47.0) 10/04/18 04:30 MCV 87.8 fL (80.0-100.0) 10/04/18 04:30 MCH 29.0 pg (27.0-34.0) 10/04/18 04:30 MCHC 33.0 g/dL (33.0-35.0) 10/04/18 04:30 RDW 14.5 % (11.6-16.5) 10/04/18 04:30 Plt Count 179 X10^3/uL (150.0-450.0) 10/04/18 04:30 Plt Count Comment Adequate (ADEQUATE) 10/03/18 04:26 MPV 10.4 fL (7.4-11.0) 10/04/18 04:30 Neut % (Auto) 75.6 % (42.0-75.0) H 10/04/18 04:30 Lymph % (Auto) 14.1 % (21.0-51.0) L 10/04/18 04:30 Gaines % (Auto) 9.9 % (0.0-13.0) 10/04/18 04:30 Eos % (Auto) 0.2 % (0.9-2.9) L 10/04/18 04:30 Baso % (Auto) 0.2 % (0.2-1.0) 10/04/18 04:30 Neut # (Auto) 8.5 x10^3/uL (2.2-4.8) H 10/04/18 04:30 Lymph # (Auto) 1.6 X10^3/uL (1.3-2.9) 10/04/18 04:30 Gaines # (Auto) 1.1 x10^3/uL (0.3-0.8) H 10/04/18 04:30 Eos # (Auto) 0.0 x10^3/uL (0.0-0.2) 10/04/18 04:30 Baso # (Auto) 0.0 X10^3/uL (0.0-0.1) 10/04/18 04:30 Absolute Nucleated RBC 0.0 /100WBC 10/04/18 04:30 Total Counted 100 10/03/18 04:26 Neutrophils % (Manual) 92 % (39-76) H 10/03/18 04:26 Band Neutrophils % 3 % (0-10) 10/03/18 04:26 Lymphocytes % (Manual) 2 % (13-43) L 10/03/18 04:26 Monocytes % (Manual) 3 % (4-9) L 10/03/18 04:26 Eosinophils % (Manual) 3 % (0-6) 09/30/18 05:22 Plt Morphology Comment Normal (NORMAL) 10/03/18 04:26 RBC Morphology Normal (NORMAL) 10/03/18 04:26 Sample Site Lb 10/02/18 04:33 ABG pH 7.470 (7.35-7.45) H 10/02/18 04:33 ABG pCO2 64.0 mmHg (35.0-45.0) H* 10/02/18 04:33 ABG pO2 82.0 mmHg (80.0-100.0) 10/02/18 04:33 ABG HCO3 46.6 mmol/L (22-26) H* 10/02/18 04:33 ABG O2 Saturation 97.0 % (90-100) 10/02/18 04:33 ABG Base Excess 19.5 mmol/L (-2.0-2.0) H 10/02/18 04:33 Dony Test N/a 10/02/18 04:33 A-a Gradient 88.0 mmHg 10/02/18 04:33 FiO2 35.0 10/02/18 04:33 Blood Gas Comments Josefina well ae 10/02/18 04:33 Sodium 145 mmol/L (136-145) 10/04/18 04:30 Corrected Sodium TNP 10/04/18 04:30 Potassium 4.0 mmol/L (3.5-5.1) 10/04/18 04:30 Chloride 106 mmol/L (98-107) 10/04/18 04:30 Carbon Dioxide 39.3 mmol/L (21-32) H 10/04/18 04:30 BUN 28 mg/dL (7-18) H 10/04/18 04:30 Creatinine 0.77 mg/dL (0.55-1.02) 10/04/18 04:30 Est GFR (MDRD) Af Amer > 60 (>60) 10/04/18 04:30 Est GFR (MDRD) Non-Af > 60 (>60) 10/04/18 04:30 Glucose 85 mg/dL (65-99) 10/04/18 04:30 Calcium 8.8 mg/dL (8.5-10.1) 10/04/18 04:30 Corrected Calcium 10.0 mg/dL (8.5-10.1) 10/04/18 04:30 Total Bilirubin 0.10 mg/dL (0.2-1.0) L 10/04/18 04:30 AST 19 Units/L (15-37) 10/04/18 04:30 ALT 16 Units/L (12-78) 10/04/18 04:30 Alkaline Phosphatase 73 Units/L (46-116) 10/04/18 04:30 Creatine Kinase 87 Units/L (26-192) 09/30/18 11:45 CK-MB (CK-2) 2.0 ng/mL (0-4.0) 09/30/18 11:45 CK/CKMB % Calc 2.3 % (<4) 09/30/18 11:45 Troponin I 0.05 ng/mL (0-1.5) 09/30/18 11:45 Total Protein 5.5 g/dL (6.4-8.2) L 10/04/18 04:30 Albumin 2.5 g/dL (3.4-5.0) L 10/04/18 04:30 Globulin 3.0 g/dL (2.5-4.5) 10/04/18 04:30 Albumin/Globulin Ratio 0.8 Ratio (1.1-2.1) L 10/04/18 04:30 Specimen Type Clean catch urine 09/29/18 23:11 Urine Color Yellow (YELLOW) 09/29/18 23:11 Urine Appearance Slightly hazy (CLEAR) 09/29/18 23:11 Urine pH 6.0 (5.0 - 8.0) 09/29/18 23:11 Ur Specific [place] 1.015 (1.000-1.030) 09/29/18 23:11 Urine Protein 3+ (NEGATIVE) 09/29/18 23:11 Urine Glucose (UA) Negative (NEGATIVE) 09/29/18 23:11 Urine Ketones Negative (NEGATIVE) 09/29/18 23:11 Urine Occult Blood 2+ (NEGATIVE) 09/29/18 23:11 Urine Nitrite Negative (NEGATIVE) 09/29/18 23:11 Urine Bilirubin Negative (NEGATIVE) 09/29/18 23:11 Urine Urobilinogen Normal (NORMAL) 09/29/18 23:11 Ur Leukocyte Esterase 1+ (NEGATIVE) 09/29/18 23:11 Urine RBC 3-5 /HPF (NONE SEEN) 09/29/18 23:11 Urine WBC 0-2 /HPF (NONE SEEN) 09/29/18 23:11 Ur Squamous Epith Cells Few /HPF (NEGATIVE) 09/29/18 23:11 Amorphous Sediment 1+ /HPF (NEGATIVE) 09/29/18 23:11 Urine Bacteria Trace /HPF (NEGATIVE) 09/29/18 23:11 Ur Culture Indicated? No/not indicated 09/29/18 23:11 - Plan (1) COPD exacerbation Status: Acute Plan: IV ANTIBIOTICS, RESPIRATORY TX, SUPPLEMENTAL OXYGEN, SOLU-MEDROL IV, CONTINUE TO MONITOR. (2) Respiratory failure with hypoxia and hypercapnia Status: Acute Qualifiers: Chronicity: acute on chronic Qualified Code(s): J96.21 - Acute and chronic respiratory failure with hypoxia; J96.22 - Acute and chronic respiratory failure with hypercapnia Plan: IV ANTIBIOTICS, RESPIRATORY TX, SUPPLEMENTAL OXYGEN, SOLU-MEDROL IV, CONTINUE TO MONITOR.
[2018-10-05] MEDS: XOPENEX 1.25 MG/3 ML NEBULE NEB SCH ×4 (00:16→17:09)
[2018-10-05 05:21] LABS: BASOPHILS % (AUTO) 0.1 % (0.2-1.0); EOSINOPHILS # (AUTO) 0.5 x10^3/uL (0.0-0.2); EOSINOPHILS % (AUTO) 5.1 % (0.9-2.9); HEMOGLOBIN 13.2 g/dL (12.0-16.0); LYMPHOCYTES # (AUTO) 2.3 X10^3/uL (1.3-2.9); LYMPHOCYTES % (AUTO) 22.6 % (21.0-51.0); MEAN CORPUSCULAR HEMOGLOBIN 28.8 pg (27.0-34.0); MEAN CORPUSCULAR VOLUME 87.4 fL (80.0-100.0); MONOCYTES % (AUTO) 9.7 % (0.0-13.0); NEUTROPHILS # (AUTO) 6.2 x10^3/uL (2.2-4.8); NEUTROPHILS % (AUTO) 62.5 % (42.0-75.0); PLATELET COUNT 165 X10^3/uL (150.0-450.0); RED BLOOD COUNT 4.58 X10^6/uL (3.5-5.4); RED CELL DISTRIBUTION WIDTH 14.3 % (11.6-16.5)
[2018-10-05 05:42] LABS: ALANINE AMINOTRANSFERASE 16 Units/L (12-78); ALBUMIN 2.4 g/dL (3.4-5.0); ALKALINE PHOSPHATASE 64 Units/L (46-116); ASPARTATE AMINO TRANSFERASE 20 Units/L (15-37); BLOOD UREA NITROGEN 25 mg/dL (7-18); CALCIUM 8.5 mg/dL (8.5-10.1); CARBON DIOXIDE 39.2 mmol/L (21-32); CHLORIDE 104 mmol/L (98-107); COR CA(FOR HYPOALB) 9.8 mg/dL (8.5-10.1); CREATININE 0.77 mg/dL (0.55-1.02); SODIUM 143 mmol/L (136-145); TOTAL PROTEIN 5.1 g/dL (6.4-8.2); eGFR NON BLACK RACES > 60 (>60)
--- NOTE | 2018-10-05 06:06 | RAD ---
HISTORY: Shortness of breath Study: Chest AP portable Comparison: 10/04/2018, 10/03/2018 Findings: The heart is within normal limits in size. The [place] are normal. The lungs are hyperinflated consistent with COPD. No acute infiltrates or pleural effusions are identified. The aorta is calcified. The bony thorax is unremarkable. IMPRESSION: No acute infiltrates Hyperinflation consistent with COPD Reported By:
[2018-10-05] MEDS: Atrovent NEB TX 0.02% NEB SCH (09:01)
[2018-10-05] MEDS: TRICOR TAB 48 MG PO SCH (09:07)
[2018-10-05] MEDS: MUCINEX DM PO SCH ×2 (09:08→20:51)
[2018-10-05] MEDS: LEVAQUIN PREMIX IV 500 MG 500 MG/100 ML BAG IV SCH (09:08)
[2018-10-05] MEDS: LIPITOR TAB 20 MG PO SCH (09:08)
[2018-10-05] MEDS: NORVASC TAB 5 MG PO SCH (09:08)
[2018-10-05] MEDS: MEGACE PO SCH ×2 (09:08→20:51)
[2018-10-05] MEDS: XANAX PO SCH ×2 (09:08→20:51)
[2018-10-05] MEDS: UNIPHYL TAB 400 MG PO SCH (09:08)
[2018-10-05] MEDS: MAG-OX TAB PO SCH ×2 (09:08→20:51)
--- NOTE | 2018-10-05 19:12 | PCM.PROG ---
Progress Note - Progress Note for Day of Date of Exam: 10/05/18 - Subjective Subjective: MS. HILTON WAS ADMITTED FOR AN ACUTE COPD EXACERBATION AND RESPIRATORY FAILURE WITH HYPOXIA AND HYPERCAPNIA. TODAY, SHE IS ALERT AND ORIENTED, LYING IN BED ON MORNING ROUNDS. SHE CONTINUES WITH A COUGH, BUT IT IS NO LONGER PRODUCTIVE. SHE ALSO REPORTS MILD SHORTNESS OF BREATH. SHE REPORTS TH AT IT IS IMPROVED COMPARED TO YESTERDAY. ON EXAMINATION, HEART IS REGULAR IN RATE AND RHYTHM. BILATERAL LUNGS CONTINUE WITH SCATTERED WHEEZING THROUGHOUT. ABDOMEN IS ROUND, SOFT, AND NON-TENDER WITH NORMAL BOWEL SOUNDS NOTED IN ALL QUADRANTS. HER VITALS THIS MORNING ARE 98.5-96-18-96%-132/62. LABS WERE OBTAINED. ABNORMAL LAB VALUES INCLUDE THE FOLLOWING: CARBON DIOXIDE 39.2, BUN 25, TOTAL PROTEIN 5.1, ALBUMIN 2.4. BLOOD AND SPUTUM CULTURES ARE PENDING. PRELIMINARY SPUTUM CULTURE REPORTS GROWTH OF GRAM NEGATIVE RODS. A CHEST XRAY WAS OBTAINED TODAY AND REVEALED: No acute infiltrates. Hyperinflation consistent with COPD. TODAY, WE WILL CONTINUE WITH IV ANTIBIOTICS, RESPIRATORY TREATMENTS, SUPPLEMENTAL OXYGEN, AND IV STEROIDS. OTHERWISE, WE PLAN TO FOLLOW-UP WITH AM LABS AND CONTINUE TO MONITOR. - Past Medical Family Social History Past Med/Fam/Surg Hx: No changes since H&P Allergies: Allergies No Known Drug Allergies Allergy (Verified 05/21/17 08:19) - Review of Systems ROS: No change since H&P - Vital Signs and I&O's Vital Signs: Temperature 98.4 F Pulse Rate [Left] 87 Pulse Rate 88 Respiratory Rate 18 Blood Pressure [Left Arm] 115/55 Blood Pressure [Right Arm] 162/71 Blood Pressure 120/57 O2 Sat by Pulse Oximetry 94 Intake and Output: Intake & Output 10/03/18 10/04/18 10/05/18 10/06/18 11:59 11:59 11:59 11:59 Intake Total 1380 / 1380 1180 / 1180 1090 / 1090 777 / 777 Balance 1380 / 1380 1180 / 1180 1090 / 1090 777 / 777 - Physical Exam Oriented: Normal Eyes: Normal Ear: Normal Nose: Normal Throat: Normal Respiratory: Generalized, Wheezes Cardiovascular: Normal. negative: S3, S4, Murmur : Normal Auscultation: Bowel Sounds: Normal Tenderness: Normal Skin: Normal Musculoskeletal: Normal Psychiatric: Normal Mood Description: Calm Affect: Normal Speech Pattern: Clear, Appropriate - Laboratory and Diagnostics Result Diagrams: 10/05/18 04:21 10/05/18 04:21 Labs: 09/29/18 20:15 Blood Blood Culture - Final 09/29/18 20:00 Blood Blood Culture - Final 09/30/18 13:40 Sputum - Expectorated Sputum Sputum Culture - Preliminary 09/30/18 13:40 Sputum - Expectorated Sputum - Final Laboratory WBC 10.0 X10^3/uL (3.6-10.0) 10/05/18 04:21 RBC 4.58 X10^6/uL (3.5-5.4) 10/05/18 04:21 Hgb 13.2 g/dL (12.0-16.0) 10/05/18 04:21 Hct 40.0 % (36.0-47.0) 10/05/18 04:21 MCV 87.4 fL (80.0-100.0) 10/05/18 04:21 MCH 28.8 pg (27.0-34.0) 10/05/18 04:21 MCHC 33.0 g/dL (33.0-35.0) 10/05/18 04:21 RDW 14.3 % (11.6-16.5) 10/05/18 04:21 Plt Count 165 X10^3/uL (150.0-450.0) 10/05/18 04:21 Plt Count Comment Adequate (ADEQUATE) 10/03/18 04:26 MPV 10.0 fL (7.4-11.0) 10/05/18 04:21 Neut % (Auto) 62.5 % (42.0-75.0) 10/05/18 04:21 Lymph % (Auto) 22.6 % (21.0-51.0) 10/05/18 04:21 Gregory % (Auto) 9.7 % (0.0-13.0) 10/05/18 04:21 Eos % (Auto) 5.1 % (0.9-2.9) H 10/05/18 04:21 Baso % (Auto) 0.1 % (0.2-1.0) L 10/05/18 04:21 Neut # (Auto) 6.2 x10^3/uL (2.2-4.8) H 10/05/18 04:21 Lymph # (Auto) 2.3 X10^3/uL (1.3-2.9) 10/05/18 04:21 Gregory # (Auto) 1.0 x10^3/uL (0.3-0.8) H 10/05/18 04:21 Eos # (Auto) 0.5 x10^3/uL (0.0-0.2) H 10/05/18 04:21 Baso # (Auto) 0.0 X10^3/uL (0.0-0.1) 10/05/18 04:21 Absolute Nucleated RBC 0.1 /100WBC 10/05/18 04:21 Total Counted 100 10/03/18 04:26 Neutrophils % (Manual) 92 % (39-76) H 10/03/18 04:26 Band Neutrophils % 3 % (0-10) 10/03/18 04:26 Lymphocytes % (Manual) 2 % (13-43) L 10/03/18 04:26 Monocytes % (Manual) 3 % (4-9) L 10/03/18 04:26 Eosinophils % (Manual) 3 % (0-6) 09/30/18 05:22 Plt Morphology Comment Normal (NORMAL) 10/03/18 04:26 RBC Morphology Normal (NORMAL) 10/03/18 04:26 Sample Site Lb 10/02/18 04:33 ABG pH 7.470 (7.35-7.45) H 10/02/18 04:33 ABG pCO2 64.0 mmHg (35.0-45.0) H* 10/02/18 04:33 ABG pO2 82.0 mmHg (80.0-100.0) 10/02/18 04:33 ABG HCO3 46.6 mmol/L (22-26) H* 10/02/18 04:33 ABG O2 Saturation 97.0 % (90-100) 10/02/18 04:33 ABG Base Excess 19.5 mmol/L (-2.0-2.0) H 10/02/18 04:33 Dony Test N/a 10/02/18 04:33 A-a Gradient 88.0 mmHg 10/02/18 04:33 FiO2 35.0 10/02/18 04:33 Blood Gas Comments Josefina well ae 10/02/18 04:33 Sodium 143 mmol/L (136-145) 10/05/18 04:21 Corrected Sodium TNP 10/05/18 04:21 Potassium 4.0 mmol/L (3.5-5.1) 10/05/18 04:21 Chloride 104 mmol/L (98-107) 10/05/18 04:21 Carbon Dioxide 39.2 mmol/L (21-32) H 10/05/18 04:21 BUN 25 mg/dL (7-18) H 10/05/18 04:21 Creatinine 0.77 mg/dL (0.55-1.02) 10/05/18 04:21 Est GFR (MDRD) Af Amer > 60 (>60) 10/05/18 04:21 Est GFR (MDRD) Non-Af > 60 (>60) 10/05/18 04:21 Glucose 83 mg/dL (65-99) 10/05/18 04:21 Calcium 8.5 mg/dL (8.5-10.1) 10/05/18 04:21 Corrected Calcium 9.8 mg/dL (8.5-10.1) 10/05/18 04:21 Total Bilirubin 0.20 mg/dL (0.2-1.0) 10/05/18 04:21 AST 20 Units/L (15-37) 10/05/18 04:21 ALT 16 Units/L (12-78) 10/05/18 04:21 Alkaline Phosphatase 64 Units/L (46-116) 10/05/18 04:21 Creatine Kinase 87 Units/L (26-192) 09/30/18 11:45 CK-MB (CK-2) 2.0 ng/mL (0-4.0) 09/30/18 11:45 CK/CKMB % Calc 2.3 % (<4) 09/30/18 11:45 Troponin I 0.05 ng/mL (0-1.5) 09/30/18 11:45 Total Protein 5.1 g/dL (6.4-8.2) L 10/05/18 04:21 Albumin 2.4 g/dL (3.4-5.0) L 10/05/18 04:21 Globulin 2.7 g/dL (2.5-4.5) 10/05/18 04:21 Albumin/Globulin Ratio 0.9 Ratio (1.1-2.1) L 10/05/18 04:21 Specimen Type Clean catch urine 09/29/18 23:11 Urine Color Yellow (YELLOW) 09/29/18 23:11 Urine Appearance Slightly hazy (CLEAR) 09/29/18 23:11 Urine pH 6.0 (5.0 - 8.0) 09/29/18 23:11 Ur Specific [place] 1.015 (1.000-1.030) 09/29/18 23:11 Urine Protein 3+ (NEGATIVE) 09/29/18 23:11 Urine Glucose (UA) Negative (NEGATIVE) 09/29/18 23:11 Urine Ketones Negative (NEGATIVE) 09/29/18 23:11 Urine Occult Blood 2+ (NEGATIVE) 09/29/18 23:11 Urine Nitrite Negative (NEGATIVE) 09/29/18 23:11 Urine Bilirubin Negative (NEGATIVE) 09/29/18 23:11 Urine Urobilinogen Normal (NORMAL) 09/29/18 23:11 Ur Leukocyte Esterase 1+ (NEGATIVE) 09/29/18 23:11 Urine RBC 3-5 /HPF (NONE SEEN) 09/29/18 23:11 Urine WBC 0-2 /HPF (NONE SEEN) 09/29/18 23:11 Ur Squamous Epith Cells Few /HPF (NEGATIVE) 09/29/18 23:11 Amorphous Sediment 1+ /HPF (NEGATIVE) 09/29/18 23:11 Urine Bacteria Trace /HPF (NEGATIVE) 09/29/18 23:11 Ur Culture Indicated? No/not indicated 09/29/18 23:11 - Plan (1) COPD exacerbation Status: Acute Plan: IV ANTIBIOTICS, RESPIRATORY TX, SUPPLEMENTAL OXYGEN, SOLU-MEDROL IV, CONTINUE TO MONITOR. (2) Respiratory failure with hypoxia and hypercapnia Status: Acute Qualifiers: Chronicity: acute on chronic Qualified Code(s): J96.21 - Acute and chronic respiratory failure with hypoxia; J96.22 - Acute and chronic respiratory failure with hypercapnia Plan: IV ANTIBIOTICS, RESPIRATORY TX, SUPPLEMENTAL OXYGEN, SOLU-MEDROL IV, CONTINUE TO MONITOR.
[2018-10-05] MEDS: RESTORIL CAP 15 MG PO SCH (20:51)
[2018-10-06] MEDS: XOPENEX 1.25 MG/3 ML NEBULE NEB SCH ×2 (00:38→05:25)
[2018-10-06 05:25] LABS: BASOPHILS % (AUTO) 0.2 % (0.2-1.0); EOSINOPHILS # (AUTO) 0.8 x10^3/uL (0.0-0.2); HEMATOCRIT 41.7 % (36.0-47.0); HEMOGLOBIN 13.6 g/dL (12.0-16.0); LYMPHOCYTES # (AUTO) 2.5 X10^3/uL (1.3-2.9); LYMPHOCYTES % (AUTO) 23.8 % (21.0-51.0); MEAN CORPUSCULAR HEMOGLOBIN 28.7 pg (27.0-34.0); MEAN CORPUSCULAR HGB CONC 32.6 g/dL (33.0-35.0); MEAN CORPUSCULAR VOLUME 88.2 fL (80.0-100.0); MEAN PLATELET VOLUME 10.9 fL (7.4-11.0); MONOCYTES # (AUTO) 0.8 x10^3/uL (0.3-0.8); MONOCYTES % (AUTO) 8.1 % (0.0-13.0); NEUTROPHILS # (AUTO) 6.2 x10^3/uL (2.2-4.8); NEUTROPHILS % (AUTO) 59.9 % (42.0-75.0); PLATELET COUNT 153 X10^3/uL (150.0-450.0); RED BLOOD COUNT 4.74 X10^6/uL (3.5-5.4); RED CELL DISTRIBUTION WIDTH 14.1 % (11.6-16.5); WHITE BLOOD COUNT 10.4 X10^3/uL (3.6-10.0)
[2018-10-06 05:39] LABS: ALANINE AMINOTRANSFERASE 15 Units/L (12-78); ALBUMIN 2.5 g/dL (3.4-5.0); ALKALINE PHOSPHATASE 50 Units/L (46-116); ASPARTATE AMINO TRANSFERASE 19 Units/L (15-37); BLOOD UREA NITROGEN 19 mg/dL (7-18); CALCIUM 8.6 mg/dL (8.5-10.1); CHLORIDE 102 mmol/L (98-107); COR CA(FOR HYPOALB) 9.8 mg/dL (8.5-10.1); SODIUM 142 mmol/L (136-145); TOTAL PROTEIN 5.3 g/dL (6.4-8.2); eGFR NON BLACK RACES > 60 (>60)
--- NOTE | 2018-10-06 07:09 | RAD ---
HISTORY: Shortness of breath Study: Chest AP portable Comparison: 10/05/2018 Findings: The heart is within normal limits in size. The alvarado are normal. The aorta is calcified. The lungs are hyperinflated consistent with COPD. No acute alveolar infiltrates or pleural effusions are identified. The bony thorax is unremarkable. IMPRESSION: No acute infiltrates Hyperinflation consistent with COPD Reported By:
[2018-10-06 08:08] VITALS: BP 143/61
[2018-10-06] MEDS: TRICOR TAB 48 MG PO SCH (08:09)
[2018-10-06] MEDS: MAG-OX TAB PO SCH (08:09)
[2018-10-06] MEDS: LEVAQUIN PREMIX IV 500 MG 500 MG/100 ML BAG IV SCH (08:09)
[2018-10-06] MEDS: NORVASC TAB 5 MG PO SCH (08:09)
[2018-10-06] MEDS: LIPITOR TAB 20 MG PO SCH (08:09)
[2018-10-06] MEDS: MUCINEX DM PO SCH (08:09)
[2018-10-06] MEDS: MEGACE PO SCH (08:09)
[2018-10-06] MEDS: UNIPHYL TAB 400 MG PO SCH (08:10)
[2018-10-06] MEDS: XANAX PO SCH (08:10)
[2018-10-06] MEDS: Atrovent NEB TX 0.02% NEB SCH (08:26)
== END 2018-10-06 12:15 | disposition home or self-care (01) | DRG 190 ==
LOC: ER 19:38 → ICU 19:38 → OBSVTOIN 22:11 → ICU 22:30 → MED/SURG 10-02 10:41
PROVIDERS: ADMIT Internal Medicine; ATTEND Internal Medicine
DX: J96.21 Acute and chronic respiratory failure with hypoxia; J44.1 Chronic obstructive pulmonary disease with (acute) exacerbation; J20.8 Acute bronchitis due to other specified organisms; E78.2 Mixed hyperlipidemia; I10 Essential (primary) hypertension; R94.31 Abnormal electrocardiogram [ECG] [EKG]; R07.89 Other chest pain; J96.22 Acute and chronic respiratory failure with hypercapnia
CPT/HCPCS: 36415; 36600; 71010; 71045; 80053; 81001; 82550; 82553; 82803; 84484; 85025; 87040; 87070; 87205; 93005; 94640; 94660; 96365; 96374; 99283; A4222; A4618; A7030; S0179; J1956; J2920; J2930; J7040; J7620; J7644

== ENCOUNTER 2018-11-11 21:13 | Inpatient (IN) ==
[2018-11-11] MEDS ORDERED: NS 1000 ML 1,000 ML IV ONE ×2 (21:15→21:23)
[2018-11-11] MEDS ORDERED: NS 1000 ML 1,000 ML ONE (21:23)
[2018-11-11] MEDS: NS 1000 ML 1,000 ML IV SCH ×2 (21:40→23:40)
[2018-11-11 21:45] LABS: BILIRUBIN,URINE NEGATIVE (NEGATIVE); BLOOD/HEMOGLOBIN,URINE 2+ (NEGATIVE); GLUCOSE, URINE NEGATIVE (NEGATIVE); KETONES,URINE 1+ (NEGATIVE); LEUKOCYTE ESTERASE ,URINE 1+ (NEGATIVE); NITRITES,URINE NEGATIVE (NEGATIVE); PROTEIN,URINE 4+ (NEGATIVE); UROBILINOGEN,URINE NORMAL (NORMAL)
[2018-11-11 21:48] VITALS: BMI 16.9
[2018-11-11 21:49] LABS: ABG BASE EXCESS 8.9 mmol/L (-2.0-2.0)
[2018-11-11 21:50] LABS: ABG HCO3 37.8 mmol/L (22-26)
[2018-11-11 21:54] LABS: APPEARANCE,URINE CLEAR (CLEAR); BACTERIA,URINE NEGATIVE /HPF (NEGATIVE); COLOR,URINE YELLOW (YELLOW); SQUAMOUS EPITHELIAL CELL,UR RARE /HPF (NEGATIVE)
[2018-11-11 21:55] LABS: AMORPHOUS SEDIMENT,UR 2+ /HPF (NEGATIVE)
[2018-11-11 22:05] LABS: BASOPHILS # (AUTO) 0.1 X10^3/uL (0.0-0.1); BASOPHILS % (AUTO) 0.7 % (0.2-1.0); EOSINOPHILS % (AUTO) 0.3 % (0.9-2.9); HEMATOCRIT 37.6 % (36.0-47.0); HEMOGLOBIN 12.3 g/dL (12.0-16.0); LYMPHOCYTES % (AUTO) 6.2 % (21.0-51.0); MEAN CORPUSCULAR HEMOGLOBIN 29.4 pg (27.0-34.0); MEAN CORPUSCULAR HGB CONC 32.8 g/dL (33.0-35.0); MEAN CORPUSCULAR VOLUME 89.7 fL (80.0-100.0); MEAN PLATELET VOLUME 9.6 fL (7.4-11.0); MONOCYTES # (AUTO) 0.7 x10^3/uL (0.3-0.8); MONOCYTES % (AUTO) 4.6 % (0.0-13.0); NEUTROPHILS # (AUTO) 13.5 x10^3/uL (2.2-4.8); NEUTROPHILS % (AUTO) 88.2 % (42.0-75.0); PLATELET COUNT 157 X10^3/uL (150.0-450.0); RED BLOOD COUNT 4.19 X10^6/uL (3.5-5.4); RED CELL DISTRIBUTION WIDTH 14.6 % (11.6-16.5); WHITE BLOOD COUNT 15.4 X10^3/uL (3.6-10.0)
--- NOTE | 2018-11-11 22:17 | RAD ---
HISTORY: 73-year-old female with headache and all breathing. Study: Frontal view of the chest. Comparison: Chest radiograph 10/06/2018 Findings: Distal tip of endotracheal tube at the level of the 1st rib 12.2 cm above the crystal. The trachea is midline. The cardiac silhouette is stable with chronic prominence interstitium and perihilar lung markings and patchy right basilar airspace opacity. No pneumothorax or effusion. Soft tissues are unremarkable. Osseous structures are unremarkable. IMPRESSION: 1. Endotracheal tube as above. 2. Patchy right basilar airspace opacities may represent aspiration versus bacterial pneumonia. Correlate clinically. Reported By:
[2018-11-11] MEDS ORDERED: DIPRIVAN VIAL 20 ML ONE (22:19)
[2018-11-11] MEDS ORDERED: VERSED ONE ×3 (22:19→23:16)
[2018-11-11] MEDS ORDERED: QUELICIN (OR ANECTINE) ONE (22:19)
[2018-11-11 22:20] LABS: BLOOD UREA NITROGEN 13 mg/dL (7-18); CALCIUM 8.8 mg/dL (8.5-10.1); CARBON DIOXIDE 37.2 mmol/L (21-32); CHLORIDE 99 mmol/L (98-107); COR NA(FOR HYPERGLY) 138 mmol/L (136-145); CREATININE 0.85 mg/dL (0.55-1.02); SODIUM 137 mmol/L (136-145); TROPONIN I 0.32 ng/mL (0-1.5); eGFR NON BLACK RACES > 60 (>60)
[2018-11-11 22:23] LABS: ALANINE AMINOTRANSFERASE 17 Units/L (12-78); ALBUMIN 2.6 g/dL (3.4-5.0); ALKALINE PHOSPHATASE 60 Units/L (46-116); ASPARTATE AMINO TRANSFERASE 36 Units/L (15-37); CKMB % 4.5 % (<4); COR CA(FOR HYPOALB) 9.9 mg/dL (8.5-10.1); CREATINE KINASE 69 Units/L (26-192); CREATINE KINASE MB 3.1 ng/mL (0-4.0); MAGNESIUM 1.9 mg/dL (1.7-2.9)
[2018-11-11] MEDS ORDERED: NORCURON INJ 10 MG VIAL ONE (22:57)
[2018-11-11] MEDS ORDERED: NS 100 ML IV 100 ML ONE (23:15)
[2018-11-11] MEDS ORDERED: VERSED 100 MG in NS 100 ML IV 80 ML IV PRN (23:25)
--- NOTE | 2018-11-12 00:35 | RAD ---
AP chest. Indication: Intubation Comparison: Radiograph performed earlier on same day Findings: Endotracheal tube has been placed the tip of the tube is approximately 4.5 cm above the crystal in satisfactory positioning. No pneumothorax. Increased right greater than left bibasilar reticular opacities suspicious for infiltrate or aspiration. Mid and upper lung zones are clear. No pleural effusion. No acute osseous abnormality. Impression: 1.Endotracheal tube is in satisfactory position approximately 4.5 cm above the crystal. 2. Bibasilar, right greater than left, reticular opacities are suspicious for developing infiltrate or aspiration. Reported By:
[2018-11-12 00:37] LABS: ABG BASE EXCESS 6.9 mmol/L (-2.0-2.0)
[2018-11-12 00:38] LABS: ABG HCO3 36.2 mmol/L (22-26)
[2018-11-12 00:40] LABS: LACTIC ACID 0.6 mmol/L (0.4-2.0)
[2018-11-12 01:07] LABS: CKMB % 4.4 % (<4); CREATINE KINASE MB 3.4 ng/mL (0-4.0); TROPONIN I 0.4 ng/mL (0-1.5)
[2018-11-12 02:56] LABS: ABG BASE EXCESS 6.3 mmol/L (-2.0-2.0)
[2018-11-12 02:57] LABS: ABG HCO3 37.8 mmol/L (22-26)
[2018-11-12] MEDS ORDERED: LASIX IVP ONE (03:13)
[2018-11-12] MEDS ORDERED: LASIX ONE (03:14)
--- NOTE | 2018-11-12 03:23 | DR.SOBA ---
HPI Time Seen Time Seen by Provider: 11/11/18 22:26 Primary Care Physician Primary Care Physician: Complaints Chief Complaint:: [facility] RESPONDED TO A CALL FOR A PATIENT NOT BREATHING, ON EMS ARRIVAL PATIENT FOUND WITH AGONAL BREATHING. EMS STATES, "THE FAMILY FOUND HER, CALLED EMS, SHE WAS COMPLETELY WITHOUT OXYGEN. IT LOOKED LIKED SHE HAD TAKEN HER OXYGEN OFF AND WAS TRYING TO PUT HER CPAP ON AND JUST WASN'T SUCCESSFUL. EMS ATTEMPTED MULTIPLE TIMES TO INTUBATE W/6.5 ET, 6.0 ET, THEN W/OUSMANE WAS SUCCESSFUL. Source History Provided: EMS Mode of Arrival Mode of Arrival: EMS Timing Onset of Chief Complaint: 11/11/18 PMH PMH Past Medical History: Yes Past Medical History: Anxiety, COPD, Dyslipidemia and Hypertension Past Surgical History: Yes Surgical History: Appendectomy Family History History of Family Medical Conditions: Yes Family Medical History: Cancer and Hypertension Social History Does patient currently use any type of tobacco product: Yes Have you used tobacco products in the last 12 months: Yes Type of Tobacco Use: Cigarettes Does any household member use tobacco: Yes Alcohol Use: None Do you use any recreational Drugs:: No Lives Where: Home infectious screening Have you traveled outside the country in the last 6 months?: No Isolation: Standard ROS Review of Systems Constitutional: No Symptoms Reported Eyes: No Symptoms Reported ENTM: No Symptoms Reported Respiratoy: No Symptoms Reported Cardiovascular: No Symptoms Reported Gastrointestinal/Abdominal: No Symptoms Reported Genitourinary: No Symptoms Reported Neurological: No Symptoms Reported Musculoskeletal: No Symptoms Reported Integumentary: No Symptoms Reported Hematologic/Lymphatic: No Symptoms Reported Psychiatric: No Symptoms Reported All Other Systems: Reviewed and Negative PE Vital Signs Vitals: Temperature 99.1 F Pulse Rate [Apical] 88 Pulse Rate 94 Respiratory Rate 16 Blood Pressure [Left Arm] 113/55 Blood Pressure [Right Arm] 123/55 Blood Pressure 114/58 O2 Sat by Pulse Oximetry 100 General Limitations: No Limitations General Appearance: In Distress Head Head Exam: Normal Inspection, Atraumatic and Normocephalic Eyes Eye exam: Normal Appearance, PERRL and EOMI ENT ENT Exam: Normal Exam, Normal Oropharynx, Mucous Membranes Moist, TM's Normal Bilaterally and Other (Intubated) Neck Neck Exam: Normal Inspection and Full ROM Chest Chest Inspection: Normal Inspection Respiratory Respiratory Exam: Normal Lung Sounds Bilat Respiratory Exam: Bilateral: Clear to Auscultation Cardiovascular Cardiovascular Exam: Regular Rate and Normal Rhythm Abdominal Exam Abdominal Exam: Normal Inspection, Normal Bowel Sounds and Soft Extremities Extremities Exam: Normal Inspection Back Back Exam: Normal Inspection and Full ROM Neurologic Neurological Exam: Alert, Oriented X3 and CN II-XII Intact Psychiatric Psychiatric Exam: Normal Affect and Normal Mood Skin Skin Exam: Warm and Dry COURSE Consultation Called: 03:15 Consultation Comments: Dr. Cornell agreed to admit for further evaluation and treatment ROR Labs Reviewed Laboratory Results Reviewed?: Yes Result Diagrams: 11/11/18 21:55 11/11/18 21:55 Laboratory: WBC 15.4 X10^3/uL (3.6-10.0) H 11/11/18 21:55 RBC 4.19 X10^6/uL (3.5-5.4) 11/11/18 21:55 Hgb 12.3 g/dL (12.0-16.0) 11/11/18 21:55 Hct 37.6 % (36.0-47.0) 11/11/18 21:55 MCV 89.7 fL (80.0-100.0) 11/11/18 21:55 MCH 29.4 pg (27.0-34.0) 11/11/18 21:55 MCHC 32.8 g/dL (33.0-35.0) L 11/11/18 21:55 RDW 14.6 % (11.6-16.5) 11/11/18 21:55 Plt Count 157 X10^3/uL (150.0-450.0) 11/11/18 21:55 MPV 9.6 fL (7.4-11.0) 11/11/18 21:55 Neut % (Auto) 88.2 % (42.0-75.0) H 11/11/18 21:55 Lymph % (Auto) 6.2 % (21.0-51.0) L 11/11/18 21:55 [place] % (Auto) 4.6 % (0.0-13.0) 11/11/18 21:55 Eos % (Auto) 0.3 % (0.9-2.9) L 11/11/18 21:55 Baso % (Auto) 0.7 % (0.2-1.0) 11/11/18 21:55 Neut # (Auto) 13.5 x10^3/uL (2.2-4.8) H 11/11/18 21:55 Lymph # (Auto) 1.0 X10^3/uL (1.3-2.9) L 11/11/18 21:55 Bound[place] # (Auto) 0.7 x10^3/uL (0.3-0.8) 11/11/18 21:55 Eos # (Auto) 0.0 x10^3/uL (0.0-0.2) 11/11/18 21:55 Baso # (Auto) 0.1 X10^3/uL (0.0-0.1) 11/11/18 21:55 Absolute Nucleated RBC 0.0 /100WBC 11/11/18 21:55 INR Target Range - 11/11/18 21:55 INR 1.05 (0.8-1.3) 11/11/18 21:55 APTT 23.9 SECONDS (22.9-36.5) 11/11/18 21:55 PTT Comment - 11/11/18 21:55 D-Dimer 724 ng/mL (0-400) H* 11/11/18 21:55 Sample Site Rbra 11/12/18 02:45 ABG pH 7.190 (7.35-7.45) L* 11/12/18 02:45 ABG pCO2 99.0 mmHg (35.0-45.0) H* 11/12/18 02:45 ABG pO2 60.0 mmHg (80.0-100.0) L 11/12/18 02:45 ABG HCO3 37.8 mmol/L (22-26) H* 11/12/18 02:45 ABG O2 Saturation 84.0 % (90-100) L* 11/12/18 02:45 ABG Base Excess 6.3 mmol/L (-2.0-2.0) H 11/12/18 02:45 Dony Test N/a 11/12/18 02:45 A-a Gradient 173.0 mmHg 11/12/18 02:45 FiO2 50.0 11/12/18 02:45 Blood Gas Comments Pt carolyne well elj 11/12/18 02:45 Sodium 137 mmol/L (136-145) 11/11/18 21:55 Corrected Sodium 138 mmol/L (136-145) 11/11/18 21:55 Potassium 4.4 mmol/L (3.5-5.1) 11/11/18 21:55 Chloride 99 mmol/L (98-107) 11/11/18 21:55 Carbon Dioxide 37.2 mmol/L (21-32) H 11/11/18 21:55 BUN 13 mg/dL (7-18) 11/11/18 21:55 Creatinine 0.85 mg/dL (0.55-1.02) 11/11/18 21:55 Est GFR (MDRD) Af Amer > 60 (>60) 11/11/18 21:55 Est GFR (MDRD) Non-Af > 60 (>60) 11/11/18 21:55 Glucose 144 mg/dL (65-99) H 11/11/18 21:55 Lactic Acid 0.6 mmol/L (0.4-2.0) 11/12/18 00:00 Calcium 8.8 mg/dL (8.5-10.1) 11/11/18 21:55 Corrected Calcium 9.9 mg/dL (8.5-10.1) 11/11/18 21:55 Magnesium 1.9 mg/dL (1.7-2.9) 11/11/18 21:55 Total Bilirubin 0.20 mg/dL (0.2-1.0) 11/11/18 21:55 AST 36 Units/L (15-37) 11/11/18 21:55 ALT 17 Units/L (12-78) 11/11/18 21:55 Alkaline Phosphatase 60 Units/L (46-116) 11/11/18 21:55 Creatine Kinase 77 Units/L (26-192) 11/12/18 00:00 CK-MB (CK-2) 3.4 ng/mL (0-4.0) 11/12/18 00:00 CK/CKMB % Calc 4.4 % (<4) 11/12/18 00:00 Troponin I 0.40 ng/mL (0-1.5) 11/12/18 00:00 B-Natriuretic Peptide 184 pg/mL (0-79) H 11/11/18 21:55 Total Protein 6.0 g/dL (6.4-8.2) L 11/11/18 21:55 Albumin 2.6 g/dL (3.4-5.0) L 11/11/18 21:55 Globulin 3.4 g/dL (2.5-4.5) 11/11/18 21:55 Albumin/Globulin Ratio 0.8 Ratio (1.1-2.1) L 11/11/18 21:55 Specimen Type Catherized urine 11/11/18 21:30 Urine Color Yellow (YELLOW) 11/11/18 21:30 Urine Appearance Clear (CLEAR) 11/11/18 21:30 Urine pH 5.0 (5.0 - 8.0) 11/11/18 21:30 Ur Specific [place] 1.025 (1.000-1.030) 11/11/18 21: Urine Protein 4+ (NEGATIVE) 11/11/18 21:30 Urine Glucose (UA) Negative (NEGATIVE) 11/11/18 21: Urine Ketones 1+ (NEGATIVE) 11/11/18 21: Urine Occult Blood 2+ (NEGATIVE) 11/11/18 21:30 Urine Nitrite Negative (NEGATIVE) 11/11/18 21: Urine Bilirubin Negative (NEGATIVE) 11/11/18 21:30 Urine Urobilinogen Normal (NORMAL) 11/11/18 21:30 Ur Leukocyte Esterase 1+ (NEGATIVE) 11/11/18 21:30 Urine RBC 3-5 /HPF (NONE SEEN) 11/11/18 21:30 Urine WBC 0-2 /HPF (NONE SEEN) 11/11/18 21:30 Ur Squamous Epith Cells Rare /HPF (NEGATIVE) 11/11/18 21:30 Amorphous Sediment 2+ /HPF (NEGATIVE) 11/11/18 21:30 Urine Bacteria Negative /HPF (NEGATIVE) 11/11/18 21:30 Ur Culture Indicated? No/not indicated 11/11/18 21:30 Other Results Comments: Findings: Endotracheal tube has been placed the tip of the tube is approximately 4.5cm above the crystal in satisfactory positioning. No pneumothorax. Increased right greater than left bibasilar reticular opacities suspicious for infiltrate or aspiration. Mid and upper lung zones are clear. No pleural effusion. No acute osseous abnormality. Impression: Endotracheal tube is in satisfactory position approximately 4.5cm above the crystal. Bibasilar, right greater than left, reticular opacities are suspicious for developing infiltrate or aspiration. XRAY XRAY Interpreted by: Radiologist Procedures Procedure Comments Procedures: Patient was intubated by nurse anesthesia with conformation x ray revealed good positioning. ADDITIONAL NOTES Additional Notes Additional Notes: Admitted to Dr. Greene service
[2018-11-12] MEDS ORDERED: ROCEPHIN VIAL 1 GRAM IVP ONE (03:31)
[2018-11-12] MEDS ORDERED: ROCEPHIN VIAL 1 GRAM ONE (03:37)
[2018-11-12] MEDS ORDERED: DEXTROMETHORPHAN GUAIFENESIN PO SCH (03:45)
[2018-11-12] MEDS ORDERED: FLONASE NASAL SPRAY ENOSTRIL SCH (04:00)
[2018-11-12] MEDS ORDERED: RESTORIL CAP 15 MG PO SCH ×2 (04:00→21:00)
[2018-11-12] MEDS ORDERED: LEVAQUIN TAB 750 MG PO SCH (04:00)
[2018-11-12] MEDS ORDERED: XANAX PO PRN (04:53)
[2018-11-12] MEDS ORDERED: TESSALON PERLES PO PRN (04:53)
[2018-11-12] MEDS ORDERED: XOPENEX 1.25 MG/3 ML NEBULE NEB PRN (04:56)
[2018-11-12] MEDS ORDERED: ALBUTEROL SULFATE IN PRN (04:56)
[2018-11-12] MEDS ORDERED: ACCUNEB 1.25 MG NEBULE NEB SCH (06:00)
[2018-11-12] MEDS ORDERED: XOPENEX 1.25 MG/3 ML NEBULE NEB SCH ×2 (06:00→09:00)
[2018-11-12] MEDS ORDERED: CIPRO TAB 500 MG PO SCH (06:00)
[2018-11-12] MEDS ORDERED: TESSALON PERLES PO SCH (06:00)
[2018-11-12] MEDS ORDERED: LEVAQUIN PREMIX IV 750 MG 750 MG/150 ML BAG IV SCH (06:00)
[2018-11-12] MEDS: NS 1000 ML 1,000 ML IV SCH ×4 (06:10→21:18)
[2018-11-12 06:11] LABS: BASOPHILS # (AUTO) 0.1 X10^3/uL (0.0-0.1); BASOPHILS % (AUTO) 0.4 % (0.2-1.0); EOSINOPHILS % (AUTO) 0.1 % (0.9-2.9); HEMATOCRIT 38.6 % (36.0-47.0); HEMOGLOBIN 12.6 g/dL (12.0-16.0); LYMPHOCYTES # (AUTO) 0.7 X10^3/uL (1.3-2.9); LYMPHOCYTES % (AUTO) 5.7 % (21.0-51.0); MEAN CORPUSCULAR HEMOGLOBIN 29.1 pg (27.0-34.0); MEAN CORPUSCULAR HGB CONC 32.6 g/dL (33.0-35.0); MEAN CORPUSCULAR VOLUME 89.1 fL (80.0-100.0); MEAN PLATELET VOLUME 9.8 fL (7.4-11.0); MONOCYTES # (AUTO) 0.8 x10^3/uL (0.3-0.8); MONOCYTES % (AUTO) 6.5 % (0.0-13.0); NEUTROPHILS # (AUTO) 10.4 x10^3/uL (2.2-4.8); NEUTROPHILS % (AUTO) 87.3 % (42.0-75.0); PLATELET COUNT 147 X10^3/uL (150.0-450.0); RED BLOOD COUNT 4.33 X10^6/uL (3.5-5.4); RED CELL DISTRIBUTION WIDTH 14.1 % (11.6-16.5)
[2018-11-12 06:38] LABS: ALANINE AMINOTRANSFERASE 12 Units/L (12-78); ALBUMIN 2.4 g/dL (3.4-5.0); ALKALINE PHOSPHATASE 50 Units/L (46-116); ASPARTATE AMINO TRANSFERASE 30 Units/L (15-37); BLOOD UREA NITROGEN 14 mg/dL (7-18); CALCIUM 8.3 mg/dL (8.5-10.1); CARBON DIOXIDE 32.5 mmol/L (21-32); CHLORIDE 104 mmol/L (98-107); COR CA(FOR HYPOALB) 9.6 mg/dL (8.5-10.1); CREATINE KINASE 117 Units/L (26-192); CREATINE KINASE MB 3.5 ng/mL (0-4.0); CREATININE 0.65 mg/dL (0.55-1.02); SODIUM 140 mmol/L (136-145); TOTAL PROTEIN 5.6 g/dL (6.4-8.2); TROPONIN I 0.36 ng/mL (0-1.5); eGFR NON BLACK RACES > 60 (>60)
[2018-11-12] MEDS ORDERED: PROVENTIL NEB TX 0.083% 2.5MG/ 3ML NEB PRN (06:39)
[2018-11-12 07:03] LABS: ABG BASE EXCESS 10.1 mmol/L (-2.0-2.0)
[2018-11-12 07:04] LABS: ABG HCO3 33.2 mmol/L (22-26)
[2018-11-12] MEDS: PULMICORT NEB TX 0.5 MG NEB SCH ×2 (08:21→20:22)
[2018-11-12] MEDS ORDERED: CIPRO IV 400 MG PREMIX* 400 MG/200 ML IV.SOLN. IV SCH (09:00)
[2018-11-12] MEDS ORDERED: XANAX PO SCH (09:00)
[2018-11-12] MEDS ORDERED: TIOTROPIUM BROMIDE MONOHYDRATE IN SCH (09:00)
[2018-11-12] MEDS ORDERED: PATIENT'S HOME MEDICATION (Fenofibrate [Fenofibrate] 54 MG) PO SCH ×2 (09:00)
[2018-11-12] MEDS ORDERED: Atrovent NEB TX 0.02% NEB SCH (09:00)
[2018-11-12] MEDS ORDERED: TIOTROPIUM BROMIDE IN SCH (09:00)
[2018-11-12] MEDS ORDERED: AMLODIPINE BESYLATE 5 MG PO SCH (09:00)
[2018-11-12] MEDS ORDERED: MEGACE PO SCH ×2 (09:00)
[2018-11-12] MEDS ORDERED: LIPITOR TAB 20 MG PO SCH ×2 (09:00→21:00)
[2018-11-12] MEDS ORDERED: LACTOBAC RHAMNOSUS GG INULIN PO SCH (09:00)
[2018-11-12] MEDS ORDERED: MAG-OX TAB PO SCH ×2 (09:00)
[2018-11-12] MEDS ORDERED: PATIENT'S HOME MEDICATION (Budesonide-Formoterol 1 PUFF) IN SCH (09:00)
[2018-11-12] MEDS ORDERED: PROVENTIL NEB TX 0.083% 2.5MG/ 3ML NEB SCH (09:00)
[2018-11-12] MEDS ORDERED: THEOPHYLLINE 400 MG PO SCH (09:00)
[2018-11-12] MEDS ORDERED: AUGMENTIN 875 MG/125 MG TAB PO SCH (09:00)
[2018-11-12] MEDS ORDERED: UNIPHYL TAB 400 MG PO SCH (09:00)
[2018-11-12] MEDS: SOLU-Medrol 40 MG VIAL IVP SCH ×3 (10:45→21:18)
[2018-11-12] MEDS ORDERED: DIPRIVAN VIAL 20 ML ONE (11:58)
[2018-11-12] MEDS ORDERED: QUELICIN (OR ANECTINE) ONE (11:59)
[2018-11-12] MEDS: DUONEB 0.5 MG/3 MG NEB SCH ×3 (12:25→20:22)
--- NOTE | 2018-11-12 12:45 | RAD ---
HISTORY: ET tube placement Study: Chest AP portable Comparison: 11/11/2018 Findings: Patient is rotated slightly to the right. There is an ET tube with its tip above the crystal. The heart is within normal limits in size. The alvarado are normal. The lungs are hyperinflated consistent with COPD. Interstitial lung changes are present bilaterally right greater than left. There now appears to be an early right basilar alveolar infiltrates suggestive of superimposed pneumonia. No pleural effusions are identified. The bony thorax is unremarkable. IMPRESSION: ET tube in good position above the crystal COPD with interstitial lung disease Subtle superimposed alveolar infiltrate in the right lower lobe suggestive of superimposed acute pneumonia Reported By:
[2018-11-12] MEDS ORDERED: PHARMACY CONSULT - DOSE _____ XX SCH (13:00)
[2018-11-12] MEDS: DIPRIVAN PREMIX 1 GRAM IV 1,000 MG/100 ML VIAL IV PRN (14:23)
[2018-11-12] MEDS ORDERED: STERILE WATER IRRIGATION ONE (14:46)
[2018-11-12] MEDS ORDERED: NS 1000 ML 1,000 ML IV ONE (16:57)
[2018-11-12] MEDS ORDERED: DOPAMINE IV PREMIX 400 MG/250 ML 400 MG/250 ML BAG IV PRN (18:22)
[2018-11-12] MEDS ORDERED: DOPAMINE IV PREMIX 400 MG/250 ML 400 MG/250 ML BAG ONE (18:25)
[2018-11-12] MEDS ORDERED: TYLENOL SUPP 650 MG PR PRN (19:21)
[2018-11-12] MEDS ORDERED: TYLENOL SUPP 650 MG ONE (19:24)
[2018-11-12 20:48] LABS: BASOPHILS % (AUTO) 0.1 % (0.2-1.0); HEMATOCRIT 33.8 % (36.0-47.0); HEMOGLOBIN 11.5 g/dL (12.0-16.0); LYMPHOCYTES # (AUTO) 0.2 X10^3/uL (1.3-2.9); LYMPHOCYTES % (AUTO) 2.1 % (21.0-51.0); MEAN CORPUSCULAR HEMOGLOBIN 29.8 pg (27.0-34.0); MEAN CORPUSCULAR HGB CONC 33.9 g/dL (33.0-35.0); MEAN PLATELET VOLUME 9.5 fL (7.4-11.0); MONOCYTES # (AUTO) 0.1 x10^3/uL (0.3-0.8); MONOCYTES % (AUTO) 1.6 % (0.0-13.0); NEUTROPHILS # (AUTO) 8.2 x10^3/uL (2.2-4.8); NEUTROPHILS % (AUTO) 96.2 % (42.0-75.0); PLATELET COUNT 141 X10^3/uL (150.0-450.0); RED BLOOD COUNT 3.84 X10^6/uL (3.5-5.4); RED CELL DISTRIBUTION WIDTH 14.5 % (11.6-16.5); WHITE BLOOD COUNT 8.6 X10^3/uL (3.6-10.0)
[2018-11-12] MEDS ORDERED: NORVASC TAB 5 MG PO SCH (21:00)
[2018-11-12 21:10] LABS: BAND NEUTROPHILS % 6 % (0-10); HYPOCHROMASIA SLIGHT; PLATELET MORPHOLOGY COMMENT NORMAL (NORMAL)
[2018-11-13] MEDS: DUONEB 0.5 MG/3 MG NEB SCH ×6 (00:24→20:18)
[2018-11-13 04:29] LABS: ABG BASE EXCESS 7.2 mmol/L (-2.0-2.0)
[2018-11-13 04:30] LABS: ABG ALLEN TEST POS
[2018-11-13] MEDS: NS 1000 ML 1,000 ML IV SCH ×4 (05:22→22:55)
[2018-11-13] MEDS: SOLU-Medrol 40 MG VIAL IVP SCH ×3 (05:23→21:09)
[2018-11-13] MEDS: DIPRIVAN PREMIX 1 GRAM IV 1,000 MG/100 ML VIAL IV PRN (05:23)
[2018-11-13 05:32] LABS: BASOPHILS % (AUTO) 0.1 % (0.2-1.0); HEMATOCRIT 35.2 % (36.0-47.0); HEMOGLOBIN 11.6 g/dL (12.0-16.0); LYMPHOCYTES # (AUTO) 0.3 X10^3/uL (1.3-2.9); LYMPHOCYTES % (AUTO) 3.2 % (21.0-51.0); MEAN CORPUSCULAR HEMOGLOBIN 29.3 pg (27.0-34.0); MEAN CORPUSCULAR VOLUME 88.8 fL (80.0-100.0); MEAN PLATELET VOLUME 10.5 fL (7.4-11.0); MONOCYTES # (AUTO) 0.2 x10^3/uL (0.3-0.8); MONOCYTES % (AUTO) 2.4 % (0.0-13.0); NEUTROPHILS # (AUTO) 7.5 x10^3/uL (2.2-4.8); NEUTROPHILS % (AUTO) 94.3 % (42.0-75.0); PLATELET COUNT 144 X10^3/uL (150.0-450.0); RED BLOOD COUNT 3.96 X10^6/uL (3.5-5.4); RED CELL DISTRIBUTION WIDTH 14.5 % (11.6-16.5); WHITE BLOOD COUNT 7.9 X10^3/uL (3.6-10.0)
[2018-11-13 05:38] LABS: ALANINE AMINOTRANSFERASE 11 Units/L (12-78); ALBUMIN 2.3 g/dL (3.4-5.0); ALKALINE PHOSPHATASE 40 Units/L (46-116); ASPARTATE AMINO TRANSFERASE 25 Units/L (15-37); BLOOD UREA NITROGEN 23 mg/dL (7-18); CALCIUM 8.1 mg/dL (8.5-10.1); CARBON DIOXIDE 29.1 mmol/L (21-32); CHLORIDE 105 mmol/L (98-107); COR CA(FOR HYPOALB) 9.5 mg/dL (8.5-10.1); COR NA(FOR HYPERGLY) 141 mmol/L (136-145); CREATININE 0.79 mg/dL (0.55-1.02); SODIUM 140 mmol/L (136-145); TOTAL PROTEIN 5.5 g/dL (6.4-8.2); eGFR NON BLACK RACES > 60 (>60)
[2018-11-13 06:32] LABS: PLATELET MORPHOLOGY COMMENT NORMAL (NORMAL)
--- NOTE | 2018-11-13 07:23 | RAD ---
HISTORY: Shortness of breath Study: Chest AP portable Comparison: 11/12/2018 Findings: There is an endotracheal tube above the crystal. The heart is upper limits normal in size. The aorta is calcified. The alvarado are normal. The lungs remain hyperinflated. Bibasilar interstitial lung changes are present. Right basilar infiltrate is unchanged. New on this examination is a right basilar pneumothorax approximately 20%. Bony thorax is unremarkable. IMPRESSION: Interval development of a right basilar pneumothorax as described above No change right basilar infiltrate Hyperinflation Reported By:
[2018-11-13] MEDS: PULMICORT NEB TX 0.5 MG NEB SCH ×2 (08:06→20:18)
[2018-11-13] MEDS: LOVENOX INJ 40 MG SYR SC SCH (08:15)
[2018-11-13] MEDS ORDERED: LEVAQUIN PREMIX IV 500 MG 500 MG/100 ML BAG IV SCH (09:00)
[2018-11-13] MEDS: XANAX PO PRN (21:10)
[2018-11-14] MEDS: DUONEB 0.5 MG/3 MG NEB SCH ×6 (01:14→20:16)
[2018-11-14] MEDS: SOLU-Medrol 40 MG VIAL IVP SCH ×3 (04:59→21:05)
[2018-11-14 05:06] LABS: ABG HCO3 31.7 mmol/L (22-26)
[2018-11-14 05:07] LABS: ABG ALLEN TEST POS
[2018-11-14 05:37] LABS: BASOPHILS % (AUTO) 0.1 % (0.2-1.0); HEMATOCRIT 36.5 % (36.0-47.0); HEMOGLOBIN 12.1 g/dL (12.0-16.0); LYMPHOCYTES # (AUTO) 0.2 X10^3/uL (1.3-2.9); LYMPHOCYTES % (AUTO) 2.4 % (21.0-51.0); MEAN CORPUSCULAR HEMOGLOBIN 29.8 pg (27.0-34.0); MEAN CORPUSCULAR HGB CONC 33.3 g/dL (33.0-35.0); MEAN CORPUSCULAR VOLUME 89.7 fL (80.0-100.0); MEAN PLATELET VOLUME 10.3 fL (7.4-11.0); MONOCYTES # (AUTO) 0.3 x10^3/uL (0.3-0.8); MONOCYTES % (AUTO) 2.7 % (0.0-13.0); NEUTROPHILS # (AUTO) 9.7 x10^3/uL (2.2-4.8); NEUTROPHILS % (AUTO) 94.8 % (42.0-75.0); PLATELET COUNT 149 X10^3/uL (150.0-450.0); RED BLOOD COUNT 4.07 X10^6/uL (3.5-5.4); WHITE BLOOD COUNT 10.3 X10^3/uL (3.6-10.0)
[2018-11-14 06:06] LABS: ALANINE AMINOTRANSFERASE 15 Units/L (12-78); ALBUMIN 2.6 g/dL (3.4-5.0); ALKALINE PHOSPHATASE 40 Units/L (46-116); ASPARTATE AMINO TRANSFERASE 39 Units/L (15-37); BLOOD UREA NITROGEN 23 mg/dL (7-18); CALCIUM 8.4 mg/dL (8.5-10.1); CARBON DIOXIDE 28.8 mmol/L (21-32); CHLORIDE 109 mmol/L (98-107); COR CA(FOR HYPOALB) 9.5 mg/dL (8.5-10.1); CREATININE 0.57 mg/dL (0.55-1.02); SODIUM 144 mmol/L (136-145); TOTAL PROTEIN 6.1 g/dL (6.4-8.2); eGFR NON BLACK RACES > 60 (>60)
--- NOTE | 2018-11-14 06:07 | RAD ---
Examination: AP chest History: SOB, COPD Comparison 11/13/2018 Findings: Continued normal heart size and anatomic position. A right basal pneumothorax has apparently increased to 30%. No definite tension effect. Nonspecific interstitial prominence is noted in the lungs bilaterally. There is no evidence for consolidation or large pleural effusion. Endotracheal tube has been removed. Impression: Interval extubation. Slight interval increase in size of right basal pneumothorax. Reported By:
[2018-11-14 06:35] LABS: BAND NEUTROPHILS % 1 % (0-10); PLATELET MORPHOLOGY COMMENT NORMAL (NORMAL)
[2018-11-14] MEDS: NS 1000 ML 1,000 ML IV SCH ×2 (06:55→15:34)
[2018-11-14] MEDS: LOVENOX INJ 40 MG SYR SC SCH (08:16)
[2018-11-14] MEDS ORDERED: CHLORASEPTIC SPRAY MT PRN (08:38)
[2018-11-14] MEDS: PULMICORT NEB TX 0.5 MG NEB SCH ×2 (09:24→20:16)
[2018-11-14] MEDS: MUCOMYST 20% 200 MG/ML NEB SCH ×4 (09:31→20:16)
[2018-11-14] MEDS ORDERED: NS 100 ML IV + SPIKE MINIBAG* 100 ML ONE (11:29)
[2018-11-14] MEDS: FORTAZ or TAZICEF VIAL INJ IVP SCH ×3 (11:35→21:04)
[2018-11-14] MEDS: ROBITUSSIN DM PO SCH ×4 (11:37→21:04)
[2018-11-14] MEDS: COLACE CAP 100 MG PO SCH (21:04)
[2018-11-14] MEDS: XANAX PO PRN (21:05)
--- NOTE | 2018-11-14 21:36 | PCM.PROG ---
Progress Note - Progress Note for Day of Date of Exam: 11/14/18 - Subjective Subjective: WAS ADMITTED FOR RESPIRATORY FAILURE, PNEUMONIA, AND COPD EXACERBATION. SHE REMAINS IN THE INTENSIVE CARE UNIT TODAY. SHE HAS BEEN WEANED OFF OF THE VENTILATOR AND IS CURENTLY ON THE BIPAP. SHE CONTINUES WITH SHORTNESS OF BREATH AND IS NOTED WITH A PERSISTENT COUGH. ON EXAMINATION, HEART IS REGULAR IN RATE AND RHYTHM. BILATERAL LUNGS ARE NOTED WITH SCATTERED WHEEZING AND RHONCHI. ABDOMEN IS ROUND, SOFT, AND NON-TENDER WITH NORMAL BOWEL SOUNDS NOTED IN ALL QUADRANTS. HER VITALS THIS MORNING ARE: 99.0-835-47-100%VENT-165/67. LABS WERE OBTAINED. ABNORMAL LAB VALUES INCLUDE THE FOLLOWING: PLT COUNT 135, CHLORIDE 111, CARBON DIOXIDE 32.4, BUN 22, CREATININE 0.50, GLUCOSE 122, ALT 11, ALK PHOS 38, TOTAL PROTEIN 6.0, ALBUMIN 2.6. TODAYS ABG REVEALED: PH 7.270, PC02 69.0, P02 76.0, HC03 31.7, 02 SATURATION 93.0, BASE EXCESS 3.0. BLOOD CULTURES ARE PENDING. SPUTUM CULTURE IS POSITIVE FOR ACINETOBACTER BAUMANII/HAEMOLY. A CHEST XRAY WAS OBTAINED TODAY AND REVEALED: Continued normal heart size and anatomic position. A right basal pneumothorax has apparently increased to 30%. No definite tension effect. Nonspecific interstitial prominence is noted in the lungs bilaterally. There is no evidence for consolidation or large pleural effusion. Endotracheal tube has been removed. SHE IS CURRENTLY RECEIVING IV LEVAQUIN, IV FLUIDS, RESPIRATORY TX, AND IV STEROIDS. WE WILL DISCONTINUE THE LEVAQUIN AND START FORTAZ 1G IV Q8H, MUCOMYST IN NEB TX, ROBITUSSIN, AND CHLOROSEPTIC. OTHERWISE, WE WILL FOLLOW UP WITH AM LABS AND CONTINUE TO MONITOR. - Past Medical Family Social History Past Med/Fam/Surg Hx: No changes since H&P Allergies: Allergies No Known Drug Allergies Allergy (Verified 05/21/17 08:19) - Review of Systems ROS: No change since H&P - Vital Signs and I&O's Vital Signs: Temperature 99.1 F Pulse Rate [Apical] 88 Pulse Rate 92 Respiratory Rate 24 Blood Pressure [Left Arm] 113/55 Blood Pressure [Right Arm] 123/55 Blood Pressure 146/66 O2 Sat by Pulse Oximetry 95 Intake and Output: Intake & Output 11/12/18 11/13/18 11/14/18 11/15/18 11:59 11:59 11:59 11:59 Intake Total 340.8 / 340.8 1803 / 1803 3253 / 3253 1573 / 1573 Output Total 200 / 200 535 / 535 900 / 900 400 / 400 Balance 140.8 / 140.8 1268 / 1268 2353 / 2353 1173 / 1173 - Physical Exam Oriented: Normal Eyes: Normal Ear: Normal Nose: Normal Throat: Normal Respiratory: Wheezes, Rhonchi Cardiovascular: Normal : Normal Auscultation: Bowel Sounds: Normal Palpation: Normal Tenderness: Normal Skin: Normal Musculoskeletal: Normal Psychiatric: Normal Mood Description: Calm Affect: Normal Speech Pattern: Clear, Appropriate - Laboratory and Diagnostics Result Diagrams: 11/16/18 04:05 11/16/18 04:05 Labs: 11/11/18 23:39 Blood Blood Culture - Preliminary 11/12/18 20:30 Blood Blood Culture - Preliminary 11/12/18 20:37 Blood Blood Culture - Preliminary 11/12/18 04:45 Sputum - Expectorated Sputum Sputum Culture - Final Acinetobacter Baumanii/Haemoly 11/12/18 04:45 Sputum - Expectorated Sputum - Final Laboratory WBC 10.3 X10^3/uL (3.6-10.0) H 11/14/18 04:23 RBC 4.07 X10^6/uL (3.5-5.4) 11/14/18 04:23 Hgb 12.1 g/dL (12.0-16.0) 11/14/18 04:23 Hct 36.5 % (36.0-47.0) 11/14/18 04:23 MCV 89.7 fL (80.0-100.0) 11/14/18 04:23 MCH 29.8 pg (27.0-34.0) 11/14/18 04:23 MCHC 33.3 g/dL (33.0-35.0) 11/14/18 04:23 RDW 15.0 % (11.6-16.5) 11/14/18 04:23 Plt Count 149 X10^3/uL (150.0-450.0) L 11/14/18 04:23 Plt Count Comment Decreased (ADEQUATE) A 11/14/18 04:23 MPV 10.3 fL (7.4-11.0) 11/14/18 04:23 Neut % (Auto) 94.8 % (42.0-75.0) H 11/14/18 04:23 Lymph % (Auto) 2.4 % (21.0-51.0) L 11/14/18 04:23 [place] % (Auto) 2.7 % (0.0-13.0) 11/14/18 04:23 Eos % (Auto) 0.0 % (0.9-2.9) L 11/14/18 04:23 Baso % (Auto) 0.1 % (0.2-1.0) L 11/14/18 04:23 Neut # (Auto) 9.7 x10^3/uL (2.2-4.8) H 11/14/18 04:23 Lymph # (Auto) 0.2 X10^3/uL (1.3-2.9) L 11/14/18 04:23 [place] # (Auto) 0.3 x10^3/uL (0.3-0.8) 11/14/18 04:23 Eos # (Auto) 0.0 x10^3/uL (0.0-0.2) 11/14/18 04:23 Baso # (Auto) 0.0 X10^3/uL (0.0-0.1) 11/14/18 04:23 Absolute Nucleated RBC 0.0 /100WBC 11/14/18 04:23 Total Counted 100 11/14/18 04:23 Neutrophils % (Manual) 95 % (39-76) H 11/14/18 04:23 Band Neutrophils % 1 % (0-10) 11/14/18 04:23 Lymphocytes % (Manual) 3 % (13-43) L 11/14/18 04:23 Monocytes % (Manual) 1 % (4-9) L 11/14/18 04:23 Plt Morphology Comment Normal (NORMAL) 11/14/18 04:23 RBC Morphology Normal (NORMAL) 11/14/18 04:23 Hypochromasia Slight A 11/12/18 20:30 INR Target Range - 11/11/18 21:55 INR 1.05 (0.8-1.3) 11/11/18 21:55 APTT 23.9 SECONDS (22.9-36.5) 11/11/18 21:55 PTT Comment - 11/11/18 21:55 D-Dimer 724 ng/mL (0-400) H* 11/11/18 21:55 Sample Site Rr 11/14/18 05:00 ABG pH 7.270 (7.35-7.45) L 11/14/18 05:00 ABG pCO2 69.0 mmHg (35.0-45.0) H* 11/14/18 05:00 ABG pO2 76.0 mmHg (80.0-100.0) L 11/14/18 05:00 ABG HCO3 31.7 mmol/L (22-26) H* 11/14/18 05:00 ABG O2 Saturation 93.0 % (90-100) 11/14/18 05:00 ABG Base Excess 3.0 mmol/L (-2.0-2.0) H 11/14/18 05:00 Dony Test Pos 11/14/18 05:00 A-a Gradient 123.0 mmHg 11/14/18 05:00 FiO2 40.0 11/14/18 05:00 Blood Gas Comments Josefina well ae 11/14/18 05:00 Sodium 144 mmol/L (136-145) 11/14/18 04:23 Corrected Sodium TNP 11/14/18 04:23 Potassium 4.5 mmol/L (3.5-5.1) 11/14/18 04:23 Chloride 109 mmol/L (98-107) H 11/14/18 04:23 Carbon Dioxide 28.8 mmol/L (21-32) 11/14/18 04:23 BUN 23 mg/dL (7-18) H 11/14/18 04:23 Creatinine 0.57 mg/dL (0.55-1.02) 11/14/18 04:23 Est GFR (MDRD) Af Amer > 60 (>60) 11/14/18 04:23 Est GFR (MDRD) Non-Af > 60 (>60) 11/14/18 04:23 Glucose 107 mg/dL (65-99) H 11/14/18 04:23 Lactic Acid 0.6 mmol/L (0.4-2.0) 11/12/18 00:00 Calcium 8.4 mg/dL (8.5-10.1) L 11/14/18 04:23 Corrected Calcium 9.5 mg/dL (8.5-10.1) 11/14/18 04:23 Magnesium 1.9 mg/dL (1.7-2.9) 11/11/18 21:55 Total Bilirubin 0.20 mg/dL (0.2-1.0) 11/14/18 04:23 AST 39 Units/L (15-37) H 11/14/18 04:23 ALT 15 Units/L (12-78) 11/14/18 04:23 Alkaline Phosphatase 40 Units/L (46-116) L 11/14/18 04:23 Creatine Kinase 117 Units/L (26-192) 11/12/18 05:45 CK-MB (CK-2) 3.5 ng/mL (0-4.0) 11/12/18 05:45 CK/CKMB % Calc 3.0 % (<4) 11/12/18 05:45 Troponin I 0.36 ng/mL (0-1.5) 11/12/18 05:45 B-Natriuretic Peptide 184 pg/mL (0-79) H 11/11/18 21:55 Total Protein 6.1 g/dL (6.4-8.2) L 11/14/18 04:23 Albumin 2.6 g/dL (3.4-5.0) L 11/14/18 04:23 Globulin 3.5 g/dL (2.5-4.5) 11/14/18 04:23 Albumin/Globulin Ratio 0.7 Ratio (1.1-2.1) L 11/14/18 04:23 Specimen Type Catherized urine 11/11/18 21:30 Urine Color Yellow (YELLOW) 11/11/18 21:30 Urine Appearance Clear (CLEAR) 11/11/18 21:30 Urine pH 5.0 (5.0 - 8.0) 11/11/18 21:30 Ur Specific [place] 1.025 (1.000-1.030) 11/11/18 21:30 Urine Protein 4+ (NEGATIVE) 11/11/18 21:30 Urine Glucose (UA) Negative (NEGATIVE) 11/11/18 21:30 Urine Ketones 1+ (NEGATIVE) 11/11/18 21:30 Urine Occult Blood 2+ (NEGATIVE) 11/11/18 21:30 Urine Nitrite Negative (NEGATIVE) 11/11/18 21:30 Urine Bilirubin Negative (NEGATIVE) 11/11/18 21:30 Urine Urobilinogen Normal (NORMAL) 11/11/18 21:30 Ur Leukocyte Esterase 1+ (NEGATIVE) 11/11/18 21:30 Urine RBC 3-5 /HPF (NONE SEEN) 11/11/18 21:30 Urine WBC 0-2 /HPF (NONE SEEN) 11/11/18 21:30 Ur Squamous Epith Cells Rare /HPF (NEGATIVE) 11/11/18 21:30 Amorphous Sediment 2+ /HPF (NEGATIVE) 11/11/18 21:30 Urine Bacteria Negative /HPF (NEGATIVE) 11/11/18 21:30 Ur Culture Indicated? No/not indicated 11/11/18 21:30 - Plan (1) Pneumonia Status: Acute Qualifiers: Pneumonia type: due to other aerobic Gram-negative bacteria Laterality: bilateral Lung location: unspecified part of lung Qualified Code(s): J15.6 - Pneumonia due to other Gram-negative bacteria Plan: iv antibiotics, respiratory tx, vent, continue to monitor (2) COPD exacerbation Status: Acute Plan: iv antibiotics, iv steroids, vent, respiratory tx, continue to monitor (3) Pneumothorax Status: Acute Qualifiers: Pneumothorax type: unspecified pneumothorax Qualified Code(s): J93.9 - Pneumothorax, unspecified Plan: CONTINUE TO MONITOR (4) Respiratory failure with hypoxia and hypercapnia Status: Acute Qualifiers: Chronicity: acute on chronic Qualified Code(s): J96.21 - Acute and chronic respiratory failure with hypoxia; J96.22 - Acute and chronic respiratory failure with hypercapnia Plan: iv antibiotics, iv steroids, vent, respiratory tx, continue to monitor
--- NOTE | 2018-11-14 21:40 | DR.H&P ---
H&P - History & Physical for Day of: H&P Date: 11/12/18 - Chief Complaint Chief Complaint: unresponsive, agonal respirations - History of Present Illness History of Present Illness: IS A 73 YEAR OLD PATIENT OF OURS. SHE PRESENTED TO THE ER VIA EMS UNRESPONSIVE. SHE WAS BEING OXYGENATED BY THE AMBUBAG ON ARRIVAL. FAMILY FOUND HER AT HOME UNRESPONSIVE AND WITHOUT HER OXYGEN. EMS REPORTED THAT SHE WAS NOTED WITH AGONAL BREATHING. ON ARRIVAL TO THE ER, VITALS WERE 97.1-97-15-92% [id number]. LABS WERE OBTAINED. ABNORMAL LAB VALUES INCLUDE THE FOLLOWING: WBC 15.4, D-DIMER 724, CARBON DIOXIDE 37.2, GLUCOSE 144, BNP 184, TOTAL PROTEIN 6.0, ALBUMIN 2.6. CARDIAC ENZYMES WITHIN NORMAL LIMITS. AN ABG WAS OBTAINED AND REVEALED: PH 7.310, PC02 75.0, P02 394.0, HC03 37.8, 02 SATURATION 100.0, BASE EXCESS 8.9. URINALYSIS REVEALED: WBC 0-2, RBC 3-5, LEUKOCYTES 1+, BACTERIA NEGATIVE. BLOOD AND SPUTUM CULTURES WERE OBTAINED. A CHEST XRAY WAS OBTAINED AND REVEALED: Patchy right basilar airspace opacities may represent aspiration versus bacterial pneumonia. SHE WAS INTUBATED IN THE ER AND PLACED ON THE MECHANICAL VENTILATOR. SHE WAS PLACED ON A VERSED DRIP AND ADMITTED TO THE INTENSIVE CARE UNIT FOR FURTHER EVALUATION AND TREATM ENT OF PNEUMONIA, COPD EXACERBATION, AND RESPIRATORY FAILURE WITH HYPERCAPNIA. SHE WAS STARTED ON A DOPAMINE DRIP, VERSED DRIP, LEVAQUIN IV DAILY, AND RESPIRATORY TREATMENTS. WE PLAN TO FOLLOW UP WITH AM LABS, ABG, AND CHEST XRAY AND CONTINUE TO MONITOR. - Past Medical History Past Medical History: Hypertension, Dyslipidemia, Anxiety, COPD - Past Surgical History Surgical History: Appendectomy, RN ACUTE CARE Surgery - Family History Family Medical History: Cancer, Hypertension - Social History Does patient currently use any type of tobacco product: Yes Have you used tobacco products in the last 12 months: Yes Type of Tobacco Use: Cigarettes Does any household member use tobacco: No Alcohol Use: None Drug Use: None - Medications Home Medications: No Known Drug Allergies Allergy (Verified 05/21/17 08:19) CONTINUE taking the following medications albuterol sulfate [Ventolin HFA] 2 puff INHALATION Q4-6H PRN 11/12/18 [History] alprazolam 0.5 mg PO BID PRN 11/12/18 [History] amlodipine 5 mg PO HS 11/12/18 [History] atorvastatin 20 mg PO HS 11/12/18 [History] benzonatate 200 mg PO TID PRN 11/12/18 [History] ciprofloxacin HCl 500 mg PO TID 11/12/18 [History] fenofibrate 54 mg PO DAILY 11/12/18 [History] levalbuterol HCl 1 amp INHALATION TID PRN 11/12/18 [History] magnesium oxide 400 mg PO BID 11/12/18 [History] megestrol 40 mg PO BID 11/12/18 [History] temazepam 30 mg PO HS 11/12/18 [History] theophylline 400 mg PO DAILY 11/12/18 [History] tiotropium bromide [Spiriva with HandiHaler] 1 inh INHALATION DAILY 11/12/18 [History] - Review of Systems Constitutional: See HPI Eyes: No Symptoms Reported ENT: No Symptoms Reported Respiratory: See HPI, Wheezing Cardiovascular: No Symptoms Reported Gastrointestinal: No Symptoms Reported Genitourinary: No Symptoms Reported Musculoskeletal: No Symptoms Reported Skin: No Symptoms Reported Neurological: Other (unresponsive ) - Physical Exam Vital Signs: Temperature 99.1 F Pulse Rate [Apical] 88 Pulse Rate 92 Respiratory Rate 24 Blood Pressure [Left Arm] 113/55 Blood Pressure [Right Arm] 123/55 Blood Pressure 146/66 O2 Sat by Pulse Oximetry 95 Oriented: Unable to test (unresponsive ) Eyes: Normal Ear: Normal Nose: Normal Throat: Normal Respiratory: Wheezes Throughout Cardiovascular: Normal : Normal Auscultation: Bowel Sounds: Normal Palpation: Normal Tenderness: Normal Skin: Normal Musculoskeletal: Normal Psychiatric: Other (unresponsive ) Speech Pattern: Artificially Ventilated - Assessment/Plan (1) Pneumonia Qualifiers: Pneumonia type: due to unspecified organism Laterality: bilateral Lung location: unspecified part of lung Qualified Code(s): J18.9 - Pneumonia, unspecified organism Status: Acute Plan: iv antibiotics, respiratory tx, vent, continue to monitor (2) COPD exacerbation Status: Acute Plan: iv antibiotics, iv steroids, vent, respiratory tx, continue to monitor (3) Respiratory failure with hypoxia and hypercapnia Qualifiers: Chronicity: acute on chronic Qualified Code(s): J96.21 - Acute and chronic respiratory failure with hypoxia; J96.22 - Acute and chronic respiratory failure with hypercapnia Status: Acute Plan: iv antibiotics, iv steroids, vent, respiratory tx, continue to monitor - Allergies Allergies/Adverse Reactions: Allergies Allergy/AdvReac Type Severity Reaction Status Date / Time No Known Drug Allergies Allergy Verified 05/21/17 08:19
[2018-11-15] MEDS: NS 1000 ML 1,000 ML IV SCH ×3 (00:05→18:23)
[2018-11-15] MEDS: DUONEB 0.5 MG/3 MG NEB SCH ×6 (00:40→21:04)
[2018-11-15 04:53] LABS: ABG BASE EXCESS 5.6 mmol/L (-2.0-2.0)
[2018-11-15 04:54] LABS: ABG HCO3 35.6 mmol/L (22-26)
[2018-11-15] MEDS: FORTAZ or TAZICEF VIAL INJ IVP SCH ×3 (05:04→21:23)
[2018-11-15] MEDS: SOLU-Medrol 40 MG VIAL IVP SCH (05:05)
[2018-11-15 05:23] LABS: BASOPHILS % (AUTO) 0.1 % (0.2-1.0); HEMATOCRIT 38.6 % (36.0-47.0); HEMOGLOBIN 12.6 g/dL (12.0-16.0); LYMPHOCYTES # (AUTO) 0.3 X10^3/uL (1.3-2.9); LYMPHOCYTES % (AUTO) 2.8 % (21.0-51.0); MEAN CORPUSCULAR HEMOGLOBIN 29.4 pg (27.0-34.0); MEAN CORPUSCULAR HGB CONC 32.6 g/dL (33.0-35.0); MEAN PLATELET VOLUME 9.6 fL (7.4-11.0); MONOCYTES # (AUTO) 0.3 x10^3/uL (0.3-0.8); MONOCYTES % (AUTO) 3.2 % (0.0-13.0); NEUTROPHILS # (AUTO) 8.4 x10^3/uL (2.2-4.8); NEUTROPHILS % (AUTO) 93.9 % (42.0-75.0); PLATELET COUNT 135 X10^3/uL (150.0-450.0); RED BLOOD COUNT 4.29 X10^6/uL (3.5-5.4); RED CELL DISTRIBUTION WIDTH 14.9 % (11.6-16.5)
[2018-11-15 05:39] LABS: ALANINE AMINOTRANSFERASE 11 Units/L (12-78); ALBUMIN 2.6 g/dL (3.4-5.0); ALKALINE PHOSPHATASE 38 Units/L (46-116); ASPARTATE AMINO TRANSFERASE 29 Units/L (15-37); BLOOD UREA NITROGEN 22 mg/dL (7-18); CALCIUM 8.5 mg/dL (8.5-10.1); CARBON DIOXIDE 32.4 mmol/L (21-32); CHLORIDE 111 mmol/L (98-107); COR CA(FOR HYPOALB) 9.6 mg/dL (8.5-10.1); COR NA(FOR HYPERGLY) 146 mmol/L (136-145); SODIUM 145 mmol/L (136-145); eGFR NON BLACK RACES > 60 (>60)
--- NOTE | 2018-11-15 06:27 | RAD ---
HISTORY: Shortness of breath. Study: Single-view chest. Comparison: 11/14/2018 and 11/13/2018. Findings: The trachea is midline. The cardiac silhouette is within normal limits. There is a significant pneumothorax on the right of at least 50% which has progressed compared with 11/13/2018, but is grossly unchanged compared with the previous day. There is no midline shift to suggest tension. Diffuse interstitial changes of the lungs are again noted. There is no focal consolidation or pleural effusion. The bony thorax is grossly intact IMPRESSION: Significant right-sided pneumothorax of at least 50% without associated tension which has progressed compared with 11/13/2018, but is grossly unchanged compared with the previous day. Reported By:
[2018-11-15 06:50] LABS: PLATELET MORPHOLOGY COMMENT NORMAL (NORMAL)
[2018-11-15] MEDS: LOVENOX INJ 40 MG SYR SC SCH ×2 (08:04→11:03)
[2018-11-15] MEDS: MILK OF MAGNESIA PO SCH (08:17)
[2018-11-15] MEDS: ROBITUSSIN DM PO SCH ×4 (08:17→21:22)
[2018-11-15] MEDS: MUCOMYST 20% 200 MG/ML NEB SCH ×4 (09:20→21:04)
[2018-11-15] MEDS: PULMICORT NEB TX 0.5 MG NEB SCH ×2 (09:20→21:04)
[2018-11-15] MEDS: VIBRAMYCIN 100 MG in D5W 250 ML IV 250 ML IV SCH ×2 (11:04→21:23)
[2018-11-15] MEDS: XANAX PO PRN ×2 (13:40→21:23)
--- NOTE | 2018-11-15 20:06 | PCM.PROG ---
Progress Note - Progress Note for Day of Date of Exam: 11/13/18 - Subjective Subjective: WAS ADMITTED FOR RESPIRATORY FAILURE, PNEUMONIA, AND COPD EXACERBATION. SHE REMAINS IN THE INTENSIVE CARE UNIT ON THE VENTILATOR TODAY. SHE REMAINS ON A DIPROVAN DRIP, BUT IS MORE ALERT AND RESPONSIVE TODAY THAN SHE WAS YESTERDAY. ON EXAMINATION, HEART IS REGULAR IN RATE AND RHYTHM. BILATERAL LUNGS ARE NOTED WITH SCATTERED WHEEZING AND RHONCHI. ABDOMEN IS ROUND, SOFT, AND NON-TENDER WITH NORMAL BOWEL SOUNDS NOTED IN ALL QUADRANTS. HER VITALS THIS MORNING ARE: 99.6-155-04-100%VENT-165/67. LABS WERE OBTAINED. ABNORMAL LAB VALUES INCLUDE THE FOLLOWING: HGB 11.6, HCT 35.2, PLT COUNT 144, BUN 23, GLUCOSE 124, CALCIUM 8.1, ALT 11, ALK PHOS 40, TOTAL PROTEIN 5.5, ALBUMIN 2.3. TODAYS ABG REVEALED: PH 7.460, PC02 45.0, P02 62.0, HC03 32.0, 02 SATURATION 93.0, BASE EXCESS 7.2. BLOOD AND SPUTUM CULTURES ARE PENDING. A CHEST XRAY WAS OBTAINED TODAY AND REVEALED: There is an endotracheal tube above the crystal. The heart is upper limits normal in size. The aorta is calcified. The alvarado are normal. The lungs remain hyperinflated. Bibasilar interstitial lung changes are present. Ri ght basilar infiltrate is unchanged. New on this examination is a right basilar pneumothorax approximately 20%. Bony thorax is unremarkable. SHE IS CURRENTLY RECEIVING IV LEVAQUIN, IV FLUIDS, RESPIRATORY TX, AND IV STEROIDS. WE WILL CONTINUE WITH CURRENT PLAN OF CARE TODAY. WE WILL ATTEMPT TO WEAN OFF OF THE VENTILATOR. OTHERWISE, WE WILL FOLLOW UP WITH AM LABS AND CONTINUE TO MONITOR. - Past Medical Family Social History Past Med/Fam/Surg Hx: No changes since H&P Allergies: Allergies No Known Drug Allergies Allergy (Verified 05/21/17 08:19) - Review of Systems ROS: No change since H&P - Vital Signs and I&O's Vital Signs: Temperature 99.4 F Pulse Rate [Apical] 88 Pulse Rate 97 Respiratory Rate 32 Blood Pressure [Left Arm] 113/55 Blood Pressure [Right Arm] 123/55 Blood Pressure 146/71 O2 Sat by Pulse Oximetry 87 Intake and Output: Intake & Output 05/31/19 11/14/18 11/15/18 11/16/18 11:59 11:59 11:59 11:59 Intake Total 1803 / 1803 3253 / 3253 3726 / 3726 1718 / 1718 Output Total 535 / 535 900 / 900 1050 / 1050 400 / 400 Balance 1268 / 1268 2353 / 2353 2676 / 2676 1318 / 1318 - Physical Exam Oriented: Person Eyes: Normal Ear: Normal Nose: Normal Throat: Normal Respiratory: Generalized, Wheezes, Rhonchi Cardiovascular: Tachycardia : Normal Auscultation: Bowel Sounds: Normal Palpation: Normal Tenderness: Normal Skin: Normal Musculoskeletal: Normal Psychiatric: Other (unresponsive ) Speech Pattern: Clear, Appropriate - Laboratory and Diagnostics Result Diagrams: 11/15/18 04:18 11/15/18 04:18 Labs: 11/11/18 23:39 Blood Blood Culture - Final Staphylococcus Hominis 11/12/18 20:30 Blood Blood Culture - Preliminary 11/12/18 20:37 Blood Blood Culture - Preliminary 11/12/18 04:45 Sputum - Expectorated Sputum Sputum Culture - Final Acinetobacter Baumanii/Haemoly 11/12/18 04:45 Sputum - Expectorated Sputum - Final Laboratory WBC 9.0 X10^3/uL (3.6-10.0) 11/15/18 04:18 RBC 4.29 X10^6/uL (3.5-5.4) 11/15/18 04:18 Hgb 12.6 g/dL (12.0-16.0) 11/15/18 04:18 Hct 38.6 % (36.0-47.0) 11/15/18 04:18 MCV 90.0 fL (80.0-100.0) 11/15/18 04:18 MCH 29.4 pg (27.0-34.0) 11/15/18 04:18 MCHC 32.6 g/dL (33.0-35.0) L 11/15/18 04:18 RDW 14.9 % (11.6-16.5) 11/15/18 04:18 Plt Count 135 X10^3/uL (150.0-450.0) L 11/15/18 04:18 Plt Count Comment Decreased (ADEQUATE) A 11/15/18 04:18 MPV 9.6 fL (7.4-11.0) 11/15/18 04:18 Neut % (Auto) 93.9 % (42.0-75.0) H 11/15/18 04:18 Lymph % (Auto) 2.8 % (21.0-51.0) L 11/15/18 04:18 [place] % (Auto) 3.2 % (0.0-13.0) 11/15/18 04:18 Eos % (Auto) 0.0 % (0.9-2.9) L 11/15/18 04:18 Baso % (Auto) 0.1 % (0.2-1.0) L 11/15/18 04:18 Neut # (Auto) 8.4 x10^3/uL (2.2-4.8) H 11/15/18 04:18 Lymph # (Auto) 0.3 X10^3/uL (1.3-2.9) L 11/15/18 04:18 [place] # (Auto) 0.3 x10^3/uL (0.3-0.8) 11/15/18 04:18 Eos # (Auto) 0.0 x10^3/uL (0.0-0.2) 11/15/18 04:18 Baso # (Auto) 0.0 X10^3/uL (0.0-0.1) 11/15/18 04:18 Absolute Nucleated RBC 0.0 /100WBC 11/15/18 04:18 Total Counted 100 11/15/18 04:18 Neutrophils % (Manual) 94 % (39-76) H 11/15/18 04:18 Band Neutrophils % 1 % (0-10) 11/14/18 04:23 Lymphocytes % (Manual) 2 % (13-43) L 11/15/18 04:18 Monocytes % (Manual) 4 % (4-9) 11/15/18 04:18 Plt Morphology Comment Normal (NORMAL) 11/15/18 04:18 RBC Morphology Normal (NORMAL) 11/15/18 04:18 Hypochromasia Slight A 11/12/18 20:30 INR Target Range - 11/11/18 21:55 INR 1.05 (0.8-1.3) 11/11/18 21:55 APTT 23.9 SECONDS (22.9-36.5) 11/11/18 21:55 PTT Comment - 11/11/18 21:55 D-Dimer 724 ng/mL (0-400) H* 11/11/18 21:55 Sample Site Rb 11/15/18 04:44 ABG pH 7.240 (7.35-7.45) L 11/15/18 04:44 ABG pCO2 83.0 mmHg (35.0-45.0) H* 11/15/18 04:44 ABG pO2 60.0 mmHg (80.0-100.0) L 11/15/18 04:44 ABG HCO3 35.6 mmol/L (22-26) H* 11/15/18 04:44 ABG O2 Saturation 86.0 % (90-100) L 11/15/18 04:44 ABG Base Excess 5.6 mmol/L (-2.0-2.0) H 11/15/18 04:44 Dony Test N/a 11/15/18 04:44 A-a Gradient 121.0 mmHg 11/15/18 04:44 FiO2 40.0 11/15/18 04:44 Blood Gas Comments Josefina well ae 11/15/18 04:44 Sodium 145 mmol/L (136-145) 11/15/18 04:18 Corrected Sodium 146 mmol/L (136-145) H 11/15/18 04:18 Potassium 4.6 mmol/L (3.5-5.1) 11/15/18 04:18 Chloride 111 mmol/L (98-107) H 11/15/18 04:18 Carbon Dioxide 32.4 mmol/L (21-32) H 11/15/18 04:18 BUN 22 mg/dL (7-18) H 11/15/18 04:18 Creatinine 0.50 mg/dL (0.55-1.02) L 11/15/18 04:18 Est GFR (MDRD) Af Amer > 60 (>60) 11/15/18 04:18 Est GFR (MDRD) Non-Af > 60 (>60) 11/15/18 04:18 Glucose 122 mg/dL (65-99) H 11/15/18 04:18 Lactic Acid 0.6 mmol/L (0.4-2.0) 11/12/18 00:00 Calcium 8.5 mg/dL (8.5-10.1) 11/15/18 04:18 Corrected Calcium 9.6 mg/dL (8.5-10.1) 11/15/18 04:18 Magnesium 1.9 mg/dL (1.7-2.9) 11/11/18 21:55 Total Bilirubin 0.20 mg/dL (0.2-1.0) 11/15/18 04:18 AST 29 Units/L (15-37) 11/15/18 04:18 ALT 11 Units/L (12-78) L 11/15/18 04:18 Alkaline Phosphatase 38 Units/L (46-116) L 11/15/18 04:18 Creatine Kinase 117 Units/L (26-192) 11/12/18 05:45 CK-MB (CK-2) 3.5 ng/mL (0-4.0) 11/12/18 05:45 CK/CKMB % Calc 3.0 % (<4) 11/12/18 05:45 Troponin I 0.36 ng/mL (0-1.5) 11/12/18 05:45 B-Natriuretic Peptide 184 pg/mL (0-79) H 11/11/18 21:55 Total Protein 6.0 g/dL (6.4-8.2) L 11/15/18 04:18 Albumin 2.6 g/dL (3.4-5.0) L 11/15/18 04:18 Globulin 3.4 g/dL (2.5-4.5) 11/15/18 04:18 Albumin/Globulin Ratio 0.8 Ratio (1.1-2.1) L 11/15/18 04:18 Specimen Type Catherized urine 11/11/18 21:30 Urine Color Yellow (YELLOW) 11/11/18 21:30 Urine Appearance Clear (CLEAR) 11/11/18 21:30 Urine pH 5.0 (5.0 - 8.0) 11/11/18 21:30 Ur Specific [place] 1.025 (1.000-1.030) 11/11/18 21:30 Urine Protein 4+ (NEGATIVE) 11/11/18 21:30 Urine Glucose (UA) Negative (NEGATIVE) 11/11/18 21:30 Urine Ketones 1+ (NEGATIVE) 11/11/18 21:30 Urine Occult Blood 2+ (NEGATIVE) 11/11/18 21:30 Urine Nitrite Negative (NEGATIVE) 11/11/18 21:30 Urine Bilirubin Negative (NEGATIVE) 11/11/18 21:30 Urine Urobilinogen Normal (NORMAL) 11/11/18 21:30 Ur Leukocyte Esterase 1+ (NEGATIVE) 11/11/18 21:30 Urine RBC 3-5 /HPF (NONE SEEN) 11/11/18 21:30 Urine WBC 0-2 /HPF (NONE SEEN) 11/11/18 21:30 Ur Squamous Epith Cells Rare /HPF (NEGATIVE) 11/11/18 21:30 Amorphous Sediment 2+ /HPF (NEGATIVE) 11/11/18 21:30 Urine Bacteria Negative /HPF (NEGATIVE) 11/11/18 21:30 Ur Culture Indicated? No/not indicated 11/11/18 21:30 - Plan (1) Pneumonia Status: Acute Qualifiers: Pneumonia type: due to unspecified organism Laterality: bilateral Lung location: unspecified part of lung Qualified Code(s): J18.9 - Pneumonia, unsp ecified organism Plan: iv antibiotics, respiratory tx, vent, continue to monitor (2) COPD exacerbation Status: Acute Plan: iv antibiotics, iv steroids, vent, respiratory tx, continue to monitor (3) Respiratory failure with hypoxia and hypercapnia Status: Acute Qualifiers: Chronicity: acute on chronic Qualified Code(s): J96.21 - Acute and chronic respiratory failure with hypoxia; J96.22 - Acute and chronic respiratory failure with hypercapnia Plan: iv antibiotics, iv steroids, vent, respiratory tx, continue to monitor (4) Pneumothorax Status: Acute Qualifiers: Pneumothorax type: unspecified pneumothorax Qualified Code(s): J93.9 - Pneumothorax, unspecified Plan: CONTINUE TO MONITOR
[2018-11-15] MEDS: COLACE CAP 100 MG PO SCH (21:22)
--- NOTE | 2018-11-15 23:12 | DR.PROGNOT ---
Hospital Progress Notes - Progress Note for Day of: Progress Note Date: 11/15/18 - Chief Complaint Chief Complaint: moderate SOB , no changes from the morning .. repeated chest xray showed no changes in the pneumothorax . - Past Medical Family Social History Past Med/Fam/Surg Hx: No changes since H&P Allergies: Allergies No Known Drug Allergies Allergy (Verified 05/21/17 08:19) - Review Of Systems ROS: No change since H&P - Vital Signs Vital Signs: Temperature 99.4 F Pulse Rate [Apical] 88 Pulse Rate 84 Respiratory Rate 27 Blood Pressure [Left Arm] 113/55 Blood Pressure [Right Arm] 123/55 Blood Pressure 136/64 O2 Sat by Pulse Oximetry 93 - Physical Exam Oriented: Normal, Person Eyes: Normal Ear: Normal Nose: Normal Throat: Normal Respiratory: Right (diminished BS on the Rt ), Generalized, Wheezes, Rhonchi Cardiovascular: Tachycardia : Normal GI:Auscultation: Normal GI:Palpation: Normal GI: Tenderness: Normal Skin: Normal Musculoskeletal: Normal Psychiatric: Other (unresponsive ) Speech Pattern: Clear, Appropriate - Laboratory and Diagnostics Result Diagrams: 11/15/18 04:18 11/15/18 04:18 Labs: 11/11/18 23:39 Blood Blood Culture - Final Staphylococcus Hominis 11/12/18 20:30 Blood Blood Culture - Preliminary 11/12/18 20:37 Blood Blood Culture - Preliminary 11/12/18 04:45 Sputum - Expectorated Sputum Sputum Culture - Final Acinetobacter Baumanii/Haemoly 11/12/18 04:45 Sputum - Expectorated Sputum - Final Laboratory WBC 9.0 X10^3/uL (3.6-10.0) 11/15/18 04:18 RBC 4.29 X10^6/uL (3.5-5.4) 11/15/18 04:18 Hgb 12.6 g/dL (12.0-16.0) 11/15/18 04:18 Hct 38.6 % (36.0-47.0) 11/15/18 04:18 MCV 90.0 fL (80.0-100.0) 11/15/18 04:18 MCH 29.4 pg (27.0-34.0) 11/15/18 04:18 MCHC 32.6 g/dL (33.0-35.0) L 11/15/18 04:18 RDW 14.9 % (11.6-16.5) 11/15/18 04:18 Plt Count 135 X10^3/uL (150.0-450.0) L 11/15/18 04:18 Plt Count Comment Decreased (ADEQUATE) A 11/15/18 04:18 MPV 9.6 fL (7.4-11.0) 11/15/18 04:18 Neut % (Auto) 93.9 % (42.0-75.0) H 11/15/18 04:18 Lymph % (Auto) 2.8 % (21.0-51.0) L 11/15/18 04:18 Scurry % (Auto) 3.2 % (0.0-13.0) 11/15/18 04:18 Eos % (Auto) 0.0 % (0.9-2.9) L 11/15/18 04:18 Baso % (Auto) 0.1 % (0.2-1.0) L 11/15/18 04:18 Neut # (Auto) 8.4 x10^3/uL (2.2-4.8) H 11/15/18 04:18 Lymph # (Auto) 0.3 X10^3/uL (1.3-2.9) L 11/15/18 04:18 Scurry # (Auto) 0.3 x10^3/uL (0.3-0.8) 11/15/18 04:18 Eos # (Auto) 0.0 x10^3/uL (0.0-0.2) 11/15/18 04:18 Baso # (Auto) 0.0 X10^3/uL (0.0-0.1) 11/15/18 04:18 Absolute Nucleated RBC 0.0 /100WBC 11/15/18 04:18 Total Counted 100 11/15/18 04:18 Neutrophils % (Manual) 94 % (39-76) H 11/15/18 04:18 Band Neutrophils % 1 % (0-10) 11/14/18 04:23 Lymphocytes % (Manual) 2 % (13-43) L 11/15/18 04:18 Monocytes % (Manual) 4 % (4-9) 11/15/18 04:18 Plt Morphology Comment Normal (NORMAL) 11/15/18 04:18 RBC Morphology Normal (NORMAL) 11/15/18 04:18 Hypochromasia Slight A 11/12/18 20:30 INR Target Range - 11/11/18 21:55 INR 1.05 (0.8-1.3) 11/11/18 21:55 APTT 23.9 SECONDS (22.9-36.5) 11/11/18 21:55 PTT Comment - 11/11/18 21:55 D-Dimer 724 ng/mL (0-400) H* 11/11/18 21:55 Sample Site Rb 11/15/18 04:44 ABG pH 7.240 (7.35-7.45) L 11/15/18 04:44 ABG pCO2 83.0 mmHg (35.0-45.0) H* 11/15/18 04:44 ABG pO2 60.0 mmHg (80.0-100.0) L 11/15/18 04:44 ABG HCO3 35.6 mmol/L (22-26) H* 11/15/18 04:44 ABG O2 Saturation 86.0 % (90-100) L 11/15/18 04:44 ABG Base Excess 5.6 mmol/L (-2.0-2.0) H 11/15/18 04:44 Dony Test N/a 11/15/18 04:44 A-a Gradient 121.0 mmHg 11/15/18 04:44 FiO2 40.0 11/15/18 04:44 Blood Gas Comments Josefina well ae 11/15/18 04:44 Sodium 145 mmol/L (136-145) 11/15/18 04:18 Corrected Sodium 146 mmol/L (136-145) H 11/15/18 04:18 Potassium 4.6 mmol/L (3.5-5.1) 11/15/18 04:18 Chloride 111 mmol/L (98-107) H 11/15/18 04:18 Carbon Dioxide 32.4 mmol/L (21-32) H 11/15/18 04:18 BUN 22 mg/dL (7-18) H 11/15/18 04:18 Creatinine 0.50 mg/dL (0.55-1.02) L 11/15/18 04:18 Est GFR (MDRD) Af Amer > 60 (>60) 11/15/18 04:18 Est GFR (MDRD) Non-Af > 60 (>60) 11/15/18 04:18 Glucose 122 mg/dL (65-99) H 11/15/18 04:18 Lactic Acid 0.6 mmol/L (0.4-2.0) 11/12/18 00:00 Calcium 8.5 mg/dL (8.5-10.1) 11/15/18 04:18 Corrected Calcium 9.6 mg/dL (8.5-10.1) 11/15/18 04:18 Magnesium 1.9 mg/dL (1.7-2.9) 11/11/18 21:55 Total Bilirubin 0.20 mg/dL (0.2-1.0) 11/15/18 04:18 AST 29 Units/L (15-37) 11/15/18 04:18 ALT 11 Units/L (12-78) L 11/15/18 04:18 Alkaline Phosphatase 38 Units/L (46-116) L 11/15/18 04:18 Creatine Kinase 117 Units/L (26-192) 11/12/18 05:45 CK-MB (CK-2) 3.5 ng/mL (0-4.0) 11/12/18 05:45 CK/CKMB % Calc 3.0 % (<4) 11/12/18 05:45 Troponin I 0.36 ng/mL (0-1.5) 11/12/18 05:45 B-Natriuretic Peptide 184 pg/mL (0-79) H 11/11/18 21:55 Total Protein 6.0 g/dL (6.4-8.2) L 11/15/18 04:18 Albumin 2.6 g/dL (3.4-5.0) L 11/15/18 04:18 Globulin 3.4 g/dL (2.5-4.5) 11/15/18 04:18 Albumin/Globulin Ratio 0.8 Ratio (1.1-2.1) L 11/15/18 04:18 Specimen Type Catherized urine 11/11/18 21:30 Urine Color Yellow (YELLOW) 11/11/18 21:30 Urine Appearance Clear (CLEAR) 11/11/18 21:30 Urine pH 5.0 (5.0 - 8.0) 11/11/18 21:30 Ur Specific Ruby 1.025 (1.000-1.030) 11/11/18 21:30 Urine Protein 4+ (NEGATIVE) 11/11/18 21:30 Urine Glucose (UA) Negative (NEGATIVE) 11/11/18 21:30 Urine Ketones 1+ (NEGATIVE) 11/11/18 21:30 Urine Occult Blood 2+ (NEGATIVE) 11/11/18 21:30 Urine Nitrite Negative (NEGATIVE) 11/11/18 21: Urine Bilirubin Negative (NEGATIVE) 11/11/18 21:30 Urine Urobilinogen Normal (NORMAL) 11/11/18 21:30 Ur Leukocyte Esterase 1+ (NEGATIVE) 11/11/18 21:30 Urine RBC 3-5 /HPF (NONE SEEN) 11/11/18 21:30 Urine WBC 0-2 /HPF (NONE SEEN) 11/11/18 21:30 Ur Squamous Epith Cells Rare /HPF (NEGATIVE) 11/11/18 21: Amorphous Sediment 2+ /HPF (NEGATIVE) 11/11/18 21:30 Urine Bacteria Negative /HPF (NEGATIVE) 11/11/18 21:30 Ur Culture Indicated? No/not indicated 11/11/18 21:30 - Assessment and Plan 1: Rt pneumothorax 40 to 50%. COPD and pneumonia . will observe for now and repeat chest xray and ABG .. - Problem Patient Problems: Patient Problems Pneumothorax (Acute) J93.9
[2018-11-16] MEDS: NS 1000 ML 1,000 ML IV SCH ×4 (00:14→21:19)
[2018-11-16] MEDS: DUONEB 0.5 MG/3 MG NEB SCH ×6 (01:00→20:37)
[2018-11-16] MEDS: FORTAZ or TAZICEF VIAL INJ IVP SCH ×3 (05:08→21:19)
[2018-11-16 05:27] LABS: BASOPHILS % (AUTO) 0.3 % (0.2-1.0); EOSINOPHILS % (AUTO) 0.1 % (0.9-2.9); HEMATOCRIT 37.7 % (36.0-47.0); HEMOGLOBIN 12.2 g/dL (12.0-16.0); LYMPHOCYTES # (AUTO) 1.2 X10^3/uL (1.3-2.9); LYMPHOCYTES % (AUTO) 10.5 % (21.0-51.0); MEAN CORPUSCULAR HEMOGLOBIN 29.3 pg (27.0-34.0); MEAN CORPUSCULAR HGB CONC 32.2 g/dL (33.0-35.0); MEAN CORPUSCULAR VOLUME 90.9 fL (80.0-100.0); MEAN PLATELET VOLUME 10.2 fL (7.4-11.0); MONOCYTES # (AUTO) 0.9 x10^3/uL (0.3-0.8); MONOCYTES % (AUTO) 8.1 % (0.0-13.0); NEUTROPHILS # (AUTO) 9.1 x10^3/uL (2.2-4.8); PLATELET COUNT 125 X10^3/uL (150.0-450.0); RED BLOOD COUNT 4.15 X10^6/uL (3.5-5.4); RED CELL DISTRIBUTION WIDTH 14.9 % (11.6-16.5); WHITE BLOOD COUNT 11.2 X10^3/uL (3.6-10.0)
[2018-11-16 05:38] LABS: ALANINE AMINOTRANSFERASE 10 Units/L (12-78); ALBUMIN 2.3 g/dL (3.4-5.0); ALKALINE PHOSPHATASE 33 Units/L (46-116); ASPARTATE AMINO TRANSFERASE 22 Units/L (15-37); BLOOD UREA NITROGEN 17 mg/dL (7-18); CALCIUM 8.1 mg/dL (8.5-10.1); CARBON DIOXIDE 34.8 mmol/L (21-32); CHLORIDE 110 mmol/L (98-107); COR CA(FOR HYPOALB) 9.5 mg/dL (8.5-10.1); CREATININE 0.42 mg/dL (0.55-1.02); SODIUM 145 mmol/L (136-145); TOTAL PROTEIN 5.2 g/dL (6.4-8.2); eGFR NON BLACK RACES > 60 (>60)
[2018-11-16 06:04] LABS: ABG BASE EXCESS 7.5 mmol/L (-2.0-2.0)
[2018-11-16 06:05] LABS: ABG ALLEN TEST POS; ABG HCO3 37.2 mmol/L (22-26)
--- NOTE | 2018-11-16 06:44 | RAD ---
HISTORY: Follow-up pneumothorax Study: Chest AP portable Comparison: 11/15/2018, 11/14/2018, 11/13/2018 Findings: The heart is upper limits normal in size. The alvarado are normal. The aorta is calcified. Once again noted is a large right apical and basilar pneumothorax at least 50% but not significantly changed from the prior examination. There is no midline shift. The lungs are free of acute alveolar infiltrates. Emphysematous changes are present in the upper lobes. Interstitial lung changes are present in the lower lobes. No pleural effusions are identified. The bony thorax is unremarkable. IMPRESSION: Continued large right pneumothorax at least 50% but unchanged from the prior examination Emphysematous COPD Reported By:
--- NOTE | 2018-11-16 07:06 | RAD ---
HISTORY: Shortness of breath Study: Chest AP portable Comparison: 11/15/2018 Findings: The heart is upper limits normal in size. The alvarado are normal. The aorta is calcified. Once again noted is a large right apical and right basilar pneumothorax at least 50% but not significantly changed from the prior examination. No midline shift identified. The lungs remain free of acute alveolar infiltrates. Emphysematous changes are present in the upper lobes. Interstitial lung changes are present in the lower lobes. No pleural effusions are identified. The bony thorax is unremarkable. IMPRESSION: Continued but unchanged large right pneumothorax at least 50%. No evidence for tension Emphysematous COPD Reported By:
[2018-11-16] MEDS: PULMICORT NEB TX 0.5 MG NEB SCH ×2 (08:41→20:37)
[2018-11-16] MEDS: MUCOMYST 20% 200 MG/ML NEB SCH ×4 (08:41→20:37)
[2018-11-16] MEDS: ROBITUSSIN DM PO SCH ×4 (09:24→21:19)
[2018-11-16] MEDS: LOVENOX INJ 40 MG SYR SC SCH (09:24)
[2018-11-16] MEDS: MILK OF MAGNESIA PO SCH (09:24)
[2018-11-16] MEDS: UNIPHYL TAB 400 MG PO SCH (10:22)
[2018-11-16] MEDS: VIBRAMYCIN 100 MG in D5W 250 ML IV 250 ML IV SCH ×2 (10:22→21:19)
[2018-11-16] MEDS: XANAX PO PRN (10:24)
[2018-11-16] MEDS ORDERED: XYLOCAINE 1 % (PLAIN) ONE (12:19)
[2018-11-16] MEDS ORDERED: STERILE WATER IRRIGATION ONE ×2 (12:44→13:01)
[2018-11-16] MEDS ORDERED: VERSED IVP ONE (13:05)
[2018-11-16] MEDS ORDERED: VERSED ONE (13:06)
--- NOTE | 2018-11-16 13:38 | OR.GENERIC ---
Post-Op Note Generic - Post-Op Note Operative Report: chest tube Rt side was placed without complications . will review chest xray ..
--- NOTE | 2018-11-16 14:14 | RAD ---
HISTORY: Follow-up pneumothorax status post chest tube placement Study: Chest AP portable Comparison: 11/16/2018 5:27 a.m. Findings: There is now a right chest tube in place. Its tip is in the upper right hemithorax. There has been complete resolution of the right pneumothorax being followed. The heart is mildly enlarged. No congestive heart failure is noted. The aorta is calcified. The lungs are free of acute alveolar infiltrates. Emphysematous changes are present in the upper lobes. Interstitial lung changes are present in the lower lobes. No pleural effusions are identified. IMPRESSION: Complete resolution of the right pneumothorax status post chest tube placement Emphysematous COPD Reported By:
[2018-11-16] MEDS ORDERED: NORCO 5/325 MG TAB ONE (16:47)
[2018-11-16] MEDS: NORCO 5/325 MG TAB PO PRN (16:54)
--- NOTE | 2018-11-16 19:37 | PCM.PROG ---
Progress Note - Progress Note for Day of Date of Exam: 11/15/18 - Subjective Subjective: WAS ADMITTED FOR RESPIRATORY FAILURE, PNEUMONIA, AND COPD EXACERBATION. SHE REMAINS IN THE INTENSIVE CARE UNIT TODAY. SHE CONTINUES TO UTILIZE THE BIPAP. SHE CONTINUES WITH SHORTNESS OF BREATH AND IS NOTED WITH A PERSISTENT COUGH. ON EXAMINATION, HEART IS REGULAR IN RATE AND RHYTHM. BILATERAL LUNGS ARE NOTED WITH SCATTERED WHEEZING AND RHONCHI. ABDOMEN IS ROUND, SOFT, AND NON-TENDER WITH NORMAL BOWEL SOUNDS NOTED IN ALL QUADRANTS. HER VITALS THIS MORNING ARE: 99.0-93-18-90%-156/69. LABS WERE OBTAINED. ABNORMAL LAB VALUES INCLUDE THE FOLLOWING: PLT COUNT 135, CHLORIDE 111, CARBON DIOXIDE 32.4, BUN 22, CREATININE 0.50, GLUCOSE 122, ALT 11, ALK PHOS 38, TOTAL PROTEIN 6.0, ALBUMIN 2.6. TODAYS ABG REVEALED: PH 7.240, PC02 83.0, O02 60.0, HC03 35.6, 02 SATURATION 86.0, BASE EXCESS. BLOOD CULTURES ARE POSITIVE FOR STAPHYLOCOCCUS HOMINIS. SPUTUM CULTURE IS POSITIVE FOR ACINETOBACTER BAUMANII/HAEMOLY. A CHEST XRAY WAS OBTAINED TODAY AND REVEALED: Continued but unchanged large right pneumothorax at least 50%. No evidence for tension. SHE IS CURRENTLY RECEIVING IV FORTAZ, IV FLUIDS, RESPIRATORY TX, AND IV STEROIDS. WE WILL ADD DOXYCYCLINE TODAY. WE WILL CONSULT FOR POSSIBLE CHEST TUBE PLACEMENT. OTHERWISE, WE WILL FOLLOW UP WITH AM LABS AND CONTINUE TO MONITOR. - Past Medical Family Social History Past Med/Fam/Surg Hx: No changes since H&P Allergies: Allergies No Known Drug Allergies Allergy (Verified 05/21/17 08:19) - Review of Systems ROS: No change since H&P - Vital Signs and I&O's Vital Signs: Temperature 99.6 F Pulse Rate [Apical] 88 Pulse Rate 75 Respiratory Rate 7 Blood Pressure [Left Arm] 113/55 Blood Pressure [Right Arm] 123/55 Blood Pressure 130/59 O2 Sat by Pulse Oximetry 96 Intake and Output: Intake & Output 11/14/18 11/15/18 11/16/18 11/17/18 11:59 11:59 11:59 11:59 Intake Total 3253 / 3253 3726 / 3726 3467 / 3467 1413 / 1413 Output Total 900 / 900 1050 / 1050 700 / 700 900 / 900 Balance 2353 / 2353 2676 / 2676 2767 / 2767 513 / 513 - Physical Exam Oriented: Normal Eyes: Normal Ear: Normal Nose: Normal Throat: Normal Respiratory: Wheezes, Rhonchi Cardiovascular: Normal : Normal Auscultation: Bowel Sounds: Normal Palpation: Normal Tenderness: Normal Skin: Normal Musculoskeletal: Normal Psychiatric: Normal Mood Description: Calm Affect: Normal Speech Pattern: Clear, Appropriate - Laboratory and Diagnostics Result Diagrams: 11/16/18 04:05 11/16/18 04:05 Labs: 11/11/18 23:39 Blood Blood Culture - Final Staphylococcus Hominis 11/12/18 20:30 Blood Blood Culture - Preliminary 11/12/18 20:37 Blood Blood Culture - Preliminary 11/12/18 04:45 Sputum - Expectorated Sputum Sputum Culture - Final Acinetobacter Baumanii/Haemoly 11/12/18 04:45 Sputum - Expectorated Sputum - Final Laboratory WBC 11.2 X10^3/uL (3.6-10.0) H 11/16/18 04:05 RBC 4.15 X10^6/uL (3.5-5.4) 11/16/18 04:05 Hgb 12.2 g/dL (12.0-16.0) 11/16/18 04:05 Hct 37.7 % (36.0-47.0) 11/16/18 04:05 MCV 90.9 fL (80.0-100.0) 11/16/18 04:05 MCH 29.3 pg (27.0-34.0) 11/16/18 04:05 MCHC 32.2 g/dL (33.0-35.0) L 11/16/18 04:05 RDW 14.9 % (11.6-16.5) 11/16/18 04:05 Plt Count 125 X10^3/uL (150.0-450.0) L 11/16/18 04:05 Plt Count Comment Decreased (ADEQUATE) A 11/15/18 04:18 MPV 10.2 fL (7.4-11.0) 11/16/18 04:05 Neut % (Auto) 81.0 % (42.0-75.0) H 11/16/18 04:05 Lymph % (Auto) 10.5 % (21.0-51.0) L 11/16/18 04:05 Cottle % (Auto) 8.1 % (0.0-13.0) 11/16/18 04:05 Eos % (Auto) 0.1 % (0.9-2.9) L 11/16/18 04:05 Baso % (Auto) 0.3 % (0.2-1.0) 11/16/18 04:05 Neut # (Auto) 9.1 x10^3/uL (2.2-4.8) H 11/16/18 04:05 Lymph # (Auto) 1.2 X10^3/uL (1.3-2.9) L 11/16/18 04:05 Cottle # (Auto) 0.9 x10^3/uL (0.3-0.8) H 11/16/18 04:05 Eos # (Auto) 0.0 x10^3/uL (0.0-0.2) 11/16/18 04:05 Baso # (Auto) 0.0 X10^3/uL (0.0-0.1) 11/16/18 04:05 Absolute Nucleated RBC 0.0 /100WBC 11/16/18 04:05 Total Counted 100 11/15/18 04:18 Neutrophils % (Manual) 94 % (39-76) H 11/15/18 04:18 Band Neutrophils % 1 % (0-10) 11/14/18 04:23 Lymphocytes % (Manual) 2 % (13-43) L 11/15/18 04:18 Monocytes % (Manual) 4 % (4-9) 11/15/18 04:18 Plt Morphology Comment Normal (NORMAL) 11/15/18 04:18 RBC Morphology Normal (NORMAL) 11/15/18 04:18 Hypochromasia Slight A 11/12/18 20:30 INR Target Range - 11/11/18 21:55 INR 1.05 (0.8-1.3) 11/11/18 21:55 APTT 23.9 SECONDS (22.9-36.5) 11/11/18 21:55 PTT Comment - 11/11/18 21:55 D-Dimer 724 ng/mL (0-400) H* 11/11/18 21:55 Sample Site Rrad 06/03/19 05:55 ABG pH 7.270 (7.35-7.45) L 11/16/18 05:55 ABG pCO2 81.0 mmHg (35.0-45.0) H* 11/16/18 05:55 ABG pO2 77.0 mmHg (80.0-100.0) L 11/16/18 05:55 ABG HCO3 37.2 mmol/L (22-26) H* 11/16/18 05:55 ABG O2 Saturation 93.0 % (90-100) 11/16/18 05:55 ABG Base Excess 7.5 mmol/L (-2.0-2.0) H 11/16/18 05:55 Dony Test Pos 11/16/18 05:55 A-a Gradient 107.0 mmHg 11/16/18 05:55 FiO2 40.0 11/16/18 05:55 Blood Gas Comments Pt carolyne well elj 11/16/18 05:55 Sodium 145 mmol/L (136-145) 11/16/18 04:05 Corrected Sodium TNP 11/16/18 04:05 Potassium 4.3 mmol/L (3.5-5.1) 11/16/18 04:05 Chloride 110 mmol/L (98-107) H 11/16/18 04:05 Carbon Dioxide 34.8 mmol/L (21-32) H 11/16/18 04:05 BUN 17 mg/dL (7-18) 11/16/18 04:05 Creatinine 0.42 mg/dL (0.55-1.02) L 11/16/18 04:05 Est GFR (MDRD) Af Amer > 60 (>60) 11/16/18 04:05 Est GFR (MDRD) Non-Af > 60 (>60) 11/16/18 04:05 Glucose 81 mg/dL (65-99) 11/16/18 04:05 Lactic Acid 0.6 mmol/L (0.4-2.0) 11/12/18 00:00 Calcium 8.1 mg/dL (8.5-10.1) L 11/16/18 04:05 Corrected Calcium 9.5 mg/dL (8.5-10.1) 11/16/18 04:05 Magnesium 1.9 mg/dL (1.7-2.9) 11/11/18 21:55 Total Bilirubin 0.30 mg/dL (0.2-1.0) 11/16/18 04:05 AST 22 Units/L (15-37) 11/16/18 04:05 ALT 10 Units/L (12-78) L 11/16/18 04:05 Alkaline Phosphatase 33 Units/L (46-116) L 11/16/18 04:05 Creatine Kinase 117 Units/L (26-192) 11/12/18 05:45 CK-MB (CK-2) 3.5 ng/mL (0-4.0) 11/12/18 05:45 CK/CKMB % Calc 3.0 % (<4) 11/12/18 05:45 Troponin I 0.36 ng/mL (0-1.5) 11/12/18 05:45 B-Natriuretic Peptide 184 pg/mL (0-79) H 11/11/18 21:55 Total Protein 5.2 g/dL (6.4-8.2) L 11/16/18 04:05 Albumin 2.3 g/dL (3.4-5.0) L 11/16/18 04:05 Globulin 2.9 g/dL (2.5-4.5) 11/16/18 04:05 Albumin/Globulin Ratio 0.8 Ratio (1.1-2.1) L 11/16/18 04:05 Specimen Type Catherized urine 11/11/18 21:30 Urine Color Yellow (YELLOW) 11/11/18 21:30 Urine Appearance Clear (CLEAR) 11/11/18 21:30 Urine pH 5.0 (5.0 - 8.0) 11/11/18 21:30 Ur Specific Graham 1.025 (1.000-1.030) 11/11/18 21:30 Urine Protein 4+ (NEGATIVE) 11/11/18 21:30 Urine Glucose (UA) Negative (NEGATIVE) 11/11/18 21:30 Urine Ketones 1+ (NEGATIVE) 11/11/18 21:30 Urine Occult Blood 2+ (NEGATIVE) 11/11/18 21:30 Urine Nitrite Negative (NEGATIVE) 11/11/18 21: Urine Bilirubin Negative (NEGATIVE) 11/11/18 21: Urine Urobilinogen Normal (NORMAL) 11/11/18 21:30 Ur Leukocyte Esterase 1+ (NEGATIVE) 11/11/18 21:30 Urine RBC 3-5 /HPF (NONE SEEN) 11/11/18 21:30 Urine WBC 0-2 /HPF (NONE SEEN) 11/11/18 21:30 Ur Squamous Epith Cells Rare /HPF (NEGATIVE) 11/11/18 21:30 Amorphous Sediment 2+ /HPF (NEGATIVE) 11/11/18 21:30 Urine Bacteria Negative /HPF (NEGATIVE) 11/11/18 21:30 Ur Culture Indicated? No/not indicated 11/11/18 21:30 - Plan (1) Pneumonia Status: Acute Qualifiers: Pneumonia type: due to other aerobic Gram-negative bacteria Laterality: bilateral Lung location: unspecified part of lung Qualified Code(s): J15.6 - Pneumonia due to other Gram-negative bacteria Plan: iv antibiotics, respiratory tx, vent, continue to monitor (2) COPD exacerbation Status: Acute Plan: iv antibiotics, iv steroids, vent, respiratory tx, continue to monitor (3) Pneumothorax Status: Acute Qualifiers: Pneumothorax type: unspecified pneumothorax Qualified Code(s): J93.9 - Pneumothorax, unspecified Plan: CONSULT GENERAL SURGERY FOR CHEST TUBE, CONTINUE TO MONITOR (4) Respiratory failure with hypoxia and hypercapnia Status: Acute Qualifiers: Chronicity: acute on chronic Qualified Code(s): J96.21 - Acute and chronic respiratory failure with hypoxia; J96.22 - Acute and chronic respiratory failure with hypercapnia Plan: iv antibiotics, iv steroids, vent, respiratory tx, continue to monitor
[2018-11-16] MEDS: COLACE CAP 100 MG PO SCH (21:19)
[2018-11-16] MEDS: MORPHINE SULFATE INJ 2 MG INJ IVP PRN (21:51)
[2018-11-17] MEDS: DUONEB 0.5 MG/3 MG NEB SCH ×6 (00:54→21:22)
[2018-11-17] MEDS: MORPHINE SULFATE INJ 2 MG INJ IVP PRN ×2 (01:45→11:02)
[2018-11-17] MEDS: XANAX PO PRN ×2 (04:30→20:30)
[2018-11-17] MEDS: NS 1000 ML 1,000 ML IV SCH ×3 (05:24→21:37)
[2018-11-17] MEDS: FORTAZ or TAZICEF VIAL INJ IVP SCH ×3 (05:24→21:36)
[2018-11-17 06:20] LABS: BASOPHILS % (AUTO) 0.2 % (0.2-1.0); EOSINOPHILS # (AUTO) 0.1 x10^3/uL (0.0-0.2); EOSINOPHILS % (AUTO) 1.1 % (0.9-2.9); HEMATOCRIT 37.4 % (36.0-47.0); HEMOGLOBIN 12.3 g/dL (12.0-16.0); LYMPHOCYTES # (AUTO) 0.8 X10^3/uL (1.3-2.9); LYMPHOCYTES % (AUTO) 10.4 % (21.0-51.0); MEAN CORPUSCULAR HEMOGLOBIN 29.3 pg (27.0-34.0); MEAN CORPUSCULAR HGB CONC 32.8 g/dL (33.0-35.0); MEAN CORPUSCULAR VOLUME 89.3 fL (80.0-100.0); MEAN PLATELET VOLUME 9.6 fL (7.4-11.0); MONOCYTES # (AUTO) 0.7 x10^3/uL (0.3-0.8); MONOCYTES % (AUTO) 8.7 % (0.0-13.0); NEUTROPHILS % (AUTO) 79.6 % (42.0-75.0); PLATELET COUNT 102 X10^3/uL (150.0-450.0); RED BLOOD COUNT 4.19 X10^6/uL (3.5-5.4); RED CELL DISTRIBUTION WIDTH 14.3 % (11.6-16.5); WHITE BLOOD COUNT 7.5 X10^3/uL (3.6-10.0)
--- NOTE | 2018-11-17 06:30 | RAD ---
HISTORY: Shortness of breath, follow-up pneumothorax Study: Chest AP portable Comparison: 11/16/2018 1:48 p.m. Findings: The heart is within normal limits in size. The alvarado are normal. The aorta is calcified. The lungs are hyperinflated but free of acute alveolar infiltrates. Emphysematous changes are present in the upper lobes. Interstitial lung changes are present in the lower lobes. Right chest tube remains in place it has pulled back somewhat with the tip in the right mid hemithorax. No definite recurrent pneumothorax is identified. The bony thorax is unremarkable. IMPRESSION: No definite residual or recurrent right pneumothorax Emphysematous COPD Reported By:
[2018-11-17 07:04] LABS: ALANINE AMINOTRANSFERASE 8 Units/L (12-78); ALBUMIN 2.1 g/dL (3.4-5.0); ALKALINE PHOSPHATASE 36 Units/L (46-116); ASPARTATE AMINO TRANSFERASE 27 Units/L (15-37); BLOOD UREA NITROGEN 10 mg/dL (7-18); CALCIUM 7.9 mg/dL (8.5-10.1); CARBON DIOXIDE 31.5 mmol/L (21-32); CHLORIDE 107 mmol/L (98-107); COR CA(FOR HYPOALB) 9.4 mg/dL (8.5-10.1); CREATININE 0.33 mg/dL (0.55-1.02); SODIUM 140 mmol/L (136-145); TOTAL PROTEIN 4.9 g/dL (6.4-8.2); eGFR NON BLACK RACES > 60 (>60)
[2018-11-17] MEDS: PULMICORT NEB TX 0.5 MG NEB SCH ×2 (08:10→21:23)
[2018-11-17] MEDS: LOVENOX INJ 40 MG SYR SC SCH (09:47)
[2018-11-17] MEDS: MILK OF MAGNESIA PO SCH (09:47)
[2018-11-17] MEDS: VIBRAMYCIN 100 MG in D5W 250 ML IV 250 ML IV SCH ×2 (09:47→21:36)
[2018-11-17] MEDS: ROBITUSSIN DM PO SCH ×2 (09:47→22:56)
[2018-11-17] MEDS: UNIPHYL TAB 400 MG PO SCH (09:47)
[2018-11-17] MEDS ORDERED: ZOFRAN INJ 4 MG VIAL ONE (10:55)
[2018-11-17] MEDS ORDERED: ZOFRAN INJ 4 MG VIAL IVP PRN (11:00)
[2018-11-17] MEDS: SOLU-Medrol 40 MG VIAL IVP SCH ×3 (11:01→21:37)
[2018-11-17] MEDS: PROCALAMINE 3 % 1,000 ML IV SCH (11:03)
[2018-11-17] MEDS ORDERED: BUTT CREAM (COMPOUND) ONE (17:25)
[2018-11-17] MEDS: NORCO 5/325 MG TAB PO PRN (17:48)
--- NOTE | 2018-11-17 20:39 | PCM.PROG ---
Progress Note - Progress Note for Day of Date of Exam: 11/16/18 - Subjective Subjective: WAS ADMITTED FOR RESPIRATORY FAILURE, PNEUMONIA, COPD EXACERBATION, AND A RIGHT SIDED PNEUMOTHORAX. SHE REMAINS IN THE INTENSIVE CARE UNIT TODAY. SHE CONTINUES TO UTILIZE THE BIPAP. SHE CONTINUES WITH SHORTNESS OF BREATH AND IS NOTED WITH A PERSISTENT COUGH. ON EXAMINATION, HEART IS REGULAR IN RATE AND RHYTHM. BILATERAL LUNGS ARE NOTED WITH SCATTERED WHEEZING AND RHONCHI. ABDOMEN IS ROUND, SOFT, AND NON-TENDER WITH NORMAL BOWEL SOUNDS NOTED IN ALL QUADRANTS. HER VITALS THIS MORNING ARE: 97.9-92-24-89%-157/70. LABS WERE OBTAINED. ABNORMAL LAB VALUES INCLUDE THE FOLLOWING: WBC 11.2, PLT COUNT 125, CHLORIDE 110, CARBON DIOXIDE 34.8, CREATININE 0.42, CALCIUM 8.1, ALT 10, ALK P HOS 33, TOTAL PROTEIN 5.2, ALBUMIN 2.3. TODAYS ABG REVEALED: PH 7.270, PC02 81.0, P02 77.0, HC03 37.2, 02 SATURATION 93.0, BASE EXCESS 7.5. BLOOD CULTURES ARE POSITIVE FOR STAPHYLOCOCCUS HOMINIS. SPUTUM CULTURE IS POSITIVE FOR ACINETOBACTER BAUMANII/HAEMOLY. A CHEST XRAY WAS OBTAINED TODAY AND REVEALED: Continued but unchanged large right pneumothorax at least 50%. No evidence for tension. SHE IS CURRENTLY RECEIVING IV FORTAZ, IV FLUIDS, RESPIRATORY TX, AND IV STEROIDS. WE WILL ADD DOXYCYCLINE TODAY. WILL CONTINUE TO MONITOR PATIENT TODAY AND WILL REASSESS FOR PLACEMENT OF CHEST TUBE. OTHERWISE, WE WILL FOLLOW UP WITH AM LABS AND CONTINUE TO MONITOR. - Past Medical Family Social History Past Med/Fam/Surg Hx: No changes since H&P Allergies: Allergies No Known Drug Allergies Allergy (Verified 05/21/17 08:19) - Review of Systems ROS: No change since H&P - Vital Signs and I&O's Vital Signs: Temperature 98.7 F Pulse Rate [Apical] 88 Pulse Rate 98 Respiratory Rate 18 Blood Pressure [Left Arm] 113/55 Blood Pressure [Right Arm] 123/55 Blood Pressure 134/63 O2 Sat by Pulse Oximetry 94 Intake and Output: Intake & Output 11/15/18 11/16/18 11/17/18 11/18/18 11:59 11:59 11:59 11:59 Intake Total 3726 / 3726 3467 / 3467 3391 / 3391 1888 / 1888 Output Total 1050 / 1050 700 / 700 2960 / 2960 1000 / 1000 Balance 2676 / 2676 2767 / 2767 431 / 431 888 / 888 - Physical Exam Oriented: Normal Eyes: Normal Ear: Normal Nose: Normal Throat: Normal Respiratory: Wheezes, Rhonchi Cardiovascular: Normal : Normal Auscultation: Bowel Sounds: Normal Tenderness: Normal Skin: Normal Musculoskeletal: Normal Psychiatric: Normal Mood Description: Calm Affect: Normal Speech Pattern: Clear, Appropriate - Laboratory and Diagnostics Result Diagrams: 11/17/18 05:52 11/17/18 05:52 Labs: 11/11/18 23:39 Blood Blood Culture - Final Staphylococcus Hominis 11/12/18 20:30 Blood Blood Culture - Preliminary 11/12/18 20:37 Blood Blood Culture - Preliminary 11/12/18 04:45 Sputum - Expectorated Sputum Sputum Culture - Final Acinetobacter Baumanii/Haemoly 11/12/18 04:45 Sputum - Expectorated Sputum - Final Laboratory WBC 7.5 X10^3/uL (3.6-10.0) 11/17/18 05:52 RBC 4.19 X10^6/uL (3.5-5.4) 11/17/18 05:52 Hgb 12.3 g/dL (12.0-16.0) 11/17/18 05:52 Hct 37.4 % (36.0-47.0) 11/17/18 05:52 MCV 89.3 fL (80.0-100.0) 11/17/18 05:52 MCH 29.3 pg (27.0-34.0) 11/17/18 05:52 MCHC 32.8 g/dL (33.0-35.0) L 11/17/18 05:52 RDW 14.3 % (11.6-16.5) 11/17/18 05:52 Plt Count 102 X10^3/uL (150.0-450.0) L 11/17/18 05:52 Plt Count Comment Decreased (ADEQUATE) A 11/15/18 04:18 MPV 9.6 fL (7.4-11.0) 11/17/18 05:52 Neut % (Auto) 79.6 % (42.0-75.0) H 11/17/18 05:52 Lymph % (Auto) 10.4 % (21.0-51.0) L 11/17/18 05:52 [place] % (Auto) 8.7 % (0.0-13.0) 11/17/18 05:52 Eos % (Auto) 1.1 % (0.9-2.9) 11/17/18 05:52 Baso % (Auto) 0.2 % (0.2-1.0) 11/17/18 05:52 Neut # (Auto) 6.0 x10^3/uL (2.2-4.8) H 11/17/18 05:52 Lymph # (Auto) 0.8 X10^3/uL (1.3-2.9) L 11/17/18 05:52 [place] # (Auto) 0.7 x10^3/uL (0.3-0.8) 11/17/18 05:52 Eos # (Auto) 0.1 x10^3/uL (0.0-0.2) 11/17/18 05:52 Baso # (Auto) 0.0 X10^3/uL (0.0-0.1) 11/17/18 05:52 Absolute Nucleated RBC 0.0 /100WBC 11/17/18 05:52 Total Counted 100 11/15/18 04:18 Neutrophils % (Manual) 94 % (39-76) H 11/15/18 04:18 Band Neutrophils % 1 % (0-10) 11/14/18 04:23 Lymphocytes % (Manual) 2 % (13-43) L 11/15/18 04:18 Monocytes % (Manual) 4 % (4-9) 11/15/18 04:18 Plt Morphology Comment Normal (NORMAL) 11/15/18 04:18 RBC Morphology Normal (NORMAL) 11/15/18 04:18 Hypochromasia Slight A 11/12/18 20:30 INR Target Range - 11/11/18 21:55 INR 1.05 (0.8-1.3) 11/11/18 21:55 APTT 23.9 SECONDS (22.9-36.5) 11/11/18 21:55 PTT Comment - 11/11/18 21:55 D-Dimer 724 ng/mL (0-400) H* 11/11/18 21:55 Sample Site Rrad 11/16/18 05:55 ABG pH 7.270 (7.35-7.45) L 11/16/18 05:55 ABG pCO2 81.0 mmHg (35.0-45.0) H* 11/16/18 05:55 ABG pO2 77.0 mmHg (80.0-100.0) L 11/16/18 05:55 ABG HCO3 37.2 mmol/L (22-26) H* 11/16/18 05:55 ABG O2 Saturation 93.0 % (90-100) 11/16/18 05:55 ABG Base Excess 7.5 mmol/L (-2.0-2.0) H 11/16/18 05:55 Dony Test Pos 11/16/18 05:55 A-a Gradient 107.0 mmHg 11/16/18 05:55 FiO2 40.0 11/16/18 05:55 Blood Gas Comments Pt carolyne well elj 11/16/18 05:55 Sodium 140 mmol/L (136-145) 11/17/18 05:52 Corrected Sodium TNP 11/17/18 05:52 Potassium 3.7 mmol/L (3.5-5.1) 11/17/18 05:52 Chloride 107 mmol/L (98-107) 11/17/18 05:52 Carbon Dioxide 31.5 mmol/L (21-32) 11/17/18 05:52 BUN 10 mg/dL (7-18) 11/17/18 05:52 Creatinine 0.33 mg/dL (0.55-1.02) L 11/17/18 05:52 Est GFR (MDRD) Af Amer > 60 (>60) 11/17/18 05:52 Est GFR (MDRD) Non-Af > 60 (>60) 11/17/18 05:52 Glucose 93 mg/dL (65-99) 11/17/18 05:52 Lactic Acid 0.6 mmol/L (0.4-2.0) 11/12/18 00:00 Calcium 7.9 mg/dL (8.5-10.1) L 11/17/18 05:52 Corrected Calcium 9.4 mg/dL (8.5-10.1) 11/17/18 05:52 Magnesium 1.9 mg/dL (1.7-2.9) 11/11/18 21:55 Total Bilirubin 0.40 mg/dL (0.2-1.0) 11/17/18 05:52 AST 27 Units/L (15-37) 11/17/18 05:52 ALT 8 Units/L (12-78) L 11/17/18 05:52 Alkaline Phosphatase 36 Units/L (46-116) L 11/17/18 05:52 Creatine Kinase 117 Units/L (26-192) 11/12/18 05:45 CK-MB (CK-2) 3.5 ng/mL (0-4.0) 11/12/18 05:45 CK/CKMB % Calc 3.0 % (<4) 11/12/18 05:45 Troponin I 0.36 ng/mL (0-1.5) 11/12/18 05:45 B-Natriuretic Peptide 184 pg/mL (0-79) H 11/11/18 21:55 Total Protein 4.9 g/dL (6.4-8.2) L 11/17/18 05:52 Albumin 2.1 g/dL (3.4-5.0) L 11/17/18 05:52 Globulin 2.8 g/dL (2.5-4.5) 11/17/18 05:52 Albumin/Globulin Ratio 0.8 Ratio (1.1-2.1) L 11/17/18 05:52 Specimen Type Catherized urine 11/11/18 21:30 Urine Color Yellow (YELLOW) 11/11/18 21:30 Urine Appearance Clear (CLEAR) 11/11/18 21:30 Urine pH 5.0 (5.0 - 8.0) 11/11/18 21:30 Ur Specific [place] 1.025 (1.000-1.030) 11/11/18 21:30 Urine Protein 4+ (NEGATIVE) 11/11/18 21:30 Urine Glucose (UA) Negative (NEGATIVE) 11/11/18 21:30 Urine Ketones 1+ (NEGATIVE) 11/11/18 21:30 Urine Occult Blood 2+ (NEGATIVE) 11/11/18 21:30 Urine Nitrite Negative (NEGATIVE) 11/11/18 21:30 Urine Bilirubin Negative (NEGATIVE) 05/29/19 21:30 Urine Urobilinogen Normal (NORMAL) 11/11/18 21:30 Ur Leukocyte Esterase 1+ (NEGATIVE) 11/11/18 21:30 Urine RBC 3-5 /HPF (NONE SEEN) 11/11/18 21:30 Urine WBC 0-2 /HPF (NONE SEEN) 11/11/18 21:30 Ur Squamous Epith Cells Rare /HPF (NEGATIVE) 11/11/18 21:30 Amorphous Sediment 2+ /HPF (NEGATIVE) 11/11/18 21:30 Urine Bacteria Negative /HPF (NEGATIVE) 11/11/18 21:30 Ur Culture Indicated? No/not indicated 11/11/18 21:30 - Plan (1) Pneumonia Status: Acute Qualifiers: Pneumonia type: due to other aerobic Gram-negative bacteria Laterality: bilateral Lung location: unspecified part of lung Qualified Code(s): J15.6 - Pneumonia due to other Gram-negative bacteria Plan: iv antibiotics, respiratory tx, vent, continue to monitor (2) COPD exacerbation Status: Acute Plan: iv antibiotics, iv steroids, vent, respiratory tx, continue to monitor (3) Pneumothorax Status: Acute Qualifiers: Pneumothorax type: unspecified pneumothorax Qualified Code(s): J93.9 - Pneumothorax, unspecified Plan: CONSULT GENERAL SURGERY FOR CHEST TUBE, CONTINUE TO MONITOR (4) Respiratory failure with hypoxia and hypercapnia Status: Acute Qualifiers: Chronicity: acute on chronic Qualified Code(s): J96.21 - Acute and chronic respiratory failure with hypoxia; J96.22 - Acute and chronic respiratory failure with hypercapnia Plan: iv antibiotics, iv steroids, vent, respiratory tx, continue to monitor
[2018-11-17] MEDS: COLACE CAP 100 MG PO SCH (21:36)
[2018-11-17] MEDS: RESTORIL CAP 15 MG PO PRN (21:37)
[2018-11-18] MEDS: DUONEB 0.5 MG/3 MG NEB SCH ×6 (01:53→20:04)
[2018-11-18] MEDS: SOLU-Medrol 40 MG VIAL IVP SCH ×3 (06:27→21:12)
[2018-11-18] MEDS: NS 1000 ML 1,000 ML IV SCH ×3 (06:27→21:12)
[2018-11-18] MEDS: NORCO 5/325 MG TAB PO PRN ×2 (06:27→20:51)
[2018-11-18] MEDS: FORTAZ or TAZICEF VIAL INJ IVP SCH ×3 (06:27→21:12)
--- NOTE | 2018-11-18 06:30 | RAD ---
HISTORY: Shortness of breath Study: Chest AP portable Comparison: 11/17/2018 Findings: The heart is within normal limits in size. The alvarado are normal. The aorta is calcified. The lungs are hyperinflated . There is a right chest tube in place. No definite pneumothorax is identified. The left upper lung field is free of infiltrates. Increasing density is present in the retrocardiac area of the left lower lobe obscuring the left hemidiaphragm. There is now a left pleural effusion present. The density could be entirely due to the pleural effusion however infiltrate or atelectasis may also be present. Emphysematous changes are present in the upper lobes. Interstitial lung changes are present in the lower lobes, stable. The bony thorax is unremarkable. IMPRESSION: No definite residual or recurrent right pneumothorax Interval development of abnormal density in the retrocardiac area of the left lower lobe obscuring the left hemidiaphragm which could be on the basis of effusion, infiltrate, atelectasis or combination. There is now a left pleural effusion present Emphysematous COPD Reported By:
[2018-11-18 06:48] LABS: BASOPHILS % (AUTO) 0.1 % (0.2-1.0); HEMATOCRIT 38.8 % (36.0-47.0); LYMPHOCYTES # (AUTO) 0.3 X10^3/uL (1.3-2.9); LYMPHOCYTES % (AUTO) 4.8 % (21.0-51.0); MEAN CORPUSCULAR HEMOGLOBIN 29.5 pg (27.0-34.0); MEAN CORPUSCULAR HGB CONC 33.4 g/dL (33.0-35.0); MEAN CORPUSCULAR VOLUME 88.5 fL (80.0-100.0); MEAN PLATELET VOLUME 10.7 fL (7.4-11.0); MONOCYTES # (AUTO) 0.3 x10^3/uL (0.3-0.8); MONOCYTES % (AUTO) 4.5 % (0.0-13.0); NEUTROPHILS # (AUTO) 6.5 x10^3/uL (2.2-4.8); NEUTROPHILS % (AUTO) 90.6 % (42.0-75.0); PLATELET COUNT 102 X10^3/uL (150.0-450.0); RED BLOOD COUNT 4.38 X10^6/uL (3.5-5.4); RED CELL DISTRIBUTION WIDTH 13.6 % (11.6-16.5); WHITE BLOOD COUNT 7.2 X10^3/uL (3.6-10.0)
[2018-11-18 06:52] LABS: ALANINE AMINOTRANSFERASE 8 Units/L (12-78); ALKALINE PHOSPHATASE 37 Units/L (46-116); ASPARTATE AMINO TRANSFERASE 20 Units/L (15-37); BLOOD UREA NITROGEN 12 mg/dL (7-18); CALCIUM 8.4 mg/dL (8.5-10.1); CARBON DIOXIDE 34.7 mmol/L (21-32); CHLORIDE 99 mmol/L (98-107); COR NA(FOR HYPERGLY) 137 mmol/L (136-145); SODIUM 136 mmol/L (136-145); eGFR NON BLACK RACES > 60 (>60)
[2018-11-18 07:11] LABS: PLATELET MORPHOLOGY COMMENT NORMAL (NORMAL)
[2018-11-18] MEDS: PULMICORT NEB TX 0.5 MG NEB SCH ×2 (08:01→20:04)
--- NOTE | 2018-11-18 08:40 | DR.PROGNOT ---
Hospital Progress Notes - Progress Note for Day of: Progress Note Date: 11/18/18 - Chief Complaint Chief Complaint: seems to be more comfortable , moderate SOB ,. chest xray showed expanded Rt lung ,. stable VS . - Past Medical Family Social History Past Med/Fam/Surg Hx: No changes since H&P Allergies: Allergies No Known Drug Allergies Allergy (Verified 05/21/17 08:19) - Review Of Systems ROS: No change since H&P - Vital Signs Vital Signs: Temperature 98.2 F Pulse Rate [Apical] 88 Pulse Rate 91 Respiratory Rate 18 Blood Pressure [Left Arm] 113/55 Blood Pressure [Right Arm] 123/55 Blood Pressure 144/67 O2 Sat by Pulse Oximetry 95 - Physical Exam Oriented: Normal Eyes: Normal Ear: Normal Nose: Normal Throat: Normal Respiratory: Wheezes, Rhonchi Cardiovascular: Normal : Normal GI:Auscultation: Normal GI:Palpation: Normal GI: Tenderness: Normal Skin: Normal Musculoskeletal: Normal Psychiatric: Normal Mood Description: Calm Affect: Normal Speech Pattern: Clear, Appropriate - Laboratory and Diagnostics Result Diagrams: 11/18/18 06:21 11/18/18 06:21 Labs: 11/11/18 23:39 Blood Blood Culture - Final Staphylococcus Hominis 11/12/18 20:30 Blood Blood Culture - Preliminary 11/12/18 20:37 Blood Blood Culture - Preliminary 11/12/18 04:45 Sputum - Expectorated Sputum Sputum Culture - Final Acinetobacter Baumanii/Haemoly 11/12/18 04:45 Sputum - Expectorated Sputum - Final Laboratory WBC 7.2 X10^3/uL (3.6-10.0) 11/18/18 06:21 RBC 4.38 X10^6/uL (3.5-5.4) 11/18/18 06:21 Hgb 13.0 g/dL (12.0-16.0) 11/18/18 06:21 Hct 38.8 % (36.0-47.0) 11/18/18 06:21 MCV 88.5 fL (80.0-100.0) 11/18/18 06:21 MCH 29.5 pg (27.0-34.0) 11/18/18 06:21 MCHC 33.4 g/dL (33.0-35.0) 11/18/18 06:21 RDW 13.6 % (11.6-16.5) 11/18/18 06:21 Plt Count 102 X10^3/uL (150.0-450.0) L 11/18/18 06:21 Plt Count Comment Decreased (ADEQUATE) A 11/18/18 06:21 MPV 10.7 fL (7.4-11.0) 11/18/18 06:21 Neut % (Auto) 90.6 % (42.0-75.0) H 11/18/18 06:21 Lymph % (Auto) 4.8 % (21.0-51.0) L 11/18/18 06:21 [place] % (Auto) 4.5 % (0.0-13.0) 11/18/18 06:21 Eos % (Auto) 0.0 % (0.9-2.9) L 11/18/18 06:21 Baso % (Auto) 0.1 % (0.2-1.0) L 11/18/18 06:21 Neut # (Auto) 6.5 x10^3/uL (2.2-4.8) H 11/18/18 06:21 Lymph # (Auto) 0.3 X10^3/uL (1.3-2.9) L 11/18/18 06:21 [place] # (Auto) 0.3 x10^3/uL (0.3-0.8) 11/18/18 06:21 Eos # (Auto) 0.0 x10^3/uL (0.0-0.2) 11/18/18 06:21 Baso # (Auto) 0.0 X10^3/uL (0.0-0.1) 11/18/18 06:21 Absolute Nucleated RBC 0.0 /100WBC 11/18/18 06:21 Total Counted 100 11/18/18 06:21 Neutrophils % (Manual) 89 % (39-76) H 11/18/18 06:21 Band Neutrophils % 1 % (0-10) 11/14/18 04:23 Lymphocytes % (Manual) 8 % (13-43) L 11/18/18 06:21 Monocytes % (Manual) 3 % (4-9) L 11/18/18 06:21 Plt Morphology Comment Normal (NORMAL) 11/18/18 06:21 RBC Morphology Normal (NORMAL) 11/18/18 06:21 Hypochromasia Slight A 11/12/18 20:30 INR Target Range - 11/11/18 21:55 INR 1.05 (0.8-1.3) 11/11/18 21:55 APTT 23.9 SECONDS (22.9-36.5) 11/11/18 21:55 PTT Comment - 11/11/18 21:55 D-Dimer 724 ng/mL (0-400) H* 11/11/18 21:55 Sample Site Rrad 11/16/18 05:55 ABG pH 7.270 (7.35-7.45) L 11/16/18 05:55 ABG pCO2 81.0 mmHg (35.0-45.0) H* 11/16/18 05:55 ABG pO2 77.0 mmHg (80.0-100.0) L 11/16/18 05:55 ABG HCO3 37.2 mmol/L (22-26) H* 11/16/18 05:55 ABG O2 Saturation 93.0 % (90-100) 11/16/18 05:55 ABG Base Excess 7.5 mmol/L (-2.0-2.0) H 11/16/18 05:55 Dony Test Pos 11/16/18 05:55 A-a Gradient 107.0 mmHg 11/16/18 05:55 FiO2 40.0 11/16/18 05:55 Blood Gas Comments Pt carolyne well elj 11/16/18 05:55 Sodium 136 mmol/L (136-145) 11/18/18 06:21 Corrected Sodium 137 mmol/L (136-145) 11/18/18 06:21 Potassium 4.0 mmol/L (3.5-5.1) 11/18/18 06:21 Chloride 99 mmol/L (98-107) 11/18/18 06:21 Carbon Dioxide 34.7 mmol/L (21-32) H 11/18/18 06:21 BUN 12 mg/dL (7-18) 11/18/18 06:21 Creatinine 0.40 mg/dL (0.55-1.02) L 11/18/18 06:21 Est GFR (MDRD) Af Amer > 60 (>60) 11/18/18 06:21 Est GFR (MDRD) Non-Af > 60 (>60) 11/18/18 06:21 Glucose 134 mg/dL (65-99) H 11/18/18 06:21 Lactic Acid 0.6 mmol/L (0.4-2.0) 11/12/18 00:00 Calcium 8.4 mg/dL (8.5-10.1) L 11/18/18 06:21 Corrected Calcium 10.0 mg/dL (8.5-10.1) 11/18/18 06:21 Magnesium 1.9 mg/dL (1.7-2.9) 11/11/18 21:55 Total Bilirubin 0.40 mg/dL (0.2-1.0) 11/18/18 06:21 AST 20 Units/L (15-37) 11/18/18 06:21 ALT 8 Units/L (12-78) L 11/18/18 06:21 Alkaline Phosphatase 37 Units/L (46-116) L 11/18/18 06:21 Creatine Kinase 117 Units/L (26-192) 11/12/18 05:45 CK-MB (CK-2) 3.5 ng/mL (0-4.0) 11/12/18 05:45 CK/CKMB % Calc 3.0 % (<4) 11/12/18 05:45 Troponin I 0.36 ng/mL (0-1.5) 11/12/18 05:45 B-Natriuretic Peptide 184 pg/mL (0-79) H 11/11/18 21:55 Total Protein 5.0 g/dL (6.4-8.2) L 11/18/18 06:21 Albumin 2.0 g/dL (3.4-5.0) L 11/18/18 06:21 Globulin 3.0 g/dL (2.5-4.5) 11/18/18 06:21 Albumin/Globulin Ratio 0.7 Ratio (1.1-2.1) L 11/18/18 06:21 Specimen Type Catherized urine 11/11/18 21:30 Urine Color Yellow (YELLOW) 11/11/18 21:30 Urine Appearance Clear (CLEAR) 11/11/18 21:30 Urine pH 5.0 (5.0 - 8.0) 11/11/18 21:30 Ur Specific [place] 1.025 (1.000-1.030) 11/11/18 21:30 Urine Protein 4+ (NEGATIVE) 11/11/18 21:30 Urine Glucose (UA) Negative (NEGATIVE) 11/11/18 21:30 Urine Ketones 1+ (NEGATIVE) 11/11/18 21:30 Urine Occult Blood 2+ (NEGATIVE) 11/11/18 21:30 Urine Nitrite Negative (NEGATIVE) 11/11/18 21: Urine Bilirubin Negative (NEGATIVE) 11/11/18 21:30 Urine Urobilinogen Normal (NORMAL) 11/11/18 21:30 Ur Leukocyte Esterase 1+ (NEGATIVE) 11/11/18 21:30 Urine RBC 3-5 /HPF (NONE SEEN) 11/11/18 21:30 Urine WBC 0-2 /HPF (NONE SEEN) 11/11/18 21:30 Ur Squamous Epith Cells Rare /HPF (NEGATIVE) 11/11/18 21:30 Amorphous Sediment 2+ /HPF (NEGATIVE) 11/11/18 21:30 Urine Bacteria Negative /HPF (NEGATIVE) 11/11/18 21:30 Ur Culture Indicated? No/not indicated 11/11/18 21:30 - Assessment and Plan 1: s/p placement Rt chest tube with goodn position and expanded lung . same care . to keep chest tube for few days till the lung seals to the pleura - Problem Patient Problems: Patient Problems Pneumothorax (Acute) J93.9
[2018-11-18] MEDS ORDERED: XYLOCAINE 1 % (PLAIN) ONE (09:07)
[2018-11-18] MEDS: UNIPHYL TAB 400 MG PO SCH (09:40)
[2018-11-18] MEDS: LOVENOX INJ 40 MG SYR SC SCH (09:40)
[2018-11-18] MEDS: XANAX PO PRN (09:40)
--- NOTE | 2018-11-18 11:54 | RAD ---
HISTORY: Line placement. Study: Single view of the chest. Comparison: 11/18/2018 Findings: The cardiomediastinal silhouette is normal. Redemonstration of left pleural effusion and right-sided chest tube . Findings of COPD. A right central catheter terminates over the expected area of the distal SVC distal SVC. IMPRESSION: 1. No significant change. 2. A right central catheter terminating over the expected area of the SVC. Reported By:
[2018-11-18] MEDS: VIBRAMYCIN 100 MG in D5W 250 ML IV 250 ML IV SCH ×2 (12:00→20:50)
[2018-11-18] MEDS: ALBUMIN HUMAN 25%- 100 ML 100 ML IV SCH (14:16)
[2018-11-18] MEDS: PROCALAMINE 3 % 1,000 ML IV SCH (16:30)
[2018-11-18] MEDS: COLACE CAP 100 MG PO SCH ×2 (20:50→20:51)
[2018-11-18] MEDS: RESTORIL CAP 15 MG PO PRN (20:51)
[2018-11-19] MEDS: DUONEB 0.5 MG/3 MG NEB SCH ×6 (00:42→20:41)
[2018-11-19 04:29] LABS: ABG BASE EXCESS 19.4 mmol/L (-2.0-2.0); ABG HCO3 46.2 mmol/L (22-26)
[2018-11-19] MEDS: NS 1000 ML 1,000 ML IV SCH ×3 (05:02→17:24)
[2018-11-19] MEDS: FORTAZ or TAZICEF VIAL INJ IVP SCH ×3 (05:02→21:35)
[2018-11-19] MEDS: SOLU-Medrol 40 MG VIAL IVP SCH ×3 (05:03→21:35)
[2018-11-19 05:25] LABS: BASOPHILS % (AUTO) 0.1 % (0.2-1.0); HEMATOCRIT 34.7 % (36.0-47.0); HEMOGLOBIN 11.6 g/dL (12.0-16.0); LYMPHOCYTES # (AUTO) 0.3 X10^3/uL (1.3-2.9); LYMPHOCYTES % (AUTO) 2.8 % (21.0-51.0); MEAN CORPUSCULAR HEMOGLOBIN 29.3 pg (27.0-34.0); MEAN CORPUSCULAR HGB CONC 33.4 g/dL (33.0-35.0); MEAN CORPUSCULAR VOLUME 87.7 fL (80.0-100.0); MONOCYTES # (AUTO) 0.3 x10^3/uL (0.3-0.8); MONOCYTES % (AUTO) 2.7 % (0.0-13.0); NEUTROPHILS % (AUTO) 94.4 % (42.0-75.0); PLATELET COUNT 119 X10^3/uL (150.0-450.0); RED BLOOD COUNT 3.96 X10^6/uL (3.5-5.4); RED CELL DISTRIBUTION WIDTH 13.6 % (11.6-16.5); WHITE BLOOD COUNT 11.6 X10^3/uL (3.6-10.0)
[2018-11-19 05:31] LABS: ALANINE AMINOTRANSFERASE 11 Units/L (12-78); ALBUMIN 2.5 g/dL (3.4-5.0); ALKALINE PHOSPHATASE 33 Units/L (46-116); ASPARTATE AMINO TRANSFERASE 18 Units/L (15-37); BLOOD UREA NITROGEN 13 mg/dL (7-18); CALCIUM 8.4 mg/dL (8.5-10.1); CARBON DIOXIDE 38.1 mmol/L (21-32); CHLORIDE 102 mmol/L (98-107); COR CA(FOR HYPOALB) 9.6 mg/dL (8.5-10.1); COR NA(FOR HYPERGLY) 140 mmol/L (136-145); CREATININE 0.39 mg/dL (0.55-1.02); SODIUM 139 mmol/L (136-145); TOTAL PROTEIN 4.9 g/dL (6.4-8.2); eGFR NON BLACK RACES > 60 (>60)
--- NOTE | 2018-11-19 06:13 | RAD ---
HISTORY: Shortness of breath Study: Chest AP portable Comparison: 11/18/2018 Findings: There is a right-sided central line in good position. There is a right chest tube unchanged. No right pneumothorax is identified. The heart is upper limits normal in size. The alvarado are normal. The aorta is calcified. The lungs appear free of acute alveolar infiltrates. Emphysematous changes are present in the upper lobes. Interstitial changes are present in the lower lobes. Density in the retrocardiac area of the left lower lobe remains and still obscures the left hemidiaphragm. It is due in part to a pleural effusion however underlying infiltrate or atelectasis cannot be excluded. There is some volume loss now present in the right lower lobe. No right pleural effusion is identified. The bony thorax is unremarkable. IMPRESSION: No definite recurrent or residual right pneumothorax Emphysematous COPD Increased density retrocardiac area left lower lobe due in part to pleural effusion however underlying atelectasis or infiltrate cannot be excluded New right lower lobe volume loss Reported By:
[2018-11-19 06:14] LABS: PLATELET MORPHOLOGY COMMENT NORMAL (NORMAL)
--- NOTE | 2018-11-19 08:01 | DR.PROGNOT ---
Hospital Progress Notes - Progress Note for Day of: Progress Note Date: 11/19/18 - Chief Complaint Chief Complaint: seems to be more comfortable , moderate SOB ,. chest xray showed expanded Rt lung , small Lt pleural effusion . chest tube is draining moderate amount of fluid . stable VS . - Past Medical Family Social History Past Med/Fam/Surg Hx: No changes since H&P Allergies: Allergies No Known Drug Allergies Allergy (Verified 05/21/17 08:19) - Review Of Systems ROS: No change since H&P - Vital Signs Vital Signs: Temperature 98.6 F Pulse Rate [Apical] 88 Pulse Rate 82 Respiratory Rate 21 Blood Pressure [Left Arm] 113/55 Blood Pressure [Right Arm] 123/55 Blood Pressure 173/77 O2 Sat by Pulse Oximetry 90 - Physical Exam Oriented: Normal Eyes: Normal Ear: Normal Nose: Normal Throat: Normal Respiratory: Wheezes, Rhonchi Cardiovascular: Normal : Normal GI:Auscultation: Normal GI:Palpation: Normal GI: Tenderness: Normal Skin: Normal Musculoskeletal: Normal Psychiatric: Normal Mood Description: Calm Affect: Normal Speech Pattern: Clear, Appropriate - Laboratory and Diagnostics Result Diagrams: 11/19/18 04:16 11/19/18 04:16 Labs: 11/12/18 20:37 Blood Blood Culture - Final 11/12/18 20:30 Blood Blood Culture - Final 11/11/18 23:39 Blood Blood Culture - Final Staphylococcus Hominis 11/12/18 04:45 Sputum - Expectorated Sputum Sputum Culture - Final Acinetobacter Baumanii/Haemoly 11/12/18 04:45 Sputum - Expectorated Sputum - Final Laboratory WBC 11.6 X10^3/uL (3.6-10.0) H 11/19/18 04:16 RBC 3.96 X10^6/uL (3.5-5.4) 11/19/18 04:16 Hgb 11.6 g/dL (12.0-16.0) L 11/19/18 04:16 Hct 34.7 % (36.0-47.0) L 11/19/18 04:16 MCV 87.7 fL (80.0-100.0) 11/19/18 04:16 MCH 29.3 pg (27.0-34.0) 11/19/18 04:16 MCHC 33.4 g/dL (33.0-35.0) 11/19/18 04:16 RDW 13.6 % (11.6-16.5) 11/19/18 04:16 Plt Count 119 X10^3/uL (150.0-450.0) L 11/19/18 04:16 Plt Count Comment Decreased (ADEQUATE) A 11/19/18 04:16 MPV 11.0 fL (7.4-11.0) 11/19/18 04:16 Neut % (Auto) 94.4 % (42.0-75.0) H 11/19/18 04:16 Lymph % (Auto) 2.8 % (21.0-51.0) L 11/19/18 04:16 [place] % (Auto) 2.7 % (0.0-13.0) 11/19/18 04:16 Eos % (Auto) 0.0 % (0.9-2.9) L 11/19/18 04:16 Baso % (Auto) 0.1 % (0.2-1.0) L 11/19/18 04:16 Neut # (Auto) 11.0 x10^3/uL (2.2-4.8) H 11/19/18 04:16 Lymph # (Auto) 0.3 X10^3/uL (1.3-2.9) L 11/19/18 04:16 [place] # (Auto) 0.3 x10^3/uL (0.3-0.8) 11/19/18 04:16 Eos # (Auto) 0.0 x10^3/uL (0.0-0.2) 11/19/18 04:16 Baso # (Auto) 0.0 X10^3/uL (0.0-0.1) 11/19/18 04:16 Absolute Nucleated RBC 0.0 /100WBC 11/19/18 04:16 Total Counted 100 11/19/18 04:16 Neutrophils % (Manual) 97 % (39-76) H 11/19/18 04:16 Band Neutrophils % 1 % (0-10) 11/14/18 04:23 Lymphocytes % (Manual) 1 % (13-43) L 11/19/18 04:16 Monocytes % (Manual) 2 % (4-9) L 11/19/18 04:16 Plt Morphology Comment Normal (NORMAL) 11/19/18 04:16 RBC Morphology Normal (NORMAL) 11/19/18 04:16 Hypochromasia Slight A 11/12/18 20:30 INR Target Range - 11/11/18 21:55 INR 1.05 (0.8-1.3) 11/11/18 21:55 APTT 23.9 SECONDS (22.9-36.5) 11/11/18 21:55 PTT Comment - 11/11/18 21:55 D-Dimer 724 ng/mL (0-400) H* 11/11/18 21:55 Sample Site Lb 11/19/18 04:19 ABG pH 7.480 (7.35-7.45) H 11/19/18 04:19 ABG pCO2 62.0 mmHg (35.0-45.0) H* 11/19/18 04:19 ABG pO2 59.0 mmHg (80.0-100.0) L 11/19/18 04:19 ABG HCO3 46.2 mmol/L (22-26) H* 11/19/18 04:19 ABG O2 Saturation 92.0 % (90-100) 11/19/18 04:19 ABG Base Excess 19.4 mmol/L (-2.0-2.0) H 11/19/18 04:19 Dony Test N/a 11/19/18 04:19 A-a Gradient 291.0 mmHg 11/19/18 04:19 FiO2 60.0 11/19/18 04:19 Blood Gas Comments Josefina well ae 11/19/18 04:19 Sodium 139 mmol/L (136-145) 11/19/18 04:16 Corrected Sodium 140 mmol/L (136-145) 11/19/18 04:16 Potassium 4.1 mmol/L (3.5-5.1) 11/19/18 04:16 Chloride 102 mmol/L (98-107) 11/19/18 04:16 Carbon Dioxide 38.1 mmol/L (21-32) H 11/19/18 04:16 BUN 13 mg/dL (7-18) 11/19/18 04:16 Creatinine 0.39 mg/dL (0.55-1.02) L 11/19/18 04:16 Est GFR (MDRD) Af Amer > 60 (>60) 11/19/18 04:16 Est GFR (MDRD) Non-Af > 60 (>60) 11/19/18 04:16 Glucose 122 mg/dL (65-99) H 11/19/18 04:16 Lactic Acid 0.6 mmol/L (0.4-2.0) 11/12/18 00:00 Calcium 8.4 mg/dL (8.5-10.1) L 11/19/18 04:16 Corrected Calcium 9.6 mg/dL (8.5-10.1) 11/19/18 04:16 Magnesium 1.9 mg/dL (1.7-2.9) 11/11/18 21:55 Total Bilirubin 0.50 mg/dL (0.2-1.0) 11/19/18 04:16 AST 18 Units/L (15-37) 11/19/18 04:16 ALT 11 Units/L (12-78) L 11/19/18 04:16 Alkaline Phosphatase 33 Units/L (46-116) L 11/19/18 04:16 Creatine Kinase 117 Units/L (26-192) 11/12/18 05:45 CK-MB (CK-2) 3.5 ng/mL (0-4.0) 11/12/18 05:45 CK/CKMB % Calc 3.0 % (<4) 11/12/18 05:45 Troponin I 0.36 ng/mL (0-1.5) 11/12/18 05:45 B-Natriuretic Peptide 184 pg/mL (0-79) H 11/11/18 21:55 Total Protein 4.9 g/dL (6.4-8.2) L 11/19/18 04:16 Albumin 2.5 g/dL (3.4-5.0) L 11/19/18 04:16 Globulin 2.4 g/dL (2.5-4.5) L 11/19/18 04:16 Albumin/Globulin Ratio 1.0 Ratio (1.1-2.1) L 11/19/18 04:16 Specimen Type Catherized urine 11/11/18 21:30 Urine Color Yellow (YELLOW) 11/11/18 21:30 Urine Appearance Clear (CLEAR) 11/11/18 21:30 Urine pH 5.0 (5.0 - 8.0) 11/11/18 21:30 Ur Specific Anderson 1.025 (1.000-1.030) 11/11/18 21:30 Urine Protein 4+ (NEGATIVE) 11/11/18 21:30 Urine Glucose (UA) Negative (NEGATIVE) 11/11/18 21:30 Urine Ketones 1+ (NEGATIVE) 11/11/18 21:30 Urine Occult Blood 2+ (NEGATIVE) 11/11/18 21: Urine Nitrite Negative (NEGATIVE) 11/11/18 21: Urine Bilirubin Negative (NEGATIVE) 11/11/18 21:30 Urine Urobilinogen Normal (NORMAL) 11/11/18 21:30 Ur Leukocyte Esterase 1+ (NEGATIVE) 11/11/18 21: Urine RBC 3-5 /HPF (NONE SEEN) 11/11/18 21:30 Urine WBC 0-2 /HPF (NONE SEEN) 11/11/18 21:30 Ur Squamous Epith Cells Rare /HPF (NEGATIVE) 11/11/18 21: Amorphous Sediment 2+ /HPF (NEGATIVE) 11/11/18 21:30 Urine Bacteria Negative /HPF (NEGATIVE) 11/11/18 21:30 Ur Culture Indicated? No/not indicated 11/11/18 21:30 - Assessment and Plan 1: Rt pneumothorax , s/p placement Rt chest tube with goodn position and expanded lung . same care . to keep chest tube for few days till the lung seals to the pleura - Problem Patient Problems: Patient Problems Pneumothorax (Acute) J93.9
[2018-11-19] MEDS: ALBUMIN HUMAN 25%- 100 ML 100 ML IV SCH (08:57)
[2018-11-19] MEDS: LOVENOX INJ 40 MG SYR SC SCH (08:58)
[2018-11-19] MEDS: UNIPHYL TAB 400 MG PO SCH (08:58)
[2018-11-19] MEDS: VIBRAMYCIN 100 MG in D5W 250 ML IV 250 ML IV SCH ×2 (08:58→21:44)
[2018-11-19] MEDS: XANAX PO PRN ×2 (08:59→22:00)
[2018-11-19] MEDS: PULMICORT NEB TX 0.5 MG NEB SCH ×2 (09:21→20:41)
--- NOTE | 2018-11-19 12:35 | PCM.PROG ---
Progress Note - Progress Note for Day of Date of Exam: 11/17/18 - Subjective Subjective: WAS ADMITTED FOR RESPIRATORY FAILURE, PNEUMONIA, COPD EXACERBATION, AND A RIGHT SIDED PNEUMOTHORAX. PLACED A CHEST TUBE AT BEDSIDE YESTERDAY. SHE REMAINS IN THE INTENSIVE CARE UNIT TODAY. SHE CONTINUES TO UTILIZE THE BIPAP. SHE CONTINUES WITH SHORTNESS OF BREATH AND COUGH. FAMILY REPORTS THAT SHE HAS HAD A DECREASED APPETITE. ON EXAMINATION, HEART IS REGULAR IN RATE AND RHYTHM. BILATERAL LUNGS ARE NOTED WITH SCATTERED WHEEZING AND RHONCHI. ABDOMEN IS ROUND, SOFT, AND NON-TENDER WITH NORMAL BOWEL SOUNDS NOTED IN ALL QUADRANTS. CHEST TUBE NOTED TO RIGHT SIDE LUNG. HER VITALS THIS MORNING ARE: 98.2-92-28-93%-139/66. LABS WERE OBTAINED. ABNORMAL LAB VALUES INCLUDE THE FOLLOWING: PLT COUNT 102, CREATININE 0.33, CALCIUM 7.9, ALT 8, ALK PHOS 36, TOTAL PROTEIN 4.9, ALBUMIN 2.1. BLOOD CULTURES ARE POSITIVE FOR STAPHYLOCOCCUS HOMINIS. SPUTUM CULTURE IS POSITIVE FOR ACINETOBACTER BAUMANII/HAEMOLY. A CHEST XRAY WAS OBTAINED TODAY AND REVEALED: No definite residual or recurrent right pneumothorax. Emphysematous COPD. SHE IS CURRENTLY RECEIVING IV FORTAZ, IV DOXYCYCLINE, IV FLUIDS, RESPIRATORY TX, AND IV STEROIDS. WE WILL CONTINUE WITH CURRENT PLAN OF CARE TODAY. OTHERWISE, WE WILL FOLLOW UP WITH AM LABS AND CONTINUE TO MONITOR. - Past Medical Family Social History Past Med/Fam/Surg Hx: No changes since H&P Allergies: Allergies No Known Drug Allergies Allergy (Verified 05/21/17 08:19) - Review of Systems ROS: No change since H&P - Vital Signs and I&O's Vital Signs: Temperature 98.8 F Pulse Rate [Apical] 88 Pulse Rate 80 Respiratory Rate 22 Blood Pressure [Left Arm] 113/55 Blood Pressure [Right Arm] 123/55 Blood Pressure 165/71 O2 Sat by Pulse Oximetry 95 Intake and Output: Intake & Output 11/17/18 11/18/18 11/19/18 11/20/18 11:59 11:59 11:59 11:59 Intake Total 3391 / 3391 3008 / 3008 2670 / 2670 Output Total 2960 / 2960 2250 / 2250 2100 / 2100 Balance 431 / 431 758 / 758 570 / 570 - Physical Exam Oriented: Normal Eyes: Normal Ear: Normal Nose: Normal Throat: Normal Respiratory: Wheezes, Rhonchi Cardiovascular: Normal : Normal Auscultation: Bowel Sounds: Normal Palpation: Normal Tenderness: Normal Skin: Normal Musculoskeletal: Normal Psychiatric: Normal Mood Description: Calm Affect: Normal Speech Pattern: Clear, Appropriate - Laboratory and Diagnostics Result Diagrams: 11/19/18 04:16 11/19/18 04:16 Labs: 11/12/18 20:37 Blood Blood Culture - Final 11/12/18 20:30 Blood Blood Culture - Final 11/11/18 23:39 Blood Blood Culture - Final Staphylococcus Hominis 11/12/18 04:45 Sputum - Expectorated Sputum Sputum Culture - Final Acinetobacter Baumanii/Haemoly 11/12/18 04:45 Sputum - Expectorated Sputum - Final Laboratory WBC 11.6 X10^3/uL (3.6-10.0) H 11/19/18 04:16 RBC 3.96 X10^6/uL (3.5-5.4) 11/19/18 04:16 Hgb 11.6 g/dL (12.0-16.0) L 11/19/18 04:16 Hct 34.7 % (36.0-47.0) L 11/19/18 04:16 MCV 87.7 fL (80.0-100.0) 11/19/18 04:16 MCH 29.3 pg (27.0-34.0) 11/19/18 04:16 MCHC 33.4 g/dL (33.0-35.0) 11/19/18 04:16 RDW 13.6 % (11.6-16.5) 11/19/18 04:16 Plt Count 119 X10^3/uL (150.0-450.0) L 11/19/18 04:16 Plt Count Comment Decreased (ADEQUATE) A 11/19/18 04:16 MPV 11.0 fL (7.4-11.0) 11/19/18 04:16 Neut % (Auto) 94.4 % (42.0-75.0) H 11/19/18 04:16 Lymph % (Auto) 2.8 % (21.0-51.0) L 11/19/18 04:16 [place] % (Auto) 2.7 % (0.0-13.0) 11/19/18 04:16 Eos % (Auto) 0.0 % (0.9-2.9) L 11/19/18 04:16 Baso % (Auto) 0.1 % (0.2-1.0) L 11/19/18 04:16 Neut # (Auto) 11.0 x10^3/uL (2.2-4.8) H 11/19/18 04:16 Lymph # (Auto) 0.3 X10^3/uL (1.3-2.9) L 11/19/18 04:16 [place] # (Auto) 0.3 x10^3/uL (0.3-0.8) 11/19/18 04:16 Eos # (Auto) 0.0 x10^3/uL (0.0-0.2) 11/19/18 04:16 Baso # (Auto) 0.0 X10^3/uL (0.0-0.1) 11/19/18 04:16 Absolute Nucleated RBC 0.0 /100WBC 11/19/18 04:16 Total Counted 100 11/19/18 04:16 Neutrophils % (Manual) 97 % (39-76) H 11/19/18 04:16 Band Neutrophils % 1 % (0-10) 11/14/18 04:23 Lymphocytes % (Manual) 1 % (13-43) L 11/19/18 04:16 Monocytes % (Manual) 2 % (4-9) L 11/19/18 04:16 Plt Morphology Comment Normal (NORMAL) 11/19/18 04:16 RBC Morphology Normal (NORMAL) 11/19/18 04:16 Hypochromasia Slight A 11/12/18 20:30 INR Target Range - 11/11/18 21:55 INR 1.05 (0.8-1.3) 11/11/18 21:55 APTT 23.9 SECONDS (22.9-36.5) 11/11/18 21:55 PTT Comment - 11/11/18 21:55 D-Dimer 724 ng/mL (0-400) H* 11/11/18 21:55 Sample Site Lb 11/19/18 04:19 ABG pH 7.480 (7.35-7.45) H 11/19/18 04:19 ABG pCO2 62.0 mmHg (35.0-45.0) H* 11/19/18 04:19 ABG pO2 59.0 mmHg (80.0-100.0) L 11/19/18 04:19 ABG HCO3 46.2 mmol/L (22-26) H* 11/19/18 04:19 ABG O2 Saturation 92.0 % (90-100) 11/19/18 04:19 ABG Base Excess 19.4 mmol/L (-2.0-2.0) H 11/19/18 04:19 Dony Test N/a 11/19/18 04:19 A-a Gradient 291.0 mmHg 11/19/18 04:19 FiO2 60.0 11/19/18 04:19 Blood Gas Comments Josefina well ae 11/19/18 04:19 Sodium 139 mmol/L (136-145) 11/19/18 04:16 Corrected Sodium 140 mmol/L (136-145) 11/19/18 04:16 Potassium 4.1 mmol/L (3.5-5.1) 11/19/18 04:16 Chloride 102 mmol/L (98-107) 11/19/18 04:16 Carbon Dioxide 38.1 mmol/L (21-32) H 11/19/18 04:16 BUN 13 mg/dL (7-18) 11/19/18 04:16 Creatinine 0.39 mg/dL (0.55-1.02) L 11/19/18 04:16 Est GFR (MDRD) Af Amer > 60 (>60) 11/19/18 04:16 Est GFR (MDRD) Non-Af > 60 (>60) 11/19/18 04:16 Glucose 122 mg/dL (65-99) H 11/19/18 04:16 Lactic Acid 0.6 mmol/L (0.4-2.0) 11/12/18 00:00 Calcium 8.4 mg/dL (8.5-10.1) L 11/19/18 04:16 Corrected Calcium 9.6 mg/dL (8.5-10.1) 11/19/18 04:16 Magnesium 1.9 mg/dL (1.7-2.9) 11/11/18 21:55 Total Bilirubin 0.50 mg/dL (0.2-1.0) 11/19/18 04:16 AST 18 Units/L (15-37) 11/19/18 04:16 ALT 11 Units/L (12-78) L 11/19/18 04:16 Alkaline Phosphatase 33 Units/L (46-116) L 11/19/18 04:16 Creatine Kinase 117 Units/L (26-192) 11/12/18 05:45 CK-MB (CK-2) 3.5 ng/mL (0-4.0) 11/12/18 05:45 CK/CKMB % Calc 3.0 % (<4) 11/12/18 05:45 Troponin I 0.36 ng/mL (0-1.5) 11/12/18 05:45 B-Natriuretic Peptide 184 pg/mL (0-79) H 11/11/18 21:55 Total Protein 4.9 g/dL (6.4-8.2) L 11/19/18 04:16 Albumin 2.5 g/dL (3.4-5.0) L 11/19/18 04:16 Globulin 2.4 g/dL (2.5-4.5) L 11/19/18 04:16 Albumin/Globulin Ratio 1.0 Ratio (1.1-2.1) L 11/19/18 04:16 Specimen Type Catherized urine 11/11/18 21:30 Urine Color Yellow (YELLOW) 11/11/18 21:30 Urine Appearance Clear (CLEAR) 11/11/18 21:30 Urine pH 5.0 (5.0 - 8.0) 11/11/18 21:30 Ur Specific [place] 1.025 (1.000-1.030) 11/11/18 21:30 Urine Protein 4+ (NEGATIVE) 11/11/18 21:30 Urine Glucose (UA) Negative (NEGATIVE) 11/11/18 21:30 Urine Ketones 1+ (NEGATIVE) 11/11/18 21: Urine Occult Blood 2+ (NEGATIVE) 11/11/18 21:30 Urine Nitrite Negative (NEGATIVE) 11/11/18 21:30 Urine Bilirubin Negative (NEGATIVE) 11/11/18 21:30 Urine Urobilinogen Normal (NORMAL) 11/11/18 21:30 Ur Leukocyte Esterase 1+ (NEGATIVE) 11/11/18 21:30 Urine RBC 3-5 /HPF (NONE SEEN) 11/11/18 21:30 Urine WBC 0-2 /HPF (NONE SEEN) 11/11/18 21:30 Ur Squamous Epith Cells Rare /HPF (NEGATIVE) 11/11/18 21:30 Amorphous Sediment 2+ /HPF (NEGATIVE) 11/11/18 21:30 Urine Bacteria Negative /HPF (NEGATIVE) 11/11/18 21:30 Ur Culture Indicated? No/not indicated 11/11/18 21:30 - Plan (1) Pneumonia Status: Acute Qualifiers: Pneumonia type: due to other aerobic Gram-negative bacteria Laterality: bilateral Lung location: unspecified part of lung Qualified Code(s): J15.6 - Pneumonia due to other Gram-negative bacteria Plan: iv antibiotics, respiratory tx, BIPAP, continue to monitor (2) COPD exacerbation Status: Acute Plan: iv antibiotics, iv steroids, BIPAP, respiratory tx, continue to monitor (3) Pneumothorax Status: Acute Qualifiers: Pneumothorax type: unspecified pneumothorax Qualified Code(s): J93.9 - Pneumothorax, unspecified Plan: CHEST TUBE, CONTINUE TO MONITOR (4) Respiratory failure with hypoxia and hypercapnia Status: Acute Qualifiers: Chronicity: acute on chronic Qualified Code(s): J96.21 - Acute and chronic respiratory failure with hypoxia; J96.22 - Acute and chronic respiratory failure with hypercapnia Plan: iv antibiotics, iv steroids, BIPAP, respiratory tx, continue to monitor (5) Hypoproteinemia Status: Acute Plan: PROCAL AT 40ML/HR, CONTINUE TO MONITOR
[2018-11-19] MEDS: NORCO 5/325 MG TAB PO PRN ×2 (13:54→22:00)
--- NOTE | 2018-11-19 13:59 | PCM.PROG ---
Progress Note - Progress Note for Day of Date of Exam: 11/18/18 - Subjective Subjective: WAS ADMITTED FOR RESPIRATORY FAILURE, PNEUMONIA, COPD EXACERBATION, AND A RIGHT SIDED PNEUMOTHORAX. SHE REMAINS IN THE INTENSIVE CARE UNIT TODAY WITH A CHEST TUBE. SHE CONTINUES TO UTILIZE THE BIPAP. SHE CONTINUES WITH SHORTNESS OF BREATH AND COUGH. FAMILY REPORTS INCREASED SWELLING TO UPPER AND LOWER EXTREMITIES. ON EXAMINATION, HEART IS REGULAR IN RATE AND RHYTHM. BILATERAL LUNGS ARE NOTED WITH SCATTERED WHEEZING AND RHONCHI. ABDOMEN IS ROUND, SOFT, AND NON-TENDER WITH NORMAL BOWEL SOUNDS NOTED IN ALL QUADRANTS. CHEST TUBE NOTED TO RIGHT SIDE LUNG. SHE IS NOTED WITH 1+ PITTING EDEMA TO UPPER AND LOWER EXTREMITIES. HER VITALS THIS MORNING ARE: 98.2-93-20-94%-120/56. LABS WERE OBTAINED. ABNORMAL LAB VALUES INCLUDE THE FOLLOWING: PLT COUNT 102, CARBON DIOXIDE 34.7, CREATININE 0.40, GLUCOSE 134, CALCIUM 8.4, ALT 8, ALK PHOS 37, TOTAL PROTEIN 5.0, ALBUMIN 2.0. BLOOD CULTURES ARE POSITIVE FOR STAPHYLOCOCCUS HOMINIS. SPUTUM CULTURE IS POSITIVE FOR ACINETOBACTER BAUMANII/HAEMOLY. A CHEST XRAY WAS OBTAINED TODAY AND REVEALED: No definite residual or recurrent right pneumothorax. Interval development of abnormal density in the retrocardiac area of the left lower lobe obscuring the left hemidiaphragm which could be on the basis of effusion, infiltrate, atelectasis or combination. There is now a left pleural effusion present. Emphysematous COPD. SHE IS CURRENTLY RECEIVING IV FORTAZ, IV DOXYCYCLINE, IV FLUIDS, RESPIRATORY TX, AND IV STEROIDS. WE WILL CONTINUE WITH CURRENT PLAN OF CARE TODAY AND START ALBUMIN 25% IV DAILY. OTHERWISE, WE WILL FOLLOW UP WITH AM LABS AND CONTINUE TO MONITOR. - Past Medical Family Social History Past Med/Fam/Surg Hx: No changes since H&P Allergies: Allergies No Known Drug Allergies Allergy (Verified 05/21/17 08:19) - Review of Systems ROS: No change since H&P - Vital Signs and I&O's Vital Signs: Temperature 98.8 F Pulse Rate [Apical] 88 Pulse Rate 82 Respiratory Rate 26 Blood Pressure [Left Arm] 113/55 Blood Pressure [Right Arm] 123/55 Blood Pressure 169/71 O2 Sat by Pulse Oximetry 93 Intake and Output: Intake & Output 11/17/18 11/18/18 11/19/18 11/20/18 11:59 11:59 11:59 11:59 Intake Total 3391 / 3391 3008 / 3008 2670 / 2670 Output Total 2960 / 2960 2250 / 2250 2100 / 2100 Balance 431 / 431 758 / 758 570 / 570 - Physical Exam Oriented: Normal Eyes: Normal Ear: Normal Nose: Normal Throat: Normal Respiratory: Wheezes, Rhonchi Cardiovascular: Normal : Normal Auscultation: Bowel Sounds: Normal Tenderness: Normal Skin: Normal Musculoskeletal: Normal Psychiatric: Normal Mood Description: Calm Affect: Normal Speech Pattern: Clear, Appropriate - Laboratory and Diagnostics Result Diagrams: 11/19/18 04:16 11/19/18 04:16 Labs: 11/12/18 20:37 Blood Blood Culture - Final 11/12/18 20:30 Blood Blood Culture - Final 11/11/18 23:39 Blood Blood Culture - Final Staphylococcus Hominis 11/12/18 04:45 Sputum - Expectorated Sputum Sputum Culture - Final Acinetobacter Baumanii/Haemoly 11/12/18 04:45 Sputum - Expectorated Sputum - Final Laboratory WBC 11.6 X10^3/uL (3.6-10.0) H 11/19/18 04:16 RBC 3.96 X10^6/uL (3.5-5.4) 11/19/18 04:16 Hgb 11.6 g/dL (12.0-16.0) L 11/19/18 04:16 Hct 34.7 % (36.0-47.0) L 11/19/18 04:16 MCV 87.7 fL (80.0-100.0) 11/19/18 04:16 MCH 29.3 pg (27.0-34.0) 11/19/18 04:16 MCHC 33.4 g/dL (33.0-35.0) 11/19/18 04:16 RDW 13.6 % (11.6-16.5) 11/19/18 04:16 Plt Count 119 X10^3/uL (150.0-450.0) L 11/19/18 04:16 Plt Count Comment Decreased (ADEQUATE) A 11/19/18 04:16 MPV 11.0 fL (7.4-11.0) 11/19/18 04:16 Neut % (Auto) 94.4 % (42.0-75.0) H 11/19/18 04:16 Lymph % (Auto) 2.8 % (21.0-51.0) L 11/19/18 04:16 [place] % (Auto) 2.7 % (0.0-13.0) 11/19/18 04:16 Eos % (Auto) 0.0 % (0.9-2.9) L 11/19/18 04:16 Baso % (Auto) 0.1 % (0.2-1.0) L 11/19/18 04:16 Neut # (Auto) 11.0 x10^3/uL (2.2-4.8) H 11/19/18 04:16 Lymph # (Auto) 0.3 X10^3/uL (1.3-2.9) L 11/19/18 04:16 [place] # (Auto) 0.3 x10^3/uL (0.3-0.8) 11/19/18 04:16 Eos # (Auto) 0.0 x10^3/uL (0.0-0.2) 11/19/18 04:16 Baso # (Auto) 0.0 X10^3/uL (0.0-0.1) 11/19/18 04:16 Absolute Nucleated RBC 0.0 /100WBC 11/19/18 04:16 Total Counted 100 11/19/18 04:16 Neutrophils % (Manual) 97 % (39-76) H 11/19/18 04:16 Band Neutrophils % 1 % (0-10) 11/14/18 04:23 Lymphocytes % (Manual) 1 % (13-43) L 11/19/18 04:16 Monocytes % (Manual) 2 % (4-9) L 11/19/18 04:16 Plt Morphology Comment Normal (NORMAL) 11/19/18 04:16 RBC Morphology Normal (NORMAL) 11/19/18 04:16 Hypochromasia Slight A 11/12/18 20:30 INR Target Range - 11/11/18 21:55 INR 1.05 (0.8-1.3) 11/11/18 21:55 APTT 23.9 SECONDS (22.9-36.5) 05/29/19 21:55 PTT Comment - 11/11/18 21:55 D-Dimer 724 ng/mL (0-400) H* 11/11/18 21:55 Sample Site Lb 11/19/18 04:19 ABG pH 7.480 (7.35-7.45) H 11/19/18 04:19 ABG pCO2 62.0 mmHg (35.0-45.0) H* 11/19/18 04:19 ABG pO2 59.0 mmHg (80.0-100.0) L 11/19/18 04:19 ABG HCO3 46.2 mmol/L (22-26) H* 11/19/18 04:19 ABG O2 Saturation 92.0 % (90-100) 11/19/18 04:19 ABG Base Excess 19.4 mmol/L (-2.0-2.0) H 11/19/18 04:19 Dony Test N/a 11/19/18 04:19 A-a Gradient 291.0 mmHg 11/19/18 04:19 FiO2 60.0 11/19/18 04:19 Blood Gas Comments Josefina well ae 11/19/18 04:19 Sodium 139 mmol/L (136-145) 11/19/18 04:16 Corrected Sodium 140 mmol/L (136-145) 11/19/18 04:16 Potassium 4.1 mmol/L (3.5-5.1) 11/19/18 04:16 Chloride 102 mmol/L (98-107) 11/19/18 04:16 Carbon Dioxide 38.1 mmol/L (21-32) H 11/19/18 04:16 BUN 13 mg/dL (7-18) 11/19/18 04:16 Creatinine 0.39 mg/dL (0.55-1.02) L 11/19/18 04:16 Est GFR (MDRD) Af Amer > 60 (>60) 11/19/18 04:16 Est GFR (MDRD) Non-Af > 60 (>60) 11/19/18 04:16 Glucose 122 mg/dL (65-99) H 11/19/18 04:16 Lactic Acid 0.6 mmol/L (0.4-2.0) 11/12/18 00:00 Calcium 8.4 mg/dL (8.5-10.1) L 11/19/18 04:16 Corrected Calcium 9.6 mg/dL (8.5-10.1) 11/19/18 04:16 Magnesium 1.9 mg/dL (1.7-2.9) 11/11/18 21:55 Total Bilirubin 0.50 mg/dL (0.2-1.0) 11/19/18 04:16 AST 18 Units/L (15-37) 11/19/18 04:16 ALT 11 Units/L (12-78) L 11/19/18 04:16 Alkaline Phosphatase 33 Units/L (46-116) L 11/19/18 04:16 Creatine Kinase 117 Units/L (26-192) 11/12/18 05:45 CK-MB (CK-2) 3.5 ng/mL (0-4.0) 11/12/18 05:45 CK/CKMB % Calc 3.0 % (<4) 11/12/18 05:45 Troponin I 0.36 ng/mL (0-1.5) 11/12/18 05:45 B-Natriuretic Peptide 184 pg/mL (0-79) H 11/11/18 21:55 Total Protein 4.9 g/dL (6.4-8.2) L 11/19/18 04:16 Albumin 2.5 g/dL (3.4-5.0) L 11/19/18 04:16 Globulin 2.4 g/dL (2.5-4.5) L 11/19/18 04:16 Albumin/Globulin Ratio 1.0 Ratio (1.1-2.1) L 11/19/18 04:16 Specimen Type Catherized urine 11/11/18 21:30 Urine Color Yellow (YELLOW) 11/11/18 21:30 Urine Appearance Clear (CLEAR) 11/11/18 21:30 Urine pH 5.0 (5.0 - 8.0) 11/11/18 21:30 Ur Specific [place] 1.025 (1.000-1.030) 11/11/18 21:30 Urine Protein 4+ (NEGATIVE) 11/11/18 21:30 Urine Glucose (UA) Negative (NEGATIVE) 11/11/18 21:30 Urine Ketones 1+ (NEGATIVE) 11/11/18 21:30 Urine Occult Blood 2+ (NEGATIVE) 11/11/18 21:30 Urine Nitrite Negative (NEGATIVE) 11/11/18 21:30 Urine Bilirubin Negative (NEGATIVE) 11/11/18 21:30 Urine Urobilinogen Normal (NORMAL) 11/11/18 21:30 Ur Leukocyte Esterase 1+ (NEGATIVE) 11/11/18 21:30 Urine RBC 3-5 /HPF (NONE SEEN) 11/11/18 21:30 Urine WBC 0-2 /HPF (NONE SEEN) 11/11/18 21:30 Ur Squamous Epith Cells Rare /HPF (NEGATIVE) 11/11/18 21:30 Amorphous Sediment 2+ /HPF (NEGATIVE) 11/11/18 21:30 Urine Bacteria Negative /HPF (NEGATIVE) 11/11/18 21:30 Ur Culture Indicated? No/not indicated 11/11/18 21:30 - Plan (1) Pneumonia Status: Acute Qualifiers: Pneumonia type: due to other aerobic Gram-negative bacteria Laterality: bilateral Lung location: unspecified part of lung Qualified Code(s): J15.6 - Pneumonia due to other Gram-negative bacteria Plan: iv antibiotics, respiratory tx, BIPAP, continue to monitor (2) COPD exacerbation Status: Acute Plan: iv antibiotics, iv steroids, BIPAP, respiratory tx, continue to monitor (3) Pneumothorax Status: Acute Qualifiers: Pneumothorax type: unspecified pneumothorax Qualified Code(s): J93.9 - Pneumothorax, unspecified Plan: CHEST TUBE, CONTINUE TO MONITOR (4) Respiratory failure with hypoxia and hypercapnia Status: Acute Qualifiers: Chronicity: acute on chronic Qualified Code(s): J96.21 - Acute and chronic respiratory failure with hypoxia; J96.22 - Acute and chronic respiratory failure with hypercapnia Plan: iv antibiotics, iv steroids, BIPAP, respiratory tx, continue to monitor (5) Hypoproteinemia Status: Acute Plan: ALBUMIN 25% IV DAILY, PROCAL AT 40ML/HR, CONTINUE TO MONITOR
[2018-11-19] MEDS: PROCALAMINE 3 % 1,000 ML IV SCH (17:24)
[2018-11-19] MEDS: COLACE CAP 100 MG PO SCH ×2 (21:35→21:37)
[2018-11-20] MEDS: NS 1000 ML 1,000 ML IV SCH ×4 (00:46→21:17)
[2018-11-20] MEDS: DUONEB 0.5 MG/3 MG NEB SCH ×6 (01:35→20:29)
[2018-11-20] MEDS: NORCO 5/325 MG TAB PO PRN (03:38)
[2018-11-20] MEDS: FORTAZ or TAZICEF VIAL INJ IVP SCH ×3 (05:08→21:14)
[2018-11-20] MEDS: SOLU-Medrol 40 MG VIAL IVP SCH (05:09)
[2018-11-20 05:20] LABS: BASOPHILS % (AUTO) 0.1 % (0.2-1.0); HEMATOCRIT 34.4 % (36.0-47.0); HEMOGLOBIN 11.5 g/dL (12.0-16.0); LYMPHOCYTES # (AUTO) 0.3 X10^3/uL (1.3-2.9); LYMPHOCYTES % (AUTO) 2.6 % (21.0-51.0); MEAN CORPUSCULAR HEMOGLOBIN 29.5 pg (27.0-34.0); MEAN CORPUSCULAR HGB CONC 33.5 g/dL (33.0-35.0); MEAN CORPUSCULAR VOLUME 88.1 fL (80.0-100.0); MEAN PLATELET VOLUME 10.9 fL (7.4-11.0); MONOCYTES # (AUTO) 0.5 x10^3/uL (0.3-0.8); MONOCYTES % (AUTO) 4.1 % (0.0-13.0); NEUTROPHILS # (AUTO) 11.4 x10^3/uL (2.2-4.8); NEUTROPHILS % (AUTO) 93.2 % (42.0-75.0); PLATELET COUNT 124 X10^3/uL (150.0-450.0); RED BLOOD COUNT 3.91 X10^6/uL (3.5-5.4); RED CELL DISTRIBUTION WIDTH 13.7 % (11.6-16.5); WHITE BLOOD COUNT 12.2 X10^3/uL (3.6-10.0)
[2018-11-20 05:40] LABS: ALANINE AMINOTRANSFERASE 13 Units/L (12-78); ALBUMIN 2.6 g/dL (3.4-5.0); ALKALINE PHOSPHATASE 35 Units/L (46-116); ASPARTATE AMINO TRANSFERASE 21 Units/L (15-37); BLOOD UREA NITROGEN 11 mg/dL (7-18); CALCIUM 8.4 mg/dL (8.5-10.1); CARBON DIOXIDE 39.4 mmol/L (21-32); CHLORIDE 100 mmol/L (98-107); COR CA(FOR HYPOALB) 9.5 mg/dL (8.5-10.1); COR NA(FOR HYPERGLY) 142 mmol/L (136-145); CREATININE 0.41 mg/dL (0.55-1.02); SODIUM 141 mmol/L (136-145); TOTAL PROTEIN 4.8 g/dL (6.4-8.2); eGFR NON BLACK RACES > 60 (>60)
[2018-11-20 06:11] LABS: BAND NEUTROPHILS % 1 % (0-10); PLATELET MORPHOLOGY COMMENT NORMAL (NORMAL)
--- NOTE | 2018-11-20 06:21 | RAD ---
HISTORY: Shortness of breath Study: Chest AP portable Comparison: 11/19/2018 Findings: There is a right chest tube in place. There is a right-sided central line in good position. The heart is within normal limits in size. The alvarado are normal. The lungs are well inflated. No residual pneumothorax is present on the right. The right lower lobe is much better inflated than on the prior examination. Emphysematous changes are present in the upper lobes. Left pleural effusion and increased retrocardiac density on the left unchanged. The bony thorax is unremarkable. IMPRESSION: Significantly improved inflation in the right lower lobe when compared with the prior examination No definite recurrent or residual right pneumothorax Emphysematous COPD Stable increased retrocardiac density and left pleural effusion Reported By:
[2018-11-20] MEDS: ALBUMIN HUMAN 25%- 100 ML 100 ML IV SCH (08:12)
[2018-11-20] MEDS: UNIPHYL TAB 400 MG PO SCH (08:12)
[2018-11-20] MEDS: VIBRAMYCIN 100 MG in D5W 250 ML IV 250 ML IV SCH ×2 (08:15→21:14)
[2018-11-20] MEDS: MORPHINE SULFATE INJ 2 MG INJ IVP PRN (08:15)
[2018-11-20] MEDS: LOVENOX INJ 40 MG SYR SC SCH (08:17)
[2018-11-20] MEDS: PULMICORT NEB TX 0.5 MG NEB SCH ×2 (08:29→20:29)
[2018-11-20] MEDS: XANAX PO PRN ×2 (09:27→21:11)
--- NOTE | 2018-11-20 10:53 | DR.PROGNOT ---
Hospital Progress Notes - Progress Note for Day of: Progress Note Date: 11/20/18 - Chief Complaint Chief Complaint: comfortable , only mild SOB ,. chest xray showed expanded Rt lung , small Lt pleural effusion . chest tube is draining moderate amount of fluid . stable VS . - Past Medical Family Social History Past Med/Fam/Surg Hx: No changes since H&P Allergies: Allergies No Known Drug Allergies Allergy (Verified 05/21/17 08:19) - Review Of Systems ROS: No change since H&P - Vital Signs Vital Signs: Temperature 98.1 F Pulse Rate [Apical] 88 Pulse Rate 70 Respiratory Rate 20 Blood Pressure [Left Arm] 113/55 Blood Pressure [Right Arm] 123/55 Blood Pressure 173/72 O2 Sat by Pulse Oximetry 96 - Physical Exam Oriented: Normal Eyes: Normal Ear: Normal Nose: Normal Throat: Normal Respiratory: Wheezes, Rhonchi Cardiovascular: Normal : Normal GI:Auscultation: Normal GI:Palpation: Normal GI: Tenderness: Normal Skin: Normal Musculoskeletal: Normal Psychiatric: Normal Mood Description: Calm Affect: Normal Speech Pattern: Clear, Appropriate - Laboratory and Diagnostics Result Diagrams: 11/20/18 04:06 11/20/18 04:06 Labs: 11/12/18 20:37 Blood Blood Culture - Final 11/12/18 20:30 Blood Blood Culture - Final 11/11/18 23:39 Blood Blood Culture - Final Staphylococcus Hominis 11/12/18 04:45 Sputum - Expectorated Sputum Sputum Culture - Final Acinetobacter Baumanii/Haemoly 11/12/18 04:45 Sputum - Expectorated Sputum - Final Laboratory WBC 12.2 X10^3/uL (3.6-10.0) H 11/20/18 04:06 RBC 3.91 X10^6/uL (3.5-5.4) 11/20/18 04:06 Hgb 11.5 g/dL (12.0-16.0) L 11/20/18 04:06 Hct 34.4 % (36.0-47.0) L 11/20/18 04:06 MCV 88.1 fL (80.0-100.0) 11/20/18 04:06 MCH 29.5 pg (27.0-34.0) 11/20/18 04:06 MCHC 33.5 g/dL (33.0-35.0) 11/20/18 04:06 RDW 13.7 % (11.6-16.5) 11/20/18 04:06 Plt Count 124 X10^3/uL (150.0-450.0) L 11/20/18 04:06 Plt Count Comment Adequate (ADEQUATE) 11/20/18 04:06 MPV 10.9 fL (7.4-11.0) 11/20/18 04:06 Neut % (Auto) 93.2 % (42.0-75.0) H 11/20/18 04:06 Lymph % (Auto) 2.6 % (21.0-51.0) L 11/20/18 04:06 [place] % (Auto) 4.1 % (0.0-13.0) 11/20/18 04:06 Eos % (Auto) 0.0 % (0.9-2.9) L 11/20/18 04:06 Baso % (Auto) 0.1 % (0.2-1.0) L 11/20/18 04:06 Neut # (Auto) 11.4 x10^3/uL (2.2-4.8) H 11/20/18 04:06 Lymph # (Auto) 0.3 X10^3/uL (1.3-2.9) L 11/20/18 04:06 [place] # (Auto) 0.5 x10^3/uL (0.3-0.8) 11/20/18 04:06 Eos # (Auto) 0.0 x10^3/uL (0.0-0.2) 11/20/18 04:06 Baso # (Auto) 0.0 X10^3/uL (0.0-0.1) 11/20/18 04:06 Absolute Nucleated RBC 0.0 /100WBC 11/20/18 04:06 Total Counted 100 11/20/18 04:06 Neutrophils % (Manual) 95 % (39-76) H 11/20/18 04:06 Band Neutrophils % 1 % (0-10) 11/20/18 04:06 Lymphocytes % (Manual) 3 % (13-43) L 11/20/18 04:06 Monocytes % (Manual) 1 % (4-9) L 11/20/18 04:06 Plt Morphology Comment Normal (NORMAL) 11/20/18 04:06 RBC Morphology Normal (NORMAL) 11/20/18 04:06 Hypochromasia Slight A 11/12/18 20:30 INR Target Range - 11/11/18 21:55 INR 1.05 (0.8-1.3) 11/11/18 21:55 APTT 23.9 SECONDS (22.9-36.5) 11/11/18 21:55 PTT Comment - 11/11/18 21:55 D-Dimer 724 ng/mL (0-400) H* 11/11/18 21:55 Sample Site Lb 11/19/18 04:19 ABG pH 7.480 (7.35-7.45) H 11/19/18 04:19 ABG pCO2 62.0 mmHg (35.0-45.0) H* 11/19/18 04:19 ABG pO2 59.0 mmHg (80.0-100.0) L 11/19/18 04:19 ABG HCO3 46.2 mmol/L (22-26) H* 11/19/18 04:19 ABG O2 Saturation 92.0 % (90-100) 11/19/18 04:19 ABG Base Excess 19.4 mmol/L (-2.0-2.0) H 11/19/18 04:19 Dony Test N/a 11/19/18 04:19 A-a Gradient 291.0 mmHg 11/19/18 04:19 FiO2 60.0 11/19/18 04:19 Blood Gas Comments Josefina well ae 11/19/18 04:19 Sodium 141 mmol/L (136-145) 11/20/18 04:06 Corrected Sodium 142 mmol/L (136-145) 11/20/18 04:06 Potassium 3.6 mmol/L (3.5-5.1) 11/20/18 04:06 Chloride 100 mmol/L (98-107) 11/20/18 04:06 Carbon Dioxide 39.4 mmol/L (21-32) H 11/20/18 04:06 BUN 11 mg/dL (7-18) 11/20/18 04:06 Creatinine 0.41 mg/dL (0.55-1.02) L 11/20/18 04:06 Est GFR (MDRD) Af Amer > 60 (>60) 11/20/18 04:06 Est GFR (MDRD) Non-Af > 60 (>60) 11/20/18 04:06 Glucose 128 mg/dL (65-99) H 11/20/18 04:06 Lactic Acid 0.6 mmol/L (0.4-2.0) 11/12/18 00:00 Calcium 8.4 mg/dL (8.5-10.1) L 11/20/18 04:06 Corrected Calcium 9.5 mg/dL (8.5-10.1) 11/20/18 04:06 Magnesium 1.9 mg/dL (1.7-2.9) 11/11/18 21:55 Total Bilirubin 0.50 mg/dL (0.2-1.0) 11/20/18 04:06 AST 21 Units/L (15-37) 11/20/18 04:06 ALT 13 Units/L (12-78) 11/20/18 04:06 Alkaline Phosphatase 35 Units/L (46-116) L 11/20/18 04:06 Creatine Kinase 117 Units/L (26-192) 11/12/18 05:45 CK-MB (CK-2) 3.5 ng/mL (0-4.0) 11/12/18 05:45 CK/CKMB % Calc 3.0 % (<4) 11/12/18 05:45 Troponin I 0.36 ng/mL (0-1.5) 11/12/18 05:45 B-Natriuretic Peptide 184 pg/mL (0-79) H 11/11/18 21:55 Total Protein 4.8 g/dL (6.4-8.2) L 11/20/18 04:06 Albumin 2.6 g/dL (3.4-5.0) L 11/20/18 04:06 Globulin 2.2 g/dL (2.5-4.5) L 11/20/18 04:06 Albumin/Globulin Ratio 1.2 Ratio (1.1-2.1) 11/20/18 04:06 Specimen Type Catherized urine 11/11/18 21:30 Urine Color Yellow (YELLOW) 11/11/18 21:30 Urine Appearance Clear (CLEAR) 11/11/18 21:30 Urine pH 5.0 (5.0 - 8.0) 11/11/18 21:30 Ur Specific [place] 1.025 (1.000-1.030) 11/11/18 21:30 Urine Protein 4+ (NEGATIVE) 11/11/18 21:30 Urine Glucose (UA) Negative (NEGATIVE) 11/11/18 21:30 Urine Ketones 1+ (NEGATIVE) 11/11/18 21:30 Urine Occult Blood 2+ (NEGATIVE) 11/11/18 21:30 Urine Nitrite Negative (NEGATIVE) 11/11/18 21: Urine Bilirubin Negative (NEGATIVE) 11/11/18 21:30 Urine Urobilinogen Normal (NORMAL) 11/11/18 21:30 Ur Leukocyte Esterase 1+ (NEGATIVE) 11/11/18 21: Urine RBC 3-5 /HPF (NONE SEEN) 11/11/18 21:30 Urine WBC 0-2 /HPF (NONE SEEN) 11/11/18 21:30 Ur Squamous Epith Cells Rare /HPF (NEGATIVE) 11/11/18 21: Amorphous Sediment 2+ /HPF (NEGATIVE) 11/11/18 21:30 Urine Bacteria Negative /HPF (NEGATIVE) 11/11/18 21:30 Ur Culture Indicated? No/not indicated 11/11/18 21:30 - Assessment and Plan 1: Rt pneumothorax , s/p placement Rt chest tube with good position and expanded lung . same care . to keep chest tube over the weekend and try to clamp it nex t week . - Problem Patient Problems: Patient Problems Pneumothorax (Acute) J93.9 Hypoproteinemia (Acute) E77.8
[2018-11-20] MEDS: NORCO 10/325 TAB PO PRN (13:53)
[2018-11-20] MEDS: RESTORIL CAP 15 MG PO PRN (21:11)
[2018-11-20] MEDS: KLONOPIN TAB 0.5 MG PO SCH (21:11)
[2018-11-20] MEDS: COLACE CAP 100 MG PO SCH (22:21)
[2018-11-21] MEDS: DUONEB 0.5 MG/3 MG NEB SCH ×6 (01:50→20:26)
[2018-11-21] MEDS: FORTAZ or TAZICEF VIAL INJ IVP SCH ×3 (05:46→23:08)
[2018-11-21] MEDS: NS 1000 ML 1,000 ML IV SCH ×2 (05:47→15:21)
[2018-11-21 06:09] LABS: BASOPHILS % (AUTO) 0.2 % (0.2-1.0); EOSINOPHILS % (AUTO) 0.2 % (0.9-2.9); HEMATOCRIT 34.8 % (36.0-47.0); HEMOGLOBIN 11.7 g/dL (12.0-16.0); LYMPHOCYTES # (AUTO) 1.8 X10^3/uL (1.3-2.9); LYMPHOCYTES % (AUTO) 18.1 % (21.0-51.0); MEAN CORPUSCULAR HEMOGLOBIN 29.5 pg (27.0-34.0); MEAN CORPUSCULAR HGB CONC 33.7 g/dL (33.0-35.0); MEAN CORPUSCULAR VOLUME 87.6 fL (80.0-100.0); MEAN PLATELET VOLUME 10.2 fL (7.4-11.0); MONOCYTES % (AUTO) 10.1 % (0.0-13.0); NEUTROPHILS # (AUTO) 7.2 x10^3/uL (2.2-4.8); NEUTROPHILS % (AUTO) 71.4 % (42.0-75.0); PLATELET COUNT 115 X10^3/uL (150.0-450.0); RED BLOOD COUNT 3.97 X10^6/uL (3.5-5.4); RED CELL DISTRIBUTION WIDTH 14.1 % (11.6-16.5); WHITE BLOOD COUNT 10.1 X10^3/uL (3.6-10.0)
[2018-11-21 06:17] LABS: ALANINE AMINOTRANSFERASE 19 Units/L (12-78); ALBUMIN 2.6 g/dL (3.4-5.0); ALKALINE PHOSPHATASE 32 Units/L (46-116); ASPARTATE AMINO TRANSFERASE 25 Units/L (15-37); BLOOD UREA NITROGEN 9 mg/dL (7-18); CALCIUM 8.2 mg/dL (8.5-10.1); CHLORIDE 100 mmol/L (98-107); COR CA(FOR HYPOALB) 9.3 mg/dL (8.5-10.1); CREATININE 0.42 mg/dL (0.55-1.02); SODIUM 143 mmol/L (136-145); TOTAL PROTEIN 4.4 g/dL (6.4-8.2); eGFR NON BLACK RACES > 60 (>60)
[2018-11-21 06:43] LABS: CARBON DIOXIDE 41.6 mmol/L (21-32)
[2018-11-21] MEDS ORDERED: KLOR-CON PO PRN (07:26)
[2018-11-21] MEDS ORDERED: POTASSIUM CHL 40 MEQ/NS 0.45% 500 ML IV PRN (07:26)
[2018-11-21] MEDS ORDERED: K-RIDER 10 MEQ/NS 100 ML 10 MEQ/100 ML BAG IV PRN (07:26)
[2018-11-21] MEDS ORDERED: POTASSIUM CHL 60 MEQ/NS 0.45% 500 ML IV PRN (07:26)
[2018-11-21] MEDS ORDERED: K-DUR TAB 20 MEQ PO PRN (07:26)
[2018-11-21] MEDS ORDERED: POTASSIUM CHLORIDE LIQ 20 MEQ UDC PO PRN (07:26)
[2018-11-21] MEDS ORDERED: MICRO K EXTEN CAP 10 MEQ PO PRN (07:26)
--- NOTE | 2018-11-21 07:32 | RAD ---
Examination: Portable AP chest History: SOB Comparison 11/20/2018 Findings: Continued normal heart size. There is no change in position of the right chest tube with the tip projected over the right hilum. No significant pneumothorax is seen. Stable position of right subclavian catheter extending to the cavoatrial junction. Persistent pleural-parenchymal opacities in the bases and pleural spaces. Impression: No change since 11/20/2018. Reported By:
[2018-11-21] MEDS: PULMICORT NEB TX 0.5 MG NEB SCH ×2 (08:27→20:26)
[2018-11-21] MEDS: PROCALAMINE 3 % 1,000 ML IV SCH (08:46)
[2018-11-21] MEDS: LOVENOX INJ 40 MG SYR SC SCH (08:46)
[2018-11-21] MEDS: ALBUMIN HUMAN 25%- 100 ML 100 ML IV SCH (08:47)
[2018-11-21] MEDS: MAGNESIUM SULFATE 1 GRAM/100 mL PREMIX 1 GM/100 ML BAG IV PRN ×4 (08:49→11:42)
[2018-11-21] MEDS: VIBRAMYCIN 100 MG in D5W 250 ML IV 250 ML IV SCH ×2 (08:49→21:04)
[2018-11-21] MEDS: UNIPHYL TAB 400 MG PO SCH (08:49)
[2018-11-21] MEDS: NORCO 10/325 TAB PO PRN (09:02)
[2018-11-21] MEDS: XANAX PO PRN ×2 (09:02→21:14)
--- NOTE | 2018-11-21 19:28 | PCM.PROG ---
Progress Note - Progress Note for Day of Date of Exam: 11/19/18 - Subjective Subjective: WAS ADMITTED FOR RESPIRATORY FAILURE, PNEUMONIA, COPD EXACERBATION, AND A RIGHT SIDED PNEUMOTHORAX. SHE REMAINS IN THE INTENSIVE CARE UNIT TODAY WITH A CHEST TUBE. SHE CONTINUES TO UTILIZE THE BIPAP. SHE CONTINUES WITH SHORTNESS OF BREATH AND COUGH TODAY, BUT REPORTS SLIGHT IMPROVEMENT SINCE YESTERDAY. FAMILY REPORTS INCREASED SWELLING TO UPPER AND LOWER EXTREMITIES. ON EXAMINATION, HEART IS REGULAR IN RATE AND RHYTHM. BILATERAL LUNGS ARE NOTED WITH SCATTERED WHEEZING AND RHONCHI. ABDOMEN IS ROUND, SOFT, AND NON-TENDER WITH NORMAL BOWEL SOUNDS NOTED IN ALL QUADRANTS. CHEST TUBE NOTED TO RIGHT SIDE LUNG. SHE IS NOTED WITH TRACE EDEMA TO UPPER AND LOWER EXTREMITIES. HER VITALS THIS MORNING ARE: 98.8-92-21-87%BIPAP-173/77. LABS WERE OBTAINED. ABNORMAL LAB VALUES INCLUDE THE FOLLOWING: WBC 11.6, HGB 11.6, HCT 34.7, PLT COUNT 119, CARBON DIOXIDE 38.1, CREATININE 0.39, GLUCOSE 122, CALCIUM 8.4, ALT 11, ALK PHOS 33, TOTAL PROTEIN 4.9, ALBUMIN 2.5. BLOOD CULTURES ARE POSITIVE FOR STAPHYLOCOCCUS HOMINIS. SPUTUM CULTURE IS POSITIVE FOR ACINETOBACTER BAUMANII/HAEMOLY. A CHEST XRAY WAS OBTAINED TODAY AND REVEALED: No definite recurrent or residual right pneumothorax. Emphysematous COPD. Increased density retrocardiac area left lower lobe due in part to pleural effusion however underlying atelectasis or infiltrate cannot be excluded. New right lower lobe volume loss. SHE IS CURRENTLY RECEIVING IV FORTAZ, IV DOXYCYCLINE, IV FLUIDS, RESPIRATORY TX, AND IV STEROIDS. WE WILL CONTINUE WITH CURRENT PLAN OF CARE TODAY AND START ALBUMIN 25% IV DAILY. OTHERWISE, WE WILL FOLLOW UP WITH AM LABS AND CONTINUE TO MONITOR. - Past Medical Family Social History Past Med/Fam/Surg Hx: No changes since H&P Allergies: Allergies No Known Drug Allergies Allergy (Verified 05/21/17 08:19) - Review of Systems ROS: No change since H&P - Vital Signs and I&O's Vital Signs: Temperature 98.1 F Pulse Rate [Apical] 88 Pulse Rate 91 Respiratory Rate 48 Blood Pressure [Left Arm] 113/55 Blood Pressure [Right Arm] 123/55 Blood Pressure 158/76 O2 Sat by Pulse Oximetry 89 Intake and Output: Intake & Output 06/0611/20/18 11/21/18 11/22/18 11:59 11:59 11:59 11:59 Intake Total 2670 / 2670 3180 / 3180 2843 / 2843 900 / 900 Output Total 2099 / 2099 3265 / 3265 3465 / 3465 2570 / 2570 Balance 570 / 570 -85 / -85 -622 / -622 -1670 / -1670 - Physical Exam Oriented: Normal Eyes: Normal Ear: Normal Nose: Normal Throat: Normal Respiratory: Wheezes, Rhonchi Cardiovascular: Normal : Normal Auscultation: Bowel Sounds: Normal Tenderness: Normal Skin: Normal Musculoskeletal: Normal Psychiatric: Normal Mood Description: Calm Affect: Normal Speech Pattern: Clear, Appropriate - Laboratory and Diagnostics Result Diagrams: 11/21/18 05:24 11/21/18 14:48 Labs: 11/12/18 20:37 Blood Blood Culture - Final 11/12/18 20:30 Blood Blood Culture - Final 11/11/18 23:39 Blood Blood Culture - Final Staphylococcus Hominis 11/12/18 04:45 Sputum - Expectorated Sputum Sputum Culture - Final Acinetobacter Baumanii/Haemoly 11/12/18 04:45 Sputum - Expectorated Sputum - Final Laboratory WBC 10.1 X10^3/uL (3.6-10.0) H 11/21/18 05:24 RBC 3.97 X10^6/uL (3.5-5.4) 11/21/18 05:24 Hgb 11.7 g/dL (12.0-16.0) L 11/21/18 05:24 Hct 34.8 % (36.0-47.0) L 11/21/18 05:24 MCV 87.6 fL (80.0-100.0) 11/21/18 05:24 MCH 29.5 pg (27.0-34.0) 11/21/18 05:24 MCHC 33.7 g/dL (33.0-35.0) 11/21/18 05:24 RDW 14.1 % (11.6-16.5) 11/21/18 05:24 Plt Count 115 X10^3/uL (150.0-450.0) L 11/21/18 05:24 Plt Count Comment Adequate (ADEQUATE) 11/20/18 04:06 MPV 10.2 fL (7.4-11.0) 11/21/18 05:24 Neut % (Auto) 71.4 % (42.0-75.0) 11/21/18 05:24 Lymph % (Auto) 18.1 % (21.0-51.0) L 11/21/18 05:24 [place] % (Auto) 10.1 % (0.0-13.0) 11/21/18 05:24 Eos % (Auto) 0.2 % (0.9-2.9) L 11/21/18 05:24 Baso % (Auto) 0.2 % (0.2-1.0) 11/21/18 05:24 Neut # (Auto) 7.2 x10^3/uL (2.2-4.8) H 11/21/18 05:24 Lymph # (Auto) 1.8 X10^3/uL (1.3-2.9) 11/21/18 05:24 [place] # (Auto) 1.0 x10^3/uL (0.3-0.8) H 11/21/18 05:24 Eos # (Auto) 0.0 x10^3/uL (0.0-0.2) 11/21/18 05:24 Baso # (Auto) 0.0 X10^3/uL (0.0-0.1) 11/21/18 05:24 Absolute Nucleated RBC 0.0 /100WBC 11/21/18 05:24 Total Counted 100 11/20/18 04:06 Neutrophils % (Manual) 95 % (39-76) H 11/20/18 04:06 Band Neutrophils % 1 % (0-10) 11/20/18 04:06 Lymphocytes % (Manual) 3 % (13-43) L 11/20/18 04:06 Monocytes % (Manual) 1 % (4-9) L 11/20/18 04:06 Plt Morphology Comment Normal (NORMAL) 11/20/18 04:06 RBC Morphology Normal (NORMAL) 11/20/18 04:06 Hypochromasia Slight A 11/12/18 20:30 INR Target Range - 11/11/18 21:55 INR 1.05 (0.8-1.3) 11/11/18 21:55 APTT 23.9 SECONDS (22.9-36.5) 11/11/18 21:55 PTT Comment - 11/11/18 21:55 D-Dimer 724 ng/mL (0-400) H* 11/11/18 21:55 Sample Site Lb 11/19/18 04:19 ABG pH 7.480 (7.35-7.45) H 11/19/18 04:19 ABG pCO2 62.0 mmHg (35.0-45.0) H* 11/19/18 04:19 ABG pO2 59.0 mmHg (80.0-100.0) L 11/19/18 04:19 ABG HCO3 46.2 mmol/L (22-26) H* 11/19/18 04:19 ABG O2 Saturation 92.0 % (90-100) 11/19/18 04:19 ABG Base Excess 19.4 mmol/L (-2.0-2.0) H 11/19/18 04:19 Dony Test N/a 11/19/18 04:19 A-a Gradient 291.0 mmHg 11/19/18 04:19 FiO2 60.0 11/19/18 04:19 Blood Gas Comments Josefina well ae 11/19/18 04:19 Sodium 143 mmol/L (136-145) 11/21/18 05:24 Corrected Sodium TNP 11/21/18 05:24 Potassium 3.5 mmol/L (3.5-5.1) 11/21/18 14:48 Chloride 100 mmol/L (98-107) 11/21/18 05:24 Carbon Dioxide 41.6 mmol/L (21-32) H* 11/21/18 05:24 BUN 9 mg/dL (7-18) 11/21/18 05:24 Creatinine 0.42 mg/dL (0.55-1.02) L 11/21/18 05:24 Est GFR (MDRD) Af Amer > 60 (>60) 11/21/18 05:24 Est GFR (MDRD) Non-Af > 60 (>60) 11/21/18 05:24 Glucose 79 mg/dL (65-99) 11/21/18 05:24 Lactic Acid 0.6 mmol/L (0.4-2.0) 11/12/18 00:00 Calcium 8.2 mg/dL (8.5-10.1) L 11/21/18 05:24 Corrected Calcium 9.3 mg/dL (8.5-10.1) 11/21/18 05:24 Magnesium 1.4 mg/dL (1.7-2.9) L 11/21/18 05:24 Total Bilirubin 0.50 mg/dL (0.2-1.0) 11/21/18 05:24 AST 25 Units/L (15-37) 11/21/18 05:24 ALT 19 Units/L (12-78) 11/21/18 05:24 Alkaline Phosphatase 32 Units/L (46-116) L 11/21/18 05:24 Creatine Kinase 117 Units/L (26-192) 11/12/18 05:45 CK-MB (CK-2) 3.5 ng/mL (0-4.0) 11/12/18 05:45 CK/CKMB % Calc 3.0 % (<4) 11/12/18 05:45 Troponin I 0.36 ng/mL (0-1.5) 11/12/18 05:45 B-Natriuretic Peptide 184 pg/mL (0-79) H 11/11/18 21:55 Total Protein 4.4 g/dL (6.4-8.2) L 11/21/18 05:24 Albumin 2.6 g/dL (3.4-5.0) L 11/21/18 05:24 Globulin 1.8 g/dL (2.5-4.5) L 11/21/18 05:24 Albumin/Globulin Ratio 1.4 Ratio (1.1-2.1) 11/21/18 05:24 Specimen Type Catherized urine 11/11/18 21:30 Urine Color Yellow (YELLOW) 11/11/18 21:30 Urine Appearance Clear (CLEAR) 11/11/18 21:30 Urine pH 5.0 (5.0 - 8.0) 11/11/18 21:30 Ur Specific [place] 1.025 (1.000-1.030) 11/11/18 21:30 Urine Protein 4+ (NEGATIVE) 11/11/18 21:30 Urine Glucose (UA) Negative (NEGATIVE) 11/11/18 21:30 Urine Ketones 1+ (NEGATIVE) 11/11/18 21:30 Urine Occult Blood 2+ (NEGATIVE) 11/11/18 21:30 Urine Nitrite Negative (NEGATIVE) 11/11/18 21:30 Urine Bilirubin Negative (NEGATIVE) 11/11/18 21:30 Urine Urobilinogen Normal (NORMAL) 11/11/18 21:30 Ur Leukocyte Esterase 1+ (NEGATIVE) 11/11/18 21:30 Urine RBC 3-5 /HPF (NONE SEEN) 11/11/18 21:30 Urine WBC 0-2 /HPF (NONE SEEN) 11/11/18 21:30 Ur Squamous Epith Cells Rare /HPF (NEGATIVE) 11/11/18 21:30 Amorphous Sediment 2+ /HPF (NEGATIVE) 11/11/18 21:30 Urine Bacteria Negative /HPF (NEGATIVE) 11/11/18 21:30 Ur Culture Indicated? No/not indicated 11/11/18 21:30 - Plan (1) Pneumonia Status: Acute Qualifiers: Pneumonia type: due to other aerobic Gram-negative bacteria Laterality: bilateral Lung location: unspecified part of lung Qualified Code(s): J15.6 - Pneumonia due to other Gram-negative bacteria Plan: iv antibiotics, respiratory tx, BIPAP, continue to monitor (2) COPD exacerbation Status: Acute Plan: iv antibiotics, iv steroids, BIPAP, respiratory tx, continue to monitor (3) Pneumothorax Status: Acute Qualifiers: Pneumothorax type: unspecified pneumothorax Qualified Code(s): J93.9 - Pneumothorax, unspecified Plan: CHEST TUBE, CONTINUE TO MONITOR (4) Respiratory failure with hypoxia and hypercapnia Status: Acute Qualifiers: Chronicity: acute on chronic Qualified Code(s): J96.21 - Acute and chronic respiratory failure with hypoxia; J96.22 - Acute and chronic respiratory failure with hypercapnia Plan: iv antibiotics, iv steroids, BIPAP, respiratory tx, continue to monitor (5) Hypoproteinemia Status: Acute Plan: ALBUMIN 25% IV DAILY, PROCAL AT 40ML/HR, CONTINUE TO MONITOR
[2018-11-21] MEDS: KLONOPIN TAB 0.5 MG PO SCH (21:02)
[2018-11-21] MEDS: MAGIC MOUTHWASH MT SCH (21:03)
[2018-11-21] MEDS: COLACE CAP 100 MG PO SCH (21:29)
[2018-11-21 23:15] LABS: BILIRUBIN,URINE NEGATIVE (NEGATIVE); BLOOD/HEMOGLOBIN,URINE 1+ (NEGATIVE); GLUCOSE, URINE NEGATIVE (NEGATIVE); KETONES,URINE NEGATIVE (NEGATIVE); LEUKOCYTE ESTERASE ,URINE 2+ (NEGATIVE); NITRITES,URINE NEGATIVE (NEGATIVE); PROTEIN,URINE NEGATIVE (NEGATIVE); UROBILINOGEN,URINE NORMAL (NORMAL)
[2018-11-21 23:21] LABS: APPEARANCE,URINE CLEAR (CLEAR); BACTERIA,URINE TRACE /HPF (NEGATIVE); COLOR,URINE STRAW (YELLOW); RBC,URINE 0-2 /HPF (NONE SEEN); SQUAMOUS EPITHELIAL CELL,UR RARE /HPF (NEGATIVE); YEAST,URINE FEW /HPF (NEGATIVE)
[2018-11-22] MEDS: DUONEB 0.5 MG/3 MG NEB SCH ×6 (01:15→20:53)
[2018-11-22] MEDS: NS 1000 ML 1,000 ML IV SCH ×3 (02:01→13:26)
[2018-11-22] MEDS: FORTAZ or TAZICEF VIAL INJ IVP SCH ×3 (05:26→21:26)
[2018-11-22 06:21] LABS: BASOPHILS % (AUTO) 0.1 % (0.2-1.0); EOSINOPHILS # (AUTO) 0.1 x10^3/uL (0.0-0.2); EOSINOPHILS % (AUTO) 1.1 % (0.9-2.9); HEMATOCRIT 33.6 % (36.0-47.0); HEMOGLOBIN 11.4 g/dL (12.0-16.0); LYMPHOCYTES # (AUTO) 1.2 X10^3/uL (1.3-2.9); LYMPHOCYTES % (AUTO) 14.4 % (21.0-51.0); MEAN CORPUSCULAR HEMOGLOBIN 29.5 pg (27.0-34.0); MEAN CORPUSCULAR HGB CONC 33.8 g/dL (33.0-35.0); MEAN CORPUSCULAR VOLUME 87.4 fL (80.0-100.0); MEAN PLATELET VOLUME 10.2 fL (7.4-11.0); MONOCYTES # (AUTO) 0.8 x10^3/uL (0.3-0.8); MONOCYTES % (AUTO) 9.9 % (0.0-13.0); NEUTROPHILS % (AUTO) 74.5 % (42.0-75.0); PLATELET COUNT 112 X10^3/uL (150.0-450.0); RED BLOOD COUNT 3.85 X10^6/uL (3.5-5.4); RED CELL DISTRIBUTION WIDTH 14.2 % (11.6-16.5); WHITE BLOOD COUNT 8.1 X10^3/uL (3.6-10.0)
[2018-11-22 06:29] LABS: ALANINE AMINOTRANSFERASE 17 Units/L (12-78); ALBUMIN 2.6 g/dL (3.4-5.0); ALKALINE PHOSPHATASE 33 Units/L (46-116); ASPARTATE AMINO TRANSFERASE 22 Units/L (15-37); BLOOD UREA NITROGEN 8 mg/dL (7-18); CALCIUM 8.5 mg/dL (8.5-10.1); CHLORIDE 101 mmol/L (98-107); COR CA(FOR HYPOALB) 9.6 mg/dL (8.5-10.1); CREATININE 0.39 mg/dL (0.55-1.02); MAGNESIUM 1.7 mg/dL (1.7-2.9); SODIUM 142 mmol/L (136-145); TOTAL PROTEIN 4.5 g/dL (6.4-8.2); eGFR NON BLACK RACES > 60 (>60)
--- NOTE | 2018-11-22 06:29 | RAD ---
Exam: Portable chest History: 73-year-old female with shortness of breath. Comparison: Previous chest radiograph from 11/21/2018. Findings: No interval change in position of right chest tube or subclavian line. No definite pneumothorax is seen. Heart size and pulmonary vasculature are normal. Persistent pleural and parenchymal opacities are noted at the lung bases, unchanged since the previous exam. Bony thorax is unremarkable. Impression: No significant interval change since 11/21/2018 Reported By:
[2018-11-22 06:53] LABS: CARBON DIOXIDE 41.6 mmol/L (21-32)
[2018-11-22] MEDS: VIBRAMYCIN 100 MG in D5W 250 ML IV 250 ML IV SCH ×2 (08:22→21:23)
[2018-11-22] MEDS: LOVENOX INJ 40 MG SYR SC SCH (08:22)
[2018-11-22] MEDS: ALBUMIN HUMAN 25%- 100 ML 100 ML IV SCH (08:22)
[2018-11-22] MEDS: MAGIC MOUTHWASH MT SCH ×4 (08:24→21:33)
[2018-11-22] MEDS: DIFLUCAN 200 MG IV PREMIX* 200 MG/100 ML BAG IV SCH (08:24)
[2018-11-22] MEDS: PULMICORT NEB TX 0.5 MG NEB SCH ×2 (08:28→20:53)
[2018-11-22] MEDS: XANAX PO PRN ×2 (08:29→21:25)
[2018-11-22] MEDS: NORCO 10/325 TAB PO PRN ×2 (08:30→21:25)
[2018-11-22] MEDS: UNIPHYL TAB 400 MG PO SCH (08:41)
--- NOTE | 2018-11-22 13:21 | PCM.PROG ---
Progress Note - Progress Note for Day of Date of Exam: 11/20/18 - Subjective Subjective: WAS ADMITTED FOR RESPIRATORY FAILURE, PNEUMONIA, COPD EXACERBATION, AND A RIGHT SIDED PNEUMOTHORAX. SHE REMAINS IN THE INTENSIVE CARE UNIT TODAY WITH A CHEST TUBE. SHE CONTINUES TO UTILIZE THE BIPAP. SHE CONTINUES WITH SHORTNESS OF BREATH AND COUGH TODAY, BUT CONTINUES TO REPORT IMPROVEMENT. SHE DOES REPORT BEING UNABLE TO SLEEP AT NIGHT. ON EXAMINATION, HEART IS REGULAR IN RATE AND RHYTHM. BILATERAL LUNGS ARE NOTED WITH SCATTERED WHEEZING AND RHONCHI. ABDOMEN IS ROUND, SOFT, AND NON-TENDER WITH NORMAL BOWEL SOUNDS NOTED IN ALL QUADRANTS. CHEST TUBE NOTED TO RIGHT SIDE LUNG. SHE IS NOTED WITH TRACE EDEMA TO UPPER AND LOWER EXTREMITIES. HER VITALS THIS MORNING ARE: 98.8-92-2 1-93%-185/77. LABS WERE OBTAINED. ABNORMAL LAB VALUES INCLUDE THE FOLLOWING: WBC 12.2, HGB 11.5, HCT 34.4, PLT COUNT 124, CARBON DIOXIDE 39.4, CREATININE 0.41, GLUCOSE 128, CALCIUM 8.4, ALK PHOS 35, TOTAL PROTEIN 4.8, ALBUMIN 2.6, GLOBULIN 2.2. BLOOD CULTURES ARE POSITIVE FOR STAPHYLOCOCCUS HOMINIS. SPUTUM CULTURE IS POSITIVE FOR ACINETOBACTER BAUMANII/HAEMOLY. A CHEST XRAY WAS OBTAINED TODAY AND REVEALED: Significantly improved inflation in the right lower lobe when compared with the prior examination. SHE IS CURRENTLY RECEIVING IV FORTAZ, IV DOXYCYCLINE, IV FLUIDS, RESPIRATORY TX, AND IV STEROIDS. WE WILL CONTINUE WITH CURRENT PLAN OF CARE TODAY AND START KLONOPIN 0.5MG PO HS AND NORCO 10/325MG PO Q4H PRN PAIN. OTHERWISE, WE WILL FOLLOW UP WITH AM LABS AND CONTINUE TO MONITOR. - Past Medical Family Social History Past Med/Fam/Surg Hx: No changes since H&P Allergies: Allergies No Known Drug Allergies Allergy (Verified 05/21/17 08:19) - Review of Systems ROS: No change since H&P - Vital Signs and I&O's Vital Signs: Temperature 99.3 F Pulse Rate [Apical] 88 Pulse Rate 87 Respiratory Rate 27 Blood Pressure [Left Arm] 113/55 Blood Pressure [Right Arm] 123/55 Blood Pressure 120/60 O2 Sat by Pulse Oximetry 91 Intake and Output: Intake & Output 11/20/18 11/21/18 11/22/18 11/23/18 11:59 11:59 11:59 11:59 Intake Total 3180 / 3180 2843 / 2843 3633 / 3633 Output Total 3265 / 3265 3465 / 3465 6840 / 6840 Balance -85 / -85 -622 / -622 -3207 / -3207 - Physical Exam Oriented: Normal Eyes: Normal Ear: Normal Nose: Normal Throat: Normal Respiratory: Wheezes, Rhonchi Cardiovascular: Normal : Normal Auscultation: Bowel Sounds: Normal Tenderness: Normal Skin: Normal Musculoskeletal: Normal Psychiatric: Normal Mood Description: Calm Affect: Normal Speech Pattern: Clear, Appropriate - Laboratory and Diagnostics Result Diagrams: 11/22/18 05:31 11/22/18 05:31 Labs: 11/12/18 20:37 Blood Blood Culture - Final 11/12/18 20:30 Blood Blood Culture - Final 11/11/18 23:39 Blood Blood Culture - Final Staphylococcus Hominis 11/12/18 04:45 Sputum - Expectorated Sputum Sputum Culture - Final Acinetobacter Baumanii/Haemoly 11/12/18 04:45 Sputum - Expectorated Sputum - Final Laboratory WBC 8.1 X10^3/uL (3.6-10.0) 11/22/18 05:31 RBC 3.85 X10^6/uL (3.5-5.4) 11/22/18 05:31 Hgb 11.4 g/dL (12.0-16.0) L 11/22/18 05:31 Hct 33.6 % (36.0-47.0) L 11/22/18 05:31 MCV 87.4 fL (80.0-100.0) 11/22/18 05:31 MCH 29.5 pg (27.0-34.0) 11/22/18 05:31 MCHC 33.8 g/dL (33.0-35.0) 11/22/18 05:31 RDW 14.2 % (11.6-16.5) 11/22/18 05:31 Plt Count 112 X10^3/uL (150.0-450.0) L 11/22/18 05:31 Plt Count Comment Adequate (ADEQUATE) 11/20/18 04:06 MPV 10.2 fL (7.4-11.0) 11/22/18 05:31 Neut % (Auto) 74.5 % (42.0-75.0) 11/22/18 05:31 Lymph % (Auto) 14.4 % (21.0-51.0) L 11/22/18 05:31 [place] % (Auto) 9.9 % (0.0-13.0) 11/22/18 05:31 Eos % (Auto) 1.1 % (0.9-2.9) 11/22/18 05:31 Baso % (Auto) 0.1 % (0.2-1.0) L 11/22/18 05:31 Neut # (Auto) 6.0 x10^3/uL (2.2-4.8) H 11/22/18 05:31 Lymph # (Auto) 1.2 X10^3/uL (1.3-2.9) L 11/22/18 05:31 [place] # (Auto) 0.8 x10^3/uL (0.3-0.8) 11/22/18 05:31 Eos # (Auto) 0.1 x10^3/uL (0.0-0.2) 11/22/18 05:31 Baso # (Auto) 0.0 X10^3/uL (0.0-0.1) 11/22/18 05:31 Absolute Nucleated RBC 0.0 /100WBC 11/22/18 05:31 Total Counted 100 11/20/18 04:06 Neutrophils % (Manual) 95 % (39-76) H 11/20/18 04:06 Band Neutrophils % 1 % (0-10) 11/20/18 04:06 Lymphocytes % (Manual) 3 % (13-43) L 11/20/18 04:06 Monocytes % (Manual) 1 % (4-9) L 11/20/18 04:06 Plt Morphology Comment Normal (NORMAL) 11/20/18 04:06 RBC Morphology Normal (NORMAL) 11/20/18 04:06 Hypochromasia Slight A 11/12/18 20:30 INR Target Range - 11/11/18 21:55 INR 1.05 (0.8-1.3) 11/11/18 21:55 APTT 23.9 SECONDS (22.9-36.5) 11/11/18 21:55 PTT Comment - 11/11/18 21:55 D-Dimer 724 ng/mL (0-400) H* 11/11/18 21:55 Sample Site Lb 11/19/18 04:19 ABG pH 7.480 (7.35-7.45) H 11/19/18 04:19 ABG pCO2 62.0 mmHg (35.0-45.0) H* 11/19/18 04:19 ABG pO2 59.0 mmHg (80.0-100.0) L 11/19/18 04:19 ABG HCO3 46.2 mmol/L (22-26) H* 11/19/18 04:19 ABG O2 Saturation 92.0 % (90-100) 11/19/18 04:19 ABG Base Excess 19.4 mmol/L (-2.0-2.0) H 11/19/18 04:19 Dony Test N/a 11/19/18 04:19 A-a Gradient 291.0 mmHg 11/19/18 04:19 FiO2 60.0 11/19/18 04:19 Blood Gas Comments Josefina well ae 11/19/18 04:19 Sodium 142 mmol/L (136-145) 11/22/18 05:31 Corrected Sodium TNP 11/22/18 05:31 Potassium 3.7 mmol/L (3.5-5.1) 11/22/18 05:31 Chloride 101 mmol/L (98-107) 11/22/18 05:31 Carbon Dioxide 41.6 mmol/L (21-32) H* 11/22/18 05:31 BUN 8 mg/dL (7-18) 11/22/18 05:31 Creatinine 0.39 mg/dL (0.55-1.02) L 11/22/18 05:31 Est GFR (MDRD) Af Amer > 60 (>60) 11/22/18 05:31 Est GFR (MDRD) Non-Af > 60 (>60) 11/22/18 05:31 Glucose 88 mg/dL (65-99) 11/22/18 05:31 Lactic Acid 0.6 mmol/L (0.4-2.0) 11/12/18 00:00 Calcium 8.5 mg/dL (8.5-10.1) 11/22/18 05:31 Corrected Calcium 9.6 mg/dL (8.5-10.1) 11/22/18 05:31 Magnesium 1.7 mg/dL (1.7-2.9) 11/22/18 05:31 Total Bilirubin 0.40 mg/dL (0.2-1.0) 11/22/18 05:31 AST 22 Units/L (15-37) 11/22/18 05:31 ALT 17 Units/L (12-78) 11/22/18 05:31 Alkaline Phosphatase 33 Units/L (46-116) L 11/22/18 05:31 Creatine Kinase 117 Units/L (26-192) 11/12/18 05:45 CK-MB (CK-2) 3.5 ng/mL (0-4.0) 11/12/18 05:45 CK/CKMB % Calc 3.0 % (<4) 11/12/18 05:45 Troponin I 0.36 ng/mL (0-1.5) 11/12/18 05:45 B-Natriuretic Peptide 184 pg/mL (0-79) H 11/11/18 21:55 Total Protein 4.5 g/dL (6.4-8.2) L 11/22/18 05:31 Albumin 2.6 g/dL (3.4-5.0) L 11/22/18 05:31 Globulin 1.9 g/dL (2.5-4.5) L 11/22/18 05:31 Albumin/Globulin Ratio 1.4 Ratio (1.1-2.1) 11/22/18 05:31 Specimen Type Catherized urine 11/21/18 22:30 Urine Color Straw (YELLOW) 11/21/18 22:30 Urine Appearance Clear (CLEAR) 11/21/18 22:30 Urine pH 8.0 (5.0 - 8.0) 11/21/18 22:30 Ur Specific [place] 1.010 (1.000-1.030) 11/21/18 22:30 Urine Protein Negative (NEGATIVE) 11/21/18 22:30 Urine Glucose (UA) Negative (NEGATIVE) 11/21/18 22:30 Urine Ketones Negative (NEGATIVE) 11/21/18 22:30 Urine Occult Blood 1+ (NEGATIVE) 11/21/18 22:30 Urine Nitrite Negative (NEGATIVE) 11/21/18 22:30 Urine Bilirubin Negative (NEGATIVE) 11/21/18 22:30 Urine Urobilinogen Normal (NORMAL) 11/21/18 22:30 Ur Leukocyte Esterase 2+ (NEGATIVE) 11/21/18 22:30 Urine RBC 0-2 /HPF (NONE SEEN) 11/21/18 22:30 Urine WBC 3-5 /HPF (NONE SEEN) 11/21/18 22:30 Ur Squamous Epith Cells Rare /HPF (NEGATIVE) 11/21/18 22:30 Amorphous Sediment 2+ /HPF (NEGATIVE) 11/11/18 21:30 Urine Bacteria Trace /HPF (NEGATIVE) 11/21/18 22:30 Urine Yeast Few /HPF (NEGATIVE) 11/21/18 22:30 Ur Culture Indicated? No/not indicated 11/21/18 22:30 - Plan (1) Pneumonia Status: Acute Qualifiers: Pneumonia type: due to other aerobic Gram-negative bacteria Laterality: bilateral Lung location: unspecified part of lung Qualified Code(s): J15.6 - Pneumonia due to other Gram-negative bacteria Plan: iv antibiotics, respiratory tx, BIPAP, continue to monitor (2) COPD exacerbation Status: Acute Plan: iv antibiotics, iv steroids, BIPAP, respiratory tx, continue to monitor (3) Pneumothorax Status: Acute Qualifiers: Pneumothorax type: unspecified pneumothorax Qualified Code(s): J93.9 - Pneumothorax, unspecified Plan: CHEST TUBE, CONTINUE TO MONITOR (4) Respiratory failure with hypoxia and hypercapnia Status: Acute Qualifiers: Chronicity: acute on chronic Qualified Code(s): J96.21 - Acute and chronic respiratory failure with hypoxia; J96.22 - Acute and chronic respiratory failure with hypercapnia Plan: iv antibiotics, iv steroids, BIPAP, respiratory tx, continue to monitor (5) Hypoproteinemia Status: Acute Plan: ALBUMIN 25% IV DAILY, PROCAL AT 40ML/HR, CONTINUE TO MONITOR
[2018-11-22] MEDS: PROCALAMINE 3 % 1,000 ML IV SCH (16:52)
[2018-11-22] MEDS: MILK OF MAGNESIA PO PRN (21:24)
[2018-11-22] MEDS: KLONOPIN TAB 0.5 MG PO SCH (21:25)
[2018-11-22] MEDS: COLACE CAP 100 MG PO SCH (21:26)
[2018-11-23] MEDS: DUONEB 0.5 MG/3 MG NEB SCH ×6 (01:20→20:35)
[2018-11-23] MEDS: NS 1000 ML 1,000 ML IV SCH ×3 (03:59→14:16)
[2018-11-23] MEDS: FORTAZ or TAZICEF VIAL INJ IVP SCH ×3 (05:17→21:20)
[2018-11-23] MEDS ORDERED: STERILE WATER IRRIGATION ONE (05:46)
[2018-11-23 05:50] LABS: BASOPHILS % (AUTO) 0.2 % (0.2-1.0); EOSINOPHILS # (AUTO) 0.3 x10^3/uL (0.0-0.2); EOSINOPHILS % (AUTO) 3.2 % (0.9-2.9); HEMATOCRIT 30.9 % (36.0-47.0); HEMOGLOBIN 10.3 g/dL (12.0-16.0); LYMPHOCYTES # (AUTO) 1.5 X10^3/uL (1.3-2.9); LYMPHOCYTES % (AUTO) 17.7 % (21.0-51.0); MEAN CORPUSCULAR HEMOGLOBIN 29.7 pg (27.0-34.0); MEAN CORPUSCULAR HGB CONC 33.4 g/dL (33.0-35.0); MEAN CORPUSCULAR VOLUME 88.9 fL (80.0-100.0); MEAN PLATELET VOLUME 10.4 fL (7.4-11.0); MONOCYTES # (AUTO) 0.8 x10^3/uL (0.3-0.8); MONOCYTES % (AUTO) 9.2 % (0.0-13.0); NEUTROPHILS # (AUTO) 5.9 x10^3/uL (2.2-4.8); NEUTROPHILS % (AUTO) 69.7 % (42.0-75.0); PLATELET COUNT 117 X10^3/uL (150.0-450.0); RED BLOOD COUNT 3.48 X10^6/uL (3.5-5.4); RED CELL DISTRIBUTION WIDTH 14.2 % (11.6-16.5); WHITE BLOOD COUNT 8.5 X10^3/uL (3.6-10.0)
[2018-11-23 06:02] LABS: ALANINE AMINOTRANSFERASE 18 Units/L (12-78); ALBUMIN 2.6 g/dL (3.4-5.0); ALKALINE PHOSPHATASE 32 Units/L (46-116); ASPARTATE AMINO TRANSFERASE 19 Units/L (15-37); BLOOD UREA NITROGEN 7 mg/dL (7-18); CALCIUM 8.4 mg/dL (8.5-10.1); CHLORIDE 101 mmol/L (98-107); COR CA(FOR HYPOALB) 9.5 mg/dL (8.5-10.1); SODIUM 140 mmol/L (136-145); TOTAL PROTEIN 4.5 g/dL (6.4-8.2); eGFR NON BLACK RACES > 60 (>60)
--- NOTE | 2018-11-23 06:24 | RAD ---
HISTORY: Shortness of breath Study: Chest AP portable Comparison: 11/22/2018, 11/21/2018 Findings: There is a right-sided chest tube in place. There is a right-sided central line in good position. The heart is within normal limits in size. The alvarado are normal. No residual or recurrent pneumothorax is identified. Volume loss present in the right lower lobe unchanged from the prior examination. The remainder the right lung is clear. Increased density is present in the retrocardiac area of the left lower lobe which could be due to atelectasis, infiltrate, effusion or combination. There is a left pleural effusion present. The remainder of the left lung is clear. Emphysematous changes are present in the upper lobes. IMPRESSION: No residual or recurrent right pneumothorax Right lower lobe volume loss Persistent increased density retrocardiac area of the left lower lobe. Differential diagnosis as above Emphysematous COPD Left pleural effusion Reported By:
[2018-11-23] MEDS: ALBUMIN HUMAN 25%- 100 ML 100 ML IV SCH (08:24)
[2018-11-23] MEDS: UNIPHYL TAB 400 MG PO SCH (08:25)
[2018-11-23] MEDS: MAGIC MOUTHWASH MT SCH ×4 (08:26→20:31)
[2018-11-23] MEDS: NORCO 10/325 TAB PO PRN ×2 (08:28→20:25)
[2018-11-23] MEDS: XANAX PO PRN ×2 (08:28→20:24)
[2018-11-23] MEDS: LOVENOX INJ 40 MG SYR SC SCH (08:30)
[2018-11-23] MEDS: VIBRAMYCIN 100 MG in D5W 250 ML IV 250 ML IV SCH ×2 (08:34→20:23)
[2018-11-23] MEDS: PULMICORT NEB TX 0.5 MG NEB SCH ×2 (08:56→20:35)
[2018-11-23 09:14] LABS: ABG BASE EXCESS 21.3 mmol/L (-2.0-2.0)
[2018-11-23 09:16] LABS: ABG HCO3 48.8 mmol/L (22-26)
[2018-11-23] MEDS: DIFLUCAN 200 MG IV PREMIX* 200 MG/100 ML BAG IV SCH (09:21)
--- NOTE | 2018-11-23 10:47 | DR.PROGNOT ---
Hospital Progress Notes - Progress Note for Day of: Progress Note Date: 11/23/18 - Chief Complaint Chief Complaint: moderate SOB ,. chest xray showed expanded Rt lung , small Lt pleural effusion . chest tube is draining moderate amount of fluid . Hgb 8.5 . Pco2 67 .. Po2 63 . stable VS . - Past Medical Family Social History Past Med/Fam/Surg Hx: No changes since H&P Allergies: Allergies No Known Drug Allergies Allergy (Verified 05/21/17 08:19) - Review Of Systems ROS: No change since H&P - Vital Signs Vital Signs: Temperature 99.3 F Pulse Rate [Apical] 88 Pulse Rate 80 Respiratory Rate 20 Blood Pressure [Left Arm] 113/55 Blood Pressure [Right Arm] 123/55 Blood Pressure 134/63 O2 Sat by Pulse Oximetry 95 - Physical Exam Oriented: Normal Eyes: Normal Ear: Normal Nose: Normal Throat: Normal Respiratory: Wheezes, Rhonchi Cardiovascular: Normal : Normal GI:Auscultation: Normal GI:Palpation: Normal GI: Tenderness: Normal Skin: Normal Musculoskeletal: Normal Psychiatric: Normal Mood Description: Calm Affect: Normal Speech Pattern: Clear, Appropriate - Laboratory and Diagnostics Result Diagrams: 11/23/18 05:25 11/23/18 05:25 Labs: 11/12/18 20:37 Blood Blood Culture - Final 11/12/18 20:30 Blood Blood Culture - Final 11/11/18 23:39 Blood Blood Culture - Final Staphylococcus Hominis 11/12/18 04:45 Sputum - Expectorated Sputum Sputum Culture - Final Acinetobacter Baumanii/Haemoly 11/12/18 04:45 Sputum - Expectorated Sputum - Final Laboratory WBC 8.5 X10^3/uL (3.6-10.0) 11/23/18 05:25 RBC 3.48 X10^6/uL (3.5-5.4) L 11/23/18 05:25 Hgb 10.3 g/dL (12.0-16.0) L 11/23/18 05:25 Hct 30.9 % (36.0-47.0) L 11/23/18 05:25 MCV 88.9 fL (80.0-100.0) 11/23/18 05:25 MCH 29.7 pg (27.0-34.0) 11/23/18 05:25 MCHC 33.4 g/dL (33.0-35.0) 11/23/18 05:25 RDW 14.2 % (11.6-16.5) 11/23/18 05:25 Plt Count 117 X10^3/uL (150.0-450.0) L 11/23/18 05:25 Plt Count Comment Adequate (ADEQUATE) 11/20/18 04:06 MPV 10.4 fL (7.4-11.0) 11/23/18 05:25 Neut % (Auto) 69.7 % (42.0-75.0) 11/23/18 05:25 Lymph % (Auto) 17.7 % (21.0-51.0) L 11/23/18 05:25 [place] % (Auto) 9.2 % (0.0-13.0) 11/23/18 05:25 Eos % (Auto) 3.2 % (0.9-2.9) H 11/23/18 05:25 Baso % (Auto) 0.2 % (0.2-1.0) 11/23/18 05:25 Neut # (Auto) 5.9 x10^3/uL (2.2-4.8) H 11/23/18 05:25 Lymph # (Auto) 1.5 X10^3/uL (1.3-2.9) 11/23/18 05:25 [place] # (Auto) 0.8 x10^3/uL (0.3-0.8) 11/23/18 05:25 Eos # (Auto) 0.3 x10^3/uL (0.0-0.2) H 11/23/18 05:25 Baso # (Auto) 0.0 X10^3/uL (0.0-0.1) 11/23/18 05:25 Absolute Nucleated RBC 0.0 /100WBC 11/23/18 05:25 Total Counted 100 11/20/18 04:06 Neutrophils % (Manual) 95 % (39-76) H 11/20/18 04:06 Band Neutrophils % 1 % (0-10) 11/20/18 04:06 Lymphocytes % (Manual) 3 % (13-43) L 11/20/18 04:06 Monocytes % (Manual) 1 % (4-9) L 11/20/18 04:06 Plt Morphology Comment Normal (NORMAL) 11/20/18 04:06 RBC Morphology Normal (NORMAL) 11/20/18 04:06 Hypochromasia Slight A 11/12/18 20:30 INR Target Range - 11/11/18 21:55 INR 1.05 (0.8-1.3) 11/11/18 21:55 APTT 23.9 SECONDS (22.9-36.5) 11/11/18 21:55 PTT Comment - 11/11/18 21:55 D-Dimer 724 ng/mL (0-400) H* 11/11/18 21:55 Sample Site Rbr 11/23/18 09:08 ABG pH 7.470 (7.35-7.45) H 11/23/18 09:08 ABG pCO2 67.0 mmHg (35.0-45.0) H* 11/23/18 09:08 ABG pO2 63.0 mmHg (80.0-100.0) L 11/23/18 09:08 ABG HCO3 48.8 mmol/L (22-26) H* 11/23/18 09:08 ABG O2 Saturation 93.0 % (90-100) 11/23/18 09:08 ABG Base Excess 21.3 mmol/L (-2.0-2.0) H 11/23/18 09:08 Dony Test Na 11/23/18 09:08 A-a Gradient 138.0 mmHg 11/23/18 09:08 FiO2 40.0 11/23/18 09:08 Blood Gas Comments Josefina well cn 11/23/18 09:08 Sodium 140 mmol/L (136-145) 11/23/18 05:25 Corrected Sodium TNP 11/23/18 05:25 Potassium 4.5 mmol/L (3.5-5.1) 11/23/18 05:25 Chloride 101 mmol/L (98-107) 11/23/18 05:25 Carbon Dioxide 42.0 mmol/L (21-32) H* 11/23/18 05:25 BUN 7 mg/dL (7-18) 11/23/18 05:25 Creatinine 0.40 mg/dL (0.55-1.02) L 11/23/18 05:25 Est GFR (MDRD) Af Amer > 60 (>60) 11/23/18 05:25 Est GFR (MDRD) Non-Af > 60 (>60) 11/23/18 05:25 Glucose 87 mg/dL (65-99) 11/23/18 05:25 Lactic Acid 0.6 mmol/L (0.4-2.0) 11/12/18 00:00 Calcium 8.4 mg/dL (8.5-10.1) L 11/23/18 05:25 Corrected Calcium 9.5 mg/dL (8.5-10.1) 11/23/18 05:25 Magnesium 1.7 mg/dL (1.7-2.9) 11/22/18 05:31 Total Bilirubin 0.40 mg/dL (0.2-1.0) 11/23/18 05:25 AST 19 Units/L (15-37) 11/23/18 05:25 ALT 18 Units/L (12-78) 11/23/18 05:25 Alkaline Phosphatase 32 Units/L (46-116) L 11/23/18 05:25 Creatine Kinase 117 Units/L (26-192) 11/12/18 05:45 CK-MB (CK-2) 3.5 ng/mL (0-4.0) 11/12/18 05:45 CK/CKMB % Calc 3.0 % (<4) 11/12/18 05:45 Troponin I 0.36 ng/mL (0-1.5) 11/12/18 05:45 B-Natriuretic Peptide 184 pg/mL (0-79) H 11/11/18 21:55 Total Protein 4.5 g/dL (6.4-8.2) L 11/23/18 05:25 Albumin 2.6 g/dL (3.4-5.0) L 11/23/18 05:25 Globulin 1.9 g/dL (2.5-4.5) L 11/23/18 05:25 Albumin/Globulin Ratio 1.4 Ratio (1.1-2.1) 11/23/18 05:25 Specimen Type Catherized urine 11/21/18 22:30 Urine Color Straw (YELLOW) 11/21/18 22:30 Urine Appearance Clear (CLEAR) 11/21/18 22:30 Urine pH 8.0 (5.0 - 8.0) 11/21/18 22:30 Ur Specific [place] 1.010 (1.000-1.030) 11/21/18 22:30 Urine Protein Negative (NEGATIVE) 11/21/18 22:30 Urine Glucose (UA) Negative (NEGATIVE) 11/21/18 22:30 Urine Ketones Negative (NEGATIVE) 11/21/18 22:30 Urine Occult Blood 1+ (NEGATIVE) 11/21/18 22:30 Urine Nitrite Negative (NEGATIVE) 11/21/18 22:30 Urine Bilirubin Negative (NEGATIVE) 11/21/18 22:30 Urine Urobilinogen Normal (NORMAL) 11/21/18 22:30 Ur Leukocyte Esterase 2+ (NEGATIVE) 11/21/18 22:30 Urine RBC 0-2 /HPF (NONE SEEN) 11/21/18 22:30 Urine WBC 3-5 /HPF (NONE SEEN) 11/21/18 22:30 Ur Squamous Epith Cells Rare /HPF (NEGATIVE) 11/21/18 22:30 Amorphous Sediment 2+ /HPF (NEGATIVE) 11/11/18 21:30 Urine Bacteria Trace /HPF (NEGATIVE) 11/21/18 22:30 Urine Yeast Few /HPF (NEGATIVE) 11/21/18 22:30 Ur Culture Indicated? No/not indicated 11/21/18 22:30 - Assessment and Plan 1: Rt pneumothorax , s/p placement Rt chest tube with good position and expanded lung . to hold the suction on the chest tube , repeat chest xray this PM . - Problem Patient Problems: Patient Problems Pneumothorax (Acute) J93.9 Hypoproteinemia (Acute) E77.8
--- NOTE | 2018-11-23 16:27 | RAD ---
History: Shortness of breath. Status post clamping of the right chest tube. Study: Portable AP chest Comparison: This morning at 5:31 a.m. Findings: There is no recurrent pneumothorax status post clamping of the right chest tube. The right chest tube remains in place. There is unchanged blunting of the costophrenic angles. The heart size is normal. Impression: 1. No recurrent pneumothorax status post clamping of the right chest tube 2. Persistent small left pleural effusion Reported By:
[2018-11-23] MEDS: PROCALAMINE 3 % 1,000 ML IV SCH (17:36)
--- NOTE | 2018-11-23 18:23 | PCM.PROG ---
Progress Note - Progress Note for Day of Date of Exam: 11/21/18 - Subjective Subjective: WAS ADMITTED FOR RESPIRATORY FAILURE, PNEUMONIA, COPD EXACERBATION, AND A RIGHT SIDED PNEUMOTHORAX. SHE REMAINS IN THE INTENSIVE CARE UNIT TODAY WITH A CHEST TUBE. SHE CONTINUES TO UTILIZE THE BIPAP. SHE CONTINUES WITH SHORTNESS OF BREATH. SHE REPORTS RESTING BETTER LAST NIGHT. ON EXAMINATION, HEART IS REGULAR IN RATE AND RHYTHM. BILATERAL LUNGS ARE NOTED WITH RHONCHI. ABDOMEN IS ROUND, SOFT, AND NON-TENDER WITH NORMAL BOWEL SOUNDS NOTED IN ALL QUADRANTS. CHEST TUBE NOTED TO RIGHT SIDE LUNG. SHE IS NOTED WITH TRACE EDEMA TO UPPER AND LOWER EXTREMITIES. HER VITALS THIS MORNING ARE: 98.9-87-26-91%BIPAP-150/68. LABS WERE OBTAINED. ABNORMAL LAB VALUES INCLUDE THE FOLLOWING: WBC 10.1, HGB 11.7, HCT 34.8, PLT COUNT 115, POTASSIUM 3.2, CARBON DIOXIDE 41.6, CREATININE 0.42, CALCIUM 8.2, MAGNESIUM 1.4, ALK PHOS 32, TOTAL PROTEIN 4.4, ALBUMIN N2.6, GLOBULIN 1.8. BLOOD CULTURES ARE POSITIVE FOR STAPHYLOCOCCUS HOMINIS. SPUTUM CULTURE IS POSITIVE FOR ACINETOBACTER BAUMANII/HAEMOLY. A CHEST XRAY WAS OBTAINED TODAY AND REVEALED: NO CHANGE SINCE PREVIOUS DAY. SHE IS CURRENTLY RECEIVING IV FORTAZ, IV DOXYCYCLINE, IV FLUIDS, RESPIRATORY TX, AND IV STEROIDS. WE WILL CONTINUE WITH CURRENT PLAN OF CARE TODAY. OTHERWISE, WE WILL FOLLOW UP WITH AM LABS AND CONTINUE TO MONITOR. - Past Medical Family Social History Past Med/Fam/Surg Hx: No changes since H&P Allergies: Allergies No Known Drug Allergies Allergy (Verified 05/21/17 08:19) - Review of Systems ROS: No change since H&P - Vital Signs and I&O's Vital Signs: Temperature 99.7 F Pulse Rate [Apical] 88 Pulse Rate 84 Respiratory Rate 25 Blood Pressure [Left Arm] 113/55 Blood Pressure [Right Arm] 123/55 Blood Pressure 151/67 O2 Sat by Pulse Oximetry 92 Intake and Output: Intake & Output 11/21/18 11/22/18 11/23/18 11/24/18 11:59 11:59 11:59 11:59 Intake Total 2843 / 2843 3633 / 3633 2029 / 2030 1187 / 1187 Output Total 3465 / 3465 6840 / 6840 2440 / 2440 1999 Balance -622 / -622 -3207 / -3207 -410 / -410 -813 / -813 - Physical Exam Oriented: Normal Eyes: Normal Ear: Normal Nose: Normal Throat: Normal Respiratory: Wheezes, Rhonchi Cardiovascular: Normal : Normal Auscultation: Bowel Sounds: Normal Palpation: Normal Tenderness: Normal Skin: Normal Musculoskeletal: Normal Psychiatric: Normal Mood Description: Calm Affect: Normal Speech Pattern: Clear, Appropriate - Laboratory and Diagnostics Result Diagrams: 11/23/18 05:25 11/23/18 05:25 Labs: 11/12/18 20:37 Blood Blood Culture - Final 11/12/18 20:30 Blood Blood Culture - Final 11/11/18 23:39 Blood Blood Culture - Final Staphylococcus Hominis 11/12/18 04:45 Sputum - Expectorated Sputum Sputum Culture - Final Acinetobacter Baumanii/Haemoly 11/12/18 04:45 Sputum - Expectorated Sputum - Final Laboratory WBC 8.5 X10^3/uL (3.6-10.0) 11/23/18 05:25 RBC 3.48 X10^6/uL (3.5-5.4) L 11/23/18 05:25 Hgb 10.3 g/dL (12.0-16.0) L 11/23/18 05:25 Hct 30.9 % (36.0-47.0) L 11/23/18 05:25 MCV 88.9 fL (80.0-100.0) 11/23/18 05:25 MCH 29.7 pg (27.0-34.0) 11/23/18 05:25 MCHC 33.4 g/dL (33.0-35.0) 11/23/18 05:25 RDW 14.2 % (11.6-16.5) 11/23/18 05:25 Plt Count 117 X10^3/uL (150.0-450.0) L 11/23/18 05:25 Plt Count Comment Adequate (ADEQUATE) 11/20/18 04:06 MPV 10.4 fL (7.4-11.0) 11/23/18 05:25 Neut % (Auto) 69.7 % (42.0-75.0) 11/23/18 05:25 Lymph % (Auto) 17.7 % (21.0-51.0) L 11/23/18 05:25 [place] % (Auto) 9.2 % (0.0-13.0) 11/23/18 05:25 Eos % (Auto) 3.2 % (0.9-2.9) H 11/23/18 05:25 Baso % (Auto) 0.2 % (0.2-1.0) 11/23/18 05:25 Neut # (Auto) 5.9 x10^3/uL (2.2-4.8) H 11/23/18 05:25 Lymph # (Auto) 1.5 X10^3/uL (1.3-2.9) 11/23/18 05:25 [place] # (Auto) 0.8 x10^3/uL (0.3-0.8) 11/23/18 05:25 Eos # (Auto) 0.3 x10^3/uL (0.0-0.2) H 11/23/18 05:25 Baso # (Auto) 0.0 X10^3/uL (0.0-0.1) 11/23/18 05:25 Absolute Nucleated RBC 0.0 /100WBC 11/23/18 05:25 Total Counted 100 11/20/18 04:06 Neutrophils % (Manual) 95 % (39-76) H 11/20/18 04:06 Band Neutrophils % 1 % (0-10) 11/20/18 04:06 Lymphocytes % (Manual) 3 % (13-43) L 11/20/18 04:06 Monocytes % (Manual) 1 % (4-9) L 11/20/18 04:06 Plt Morphology Comment Normal (NORMAL) 11/20/18 04:06 RBC Morphology Normal (NORMAL) 11/20/18 04:06 Hypochromasia Slight A 11/12/18 20:30 INR Target Range - 11/11/18 21:55 INR 1.05 (0.8-1.3) 11/11/18 21:55 APTT 23.9 SECONDS (22.9-36.5) 11/11/18 21:55 PTT Comment - 11/11/18 21:55 D-Dimer 724 ng/mL (0-400) H* 11/11/18 21:55 Sample Site Rbr 11/23/18 09:08 ABG pH 7.470 (7.35-7.45) H 11/23/18 09:08 ABG pCO2 67.0 mmHg (35.0-45.0) H* 11/23/18 09:08 ABG pO2 63.0 mmHg (80.0-100.0) L 11/23/18 09:08 ABG HCO3 48.8 mmol/L (22-26) H* 11/23/18 09:08 ABG O2 Saturation 93.0 % (90-100) 11/23/18 09:08 ABG Base Excess 21.3 mmol/L (-2.0-2.0) H 11/23/18 09:08 Dony Test Na 11/23/18 09:08 A-a Gradient 138.0 mmHg 11/23/18 09:08 FiO2 40.0 11/23/18 09:08 Blood Gas Comments Josefina well cn 11/23/18 09:08 Sodium 140 mmol/L (136-145) 11/23/18 05:25 Corrected Sodium TNP 11/23/18 05:25 Potassium 4.5 mmol/L (3.5-5.1) 11/23/18 05:25 Chloride 101 mmol/L (98-107) 11/23/18 05:25 Carbon Dioxide 42.0 mmol/L (21-32) H* 11/23/18 05:25 BUN 7 mg/dL (7-18) 11/23/18 05:25 Creatinine 0.40 mg/dL (0.55-1.02) L 11/23/18 05:25 Est GFR (MDRD) Af Amer > 60 (>60) 11/23/18 05:25 Est GFR (MDRD) Non-Af > 60 (>60) 11/23/18 05:25 Glucose 87 mg/dL (65-99) 11/23/18 05:25 Lactic Acid 0.6 mmol/L (0.4-2.0) 11/12/18 00:00 Calcium 8.4 mg/dL (8.5-10.1) L 11/23/18 05:25 Corrected Calcium 9.5 mg/dL (8.5-10.1) 11/23/18 05:25 Magnesium 1.7 mg/dL (1.7-2.9) 11/22/18 05:31 Total Bilirubin 0.40 mg/dL (0.2-1.0) 11/23/18 05:25 AST 19 Units/L (15-37) 11/23/18 05:25 ALT 18 Units/L (12-78) 11/23/18 05:25 Alkaline Phosphatase 32 Units/L (46-116) L 11/23/18 05:25 Creatine Kinase 117 Units/L (26-192) 11/12/18 05:45 CK-MB (CK-2) 3.5 ng/mL (0-4.0) 11/12/18 05:45 CK/CKMB % Calc 3.0 % (<4) 11/12/18 05:45 Troponin I 0.36 ng/mL (0-1.5) 11/12/18 05:45 B-Natriuretic Peptide 184 pg/mL (0-79) H 11/11/18 21:55 Total Protein 4.5 g/dL (6.4-8.2) L 11/23/18 05:25 Albumin 2.6 g/dL (3.4-5.0) L 11/23/18 05:25 Globulin 1.9 g/dL (2.5-4.5) L 11/23/18 05:25 Albumin/Globulin Ratio 1.4 Ratio (1.1-2.1) 11/23/18 05:25 Specimen Type Catherized urine 11/21/18 22:30 Urine Color Straw (YELLOW) 11/21/18 22:30 Urine Appearance Clear (CLEAR) 11/21/18 22:30 Urine pH 8.0 (5.0 - 8.0) 11/21/18 22:30 Ur Specific [place] 1.010 (1.000-1.030) 11/21/18 22:30 Urine Protein Negative (NEGATIVE) 11/21/18 22:30 Urine Glucose (UA) Negative (NEGATIVE) 11/21/18 22:30 Urine Ketones Negative (NEGATIVE) 11/21/18 22:30 Urine Occult Blood 1+ (NEGATIVE) 11/21/18 22:30 Urine Nitrite Negative (NEGATIVE) 11/21/18 22:30 Urine Bilirubin Negative (NEGATIVE) 11/21/18 22:30 Urine Urobilinogen Normal (NORMAL) 11/21/18 22:30 Ur Leukocyte Esterase 2+ (NEGATIVE) 11/21/18 22:30 Urine RBC 0-2 /HPF (NONE SEEN) 11/21/18 22:30 Urine WBC 3-5 /HPF (NONE SEEN) 11/21/18 22:30 Ur Squamous Epith Cells Rare /HPF (NEGATIVE) 11/21/18 22:30 Amorphous Sediment 2+ /HPF (NEGATIVE) 11/11/18 21:30 Urine Bacteria Trace /HPF (NEGATIVE) 11/21/18 22:30 Urine Yeast Few /HPF (NEGATIVE) 11/21/18 22:30 Ur Culture Indicated? No/not indicated 11/21/18 22:30 - Plan (1) Pneumonia Status: Acute Qualifiers: Pneumonia type: due to other aerobic Gram-negative bacteria Laterality: bilateral Lung location: unspecified part of lung Qualified Code(s): J15.6 - Pneumonia due to other Gram-negative bacteria Plan: iv antibiotics, respiratory tx, BIPAP, continue to monitor (2) COPD exacerbation Status: Acute Plan: iv antibiotics, iv steroids, BIPAP, respiratory tx, continue to monitor (3) Pneumothorax Status: Acute Qualifiers: Pneumothorax type: unspecified pneumothorax Qualified Code(s): J93.9 - Pneumothorax, unspecified Plan: CHEST TUBE, CONTINUE TO MONITOR (4) Respiratory failure with hypoxia and hypercapnia Status: Acute Qualifiers: Chronicity: acute on chronic Qualified Code(s): J96.21 - Acute and chronic respiratory failure with hypoxia; J96.22 - Acute and chronic respiratory failure with hypercapnia Plan: iv antibiotics, iv steroids, BIPAP, respiratory tx, continue to monitor (5) Hypoproteinemia Status: Acute Plan: ALBUMIN 25% IV DAILY, PROCAL AT 40ML/HR, CONTINUE TO MONITOR
--- NOTE | 2018-11-23 18:32 | PCM.PROG ---
Progress Note - Progress Note for Day of Date of Exam: 11/22/18 - Subjective Subjective: WAS ADMITTED FOR RESPIRATORY FAILURE, PNEUMONIA, COPD EXACERBATION, AND A RIGHT SIDED PNEUMOTHORAX. SHE REMAINS IN THE INTENSIVE CARE UNIT TODAY WITH A CHEST TUBE. SHE CONTINUES TO UTILIZE THE BIPAP. SHE CONTINUES WITH SHORTNESS OF BREATH. SHE REPORTS RESTING BETTER LAST NIGHT. FAMILY REPORTS THAT THEY BELIEVE SHE IS STARTING TO GET A YEAST INFECTION FROM THE ANTIBIOTICS. ON EXAMINATION, HEART IS REGULAR IN RATE AND RHYTHM. BILATERAL LUNGS ARE NOTED WITH SCATTERED RHONCHI. ABDOMEN IS ROUND, SOFT, AND NON-TENDER WITH NORMAL BOWEL SOUNDS NOTED IN ALL QUADRANTS. CHEST TUBE NOTED TO RIGHT SIDE LUNG. SHE IS NOTED WITH TRACE EDEMA TO UPPER AND LOWER EXTREMITIES. HER VITALS THIS MORNING ARE: 98.0-88-23-90%-135/63. LABS WERE OBTAINED. ABNORMAL LAB VALUES INCLUDE THE FOLLOWING: HGB 11.4, HCT 33.6, PLT COUNT 112, CARBON DIOXIDE 41.6, CREATININE 0.39, ALK PHOS 33, TOTAL PROTEIN 4.5, ALBUMIN 2.6, GLOBULIN 1.9. BLOOD CULTURES ARE POSITIVE FOR STAPHYLOCOCCUS HOMINIS. SPUTUM CULTURE IS POSITIVE FOR ACINETOBACTER BAUMANII/HAEMOLY. A CHEST XRAY WAS OBTAINED TODAY AND REVEALED: NO CHANGE SINCE PREVIOUS DAY. SHE IS CURRENTLY RECEIVING IV FORTAZ, IV DOXYCYCLINE, IV FLUIDS, RESPIRATORY TX, AND IV STEROIDS. WE WILL CONTINUE WITH CURRENT PLAN OF CARE TODAY AND START DIFLUCAN 200MG IV DAILY. OTHERWISE, WE WILL FOLLOW UP WITH AM LABS AND CONTINUE TO MONITOR. - Past Medical Family Social History Past Med/Fam/Surg Hx: No changes since H&P Allergies: Allergies No Known Drug Allergies Allergy (Verified 05/21/17 08:19) - Review of Systems ROS: No change since H&P - Vital Signs and I&O's Vital Signs: Temperature 99.7 F Pulse Rate [Apical] 88 Pulse Rate 84 Respiratory Rate 25 Blood Pressure [Left Arm] 113/55 Blood Pressure [Right Arm] 123/55 Blood Pressure 151/67 O2 Sat by Pulse Oximetry 92 Intake and Output: Intake & Output 11/21/18 11/22/18 11/23/18 11/24/18 11:59 11:59 11:59 11:59 Intake Total 2843 / 2843 3633 / 3633 2029 / 2029 1187 / 1187 Output Total 3465 / 3465 6840 / 6840 2440 / 2440 1999 Balance -622 / -622 -3207 / -3207 -410 / -410 -813 / -813 - Physical Exam Oriented: Normal Eyes: Normal Ear: Normal Nose: Normal Throat: Normal Respiratory: Wheezes, Rhonchi Cardiovascular: Normal : Normal Auscultation: Bowel Sounds: Normal Tenderness: Normal Skin: Normal Musculoskeletal: Normal Psychiatric: Normal Mood Description: Calm Affect: Normal Speech Pattern: Clear, Appropriate - Laboratory and Diagnostics Result Diagrams: 11/23/18 05:25 11/23/18 05:25 Labs: 11/12/18 20:37 Blood Blood Culture - Final 11/12/18 20:30 Blood Blood Culture - Final 11/11/18 23:39 Blood Blood Culture - Final Staphylococcus Hominis 11/12/18 04:45 Sputum - Expectorated Sputum Sputum Culture - Final Acinetobacter Baumanii/Haemoly 11/12/18 04:45 Sputum - Expectorated Sputum - Final Laboratory WBC 8.5 X10^3/uL (3.6-10.0) 11/23/18 05:25 RBC 3.48 X10^6/uL (3.5-5.4) L 11/23/18 05:25 Hgb 10.3 g/dL (12.0-16.0) L 11/23/18 05:25 Hct 30.9 % (36.0-47.0) L 11/23/18 05:25 MCV 88.9 fL (80.0-100.0) 11/23/18 05:25 MCH 29.7 pg (27.0-34.0) 11/23/18 05:25 MCHC 33.4 g/dL (33.0-35.0) 11/23/18 05:25 RDW 14.2 % (11.6-16.5) 11/23/18 05:25 Plt Count 117 X10^3/uL (150.0-450.0) L 11/23/18 05:25 Plt Count Comment Adequate (ADEQUATE) 11/20/18 04:06 MPV 10.4 fL (7.4-11.0) 11/23/18 05:25 Neut % (Auto) 69.7 % (42.0-75.0) 11/23/18 05:25 Lymph % (Auto) 17.7 % (21.0-51.0) L 11/23/18 05:25 [place] % (Auto) 9.2 % (0.0-13.0) 11/23/18 05:25 Eos % (Auto) 3.2 % (0.9-2.9) H 11/23/18 05:25 Baso % (Auto) 0.2 % (0.2-1.0) 11/23/18 05:25 Neut # (Auto) 5.9 x10^3/uL (2.2-4.8) H 11/23/18 05:25 Lymph # (Auto) 1.5 X10^3/uL (1.3-2.9) 11/23/18 05:25 [place] # (Auto) 0.8 x10^3/uL (0.3-0.8) 11/23/18 05:25 Eos # (Auto) 0.3 x10^3/uL (0.0-0.2) H 11/23/18 05:25 Baso # (Auto) 0.0 X10^3/uL (0.0-0.1) 11/23/18 05:25 Absolute Nucleated RBC 0.0 /100WBC 11/23/18 05:25 Total Counted 100 11/20/18 04:06 Neutrophils % (Manual) 95 % (39-76) H 11/20/18 04:06 Band Neutrophils % 1 % (0-10) 11/20/18 04:06 Lymphocytes % (Manual) 3 % (13-43) L 11/20/18 04:06 Monocytes % (Manual) 1 % (4-9) L 11/20/18 04:06 Plt Morphology Comment Normal (NORMAL) 11/20/18 04:06 RBC Morphology Normal (NORMAL) 11/20/18 04:06 Hypochromasia Slight A 11/12/18 20:30 INR Target Range - 11/11/18 21:55 INR 1.05 (0.8-1.3) 11/11/18 21:55 APTT 23.9 SECONDS (22.9-36.5) 11/11/18 21:55 PTT Comment - 11/11/18 21:55 D-Dimer 724 ng/mL (0-400) H* 11/11/18 21:55 Sample Site Rbr 11/23/18 09:08 ABG pH 7.470 (7.35-7.45) H 11/23/18 09:08 ABG pCO2 67.0 mmHg (35.0-45.0) H* 11/23/18 09:08 ABG pO2 63.0 mmHg (80.0-100.0) L 11/23/18 09:08 ABG HCO3 48.8 mmol/L (22-26) H* 11/23/18 09:08 ABG O2 Saturation 93.0 % (90-100) 11/23/18 09:08 ABG Base Excess 21.3 mmol/L (-2.0-2.0) H 11/23/18 09:08 Dony Test Na 11/23/18 09:08 A-a Gradient 138.0 mmHg 11/23/18 09:08 FiO2 40.0 11/23/18 09:08 Blood Gas Comments [facility] 11/23/18 09:08 Sodium 140 mmol/L (136-145) 11/23/18 05:25 Corrected Sodium TNP 11/23/18 05:25 Potassium 4.5 mmol/L (3.5-5.1) 11/23/18 05:25 Chloride 101 mmol/L (98-107) 11/23/18 05:25 Carbon Dioxide 42.0 mmol/L (21-32) H* 11/23/18 05:25 BUN 7 mg/dL (7-18) 11/23/18 05:25 Creatinine 0.40 mg/dL (0.55-1.02) L 11/23/18 05:25 Est GFR (MDRD) Af Amer > 60 (>60) 11/23/18 05:25 Est GFR (MDRD) Non-Af > 60 (>60) 11/23/18 05:25 Glucose 87 mg/dL (65-99) 11/23/18 05:25 Lactic Acid 0.6 mmol/L (0.4-2.0) 11/12/18 00:00 Calcium 8.4 mg/dL (8.5-10.1) L 11/23/18 05:25 Corrected Calcium 9.5 mg/dL (8.5-10.1) 11/23/18 05:25 Magnesium 1.7 mg/dL (1.7-2.9) 11/22/18 05:31 Total Bilirubin 0.40 mg/dL (0.2-1.0) 11/23/18 05:25 AST 19 Units/L (15-37) 11/23/18 05:25 ALT 18 Units/L (12-78) 11/23/18 05:25 Alkaline Phosphatase 32 Units/L (46-116) L 11/23/18 05:25 Creatine Kinase 117 Units/L (26-192) 11/12/18 05:45 CK-MB (CK-2) 3.5 ng/mL (0-4.0) 11/12/18 05:45 CK/CKMB % Calc 3.0 % (<4) 11/12/18 05:45 Troponin I 0.36 ng/mL (0-1.5) 11/12/18 05:45 B-Natriuretic Peptide 184 pg/mL (0-79) H 11/11/18 21:55 Total Protein 4.5 g/dL (6.4-8.2) L 11/23/18 05:25 Albumin 2.6 g/dL (3.4-5.0) L 11/23/18 05:25 Globulin 1.9 g/dL (2.5-4.5) L 11/23/18 05:25 Albumin/Globulin Ratio 1.4 Ratio (1.1-2.1) 11/23/18 05:25 Specimen Type Catherized urine 11/21/18 22:30 Urine Color Straw (YELLOW) 11/21/18 22:30 Urine Appearance Clear (CLEAR) 11/21/18 22:30 Urine pH 8.0 (5.0 - 8.0) 11/21/18 22:30 Ur Specific Ranger 1.010 (1.000-1.030) 11/21/18 22:30 Urine Protein Negative (NEGATIVE) 11/21/18 22:30 Urine Glucose (UA) Negative (NEGATIVE) 11/21/18 22:30 Urine Ketones Negative (NEGATIVE) 11/21/18 22:30 Urine Occult Blood 1+ (NEGATIVE) 11/21/18 22:30 Urine Nitrite Negative (NEGATIVE) 11/21/18 22:30 Urine Bilirubin Negative (NEGATIVE) 11/21/18 22:30 Urine Urobilinogen Normal (NORMAL) 11/21/18 22:30 Ur Leukocyte Esterase 2+ (NEGATIVE) 11/21/18 22:30 Urine RBC 0-2 /HPF (NONE SEEN) 11/21/18 22:30 Urine WBC 3-5 /HPF (NONE SEEN) 11/21/18 22:30 Ur Squamous Epith Cells Rare /HPF (NEGATIVE) 11/21/18 22:30 Amorphous Sediment 2+ /HPF (NEGATIVE) 11/11/18 21:30 Urine Bacteria Trace /HPF (NEGATIVE) 11/21/18 22:30 Urine Yeast Few /HPF (NEGATIVE) 11/21/18 22:30 Ur Culture Indicated? No/not indicated 11/21/18 22:30 - Plan (1) Pneumonia Status: Acute Qualifiers: Pneumonia type: due to other aerobic Gram-negative bacteria Laterality: bilateral Lung location: unspecified part of lung Qualified Code(s): J15.6 - Pneumonia due to other Gram-negative bacteria Plan: iv antibiotics, respiratory tx, BIPAP, continue to monitor (2) COPD exacerbation Status: Acute Plan: iv antibiotics, iv steroids, BIPAP, respiratory tx, continue to monitor (3) Pneumothorax Status: Acute Qualifiers: Pneumothorax type: unspecified pneumothorax Qualified Code(s): J93.9 - Pneumothorax, unspecified Plan: CHEST TUBE, CONTINUE TO MONITOR (4) Respiratory failure with hypoxia and hypercapnia Status: Acute Qualifiers: Chronicity: acute on chronic Qualified Code(s): J96.21 - Acute and chronic respiratory failure with hypoxia; J96.22 - Acute and chronic respiratory failure with hypercapnia Plan: iv antibiotics, iv steroids, BIPAP, respiratory tx, continue to monitor (5) Hypoproteinemia Status: Acute Plan: ALBUMIN 25% IV DAILY, PROCAL AT 40ML/HR, CONTINUE TO MONITOR (6) Yeast infection Status: Acute Plan: DIFLUCAN 200MG IV DAILY, CONTINUE TO MONITOR
[2018-11-23] MEDS: MILK OF MAGNESIA PO PRN (20:24)
[2018-11-23] MEDS: KLONOPIN TAB 0.5 MG PO SCH (20:25)
[2018-11-23] MEDS: COLACE CAP 100 MG PO SCH (20:25)
[2018-11-24] MEDS: DUONEB 0.5 MG/3 MG NEB SCH ×6 (01:14→20:55)
[2018-11-24] MEDS: FORTAZ or TAZICEF VIAL INJ IVP SCH ×3 (05:08→22:13)
[2018-11-24] MEDS: NS 1000 ML 1,000 ML IV SCH ×3 (05:09→22:12)
[2018-11-24 06:10] LABS: BASOPHILS % (AUTO) 0.2 % (0.2-1.0); EOSINOPHILS # (AUTO) 0.4 x10^3/uL (0.0-0.2); EOSINOPHILS % (AUTO) 4.3 % (0.9-2.9); HEMATOCRIT 29.7 % (36.0-47.0); HEMOGLOBIN 9.9 g/dL (12.0-16.0); LYMPHOCYTES # (AUTO) 1.3 X10^3/uL (1.3-2.9); LYMPHOCYTES % (AUTO) 15.3 % (21.0-51.0); MEAN CORPUSCULAR HEMOGLOBIN 29.5 pg (27.0-34.0); MEAN CORPUSCULAR HGB CONC 33.5 g/dL (33.0-35.0); MEAN CORPUSCULAR VOLUME 88.2 fL (80.0-100.0); MEAN PLATELET VOLUME 10.7 fL (7.4-11.0); MONOCYTES # (AUTO) 0.8 x10^3/uL (0.3-0.8); MONOCYTES % (AUTO) 8.9 % (0.0-13.0); NEUTROPHILS % (AUTO) 71.3 % (42.0-75.0); PLATELET COUNT 110 X10^3/uL (150.0-450.0); RED BLOOD COUNT 3.36 X10^6/uL (3.5-5.4); RED CELL DISTRIBUTION WIDTH 14.1 % (11.6-16.5); WHITE BLOOD COUNT 8.4 X10^3/uL (3.6-10.0)
[2018-11-24 06:19] LABS: ALANINE AMINOTRANSFERASE 24 Units/L (12-78); ALBUMIN 2.7 g/dL (3.4-5.0); ALKALINE PHOSPHATASE 40 Units/L (46-116); ASPARTATE AMINO TRANSFERASE 25 Units/L (15-37); BLOOD UREA NITROGEN 10 mg/dL (7-18); CALCIUM 8.7 mg/dL (8.5-10.1); CHLORIDE 101 mmol/L (98-107); COR CA(FOR HYPOALB) 9.7 mg/dL (8.5-10.1); CREATININE 0.39 mg/dL (0.55-1.02); SODIUM 140 mmol/L (136-145); TOTAL PROTEIN 4.6 g/dL (6.4-8.2); eGFR NON BLACK RACES > 60 (>60)
[2018-11-24 06:40] LABS: CARBON DIOXIDE 40.8 mmol/L (21-32)
--- NOTE | 2018-11-24 06:54 | RAD ---
HISTORY: Shortness of breath Study: Chest AP portable Comparison: 11/23/2018 Findings: There is a right-sided PICC line in good position. There is a right chest tube present. The heart is within normal limits in size. The alvarado are normal. The aorta is calcified. No right pneumothorax is identified. Bilateral lower lobe volume loss and left pleural effusion are unchanged. The remainder of the lung han are clear. IMPRESSION: No significant change from the prior examination Reported By:
[2018-11-24] MEDS: LOVENOX INJ 40 MG SYR SC SCH (08:27)
[2018-11-24] MEDS: DIFLUCAN 200 MG IV PREMIX* 200 MG/100 ML BAG IV SCH (08:27)
[2018-11-24] MEDS: MAGIC MOUTHWASH MT SCH ×4 (08:28→20:58)
[2018-11-24] MEDS: XANAX PO PRN ×2 (08:28→20:58)
[2018-11-24] MEDS: UNIPHYL TAB 400 MG PO SCH (08:28)
[2018-11-24] MEDS: ALBUMIN HUMAN 25%- 100 ML 100 ML IV SCH (08:36)
--- NOTE | 2018-11-24 08:55 | PCM.PROG ---
Progress Note - Progress Note for Day of Date of Exam: 11/23/18 - Subjective Subjective: WAS ADMITTED FOR RESPIRATORY FAILURE, PNEUMONIA, COPD EXACERBATION, AND A RIGHT SIDED PNEUMOTHORAX. SHE REMAINS IN THE INTENSIVE CARE UNIT TODAY WITH A CHEST TUBE. SHE CONTINUES TO UTILIZE THE BIPAP. SHE CONTINUES WITH SHORTNESS OF BREATH. SHE REPORTS THAT SHORTNESS OF BREATH IS IMPROVING. ON EXAMINATION, HEART IS REGULAR IN RATE AND RHYTHM. BILATERAL LUNGS ARE NOTED WITH SCATTERED RHONCHI, DIMINISHED. ABDOMEN IS ROUND, SOFT, AND NON-TENDER WITH NORMAL BOWEL SOUNDS NOTED IN ALL QUADRANTS. CHEST TUBE NOTED TO RIGHT SIDE LUNG. HER VITALS THIS MORNING ARE: 99.3-86-23-93%-141/64. LABS WERE OBTAINED. ABNORMAL LAB VALUES INCLUDE THE FOLLOWING: HGB RBC 3.48, HGB 10.3, HCT 30.9, CARBON DIOXIDE 42.0, CREATININE 0.40, CALCIUM 8.4, ALK PHOS 32, TOTAL PROTEIN 4.5, ALBUMIN 2.6. TODAYS ABG REVEALED: PH 7.470, PC02 67.0, PO2 63.0, HC03 48.8, 02 SATURATION 93.0, BASE EXCESS 21.3. BLOOD CULTURES ARE POSITIVE FOR STAPHYLOCOCCUS HOMINIS. SPUTUM CULTURE IS POSITIVE FOR ACINETOBACTER BAU MANII/HAEMOLY. A CHEST XRAY WAS OBTAINED TODAY AND REVEALED: NO CHANGE SINCE PREVIOUS DAY. SHE IS CURRENTLY RECEIVING IV FORTAZ, IV DOXYCYCLINE, IV FLUIDS, RESPIRATORY TX, AND IV STEROIDS. WE WILL CONTINUE WITH CURRENT PLAN OF CARE TODAY. PLANS TO CLAMP THE CHEST TUBE TODAY. WE ARE IN AGREEMENT WITH PLAN. OTHERWISE, WE WILL FOLLOW UP WITH AM LABS AND CONTINUE TO MONITOR. - Past Medical Family Social History Past Med/Fam/Surg Hx: No changes since H&P Allergies: Allergies No Known Drug Allergies Allergy (Verified 05/21/17 08:19) - Review of Systems ROS: No change since H&P - Vital Signs and I&O's Vital Signs: Temperature 99.6 F Pulse Rate [Apical] 88 Pulse Rate 81 Respiratory Rate 22 Blood Pressure [Left Arm] 113/55 Blood Pressure [Right Arm] 123/55 Blood Pressure 127/58 O2 Sat by Pulse Oximetry 96 Intake and Output: Intake & Output 11/21/18 11/22/18 11/23/18 11/24/18 11:59 11:59 11:59 11:59 Intake Total 2843 / 2843 3633 / 3633 2029 / 2029 3187 / 3187 Output Total 3465 / 3465 6840 / 6840 2440 / 2440 5100 / 5100 Balance -622 / -622 -3207 / -3207 -410 / -410 -1913 / -1913 - Physical Exam Oriented: Normal Eyes: Normal Ear: Normal Nose: Normal Throat: Normal Respiratory: Wheezes, Rhonchi Cardiovascular: Normal : Normal Auscultation: Bowel Sounds: Normal Palpation: Normal Tenderness: Normal Skin: Normal Musculoskeletal: Normal Psychiatric: Normal Mood Description: Calm Affect: Normal Speech Pattern: Clear, Appropriate - Laboratory and Diagnostics Result Diagrams: 11/24/18 05:22 11/24/18 05:22 Labs: 11/12/18 20:37 Blood Blood Culture - Final 11/12/18 20:30 Blood Blood Culture - Final 11/11/18 23:39 Blood Blood Culture - Final Staphylococcus Hominis 11/12/18 04:45 Sputum - Expectorated Sputum Sputum Culture - Final Acinetobacter Baumanii/Haemoly 11/12/18 04:45 Sputum - Expectorated Sputum - Final Laboratory WBC 8.4 X10^3/uL (3.6-10.0) 11/24/18 05:22 RBC 3.36 X10^6/uL (3.5-5.4) L 11/24/18 05:22 Hgb 9.9 g/dL (12.0-16.0) L 11/24/18 05:22 Hct 29.7 % (36.0-47.0) L 11/24/18 05:22 MCV 88.2 fL (80.0-100.0) 11/24/18 05:22 MCH 29.5 pg (27.0-34.0) 11/24/18 05:22 MCHC 33.5 g/dL (33.0-35.0) 11/24/18 05:22 RDW 14.1 % (11.6-16.5) 11/24/18 05:22 Plt Count 110 X10^3/uL (150.0-450.0) L 11/24/18 05:22 Plt Count Comment Adequate (ADEQUATE) 11/20/18 04:06 MPV 10.7 fL (7.4-11.0) 11/24/18 05:22 Neut % (Auto) 71.3 % (42.0-75.0) 11/24/18 05:22 Lymph % (Auto) 15.3 % (21.0-51.0) L 11/24/18 05:22 [place] % (Auto) 8.9 % (0.0-13.0) 11/24/18 05:22 Eos % (Auto) 4.3 % (0.9-2.9) H 11/24/18 05:22 Baso % (Auto) 0.2 % (0.2-1.0) 11/24/18 05:22 Neut # (Auto) 6.0 x10^3/uL (2.2-4.8) H 11/24/18 05:22 Lymph # (Auto) 1.3 X10^3/uL (1.3-2.9) 11/24/18 05:22 [place] # (Auto) 0.8 x10^3/uL (0.3-0.8) 11/24/18 05:22 Eos # (Auto) 0.4 x10^3/uL (0.0-0.2) H 11/24/18 05:22 Baso # (Auto) 0.0 X10^3/uL (0.0-0.1) 11/24/18 05:22 Absolute Nucleated RBC 0.0 /100WBC 11/24/18 05:22 Total Counted 100 11/20/18 04:06 Neutrophils % (Manual) 95 % (39-76) H 11/20/18 04:06 Band Neutrophils % 1 % (0-10) 11/20/18 04:06 Lymphocytes % (Manual) 3 % (13-43) L 11/20/18 04:06 Monocytes % (Manual) 1 % (4-9) L 11/20/18 04:06 Plt Morphology Comment Normal (NORMAL) 11/20/18 04:06 RBC Morphology Normal (NORMAL) 11/20/18 04:06 Hypochromasia Slight A 11/12/18 20:30 INR Target Range - 11/11/18 21:55 INR 1.05 (0.8-1.3) 11/11/18 21:55 APTT 23.9 SECONDS (22.9-36.5) 11/11/18 21:55 PTT Comment - 11/11/18 21:55 D-Dimer 724 ng/mL (0-400) H* 11/11/18 21:55 Sample Site Rbr 11/23/18 09:08 ABG pH 7.470 (7.35-7.45) H 11/23/18 09:08 ABG pCO2 67.0 mmHg (35.0-45.0) H* 11/23/18 09:08 ABG pO2 63.0 mmHg (80.0-100.0) L 11/23/18 09:08 ABG HCO3 48.8 mmol/L (22-26) H* 11/23/18 09:08 ABG O2 Saturation 93.0 % (90-100) 11/23/18 09:08 ABG Base Excess 21.3 mmol/L (-2.0-2.0) H 11/23/18 09:08 Dony Test Na 11/23/18 09:08 A-a Gradient 138.0 mmHg 11/23/18 09:08 FiO2 40.0 11/23/18 09:08 Blood Gas Comments Josefina well cn 11/23/18 09:08 Sodium 140 mmol/L (136-145) 11/24/18 05:22 Corrected Sodium TNP 11/24/18 05:22 Potassium 4.4 mmol/L (3.5-5.1) 11/24/18 05:22 Chloride 101 mmol/L (98-107) 11/24/18 05:22 Carbon Dioxide 40.8 mmol/L (21-32) H* 11/24/18 05:22 BUN 10 mg/dL (7-18) 11/24/18 05:22 Creatinine 0.39 mg/dL (0.55-1.02) L 11/24/18 05:22 Est GFR (MDRD) Af Amer > 60 (>60) 11/24/18 05:22 Est GFR (MDRD) Non-Af > 60 (>60) 11/24/18 05:22 Glucose 79 mg/dL (65-99) 11/24/18 05:22 Lactic Acid 0.6 mmol/L (0.4-2.0) 11/12/18 00:00 Calcium 8.7 mg/dL (8.5-10.1) 11/24/18 05:22 Corrected Calcium 9.7 mg/dL (8.5-10.1) 11/24/18 05:22 Magnesium 1.7 mg/dL (1.7-2.9) 11/22/18 05:31 Total Bilirubin 0.30 mg/dL (0.2-1.0) 11/24/18 05:22 AST 25 Units/L (15-37) 11/24/18 05:22 ALT 24 Units/L (12-78) 11/24/18 05:22 Alkaline Phosphatase 40 Units/L (46-116) L 11/24/18 05:22 Creatine Kinase 117 Units/L (26-192) 11/12/18 05:45 CK-MB (CK-2) 3.5 ng/mL (0-4.0) 11/12/18 05:45 CK/CKMB % Calc 3.0 % (<4) 11/12/18 05:45 Troponin I 0.36 ng/mL (0-1.5) 11/12/18 05:45 B-Natriuretic Peptide 184 pg/mL (0-79) H 11/11/18 21:55 Total Protein 4.6 g/dL (6.4-8.2) L 11/24/18 05:22 Albumin 2.7 g/dL (3.4-5.0) L 11/24/18 05:22 Globulin 1.9 g/dL (2.5-4.5) L 11/24/18 05:22 Albumin/Globulin Ratio 1.4 Ratio (1.1-2.1) 11/24/18 05:22 Specimen Type Catherized urine 11/21/18 22:30 Urine Color Straw (YELLOW) 11/21/18 22:30 Urine Appearance Clear (CLEAR) 11/21/18 22:30 Urine pH 8.0 (5.0 - 8.0) 11/21/18 22:30 Ur Specific [place] 1.010 (1.000-1.030) 11/21/18 22:30 Urine Protein Negative (NEGATIVE) 11/21/18 22:30 Urine Glucose (UA) Negative (NEGATIVE) 11/21/18 22:30 Urine Ketones Negative (NEGATIVE) 11/21/18 22:30 Urine Occult Blood 1+ (NEGATIVE) 11/21/18 22:30 Urine Nitrite Negative (NEGATIVE) 11/21/18 22:30 Urine Bilirubin Negative (NEGATIVE) 11/21/18 22:30 Urine Urobilinogen Normal (NORMAL) 11/21/18 22:30 Ur Leukocyte Esterase 2+ (NEGATIVE) 11/21/18 22:30 Urine RBC 0-2 /HPF (NONE SEEN) 11/21/18 22:30 Urine WBC 3-5 /HPF (NONE SEEN) 11/21/18 22:30 Ur Squamous Epith Cells Rare /HPF (NEGATIVE) 11/21/18 22:30 Amorphous Sediment 2+ /HPF (NEGATIVE) 11/11/18 21:30 Urine Bacteria Trace /HPF (NEGATIVE) 11/21/18 22:30 Urine Yeast Few /HPF (NEGATIVE) 11/21/18 22:30 Ur Culture Indicated? No/not indicated 11/21/18 22:30 - Plan (1) Pneumonia Status: Acute Qualifiers: Pneumonia type: due to other aerobic Gram-negative bacteria Laterality: bilateral Lung location: unspecified part of lung Qualified Code(s): J15.6 - Pneumonia due to other Gram-negative bacteria Plan: iv antibiotics, respiratory tx, BIPAP, continue to monitor (2) COPD exacerbation Status: Acute Plan: iv antibiotics, iv steroids, BIPAP, respiratory tx, continue to monitor (3) Pneumothorax Status: Acute Qualifiers: Pneumothorax type: unspecified pneumothorax Qualified Code(s): J93.9 - Pneumothorax, unspecified Plan: CHEST TUBE, CONTINUE TO MONITOR (4) Respiratory failure with hypoxia and hypercapnia Status: Acute Qualifiers: Chronicity: acute on chronic Qualified Code(s): J96.21 - Acute and chronic respiratory failure with hypoxia; J96.22 - Acute and chronic respiratory failure with hypercapnia Plan: iv antibiotics, iv steroids, BIPAP, respiratory tx, continue to monitor (5) Hypoproteinemia Status: Acute Plan: ALBUMIN 25% IV DAILY, PROCAL AT 40ML/HR, CONTINUE TO MONITOR (6) Yeast infection Status: Acute Plan: DIFLUCAN 200MG IV DAILY, CONTINUE TO MONITOR
[2018-11-24] MEDS: PULMICORT NEB TX 0.5 MG NEB SCH ×2 (09:30→20:55)
[2018-11-24] MEDS: VIBRAMYCIN 100 MG in D5W 250 ML IV 250 ML IV SCH ×2 (09:44→20:58)
[2018-11-24] MEDS: NORCO 10/325 TAB PO PRN (10:23)
--- NOTE | 2018-11-24 16:19 | DR.PROGNOT ---
Hospital Progress Notes - Progress Note for Day of: Progress Note Date: 11/24/18 - Chief Complaint Chief Complaint: repeated xray showed no recurrent pneumothorax ( no suction on CT ). no changes in Pt general condition . - Past Medical Family Social History Past Med/Fam/Surg Hx: No changes since H&P Allergies: Allergies No Known Drug Allergies Allergy (Verified 05/21/17 08:19) - Review Of Systems ROS: No change since H&P - Vital Signs Vital Signs: Temperature 99.6 F Pulse Rate [Apical] 88 Pulse Rate 84 Respiratory Rate 21 Blood Pressure [Left Arm] 113/55 Blood Pressure [Right Arm] 123/55 Blood Pressure 145/67 O2 Sat by Pulse Oximetry 96 - Physical Exam Oriented: Normal Eyes: Normal Ear: Normal Nose: Normal Throat: Normal Respiratory: Wheezes, Rhonchi Cardiovascular: Normal : Normal GI:Auscultation: Normal GI:Palpation: Normal GI: Tenderness: Normal Skin: Normal Musculoskeletal: Normal Psychiatric: Normal Mood Description: Calm Affect: Normal Speech Pattern: Clear, Appropriate - Laboratory and Diagnostics Result Diagrams: 11/24/18 05:22 11/24/18 05:22 Labs: 11/12/18 20:37 Blood Blood Culture - Final 11/12/18 20:30 Blood Blood Culture - Final 11/11/18 23:39 Blood Blood Culture - Final Staphylococcus Hominis 11/12/18 04:45 Sputum - Expectorated Sputum Sputum Culture - Final Acinetobacter Baumanii/Haemoly 11/12/18 04:45 Sputum - Expectorated Sputum - Final Laboratory WBC 8.4 X10^3/uL (3.6-10.0) 11/24/18 05:22 RBC 3.36 X10^6/uL (3.5-5.4) L 11/24/18 05:22 Hgb 9.9 g/dL (12.0-16.0) L 11/24/18 05:22 Hct 29.7 % (36.0-47.0) L 11/24/18 05:22 MCV 88.2 fL (80.0-100.0) 11/24/18 05:22 MCH 29.5 pg (27.0-34.0) 11/24/18 05:22 MCHC 33.5 g/dL (33.0-35.0) 11/24/18 05:22 RDW 14.1 % (11.6-16.5) 11/24/18 05:22 Plt Count 110 X10^3/uL (150.0-450.0) L 11/24/18 05:22 Plt Count Comment Adequate (ADEQUATE) 11/20/18 04:06 MPV 10.7 fL (7.4-11.0) 11/24/18 05:22 Neut % (Auto) 71.3 % (42.0-75.0) 11/24/18 05:22 Lymph % (Auto) 15.3 % (21.0-51.0) L 11/24/18 05:22 [place] % (Auto) 8.9 % (0.0-13.0) 11/24/18 05:22 Eos % (Auto) 4.3 % (0.9-2.9) H 11/24/18 05:22 Baso % (Auto) 0.2 % (0.2-1.0) 11/24/18 05:22 Neut # (Auto) 6.0 x10^3/uL (2.2-4.8) H 11/24/18 05:22 Lymph # (Auto) 1.3 X10^3/uL (1.3-2.9) 11/24/18 05:22 [place] # (Auto) 0.8 x10^3/uL (0.3-0.8) 11/24/18 05:22 Eos # (Auto) 0.4 x10^3/uL (0.0-0.2) H 11/24/18 05:22 Baso # (Auto) 0.0 X10^3/uL (0.0-0.1) 11/24/18 05:22 Absolute Nucleated RBC 0.0 /100WBC 11/24/18 05:22 Total Counted 100 11/20/18 04:06 Neutrophils % (Manual) 95 % (39-76) H 11/20/18 04:06 Band Neutrophils % 1 % (0-10) 11/20/18 04:06 Lymphocytes % (Manual) 3 % (13-43) L 11/20/18 04:06 Monocytes % (Manual) 1 % (4-9) L 11/20/18 04:06 Plt Morphology Comment Normal (NORMAL) 11/20/18 04:06 RBC Morphology Normal (NORMAL) 11/20/18 04:06 Hypochromasia Slight A 11/12/18 20:30 INR Target Range - 11/11/18 21:55 INR 1.05 (0.8-1.3) 11/11/18 21:55 APTT 23.9 SECONDS (22.9-36.5) 11/11/18 21:55 PTT Comment - 11/11/18 21:55 D-Dimer 724 ng/mL (0-400) H* 11/11/18 21:55 Sample Site Rbr 11/23/18 09:08 ABG pH 7.470 (7.35-7.45) H 11/23/18 09:08 ABG pCO2 67.0 mmHg (35.0-45.0) H* 11/23/18 09:08 ABG pO2 63.0 mmHg (80.0-100.0) L 11/23/18 09:08 ABG HCO3 48.8 mmol/L (22-26) H* 11/23/18 09:08 ABG O2 Saturation 93.0 % (90-100) 11/23/18 09:08 ABG Base Excess 21.3 mmol/L (-2.0-2.0) H 11/23/18 09:08 Dony Test Na 11/23/18 09:08 A-a Gradient 138.0 mmHg 11/23/18 09:08 FiO2 40.0 11/23/18 09:08 Blood Gas Comments Josefina well cn 11/23/18 09:08 Sodium 140 mmol/L (136-145) 11/24/18 05:22 Corrected Sodium TNP 11/24/18 05:22 Potassium 4.4 mmol/L (3.5-5.1) 11/24/18 05:22 Chloride 101 mmol/L (98-107) 11/24/18 05:22 Carbon Dioxide 40.8 mmol/L (21-32) H* 11/24/18 05:22 BUN 10 mg/dL (7-18) 11/24/18 05:22 Creatinine 0.39 mg/dL (0.55-1.02) L 11/24/18 05:22 Est GFR (MDRD) Af Amer > 60 (>60) 11/24/18 05:22 Est GFR (MDRD) Non-Af > 60 (>60) 11/24/18 05:22 Glucose 79 mg/dL (65-99) 11/24/18 05:22 Lactic Acid 0.6 mmol/L (0.4-2.0) 11/12/18 00:00 Calcium 8.7 mg/dL (8.5-10.1) 11/24/18 05:22 Corrected Calcium 9.7 mg/dL (8.5-10.1) 11/24/18 05:22 Magnesium 1.7 mg/dL (1.7-2.9) 11/22/18 05:31 Total Bilirubin 0.30 mg/dL (0.2-1.0) 11/24/18 05:22 AST 25 Units/L (15-37) 11/24/18 05:22 ALT 24 Units/L (12-78) 11/24/18 05:22 Alkaline Phosphatase 40 Units/L (46-116) L 11/24/18 05:22 Creatine Kinase 117 Units/L (26-192) 11/12/18 05:45 CK-MB (CK-2) 3.5 ng/mL (0-4.0) 11/12/18 05:45 CK/CKMB % Calc 3.0 % (<4) 11/12/18 05:45 Troponin I 0.36 ng/mL (0-1.5) 11/12/18 05:45 B-Natriuretic Peptide 184 pg/mL (0-79) H 11/11/18 21:55 Total Protein 4.6 g/dL (6.4-8.2) L 11/24/18 05:22 Albumin 2.7 g/dL (3.4-5.0) L 11/24/18 05:22 Globulin 1.9 g/dL (2.5-4.5) L 11/24/18 05:22 Albumin/Globulin Ratio 1.4 Ratio (1.1-2.1) 11/24/18 05:22 Specimen Type Catherized urine 11/21/18 22:30 Urine Color Straw (YELLOW) 11/21/18 22:30 Urine Appearance Clear (CLEAR) 11/21/18 22:30 Urine pH 8.0 (5.0 - 8.0) 11/21/18 22:30 Ur Specific [place] 1.010 (1.000-1.030) 11/21/18 22:30 Urine Protein Negative (NEGATIVE) 11/21/18 22:30 Urine Glucose (UA) Negative (NEGATIVE) 11/21/18 22:30 Urine Ketones Negative (NEGATIVE) 11/21/18 22:30 Urine Occult Blood 1+ (NEGATIVE) 11/21/18 22:30 Urine Nitrite Negative (NEGATIVE) 11/21/18 22:30 Urine Bilirubin Negative (NEGATIVE) 11/21/18 22:30 Urine Urobilinogen Normal (NORMAL) 11/21/18 22:30 Ur Leukocyte Esterase 2+ (NEGATIVE) 11/21/18 22:30 Urine RBC 0-2 /HPF (NONE SEEN) 11/21/18 22:30 Urine WBC 3-5 /HPF (NONE SEEN) 11/21/18 22:30 Ur Squamous Epith Cells Rare /HPF (NEGATIVE) 11/21/18 22:30 Amorphous Sediment 2+ /HPF (NEGATIVE) 11/11/18 21:30 Urine Bacteria Trace /HPF (NEGATIVE) 11/21/18 22:30 Urine Yeast Few /HPF (NEGATIVE) 11/21/18 22:30 Ur Culture Indicated? No/not indicated 11/21/18 22:30 - Assessment and Plan 1: Rt pneumothorax , s/p clamping Rt chest tube . to have chest xray this pm . - Problem Patient Problems: Patient Problems Pneumothorax (Acute) J93.9 Hypoproteinemia (Acute) E77.8 Yeast infection (Acute) B37.9
--- NOTE | 2018-11-24 16:20 | RAD ---
History: Shortness of breath Study: Portable AP chest Comparison: Today at 6:40 a.m. Findings: A right chest tube remains in place without pneumothorax. There is blunting of the costophrenic angles, left more than right. There is subsegmental atelectasis or consolidation at the right lung base. The heart size is normal. Impression: Unchanged pleural effusions, left more than right, relatively small with right basilar subsegmental atelectasis unchanged. Reported By:
[2018-11-24] MEDS: PROCALAMINE 3 % 1,000 ML IV SCH (19:27)
[2018-11-24] MEDS: KLONOPIN TAB 0.5 MG PO SCH (20:57)
[2018-11-24] MEDS: COLACE CAP 100 MG PO SCH (20:57)
[2018-11-25] MEDS: DUONEB 0.5 MG/3 MG NEB SCH ×6 (01:01→21:11)
[2018-11-25] MEDS: FORTAZ or TAZICEF VIAL INJ IVP SCH ×3 (05:34→21:26)
[2018-11-25] MEDS: NS 1000 ML 1,000 ML IV SCH ×3 (05:34→22:36)
[2018-11-25 05:55] LABS: BASOPHILS % (AUTO) 0.3 % (0.2-1.0); EOSINOPHILS # (AUTO) 0.3 x10^3/uL (0.0-0.2); EOSINOPHILS % (AUTO) 3.9 % (0.9-2.9); HEMATOCRIT 25.8 % (36.0-47.0); HEMOGLOBIN 8.7 g/dL (12.0-16.0); LYMPHOCYTES % (AUTO) 15.1 % (21.0-51.0); MEAN CORPUSCULAR HEMOGLOBIN 29.9 pg (27.0-34.0); MEAN CORPUSCULAR HGB CONC 33.8 g/dL (33.0-35.0); MEAN CORPUSCULAR VOLUME 88.6 fL (80.0-100.0); MEAN PLATELET VOLUME 9.8 fL (7.4-11.0); MONOCYTES # (AUTO) 0.7 x10^3/uL (0.3-0.8); MONOCYTES % (AUTO) 9.6 % (0.0-13.0); NEUTROPHILS # (AUTO) 4.9 x10^3/uL (2.2-4.8); NEUTROPHILS % (AUTO) 71.1 % (42.0-75.0); PLATELET COUNT 111 X10^3/uL (150.0-450.0); RED BLOOD COUNT 2.91 X10^6/uL (3.5-5.4); RED CELL DISTRIBUTION WIDTH 14.2 % (11.6-16.5); WHITE BLOOD COUNT 6.9 X10^3/uL (3.6-10.0)
[2018-11-25 06:00] LABS: ALANINE AMINOTRANSFERASE 25 Units/L (12-78); ALBUMIN 2.8 g/dL (3.4-5.0); ALKALINE PHOSPHATASE 37 Units/L (46-116); ASPARTATE AMINO TRANSFERASE 21 Units/L (15-37); BLOOD UREA NITROGEN 12 mg/dL (7-18); CALCIUM 9.1 mg/dL (8.5-10.1); CARBON DIOXIDE 39.9 mmol/L (21-32); CHLORIDE 100 mmol/L (98-107); COR CA(FOR HYPOALB) 10.1 mg/dL (8.5-10.1); SODIUM 140 mmol/L (136-145); TOTAL PROTEIN 4.9 g/dL (6.4-8.2); eGFR NON BLACK RACES > 60 (>60)
--- NOTE | 2018-11-25 06:05 | RAD ---
HISTORY: Shortness of breath Study: Chest AP portable Comparison: 11/24/2018 Findings: There is a right-sided chest tube in place, unchanged. There is a right-sided central line with its tip in the superior vena cava. The heart is within normal limits in size. The [place] are normal. Right lower lobe volume loss is again identified. The remainder the right lung is clear. Left upper lung field remains clear. Increased density remains in the retrocardiac area of the left lower lobe due either to infiltrate or atelectasis. A small pleural effusion is present. No pneumothorax is identified. The bony thorax is unremarkable. IMPRESSION: No significant change from the prior examination Reported By:
[2018-11-25] MEDS: PULMICORT NEB TX 0.5 MG NEB SCH ×2 (08:51→21:11)
[2018-11-25] MEDS: LOVENOX INJ 40 MG SYR SC SCH (09:30)
[2018-11-25] MEDS: XANAX PO PRN ×2 (09:30→21:27)
[2018-11-25] MEDS: DIFLUCAN 200 MG IV PREMIX* 200 MG/100 ML BAG IV SCH (09:31)
[2018-11-25] MEDS: VIBRAMYCIN 100 MG in D5W 250 ML IV 250 ML IV SCH ×2 (09:31→21:26)
[2018-11-25] MEDS: UNIPHYL TAB 400 MG PO SCH (09:31)
[2018-11-25] MEDS: ALBUMIN HUMAN 25%- 100 ML 100 ML IV SCH (09:31)
[2018-11-25] MEDS: MAGIC MOUTHWASH MT SCH ×4 (09:36→21:26)
--- NOTE | 2018-11-25 09:45 | RAD ---
History: Status post right chest tube removal Study: Portable AP chest Comparison: This morning at 5:46 a.m. Findings: There is no right pneumothorax status post right chest tube removal. There is an unchanged small left pleural effusion and minimal right pleural effusion. There is persistent left retrocardiac density and right cardiophrenic density. The heart size is normal. Impression: 1. No right pneumothorax status post chest tube removal 2. No other change with small left pleural effusion and ill-defined density right cardiophrenic and left retrocardiac Reported By:
--- NOTE | 2018-11-25 10:19 | DR.PROGNOT ---
Hospital Progress Notes - Progress Note for Day of: Progress Note Date: 11/25/18 - Chief Complaint Chief Complaint: ctest tube was removed . chest xray showed no pneumothorax . - Past Medical Family Social History Past Med/Fam/Surg Hx: No changes since H&P Allergies: Allergies No Known Drug Allergies Allergy (Verified 05/21/17 08:19) - Review Of Systems ROS: No change since H&P - Vital Signs Vital Signs: Temperature 98.3 F Pulse Rate [Apical] 88 Pulse Rate 74 Respiratory Rate 18 Blood Pressure [Left Arm] 113/55 Blood Pressure [Right Arm] 123/55 Blood Pressure 148/67 O2 Sat by Pulse Oximetry 100 - Physical Exam Oriented: Normal Eyes: Normal Ear: Normal Nose: Normal Throat: Normal Respiratory: Wheezes, Rhonchi Cardiovascular: Normal : Normal GI:Auscultation: Normal GI:Palpation: Normal GI: Tenderness: Normal Skin: Normal Musculoskeletal: Normal Psychiatric: Normal Mood Description: Calm Affect: Normal Speech Pattern: Clear, Appropriate - Laboratory and Diagnostics Result Diagrams: 11/25/18 05:29 11/25/18 05:29 Labs: 11/12/18 20:37 Blood Blood Culture - Final 11/12/18 20:30 Blood Blood Culture - Final 11/11/18 23:39 Blood Blood Culture - Final Staphylococcus Hominis 11/12/18 04:45 Sputum - Expectorated Sputum Sputum Culture - Final Acinetobacter Baumanii/Haemoly 11/12/18 04:45 Sputum - Expectorated Sputum - Final Laboratory WBC 6.9 X10^3/uL (3.6-10.0) 11/25/18 05:29 RBC 2.91 X10^6/uL (3.5-5.4) L 11/25/18 05:29 Hgb 8.7 g/dL (12.0-16.0) L 11/25/18 05:29 Hct 25.8 % (36.0-47.0) L 11/25/18 05:29 MCV 88.6 fL (80.0-100.0) 11/25/18 05:29 MCH 29.9 pg (27.0-34.0) 11/25/18 05:29 MCHC 33.8 g/dL (33.0-35.0) 11/25/18 05:29 RDW 14.2 % (11.6-16.5) 11/25/18 05:29 Plt Count 111 X10^3/uL (150.0-450.0) L 11/25/18 05:29 Plt Count Comment Adequate (ADEQUATE) 11/20/18 04:06 MPV 9.8 fL (7.4-11.0) 11/25/18 05:29 Neut % (Auto) 71.1 % (42.0-75.0) 11/25/18 05:29 Lymph % (Auto) 15.1 % (21.0-51.0) L 11/25/18 05:29 [place] % (Auto) 9.6 % (0.0-13.0) 11/25/18 05:29 Eos % (Auto) 3.9 % (0.9-2.9) H 11/25/18 05:29 Baso % (Auto) 0.3 % (0.2-1.0) 11/25/18 05:29 Neut # (Auto) 4.9 x10^3/uL (2.2-4.8) H 11/25/18 05:29 Lymph # (Auto) 1.0 X10^3/uL (1.3-2.9) L 11/25/18 05:29 [place] # (Auto) 0.7 x10^3/uL (0.3-0.8) 11/25/18 05:29 Eos # (Auto) 0.3 x10^3/uL (0.0-0.2) H 11/25/18 05:29 Baso # (Auto) 0.0 X10^3/uL (0.0-0.1) 11/25/18 05:29 Absolute Nucleated RBC 0.0 /100WBC 11/25/18 05:29 Total Counted 100 11/20/18 04:06 Neutrophils % (Manual) 95 % (39-76) H 11/20/18 04:06 Band Neutrophils % 1 % (0-10) 11/20/18 04:06 Lymphocytes % (Manual) 3 % (13-43) L 11/20/18 04:06 Monocytes % (Manual) 1 % (4-9) L 11/20/18 04:06 Plt Morphology Comment Normal (NORMAL) 11/20/18 04:06 RBC Morphology Normal (NORMAL) 11/20/18 04:06 Hypochromasia Slight A 11/12/18 20:30 INR Target Range - 11/11/18 21:55 INR 1.05 (0.8-1.3) 11/11/18 21:55 APTT 23.9 SECONDS (22.9-36.5) 11/11/18 21:55 PTT Comment - 11/11/18 21:55 D-Dimer 724 ng/mL (0-400) H* 11/11/18 21:55 Sample Site Rbr 11/23/18 09:08 ABG pH 7.470 (7.35-7.45) H 11/23/18 09:08 ABG pCO2 67.0 mmHg (35.0-45.0) H* 11/23/18 09:08 ABG pO2 63.0 mmHg (80.0-100.0) L 11/23/18 09:08 ABG HCO3 48.8 mmol/L (22-26) H* 11/23/18 09:08 ABG O2 Saturation 93.0 % (90-100) 11/23/18 09:08 ABG Base Excess 21.3 mmol/L (-2.0-2.0) H 11/23/18 09:08 Dony Test Na 11/23/18 09:08 A-a Gradient 138.0 mmHg 11/23/18 09:08 FiO2 40.0 11/23/18 09:08 Blood Gas Comments Josefina well cn 11/23/18 09:08 Sodium 140 mmol/L (136-145) 11/25/18 05:29 Corrected Sodium TNP 11/25/18 05:29 Potassium 4.3 mmol/L (3.5-5.1) 11/25/18 05:29 Chloride 100 mmol/L (98-107) 11/25/18 05:29 Carbon Dioxide 39.9 mmol/L (21-32) H 11/25/18 05:29 BUN 12 mg/dL (7-18) 11/25/18 05:29 Creatinine 0.40 mg/dL (0.55-1.02) L 11/25/18 05:29 Est GFR (MDRD) Af Amer > 60 (>60) 11/25/18 05:29 Est GFR (MDRD) Non-Af > 60 (>60) 11/25/18 05:29 Glucose 88 mg/dL (65-99) 11/25/18 05:29 Lactic Acid 0.6 mmol/L (0.4-2.0) 11/12/18 00:00 Calcium 9.1 mg/dL (8.5-10.1) 11/25/18 05:29 Corrected Calcium 10.1 mg/dL (8.5-10.1) 11/25/18 05:29 Magnesium 1.7 mg/dL (1.7-2.9) 11/22/18 05:31 Total Bilirubin 0.30 mg/dL (0.2-1.0) 11/25/18 05:29 AST 21 Units/L (15-37) 11/25/18 05:29 ALT 25 Units/L (12-78) 11/25/18 05:29 Alkaline Phosphatase 37 Units/L (46-116) L 11/25/18 05:29 Creatine Kinase 117 Units/L (26-192) 11/12/18 05:45 CK-MB (CK-2) 3.5 ng/mL (0-4.0) 11/12/18 05:45 CK/CKMB % Calc 3.0 % (<4) 11/12/18 05:45 Troponin I 0.36 ng/mL (0-1.5) 11/12/18 05:45 B-Natriuretic Peptide 184 pg/mL (0-79) H 11/11/18 21:55 Total Protein 4.9 g/dL (6.4-8.2) L 11/25/18 05:29 Albumin 2.8 g/dL (3.4-5.0) L 11/25/18 05:29 Globulin 2.1 g/dL (2.5-4.5) L 11/25/18 05:29 Albumin/Globulin Ratio 1.3 Ratio (1.1-2.1) 11/25/18 05:29 Specimen Type Catherized urine 11/21/18 22:30 Urine Color Straw (YELLOW) 11/21/18 22:30 Urine Appearance Clear (CLEAR) 11/21/18 22:30 Urine pH 8.0 (5.0 - 8.0) 11/21/18 22:30 Ur Specific [place] 1.010 (1.000-1.030) 11/21/18 22:30 Urine Protein Negative (NEGATIVE) 11/21/18 22:30 Urine Glucose (UA) Negative (NEGATIVE) 11/21/18 22:30 Urine Ketones Negative (NEGATIVE) 11/21/18 22:30 Urine Occult Blood 1+ (NEGATIVE) 11/21/18 22:30 Urine Nitrite Negative (NEGATIVE) 11/21/18 22:30 Urine Bilirubin Negative (NEGATIVE) 11/21/18 22:30 Urine Urobilinogen Normal (NORMAL) 11/21/18 22:30 Ur Leukocyte Esterase 2+ (NEGATIVE) 11/21/18 22:30 Urine RBC 0-2 /HPF (NONE SEEN) 11/21/18 22:30 Urine WBC 3-5 /HPF (NONE SEEN) 11/21/18 22:30 Ur Squamous Epith Cells Rare /HPF (NEGATIVE) 11/21/18 22:30 Amorphous Sediment 2+ /HPF (NEGATIVE) 11/11/18 21:30 Urine Bacteria Trace /HPF (NEGATIVE) 11/21/18 22:30 Urine Yeast Few /HPF (NEGATIVE) 11/21/18 22:30 Ur Culture Indicated? No/not indicated 11/21/18 22:30 - Assessment and Plan 1: resolved pneumothorax treated with placement of chest tube. the chest tube was removed today with good expanded lung . chest xray in am . - Problem Patient Problems: Patient Problems Pneumothorax (Acute) J93.9 Hypoproteinemia (Acute) E77.8 Yeast infection (Acute) B37.9
--- NOTE | 2018-11-25 10:55 | PCM.PROG ---
Progress Note - Progress Note for Day of Date of Exam: 11/24/18 - Subjective Subjective: WAS ADMITTED FOR RESPIRATORY FAILURE, PNEUMONIA, COPD EXACERBATION, AND A RIGHT SIDED PNEUMOTHORAX. SHE REMAINS IN THE INTENSIVE CARE UNIT TODAY WITH A CHEST TUBE. CHEST TUBE HAS BEEN CLAMPED. SHE CONTINUES TO UTILIZE THE BIPAP. SHE CONTINUES WITH SHORTNESS OF BREATH. SHE REPORTS THAT SHORTNESS OF BREATH IS IMPROVING. ON EXAMINATION, HEART IS REGULAR IN RATE AND RHYTHM. BILATERAL LUNGS ARE NOTED WITH SCATTERED RHONCHI, DIMINISHED. ABDOMEN IS ROUND, SOFT, AND NON-TENDER WITH NORMAL BOWEL SOUNDS NOTED IN ALL QUADRANTS. CHEST TUBE NOTED TO RIGHT SIDE LUNG. HER VITALS THIS MORNING ARE: 99.6-81-22-96%-127/58. LABS WERE OBTAINED. ABNORMAL LAB VALUES INCLUDE THE FOLLOWING: RBC 3.36, HGB 9.9, HCT 29.7, PLT COUNT 110, CARBON DIOXIDE 40.8, CREATININE 0.39, ALK PHOS 40, TOTAL PROTEIN 4.6, ALBUMIN 2.7, GLOBULIN 1.9. BLOOD CULTURES ARE POSITIVE FOR STAPHYLOCOCCUS HOMINIS. SPUTUM CULTURE IS POSITIVE FOR ACINETOBACTER BAUMANII/HAEMOLY. A CHEST XRAY WAS OBTAINED TODAY AND REVEALED: NO CHANGE SINCE PREVIOUS DAY. SHE IS CURRENTLY RECEIVING IV FORTAZ, IV DOXYCYCLINE, IV FLUIDS, RESPIRATORY TX, AND IV STEROIDS. WE WILL CONTINUE WITH CURRENT PLAN OF CARE TODAY. CONTINUES TO MONITOR PATIENT TODAY AND TRY TO REMOVE THE CHEST TUBE TOMORROW. WE ARE IN AGREEMENT WITH PLAN. OT HERWISE, WE WILL FOLLOW UP WITH AM LABS AND CONTINUE TO MONITOR. - Past Medical Family Social History Past Med/Fam/Surg Hx: No changes since H&P Allergies: Allergies No Known Drug Allergies Allergy (Verified 05/21/17 08:19) - Review of Systems ROS: No change since H&P - Vital Signs and I&O's Vital Signs: Temperature 98.3 F Pulse Rate [Apical] 88 Pulse Rate 74 Respiratory Rate 18 Blood Pressure [Left Arm] 113/55 Blood Pressure [Right Arm] 123/55 Blood Pressure 148/67 O2 Sat by Pulse Oximetry 100 Intake and Output: Intake & Output 11/22/18 11/23/18 11/24/18 11/25/18 11:59 11:59 11:59 11:59 Intake Total 3633 / 3633 2029 / 2029 3187 / 3187 4668 / 4668 Output Total 6840 / 6840 2440 / 2440 5100 / 5100 6300 / 6300 Balance -3207 / -3207 -410 / -410 -1913 / -1913 -1632 / -1632 - Physical Exam Oriented: Normal Eyes: Normal Ear: Normal Nose: Normal Throat: Normal Respiratory: Wheezes, Rhonchi Cardiovascular: Normal : Normal Auscultation: Bowel Sounds: Normal Palpation: Normal Tenderness: Normal Skin: Normal Musculoskeletal: Normal Psychiatric: Normal Mood Description: Calm Affect: Normal Speech Pattern: Clear, Appropriate - Laboratory and Diagnostics Result Diagrams: 11/25/18 05:29 11/25/18 05:29 Labs: 11/12/18 20:37 Blood Blood Culture - Final 11/12/18 20:30 Blood Blood Culture - Final 11/11/18 23:39 Blood Blood Culture - Final Staphylococcus Hominis 11/12/18 04:45 Sputum - Expectorated Sputum Sputum Culture - Final Acinetobacter Baumanii/Haemoly 11/12/18 04:45 Sputum - Expectorated Sputum - Final Laboratory WBC 6.9 X10^3/uL (3.6-10.0) 11/25/18 05:29 RBC 2.91 X10^6/uL (3.5-5.4) L 11/25/18 05:29 Hgb 8.7 g/dL (12.0-16.0) L 11/25/18 05:29 Hct 25.8 % (36.0-47.0) L 11/25/18 05:29 MCV 88.6 fL (80.0-100.0) 11/25/18 05:29 MCH 29.9 pg (27.0-34.0) 11/25/18 05:29 MCHC 33.8 g/dL (33.0-35.0) 11/25/18 05:29 RDW 14.2 % (11.6-16.5) 11/25/18 05:29 Plt Count 111 X10^3/uL (150.0-450.0) L 11/25/18 05:29 Plt Count Comment Adequate (ADEQUATE) 11/20/18 04:06 MPV 9.8 fL (7.4-11.0) 11/25/18 05:29 Neut % (Auto) 71.1 % (42.0-75.0) 11/25/18 05:29 Lymph % (Auto) 15.1 % (21.0-51.0) L 11/25/18 05:29 [place] % (Auto) 9.6 % (0.0-13.0) 11/25/18 05:29 Eos % (Auto) 3.9 % (0.9-2.9) H 11/25/18 05:29 Baso % (Auto) 0.3 % (0.2-1.0) 11/25/18 05:29 Neut # (Auto) 4.9 x10^3/uL (2.2-4.8) H 11/25/18 05:29 Lymph # (Auto) 1.0 X10^3/uL (1.3-2.9) L 11/25/18 05:29 [place] # (Auto) 0.7 x10^3/uL (0.3-0.8) 11/25/18 05:29 Eos # (Auto) 0.3 x10^3/uL (0.0-0.2) H 11/25/18 05:29 Baso # (Auto) 0.0 X10^3/uL (0.0-0.1) 11/25/18 05:29 Absolute Nucleated RBC 0.0 /100WBC 11/25/18 05:29 Total Counted 100 11/20/18 04:06 Neutrophils % (Manual) 95 % (39-76) H 11/20/18 04:06 Band Neutrophils % 1 % (0-10) 11/20/18 04:06 Lymphocytes % (Manual) 3 % (13-43) L 11/20/18 04:06 Monocytes % (Manual) 1 % (4-9) L 11/20/18 04:06 Plt Morphology Comment Normal (NORMAL) 11/20/18 04:06 RBC Morphology Normal (NORMAL) 11/20/18 04:06 Hypochromasia Slight A 11/12/18 20:30 INR Target Range - 11/11/18 21:55 INR 1.05 (0.8-1.3) 11/11/18 21:55 APTT 23.9 SECONDS (22.9-36.5) 11/11/18 21:55 PTT Comment - 11/11/18 21:55 D-Dimer 724 ng/mL (0-400) H* 11/11/18 21:55 Sample Site Rbr 11/23/18 09:08 ABG pH 7.470 (7.35-7.45) H 11/23/18 09:08 ABG pCO2 67.0 mmHg (35.0-45.0) H* 11/23/18 09:08 ABG pO2 63.0 mmHg (80.0-100.0) L 11/23/18 09:08 ABG HCO3 48.8 mmol/L (22-26) H* 11/23/18 09:08 ABG O2 Saturation 93.0 % (90-100) 11/23/18 09:08 ABG Base Excess 21.3 mmol/L (-2.0-2.0) H 11/23/18 09:08 Dony Test Na 11/23/18 09:08 A-a Gradient 138.0 mmHg 11/23/18 09:08 FiO2 40.0 11/23/18 09:08 Blood Gas Comments Josefina well cn 11/23/18 09:08 Sodium 140 mmol/L (136-145) 11/25/18 05:29 Corrected Sodium TNP 11/25/18 05:29 Potassium 4.3 mmol/L (3.5-5.1) 11/25/18 05:29 Chloride 100 mmol/L (98-107) 11/25/18 05:29 Carbon Dioxide 39.9 mmol/L (21-32) H 11/25/18 05:29 BUN 12 mg/dL (7-18) 11/25/18 05:29 Creatinine 0.40 mg/dL (0.55-1.02) L 11/25/18 05:29 Est GFR (MDRD) Af Amer > 60 (>60) 11/25/18 05:29 Est GFR (MDRD) Non-Af > 60 (>60) 11/25/18 05:29 Glucose 88 mg/dL (65-99) 11/25/18 05:29 Lactic Acid 0.6 mmol/L (0.4-2.0) 11/12/18 00:00 Calcium 9.1 mg/dL (8.5-10.1) 11/25/18 05:29 Corrected Calcium 10.1 mg/dL (8.5-10.1) 11/25/18 05:29 Magnesium 1.7 mg/dL (1.7-2.9) 11/22/18 05:31 Total Bilirubin 0.30 mg/dL (0.2-1.0) 11/25/18 05:29 AST 21 Units/L (15-37) 11/25/18 05:29 ALT 25 Units/L (12-78) 11/25/18 05:29 Alkaline Phosphatase 37 Units/L (46-116) L 11/25/18 05:29 Creatine Kinase 117 Units/L (26-192) 11/12/18 05:45 CK-MB (CK-2) 3.5 ng/mL (0-4.0) 11/12/18 05:45 CK/CKMB % Calc 3.0 % (<4) 11/12/18 05:45 Troponin I 0.36 ng/mL (0-1.5) 11/12/18 05:45 B-Natriuretic Peptide 184 pg/mL (0-79) H 11/11/18 21:55 Total Protein 4.9 g/dL (6.4-8.2) L 11/25/18 05:29 Albumin 2.8 g/dL (3.4-5.0) L 11/25/18 05:29 Globulin 2.1 g/dL (2.5-4.5) L 11/25/18 05:29 Albumin/Globulin Ratio 1.3 Ratio (1.1-2.1) 11/25/18 05:29 Specimen Type Catherized urine 11/21/18 22:30 Urine Color Straw (YELLOW) 11/21/18 22:30 Urine Appearance Clear (CLEAR) 11/21/18 22:30 Urine pH 8.0 (5.0 - 8.0) 11/21/18 22:30 Ur Specific [place] 1.010 (1.000-1.030) 11/21/18 22:30 Urine Protein Negative (NEGATIVE) 11/21/18 22:30 Urine Glucose (UA) Negative (NEGATIVE) 11/21/18 22:30 Urine Ketones Negative (NEGATIVE) 11/21/18 22:30 Urine Occult Blood 1+ (NEGATIVE) 11/21/18 22:30 Urine Nitrite Negative (NEGATIVE) 11/21/18 22:30 Urine Bilirubin Negative (NEGATIVE) 11/21/18 22:30 Urine Urobilinogen Normal (NORMAL) 11/21/18 22:30 Ur Leukocyte Esterase 2+ (NEGATIVE) 11/21/18 22:30 Urine RBC 0-2 /HPF (NONE SEEN) 11/21/18 22:30 Urine WBC 3-5 /HPF (NONE SEEN) 11/21/18 22:30 Ur Squamous Epith Cells Rare /HPF (NEGATIVE) 11/21/18 22:30 Amorphous Sediment 2+ /HPF (NEGATIVE) 11/11/18 21:30 Urine Bacteria Trace /HPF (NEGATIVE) 11/21/18 22:30 Urine Yeast Few /HPF (NEGATIVE) 11/21/18 22:30 Ur Culture Indicated? No/not indicated 11/21/18 22:30 - Plan (1) Pneumonia Status: Acute Qualifiers: Pneumonia type: due to other aerobic Gram-negative bacteria Laterality: bilateral Lung location: unspecified part of lung Qualified Code(s): J15.6 - Pneumonia due to other Gram-negative bacteria Plan: iv antibiotics, respiratory tx, BIPAP, continue to monitor (2) COPD exacerbation Status: Acute Plan: iv antibiotics, iv steroids, BIPAP, respiratory tx, continue to monitor (3) Pneumothorax Status: Acute Qualifiers: Pneumothorax type: unspecified pneumothorax Qualified Code(s): J93.9 - Pneumothorax, unspecified Plan: CHEST TUBE, CONTINUE TO MONITOR (4) Respiratory failure with hypoxia and hypercapnia Status: Acute Qualifiers: Chronicity: acute on chronic Qualified Code(s): J96.21 - Acute and chronic respiratory failure with hypoxia; J96.22 - Acute and chronic respiratory failure with hypercapnia Plan: iv antibiotics, iv steroids, BIPAP, respiratory tx, continue to monitor (5) Hypoproteinemia Status: Acute Plan: ALBUMIN 25% IV DAILY, PROCAL AT 40ML/HR, CONTINUE TO MONITOR (6) Yeast infection Status: Acute Plan: DIFLUCAN 200MG IV DAILY, CONTINUE TO MONITOR
[2018-11-25] MEDS: TobraDEX OPHTH OPHTH 1 DOSE RIGHTEYE PRN ×2 (12:53→21:27)
[2018-11-25] MEDS: ROBITUSSIN DM PO PRN (21:25)
[2018-11-25] MEDS: COLACE CAP 100 MG PO SCH (21:26)
[2018-11-25] MEDS: KLONOPIN TAB 0.5 MG PO SCH (21:26)
[2018-11-26] MEDS: PROCALAMINE 3 % 1,000 ML IV SCH (01:17)
[2018-11-26] MEDS: DUONEB 0.5 MG/3 MG NEB SCH ×6 (01:34→20:00)
[2018-11-26] MEDS: FORTAZ or TAZICEF VIAL INJ IVP SCH ×3 (05:17→21:15)
[2018-11-26] MEDS: NS 1000 ML 1,000 ML IV SCH ×4 (05:18→23:28)
[2018-11-26 05:34] LABS: BASOPHILS % (AUTO) 0.3 % (0.2-1.0); EOSINOPHILS # (AUTO) 0.2 x10^3/uL (0.0-0.2); EOSINOPHILS % (AUTO) 2.6 % (0.9-2.9); HEMATOCRIT 25.9 % (36.0-47.0); HEMOGLOBIN 8.9 g/dL (12.0-16.0); LYMPHOCYTES % (AUTO) 13.4 % (21.0-51.0); MEAN CORPUSCULAR HEMOGLOBIN 30.4 pg (27.0-34.0); MEAN CORPUSCULAR HGB CONC 34.5 g/dL (33.0-35.0); MEAN CORPUSCULAR VOLUME 87.9 fL (80.0-100.0); MONOCYTES # (AUTO) 0.9 x10^3/uL (0.3-0.8); MONOCYTES % (AUTO) 11.6 % (0.0-13.0); NEUTROPHILS # (AUTO) 5.4 x10^3/uL (2.2-4.8); NEUTROPHILS % (AUTO) 72.1 % (42.0-75.0); PLATELET COUNT 125 X10^3/uL (150.0-450.0); RED BLOOD COUNT 2.94 X10^6/uL (3.5-5.4); RED CELL DISTRIBUTION WIDTH 14.2 % (11.6-16.5); WHITE BLOOD COUNT 7.5 X10^3/uL (3.6-10.0)
[2018-11-26 05:49] LABS: ALANINE AMINOTRANSFERASE 28 Units/L (12-78); ALKALINE PHOSPHATASE 38 Units/L (46-116); ASPARTATE AMINO TRANSFERASE 23 Units/L (15-37); BLOOD UREA NITROGEN 7 mg/dL (7-18); CALCIUM 9.3 mg/dL (8.5-10.1); CARBON DIOXIDE 37.7 mmol/L (21-32); CHLORIDE 103 mmol/L (98-107); COR CA(FOR HYPOALB) 10.1 mg/dL (8.5-10.1); SODIUM 143 mmol/L (136-145); TOTAL PROTEIN 5.3 g/dL (6.4-8.2); eGFR NON BLACK RACES > 60 (>60)
--- NOTE | 2018-11-26 06:18 | RAD ---
HISTORY: Shortness of breath Study: Chest AP portable Comparison: 11/25/2018 Findings: There is a right-sided port present. The right chest tube is no longer present. The heart is within normal limits in size. The upper lung han demonstrate some emphysematous changes but are otherwise clear. Right basilar volume loss is unchanged. Increased density in the retrocardiac area the left lower lobe is unchanged. Small left pleural effusion is unchanged. IMPRESSION: Right chest tube out, no recurrent pneumothorax Otherwise no significant change from the prior examination Reported By:
[2018-11-26] MEDS: PULMICORT NEB TX 0.5 MG NEB SCH ×2 (08:38→20:00)
[2018-11-26] MEDS: ALBUMIN HUMAN 25%- 100 ML 100 ML IV SCH (10:22)
[2018-11-26] MEDS: DIFLUCAN 200 MG IV PREMIX* 200 MG/100 ML BAG IV SCH (10:22)
[2018-11-26] MEDS: LOVENOX INJ 40 MG SYR SC SCH (10:22)
[2018-11-26] MEDS: VIBRAMYCIN 100 MG in D5W 250 ML IV 250 ML IV SCH ×2 (10:24→21:15)
[2018-11-26] MEDS: XANAX PO PRN ×2 (10:24→21:16)
[2018-11-26] MEDS: UNIPHYL TAB 400 MG PO SCH (10:25)
[2018-11-26] MEDS: MAGIC MOUTHWASH MT SCH ×4 (10:36→21:14)
--- NOTE | 2018-11-26 18:32 | PCM.PROG ---
Progress Note - Progress Note for Day of Date of Exam: 11/26/18 - Subjective Subjective: WAS ADMITTED FOR RESPIRATORY FAILURE, PNEUMONIA, COPD EXACERBATION, AND A RIGHT SIDED PNEUMOTHORAX. SHE REMAINS IN THE INTENSIVE CARE UNIT AND SHE CONTINUES TO UTILIZE THE BIPAP. SHE CONTINUES WITH SHORTNESS OF BREATH. SHE REPORTS THAT SHORTNESS OF BREATH IS IMPROVING. BLOOD CULTURES ARE POSITIVE FOR STAPHYLOCOCCUS HOMINIS. SPUTUM CULTURE IS POSITIVE FOR ACINETOBACTER BAUMANII/HAEMOLY. A CHEST XRAY WAS OBTAINED TODAY AND REVEALED: NO CHANGE SINCE PREVIOUS DAY. SHE IS CURRENTLY RECEIVING IV FORTAZ, IV DOXYCYCLINE, IV FLUIDS, RESPIRATORY TX, AND IV STEROIDS. WE WILL CONTINUE WITH CURRENT PLAN OF CARE TODAY. CONTINUES TO MONITOR PATIENT S/P CHEST TUBE REMOVAL. WE ARE IN AGREEMENT WITH PLAN. OTHERWISE, WE WILL FOLLOW UP WITH AM LABS AND CONTINUE TO MONITOR. - Past Medical Family Social History Past Med/Fam/Surg Hx: No changes since H&P Allergies: Allergies No Known Drug Allergies Allergy (Verified 05/21/17 08:19) - Review of Systems ROS: No change since H&P - Vital Signs and I&O's Vital Signs: Temperature 98.0 F Pulse Rate [Apical] 88 Pulse Rate 91 Respiratory Rate 30 Blood Pressure [Left Arm] 113/55 Blood Pressure [Right Arm] 123/55 Blood Pressure 153/68 O2 Sat by Pulse Oximetry 87 Intake and Output: Intake & Output 11/24/18 11/25/18 11/26/18 11/27/18 11:59 11:59 11:59 11:59 Intake Total 3187 / 3187 4668 / 4668 2164 / 2164 600 / 600 Output Total 5100 / 5100 6300 / 6300 5750 / 5750 Balance -1913 / -1913 -1632 / -1632 -3586 / -3586 600 / 600 - Physical Exam Oriented: Normal Eyes: Normal Ear: Normal Nose: Normal Throat: Normal Respiratory: Wheezes, Rhonchi Cardiovascular: Normal : Normal Auscultation: Bowel Sounds: Normal Tenderness: Normal Skin: Normal Musculoskeletal: Normal Psychiatric: Normal Mood Description: Calm Affect: Normal Speech Pattern: Clear, Appropriate - Laboratory and Diagnostics Result Diagrams: 11/26/18 05:05 11/26/18 05:05 Labs: 11/12/18 20:37 Blood Blood Culture - Final 11/12/18 20:30 Blood Blood Culture - Final 11/11/18 23:39 Blood Blood Culture - Final Staphylococcus Hominis 11/12/18 04:45 Sputum - Expectorated Sputum Sputum Culture - Final Acinetobacter Baumanii/Haemoly 11/12/18 04:45 Sputum - Expectorated Sputum - Final Laboratory WBC 7.5 X10^3/uL (3.6-10.0) 11/26/18 05:05 RBC 2.94 X10^6/uL (3.5-5.4) L 11/26/18 05:05 Hgb 8.9 g/dL (12.0-16.0) L 11/26/18 05:05 Hct 25.9 % (36.0-47.0) L 11/26/18 05:05 MCV 87.9 fL (80.0-100.0) 11/26/18 05:05 MCH 30.4 pg (27.0-34.0) 11/26/18 05:05 MCHC 34.5 g/dL (33.0-35.0) 11/26/18 05:05 RDW 14.2 % (11.6-16.5) 11/26/18 05:05 Plt Count 125 X10^3/uL (150.0-450.0) L 11/26/18 05:05 Plt Count Comment Adequate (ADEQUATE) 11/20/18 04:06 MPV 10.0 fL (7.4-11.0) 11/26/18 05:05 Neut % (Auto) 72.1 % (42.0-75.0) 11/26/18 05:05 Lymph % (Auto) 13.4 % (21.0-51.0) L 11/26/18 05:05 [place] % (Auto) 11.6 % (0.0-13.0) 11/26/18 05:05 Eos % (Auto) 2.6 % (0.9-2.9) 11/26/18 05:05 Baso % (Auto) 0.3 % (0.2-1.0) 11/26/18 05:05 Neut # (Auto) 5.4 x10^3/uL (2.2-4.8) H 11/26/18 05:05 Lymph # (Auto) 1.0 X10^3/uL (1.3-2.9) L 11/26/18 05:05 [place] # (Auto) 0.9 x10^3/uL (0.3-0.8) H 11/26/18 05:05 Eos # (Auto) 0.2 x10^3/uL (0.0-0.2) 11/26/18 05:05 Baso # (Auto) 0.0 X10^3/uL (0.0-0.1) 11/26/18 05:05 Absolute Nucleated RBC 0.0 /100WBC 11/26/18 05:05 Total Counted 100 11/20/18 04:06 Neutrophils % (Manual) 95 % (39-76) H 11/20/18 04:06 Band Neutrophils % 1 % (0-10) 11/20/18 04:06 Lymphocytes % (Manual) 3 % (13-43) L 11/20/18 04:06 Monocytes % (Manual) 1 % (4-9) L 11/20/18 04:06 Plt Morphology Comment Normal (NORMAL) 11/20/18 04:06 RBC Morphology Normal (NORMAL) 11/20/18 04:06 Hypochromasia Slight A 11/12/18 20:30 INR Target Range - 11/11/18 21:55 INR 1.05 (0.8-1.3) 11/11/18 21:55 APTT 23.9 SECONDS (22.9-36.5) 11/11/18 21:55 PTT Comment - 11/11/18 21:55 D-Dimer 724 ng/mL (0-400) H* 11/11/18 21:55 Sample Site Rbr 11/23/18 09:08 ABG pH 7.470 (7.35-7.45) H 11/23/18 09:08 ABG pCO2 67.0 mmHg (35.0-45.0) H* 11/23/18 09:08 ABG pO2 63.0 mmHg (80.0-100.0) L 11/23/18 09:08 ABG HCO3 48.8 mmol/L (22-26) H* 11/23/18 09:08 ABG O2 Saturation 93.0 % (90-100) 11/23/18 09:08 ABG Base Excess 21.3 mmol/L (-2.0-2.0) H 11/23/18 09:08 Dony Test Na 11/23/18 09:08 A-a Gradient 138.0 mmHg 11/23/18 09:08 FiO2 40.0 11/23/18 09:08 Blood Gas Comments Josefina well cn 11/23/18 09:08 Sodium 143 mmol/L (136-145) 11/26/18 05:05 Corrected Sodium TNP 11/26/18 05:05 Potassium 4.0 mmol/L (3.5-5.1) 11/26/18 05:05 Chloride 103 mmol/L (98-107) 11/26/18 05:05 Carbon Dioxide 37.7 mmol/L (21-32) H 11/26/18 05:05 BUN 7 mg/dL (7-18) 11/26/18 05:05 Creatinine 0.40 mg/dL (0.55-1.02) L 11/26/18 05:05 Est GFR (MDRD) Af Amer > 60 (>60) 11/26/18 05:05 Est GFR (MDRD) Non-Af > 60 (>60) 11/26/18 05:05 Glucose 94 mg/dL (65-99) 11/26/18 05:05 Lactic Acid 0.6 mmol/L (0.4-2.0) 11/12/18 00:00 Calcium 9.3 mg/dL (8.5-10.1) 11/26/18 05:05 Corrected Calcium 10.1 mg/dL (8.5-10.1) 11/26/18 05:05 Magnesium 1.7 mg/dL (1.7-2.9) 11/22/18 05:31 Total Bilirubin 0.40 mg/dL (0.2-1.0) 11/26/18 05:05 AST 23 Units/L (15-37) 11/26/18 05:05 ALT 28 Units/L (12-78) 11/26/18 05:05 Alkaline Phosphatase 38 Units/L (46-116) L 11/26/18 05:05 Creatine Kinase 117 Units/L (26-192) 11/12/18 05:45 CK-MB (CK-2) 3.5 ng/mL (0-4.0) 11/12/18 05:45 CK/CKMB % Calc 3.0 % (<4) 11/12/18 05:45 Troponin I 0.36 ng/mL (0-1.5) 11/12/18 05:45 B-Natriuretic Peptide 184 pg/mL (0-79) H 11/11/18 21:55 Total Protein 5.3 g/dL (6.4-8.2) L 11/26/18 05:05 Albumin 3.0 g/dL (3.4-5.0) L 11/26/18 05:05 Globulin 2.3 g/dL (2.5-4.5) L 11/26/18 05:05 Albumin/Globulin Ratio 1.3 Ratio (1.1-2.1) 11/26/18 05:05 Specimen Type Catherized urine 11/21/18 22:30 Urine Color Straw (YELLOW) 11/21/18 22:30 Urine Appearance Clear (CLEAR) 11/21/18 22:30 Urine pH 8.0 (5.0 - 8.0) 11/21/18 22:30 Ur Specific [place] 1.010 (1.000-1.030) 11/21/18 22:30 Urine Protein Negative (NEGATIVE) 11/21/18 22:30 Urine Glucose (UA) Negative (NEGATIVE) 11/21/18 22:30 Urine Ketones Negative (NEGATIVE) 11/21/18 22:30 Urine Occult Blood 1+ (NEGATIVE) 11/21/18 22:30 Urine Nitrite Negative (NEGATIVE) 11/21/18 22:30 Urine Bilirubin Negative (NEGATIVE) 11/21/18 22:30 Urine Urobilinogen Normal (NORMAL) 11/21/18 22:30 Ur Leukocyte Esterase 2+ (NEGATIVE) 11/21/18 22:30 Urine RBC 0-2 /HPF (NONE SEEN) 11/21/18 22:30 Urine WBC 3-5 /HPF (NONE SEEN) 11/21/18 22:30 Ur Squamous Epith Cells Rare /HPF (NEGATIVE) 11/21/18 22:30 Amorphous Sediment 2+ /HPF (NEGATIVE) 11/11/18 21:30 Urine Bacteria Trace /HPF (NEGATIVE) 11/21/18 22:30 Urine Yeast Few /HPF (NEGATIVE) 11/21/18 22:30 Ur Culture Indicated? No/not indicated 11/21/18 22:30
[2018-11-26] MEDS: COLACE CAP 100 MG PO SCH (21:13)
[2018-11-26] MEDS: KLONOPIN TAB 0.5 MG PO SCH (21:14)
[2018-11-26] MEDS: TobraDEX OPHTH OPHTH 1 DOSE RIGHTEYE PRN (21:16)
[2018-11-26] MEDS: ROBITUSSIN DM PO PRN (21:16)
[2018-11-27] MEDS: DUONEB 0.5 MG/3 MG NEB SCH ×5 (00:33→16:25)
[2018-11-27] MEDS: FORTAZ or TAZICEF VIAL INJ IVP SCH ×2 (05:00→15:15)
[2018-11-27 05:06] LABS: BASOPHILS % (AUTO) 0.6 % (0.2-1.0); EOSINOPHILS # (AUTO) 0.2 x10^3/uL (0.0-0.2); EOSINOPHILS % (AUTO) 2.4 % (0.9-2.9); HEMOGLOBIN 8.8 g/dL (12.0-16.0); LYMPHOCYTES % (AUTO) 16.1 % (21.0-51.0); MEAN CORPUSCULAR HEMOGLOBIN 30.1 pg (27.0-34.0); MEAN CORPUSCULAR VOLUME 88.5 fL (80.0-100.0); MEAN PLATELET VOLUME 9.7 fL (7.4-11.0); MONOCYTES # (AUTO) 0.7 x10^3/uL (0.3-0.8); MONOCYTES % (AUTO) 11.1 % (0.0-13.0); NEUTROPHILS # (AUTO) 4.4 x10^3/uL (2.2-4.8); NEUTROPHILS % (AUTO) 69.8 % (42.0-75.0); PLATELET COUNT 133 X10^3/uL (150.0-450.0); RED BLOOD COUNT 2.94 X10^6/uL (3.5-5.4); RED CELL DISTRIBUTION WIDTH 14.4 % (11.6-16.5); WHITE BLOOD COUNT 6.4 X10^3/uL (3.6-10.0)
[2018-11-27 05:22] LABS: ALANINE AMINOTRANSFERASE 34 Units/L (12-78); ALBUMIN 3.2 g/dL (3.4-5.0); ALKALINE PHOSPHATASE 40 Units/L (46-116); ASPARTATE AMINO TRANSFERASE 29 Units/L (15-37); BLOOD UREA NITROGEN 8 mg/dL (7-18); CALCIUM 9.4 mg/dL (8.5-10.1); CARBON DIOXIDE 33.9 mmol/L (21-32); CHLORIDE 105 mmol/L (98-107); SODIUM 144 mmol/L (136-145); TOTAL PROTEIN 5.7 g/dL (6.4-8.2); eGFR NON BLACK RACES > 60 (>60)
--- NOTE | 2018-11-27 06:22 | RAD ---
History: Shortness of breath Study: Portable upright AP chest Comparison: Yesterday Findings: The lungs are overall hyperinflated. There is improvement in blunting of the costophrenic angles. The heart is mildly enlarged. There is an unchanged right subclavian venous line. There is no pneumothorax. Impression: Small bilateral pleural effusions slightly improved. No recurrent pneumothorax. Probable COPD. Reported By:
[2018-11-27] MEDS: NS 1000 ML 1,000 ML IV SCH ×2 (06:43→15:16)
[2018-11-27] MEDS: PULMICORT NEB TX 0.5 MG NEB SCH (08:25)
[2018-11-27] MEDS: VIBRAMYCIN 100 MG in D5W 250 ML IV 250 ML IV SCH (08:54)
[2018-11-27] MEDS: UNIPHYL TAB 400 MG PO SCH (08:55)
[2018-11-27] MEDS: XANAX PO PRN (08:55)
[2018-11-27] MEDS: ALBUMIN HUMAN 25%- 100 ML 100 ML IV SCH (08:55)
[2018-11-27] MEDS: LOVENOX INJ 40 MG SYR SC SCH (08:56)
[2018-11-27] MEDS: MAGIC MOUTHWASH MT SCH ×2 (09:05→15:14)
[2018-11-27] MEDS: DIFLUCAN 200 MG IV PREMIX* 200 MG/100 ML BAG IV SCH (09:05)
[2018-11-27 15:16] VITALS: BP 173/73
== END 2018-11-27 15:50 | disposition hospice, home (50) | DRG 208 ==
LOC: ER 21:14 → ICU 11-12 03:33
PROVIDERS: ADMIT Internal Medicine; ATTEND Internal Medicine
DX: J44.1 Chronic obstructive pulmonary disease with (acute) exacerbation; J96.21 Acute and chronic respiratory failure with hypoxia; I10 Essential (primary) hypertension; Z66 Do not resuscitate; J15.6 Pneumonia due to other Gram-negative bacteria; J93.83 Other pneumothorax; B96.89 Other specified bacterial agents as the cause of diseases classified elsewhere; R60.0 Localized edema; E78.2 Mixed hyperlipidemia; R26.89 Other abnormalities of gait and mobility; I87.2 Venous insufficiency (chronic) (peripheral); F41.8 Other specified anxiety disorders; J96.22 Acute and chronic respiratory failure with hypercapnia; B37.89 Other sites of candidiasis; A41.1 Sepsis due to other specified staphylococcus
CPT/HCPCS: 36415; 36600; 51702; 71010; 71045; 80053; 81001; 82550; 82553; 82803; 83605; 83735; 83880; 84132; 84484; 85025; 85378; 85610; 85730; 87040; 87070; 87077; 87186; 87205; 93005; 94002; 94003; 94640; 94660; 96365; 96367; 96374; 96375; 97163; 99285; A4216; A4217; A4222; A4618; A7030; B5200; P9047; J0330; J0696; J0713; J1265; J1450; J1650; J1940; J1956; J2250; J2270; J2405; J2704; J2920; J3475; J3490; J7030; J7050; J7060; J7613; J7620; J7626